=== PATIENT | female | born 1945 | race African-American/Black ===

== ENCOUNTER 2016-11-25 11:59 | Inpatient (IN) | payer MEDICARE, OTHER ==
[~2016-11-25] VITALS: Ht 157.5 cm; Wt 88.6 kg
[~2016-11-25 11:59] MED LIST: ACET-1574 PO; ACET-704 PO; ACET1TAB33 PO; AMIT10TA PO; AMLO5TAB2 PO; AMLO5TAB4 PO; ASCO500T2 PO; CA C1TAB28 PO; CARV12.5 PO; CHOL10003 PO; CILO100T21 PO; CLON1PAT TD; CLON1PAT11 TD; CLOP75TA57 PO; CYCL1DRO EACHEYE; CYCL1DRO OP; DIPH25TA26 PO; DOCU-109 PO; FAMO20TA5 PO; FLUT16SP NS; FURO-68 PO; GABA-585 PO; GLUC1KIT IJ; GLUC1VIA3 IJ; HYDR-2869 PO; IBUP-1060 PO; INSU100C SQ; INSU100I11 SQ; INSU100I18 SQ; INSU100V13 SQ; INSU100V31 SQ; IRON150C15 PO; ISOS1TAB2 PO; ISOS30TA4 PO; KETO125C TP; LEVO500T59 PO; LIDO1KIT TP; LIDO2AMP IT; LOPE2TAB27 PO; LOPE2TAB56 PO; LORA0.5T96 PO; MULT-208 PO; MULT-91 PO; NYST100054 PO; OXYC1TAB7 PO; POTA20TA82 PO; QUET25TA PO; RAMI10CA34 PO; RANI150C PO; RANI150T2 PO; RIVA10TA PO; SENN8.6C2 PO; VIT500LI PO; ZOLP5TAB5 PO; [UNRECOGNIZED DRUG - CODE] IV; [UNRECOGNIZED DRUG - CODE] PO
[2016-11-25 12:17] LABS: BASO # 0.1 x10^3/uL (0.0-0.2); BASO % 1 % (0-3); EOS % 6 % (0-3); HEMATOCRIT 37.3 % (36.0-47.0); HEMOGLOBIN 12.1 g/dL (12.0-15.5); LYMPH # 1.1 x10^3/uL (1.0-4.8); LYMPH % 11 % (24-48); MEAN CORPUSCULAR HEMOGLOBIN 31 pg (25-35); MEAN CORPUSCULAR HGB CONC 33 g/dL (31-37); MEAN CORPUSCULAR VOLUME 94 fL (79-100); MONO % 14 % (0-9); NEUT % 69 % (31-73); PLATELET COUNT 130 x10^3/uL (140-400); RED BLOOD COUNT 3.97 x10^6/uL (3.50-5.40); WHITE BLOOD COUNT 10.1 x10^3/uL (4.0-11.0)
--- NOTE | 2016-11-25 12:18 | EKG ---
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
[2016-11-25 12:26] LABS: PROTHROMBIN TIME PATIENT 12.5 SEC (11.7-14.0)
--- NOTE | 2016-11-25 12:26 | RAD ---
EXAM: Chest, single view. HISTORY: Decreased level consciousness. COMPARISON: 12/08/2014. FINDINGS: A frontal view of the chest is obtained. There is no infiltrate, effusion or pneumothorax. The heart is normal in size. IMPRESSION: No acute pulmonary finding.
[2016-11-25 12:30] LABS: ALBUMIN 2.7 g/dL (3.4-5.0); ALBUMIN/GLOBULIN RATIO 0.8 (1.0-1.7); CREATININE 3.3 mg/dL (0.6-1.0); GFR 16.6; TOTAL BILIRUBIN 0.5 mg/dL (0.2-1.0); TOTAL PROTEIN 6.1 g/dL (6.4-8.2)
--- NOTE | 2016-11-25 12:31 | PHYS DOC ---
Past Medical History Past Medical History: Anemia, CHF, Constipation, CVA, Depression, Diabetes- Type II, Hypertension, Renal Failure, Other Additional Past Medical Histor: neuropathy, obesity, PVD Past Surgical History: Cholecystectomy, Additional Past Surgical Histo: UNKNOWN Alcohol Use: None Drug Use: None Adult General Chief Complaint Chief Complaint: decreased LOC HPI HPI Patient is a 71 year old female brought from [facility] by EMS with multiple complaints. Evidently nursing report was called with the problem of vomiting. EMS reports that they found the patient with decreased level of consciousness,, low blood pressure 60/30, low blood sugar in the 30s. They gave the patient Narcan and her respiratory rate and level of consciousness improved significantly. They gave her D50 and repeat Accu-Chek was in the 200s. On arrival, the patient has her eyes closed but does respond to voice. The patient denies any complaints. I don't believe her history is entirely reliable, but she is answering questions and stated "I believe I'm at [place]". Patient is a resident at [facility]. Patient does not know who her doctor is. Review of Systems Review of Systems Review of systems is not reliable because of the patient's altered level of consciousness Current Medications Current Medications Current Medications Medications (Trade) Dose Ordered Sig/Erick Start Time Stop Time Status Last Admin Dose Admin Potassium Chloride (KCl Oral Soln) 40 meq 1X ONCE 11/25/16 12:45 11/25/16 12:46 DC Allergies Allergies Allergies Coded Allergies Type Severity Reaction Last Updated Verified ampicillin Allergy Intermediate 12/07/14 Yes fentanyl Allergy Intermediate 12/07/14 Yes Physical Exam Physical Exam Constitutional: Well developed, well nourished, eyes are closed and the patient appears to be asleep but the patient does respond verbally to verbal stimuli HENT: Normocephalic, atraumatic, bilateral external ears normal, oropharynx somewhat dry, nose normal. [] Eyes: conjunctiva normal, no discharge. [] Neck: Normal range of motion, no stridor. [] Cardiovascular:Heart rate regular rhythm, no murmur [] Lungs & Thorax: Bilateral breath sounds clear to auscultation [] Abdomen: Bowel sounds normal, soft, no tenderness, no masses, no pulsatile masses. [] Skin: Warm, dry, no erythema, no rash. [] Extremities: No tenderness, no cyanosis, no clubbing, ROM intact, no edema. [] Neurologic: Level of consciousness as described above,, normal motor function, normal sensory function, no focal deficits noted. [] Current Patient Data Vital Signs Vital Signs Date Time Temp Pulse Resp B/P (MAP) Pulse Ox O2 Delivery O2 Flow Rate FiO2 11/25/16 11:59 98.0 75 20 193/78 (116) 97 Room Air 98.0 Lab Values Laboratory Tests Test 11/25/16 12:06 11/25/16 12:30 White Blood Count 10.1 x10^3/uL (4.0-11.0) Red Blood Count 3.97 x10^6/uL (3.50-5.40) Hemoglobin 12.1 g/dL (12.0-15.5) Hematocrit 37.3 % (36.0-47.0) Mean Corpuscular Volume 94 fL (79-100) Mean Corpuscular Hemoglobin 31 pg (25-35) Mean Corpuscular Hemoglobin Concent 33 g/dL (31-37) Red Cell Distribution Width 17.0 % (11.5-14.5) H Platelet Count 130 x10^3/uL (140-400) L Neutrophils (%) (Auto) 69 % (31-73) Lymphocytes (%) (Auto) 11 % (24-48) L Monocytes (%) (Auto) 14 % (0-9) H Eosinophils (%) (Auto) 6 % (0-3) H Basophils (%) (Auto) 1 % (0-3) Neutrophils # (Auto) 6.9 x10^3uL (1.8-7.7) Lymphocytes # (Auto) 1.1 x10^3/uL (1.0-4.8) Monocytes # (Auto) 1.4 x10^3/uL (0.0-1.1) H Eosinophils # (Auto) 0.6 x10^3/uL (0.0-0.7) Basophils # (Auto) 0.1 x10^3/uL (0.0-0.2) Platelet Estimate Decreased (ADEQUATE) Large Platelets Few Giant Platelets Few Basophilic Stippling Present Anisocytosis Slight Schistocytes Few Prothrombin Time 12.5 SEC (11.7-14.0) Prothrombin Time INR 1.0 (0.8-1.1) PTT 26 SEC (24-38) Sodium Level 142 mmol/L (136-145) Potassium Level 2.4 mmol/L (3.5-5.1) *L Chloride Level 103 mmol/L (98-107) Carbon Dioxide Level 28 mmol/L (21-32) Anion Gap 11 (6-14) Blood Urea Nitrogen 56 mg/dL (7-20) H Creatinine 3.3 mg/dL (0.6-1.0) H Estimated GFR (Cockcroft-Gault) 16.6 BUN/Creatinine Ratio 17 (6-20) Glucose Level 153 mg/dL (70-99) H Calcium Level 8.0 mg/dL (8.5-10.1) L Total Bilirubin 0.5 mg/dL (0.2-1.0) Aspartate Amino Transferase (AST) 74 U/L (15-37) H Alanine Aminotransferase (ALT) 30 U/L (14-59) Alkaline Phosphatase 121 U/L (46-116) H Total Protein 6.1 g/dL (6.4-8.2) L Albumin 2.7 g/dL (3.4-5.0) L Albumin/Globulin Ratio 0.8 (1.0-1.7) L Lactic Acid Level 2.4 mmol/L (0.4-2.0) H Laboratory Tests 11/25/16 12:06 Laboratory Tests 11/25/16 12:06 EKG EKG 12-lead EKG read by me. Sinus rhythm. Heart rate 85. There are no acute ST or T wave changes indicative of ischemia or infarction. No rhythm disturbance. No STEMI. 1213 [] Radiology/Procedures Radiology/Procedures One view portable chest x-ray read by the radiologist. No acute findings. [] Course & Med Decision Making Course & Med Decision Making Pertinent Labs and Imaging studies reviewed. (See chart for details) long-term records reviewed. The patient is on Levemir 14 units daily and also NovoLog 3 units 3 times a day. She is also on oxycodone daily. 71-year-old female brought by EMS from the senior living with decreased level of consciousness, on scene EMS found hypoglycemia which they treated, they gave her Narcan which improved her level of consciousness, also her blood pressure was low that because of a history of congestive heart failure they not give any fluids and her blood pressure was improved on ED arrival, likely because of the Narcan. In the ED, she remained stable and did not require further Narcan. About an hour later her repeat Accu-Chek was 99. Labs significant for hypokalemia, increased BUN/creatinine from her previous baseline. I suspect the patient has had too much oxycodone over the last day or so, resulting in decreased by mouth intake which has caused her to have hypoglycemia and dehydration causing acute kidney injury. I started her on D5 half normal with 40 of potassium. She does have a history of CHF so we will not bolus her at this time. Her lactic acid was slightly elevated but may be due to hypotension from opiates. At the time of admission, her urinalysis is pending. Chest x-ray is clear. I do not see any other evidence of infection on clinical evaluation. I discussed the case with Dr. Marks who will admit the patient. I wrote bridge orders. [] Dragon Disclaimer Dragon Disclaimer This electronic medical record was generated, in whole or in part, using a voice recognition dictation system. Departure Departure Impression: Primary Impression: Hypoglycemia associated with type 2 diabetes mellitus Additional Impressions: Hypokalemia Altered level of consciousness Opiate overdose Acute kidney injury Disposition: ADMITTED INPATIENT Admitting Physician: Lauren Marks Condition: STABLE Referrals: JULEE SALAZAR MD (PCP) Problem Qualifiers BAILEY VICTORIA MD November 25, 2016 12:31
[2016-11-25 12:32] LABS: POTASSIUM 2.4 mmol/L (3.5-5.1)
[2016-11-25] MEDS ORDERED: POTASSIUM CHLORIDE 20 MEQ/15 ML ORAL LIQUID. PO ONE (12:45)
[2016-11-25 13:08] LABS: ANISOCYTOSIS SLIGHT; PLT ESTIMATE DECREASED (ADEQUATE)
[2016-11-25 13:09] LABS: SCHISTOCYTES FEW
[2016-11-25] MEDS ORDERED: POTASSIUM CL 40MEQ D5-0.45NACL 1,000 ML IV ONE (13:30)
[2016-11-25 13:49] LABS: BILIRUBIN,URINE NEGATIVE (NEG); GLUCOSE,URINE NEGATIVE (NEG); NITRITE,URINE NEGATIVE (NEG); PROTEIN,URINE NEGATIVE (NEG-TRACE); UROBILINOGEN,URINE 0.2 mg/dL (0.2 mg/dL)
[2016-11-25 14:00] LABS: BACTERIA,URINE MANY /HPF (0-FEW); RBC,URINE 0 /HPF (0-2); SQUAMOUS EPITHELIAL CELL,UR FEW /LPF
[2016-11-25 15:00] VITALS: BP_SYST 113; BP_SYST 147; BP_DIAS 53; BP_DIAS 78
--- NOTE | 2016-11-25 15:20 | ACF ---
Admission Forms Criteria GENERAL ADMISSION CRITERIA (Place 'X' for any and all applicable criteria): Admission is indicated for ANY ONE of the following: [ ]I. Hemodynamic instability as indicated by ANY ONE of the following(1)(2) (3)(4)(5): [ ]a) Vital sign abnormality not readily corrected by appropriate treatment within 12 to 24 hours indicated by ANY ONE of the following: [ ]i) Hypotension [ ]ii) Symptomatic Tachycardia unresponsive to treatment (eg , analgesia, fluids, sedation as indicated) [ ]iii) Orthostatic vital sign changes unresponsive to treatment (eg, fluids) [ ]b) Vital sign abnormality that is severe indicated by ANY ONE of the following: [ ]i) Inadequate perfusion indicated by ANY ONE of the following: [ ]1) Lactic acidosis (greater than 2 mmol/L) [ ]2) New abnormal capillary refill (greater than 3 seconds) [ ]3) Other metabolic acidosis (arterial pH less than 7.35) not otherwise explained [ ]4) Reduced urine output [ ]5) Altered mental status [ ]6) Myocardial Ischemia [ ]v) Mean arterial pressure[A] less than 60 mm Hg [ ]vi) Mean arterial pressure[A] less than 70 mm Hg after 30 minutes of appropriate treatment (eg, fluid resuscitation) [ ]vii) IV inotropic or vasopressor medication required to maintain adequate blood pressure or perfusion [ ]viii) Sustained heart rate greater than 120 beats per minute in adult or child 6 years or older[B]] [ ]II. Hypertension requiring inpatient treatment as indicated by ANY ONE of the following(6)(7)(8): [ ]a) SBP greater than 220 mm Hg or DBP greater than 120 mm Hg despite treatment [ ]b) SBP greater than 140 mm Hg or DBP greater than 100 mm Hg with evidence of acute end organ damage as indicated by ANY ONE of the following: [ ]i) Encephalopathy [ ]ii) Acute renal failure as indicated by new onset of ANY ONE of the following(9)(10)(11)(12)(13): [ ]1) A 3-fold rise in serum creatinine from baseline [ ]2) Serum creatinine greater than 4 mg/dL ( 354 micromoles/L) with acute rise greater than 0.5 mg/dL (44.2 micromoles/L) [ ]3) Reduction of more than 75% in estimated glomerular filtration rate from baseline [ ]4) Estimated glomerular filtration rate less than 35 mL/min/1.73m2 (0.59 mL/sec/1.73m2) in child up to 18 years of age [ ]5) Cessation of urine output indicated by ALL of the following: [ ]A. Adequate volume status [ ]B. Inadequate urine output as indicated by ANY ONE of the following: [ ]a. Urine output less than 0.3 mL/kg/hr for 24 hours [ ]b. Anuria (urine output less than 0.1 mL/kg/hr) for 12 hours [ ]iii) Aortic dissection [ ]iv) Myocardial ischemia [ ]v) Left ventricular heart failure [ ]vi) Retinal hemorrhage [ ]vii) Other significant finding [ ]c) Hypertension in child requiring inpatient treatment as indicated by ALL of the following(14)(15)(16): [ ]i) Outpatient treatment not effective, not available, or not appropriate [ ]ii) SBP or DBP greater than 95th percentile for age [ ]iii) Evidence of acute end organ damage as indicated by ANY ONE of the following: [ ]1) Altered mental status [ ]2) Acute renal failure as indicated by new onset of ANY ONE of the following(9)(10)(11)(12)(13): [ ]A. A 3-fold rise in serum creatinine from baseline [ ]B. Serum creatinine greater than 4 mg/dL (354 micromoles/L) with acute rise greater than 0.5 mg/dL (44.2 micromoles/L) [ ]C. Reduction of more than 75% in estimated glomerular filtration rate from baseline [ ]D. Estimated glomerular filtration rate less than 35 mL/min/1.73m2 (0.59 mL/sec/1.73m2)in child up to 18 years of age [ ]E. Cessation of urine output indicated by ALL of the following: [ ]a. Adequate volume status [ ]b. Inadequate urine output as indicated by ANY ONE of the following: [ ]1) Urine output less than 0.3 mL/kg/hr for 24 hours [ ]2) Anuria (urine output less than 0.1 mL/kg/hr) for 12 hours [ ]3) Severe headache [ ]4) Visual disturbance [ ]5) Retinal hemorrhage [ ]6) Other significant finding [ ]III. Acute cardiac or peripheral ischemia as indicated by ANY ONE of the following: [ ]a) Acute coronary syndrome(17)(18) [ ]b) Acute peripheral ischemia (eg, pulseless, cool, mottled, or cyanotic extremity)(19) [ ]IV. Cardiac arrhythmias or findings of immediate concern indicated by ANY ONE of the following(20)(21): [ ]a) Heart rhythms that are inherently dangerous or unstable indicated by ANY ONE of the following(22)(23)(24): [ ]i) Resuscitated ventricular fibrillation or cardiac arrest [ ]ii) Ventricular escape rhythm [ ]iii) Sustained ventricular tachycardia (30 seconds or more of ventricular rhythm at greater than 100 beats per minute) [ ]iv) Nonsustained ventricular tachycardia and ANY ONE of the following: [ ]1) Suspected cardiac ischemia as cause or consequence of ventricular tachycardia [ ]2) In setting of acute myocarditis [ ]b) Unstable cardiac conduction defects indicated by ANY ONE of the following(24)(25)(26): [ ]i) Type II second-degree atrioventricular block [ ]ii) Third-degree atrioventricular block [ ]iii) New-onset left bundle branch block with suspected myocardial ischemia [ ]c) Any heart rhythm and ANY ONE of the following(22)(23)(27)(28)( 29): [ ] i) Continuous long-term ECG monitoring needed (eg, initiation of drug requiring monitoring for more than 24 hours) [ ] ii) Patient has automatic implanted cardioverter defibrillator that is repeatedly firing, malfunctioning, or in need of immediate adjustment of settings beyond the scope of ambulatory or observation care. [ ]d) Heart rhythms of concern due to ANY ONE of the following: [ ]i) Hypotension [ ]ii) Respiratory distress [ ]iii) Association with other significant symptoms (eg, bradycardia with syncope or ongoing dizziness, supraventricular tachycardia with chest pain) (27)(28) (30) [ ] V. Severe heart failure as indicated by ANY ONE of the following ( 31)(32): [ ]a) Respiratory distress [ ]b) Hypotension [ ]c) Anasarca (refractory to outpatient therapy) [ ]d) Cardiac arrhythmias of immediate concern [ ]e) Myocardial ischemia [ ]. Respiratory abnormalities, including ANY ONE of the following(33)(34) (35)(36): [ ]a) Respiratory rate greater than 30 breaths per minute unresponsive to treatment [A] [ ]b) New saturation of arterial oxygen less than 90% [ ]c) New partial pressure of carbon dioxide greater than 44 mm Hg ( 5.9 kPa) [ ]d) Supplemental oxygen or respiratory treatments needed that are new or not performable at other levels of care [ ]e) New-onset cyanosis [ ]f) Inability to protect airway [ ]g) Chronic lung disease with severe deterioration (not responsive to emergency and observation care treatment as appropriate) as indicated by ANY ONE of the following(34)(36 ): [ ]i) SaO2 5% below baseline in patient with chronic hypoxemia [ ]ii) New requirement for supplemental oxygen to keep SaO2 at baseline or acceptable level [ ]iii) Required supplemental oxygen performable only in acute inpatient setting [ ]iv) Severe airflow or ventilation abnormalities [ ]v) Previously mobile patient unable to walk between rooms [ ]vi Inability to eat or sleep due to dyspnea [ ]vii) Rapid rate of exacerbation onset [ ]viii) Altered mental status ]VII. Severe airflow or ventilation abnormalities (not responsive to emergency and observation care treatment as appropriate) as indicated by ANY ONE of the following(33)(34)(35)(37): [ ]a) PCO2 greater than 42 mm Hg (5.6 kPa) and pH less than 7.35 (new ) [ ]b) Documented PCO2 increased more than 5 mm Hg (0.7 kPa) from disease baseline [ ]c) Airflow measurements [B] less than 60% of previous best or predicted (eg, peak expiratory flow rate less than 300 L/minute) despite intensive emergent treatment [C] [ ]d) Required respiratory treatments that are performable only in acute inpatient setting [ ]VIII. Impending or actual respiratory arrest ( Also use Respiratory Failure GRG for severe respiratory disease and long-term mechanical ventilation patients) [ ]IX. Neurologic abnormalities, including ANY ONE of the following: [ ]a) New findings that suggest ANY ONE of the following: [ ]i) [employer] infection(38) [ ]ii) Cerebral bleeding, ischemia, or vasospasm(39)(40) [ ]iii) Increased intracranial pressure, hydrocephalus, or cerebral edema(41)(42)(43) [ ]iv) Spinal cord injury(44) [ ]b) Uncontrolled seizures(45) [ ]c) New-onset coma (eg, Merissa coma scale score less than 9) or unexplained abnormal mental status (eg, Merissa coma scale score less than 14) [D](41)(46)(47) [ ]X. New-onset severe neurologic findings requiring inpatient care; examples include(42)(48)(49): [ ]a) Papilledema [ ]b) Cerebral edema [ ]c) Mass effect on CT scan [ ]XI. Suspected acute intra-abdominal process with peritoneal signs, abdominal mass, or similar findings (50)(51)(52) [X]XII. Severe physiologic disorder remaining after emergency or observation level care (as appropriate) as indicated by ANY ONE of the following (53): [ ]a) Significant dehydration [ ]b) Diabetic ketoacidosis [ ]c) Hyperglycemic hyperosmolar state (eg, osmolality greater than 320 mOsm/kg (mmol/kg) [X]d) Hypoglycemia [ ]e) Other (new) acid-base disorder with pH less than 7.35 or greater than 7.5(54) [ ]f) Thyroid storm (55) [ ]g) Myxedema coma (55) [ ]XIII. Abdominal abnormalities with ANY ONE of the following(56)(57): [ ]a) Absent bowel sounds with complete ileus [ ]b) Signs of intestinal obstruction or peritonitis [E] [ ]c) Nausea and vomiting that cannot be controlled with outpatient or observation care [ ]XIV. Acute renal failure as indicated by new onset of ANY ONE of the following(9)(10)(11)(12)(13): [ ]a) A 3-fold rise in serum creatinine from baseline [ ]b) Serum creatinine greater than 4 mg/dL (354 micromoles/L) with acute rise greater than 0.5 mg/dL (44.2 micromoles/L) [ ]c) Reduction of more than 75% in estimated glomerular filtration rate from baseline [ ]d) Estimated glomerular filtration rate less than 35 mL/min/ 1.73m2 (0.59 mL/sec/1.73m2) in child up to 18 years of age [ ]e) Cessation of urine output indicated by ALL of the following: [ ]i) Adequate volume status [ ]ii) Inadequate urine output as indicated by ANY ONE of the following: [ ]1) Urine output less than 0.3 mL/kg/hr for 24 hours [ ]2) Anuria (urine output less than 0.1 mL/kg/hr) for 12 hours [ ]XV. Significant uremic complications as indicated by ANY ONE of the following(58)(59)(60): [ ]a) Outpatient therapy is ineffective or not feasible for ANY ONE of the following: [ ]i) Severe heart failure [ ]ii) Severehypertension [ ]iii) Pleural effusion [ ]iv) Pericarditis or pericardial effusion [ ]b) Cardiac arrhythmias of immediate concern [ ]c) Intractable nausea or vomiting [ ]d) Recurrent seizures [ ]e) Encephalopathy [ ]f) Bleeding abnormalities (eg, platelet dysfunction) with active (eg, gastrointestinal) bleeding [ ]g) Dialysis indicated before long-term access or ambulatory arrangements can be made [ ]h) Significant metabolic or electrolyte abnormalities (eg, severe acidosis or hyperkalemia) [ ]XVI. High fever or other high-risk infection situation as indicated by ANY ONE of the following(61)(62)(63)(64): [ ]a) Outpatient and observation care antimicrobial treatment unavailable, not effective, or not appropriate [ ]b) Documented bacteremia [ ]c) Temperature greater than 40.5 degrees C (104.9 degrees F) ( oral) [ ]d) Temperature greater than 39.5 degrees C (103.1 degrees F) ( oral) or less than 36 degrees C (96.8 degrees F) (rectal) that does not respond to e treatment and observation care [ ] XVII. Temperature less than 95 degrees F (35 degrees C)(rectal)(65) [ ] XVIII. Severe nutritional abnormalities as indicated by ALL of the following (66)(67): [ ]a) Inability to tolerate or establish sufficient oral or other enteral nutrition in outpatient setting [ ]b) Parenteral nutrition regimen need that must be implemented on inpatient basis [ ] XIX. Severe electrolyte abnormalities indicated by ALL of the following(68) (69)(70): [ ]a) Electrolytes and associated findings are not as expected for patient baseline or acceptable treatment effects. [ ]b) Severe abnormalities indicated by ANY ONE of the following: [ ]i) Sodium less than 130 mEq/L (mmol/L) (new) [ ]ii)Sodium less than 135 mEq/L (mmol/L) with ANY ONE of the following: [ ]1) Uncorrectable (to near normal or chronic baseline) after trial of outpatient and emergency treatment [ ]2) Altered mental status [ ]3) Seizures [ ]4) Severe medical etiology requiring inpatient management (eg, heart failure, hypovolemia) [ ]iii) Sodium greater than 155 mEq/L (mmol/L) [ ]iv) Sodium greater than 150 mEq/L (mmol/L) with ANY ONE of the following: [ ]1) Uncorrectable (to near normal or chronic baseline) with outpatient and emergency treatment [ ]2) Altered mental status [ ]3) Seizures [ ]4) Severe medical etiology (eg, hypovolemia, diabetes insipidus) [ ]v) Potassium less than 2.5 mEq/L (mmol/L) despite outpatient and emergency treatment [ ]vi) Potassium less than 3 mEq/L (mmol/L) with ANY ONE of the following: [ ]1) Weakness [ ]2) Cardiac abnormality (eg, arrhythmia, conduction disturbance) [ ]3) Cardiac ischemia [ ]4) Ileus [ ]5) Ongoing medical cause requiring inpatient management (eg, acute renal wasting or SIADH) [ ]6) Other severe symptoms [ ]vii) Potassium greater than 6.5 mEq/L (mmol/L) [ ]viii) Potassium greater than 5 mEq/L (mmol/L) with ANY ONE of the following: [ ]1) Uncorrectable (to near normal or chronic baseline) with outpatient and emergency treatment [ ]2) Severe ECG findings [F] [ ]3) Acute worsening of renal failure (creatinine greater than 2.5 mg/dL (221 micromoles/L) or significant elevation for age and size) [ ]4) Severe weakness [ ]5) Severe medical etiology (eg, hemolysis, infection, drug overdose) [ ]ix) Calcium less than 7 mg/dL (1.75 mmol/L) despite outpatient and emergency treatment (72) [ ]x) Calcium less than 8 mg/dL (2 mmol/L) with significant symptoms or findings; examples include(72): [ ]1) Altered mental status [ ]2) Muscle spasms [ ]3) Seizures [ ]4) Breathing difficulty [ ]5) Cardiac abnormality (eg, arrhythmia or conduction disturbance) [ ]xi) Calcium greater than 14 mg/dL (3.5 mmol/L)(72) [ ]xii) Calcium greater than 12 mg/dL (3 mmol/L) with ANY ONE of the following(72): [ ]1) Uncorrectable (to near normal or chronic baseline) with outpatient and emergency treatment [ ]2) Significant dehydration or hypovolemia as indicated by ALL of the following(70)(73)(74): [ ]A. Not resolved with initial treatments [ ]B. Clinically significant dehydration as indicated by ANY ONE of the following: [ ]a. Vomiting refractory to outpatient treatment (ie, precluding oral rehydration) [ ]b. Inability to drink [ ]c. Hypernatremia or other electrolyte abnormality unable to be corrected with outpatient and emergency treatment [ ]d. Failure to remain hydrated with outpatient therapy [ ]e. Reduced urine output [ ]f. Hypotension [ ]g. Serious cause for dehydration requiring acute hospitalization (eg, bowel obstruction, increased intracranial pressure, infectious cause) [ ]h. Child with ANY ONE of the following(75): [ ]1) Severe abdominal tenderness [ ]2) Adequate care not available at home [ ]3) Severe dehydration ( greater than 9% loss of body weight) [ ]4) Significant symptoms or findings; examples include: [ ]A. Altered mental status [ ]B. Cardiac abnormality (eg, arrhythmia, conduction disturbance) [ ]C. Malignant etiology requiring inpatient treatment [ ]xiii) Phosphorus less than 1 mg/dL (0.32 mmol/L) [ ]xiv) Phosphorus less than 1.5 mg/dL (0.48 mmol/L) with ANY ONE of the following: [ ]1) Patient unresponsive to outpatient and emergency treatment [ ]2) Significant symptoms or findings; examples include: [ ]A. Weakness [ ]B. Altered mental status [ ]C. Breathing difficulty [ ]D. Seizures [ ]E. Rhabdomyolysis [ ]xv) Phosphorus greater than 10 mg/dL (3.2 mmol/L) [ ]xvi) Phosphorus greater than 4.5 mg/dL (1.45 mmol/L) (new) with ANY ONE of the following: [ ]1) Severe medical etiology (eg, crush injury, acute renal failure) [ ]2) Associated hypocalcemia with significant findings; examples include: [ ]A. Neurologic symptoms [ ]B. Altered mental status [ ]C. Muscle spasms [ ]D. Seizures [ ]E. Breathing difficulty [ ]F. Cardiac abnormality (eg, arrhythmia, conduction disturbance) [ ]xvii) Magnesium less than 1 mg/dL (0.41 mmol/L) [ ]xviii) Magnesium less than 1.5 mg/dL (0.62 mmol/L) with ANY ONE of the following: [ ]1) Patient unresponsive to outpatient and emergency treatment [ ]2) Associated hypocalcemia with significant findings; examples include: [ ]A. Altered mental status [ ]B. Muscle spasms [ ]C. Seizures [ ]D. Breathing difficulty [ ]E. Cardiac abnormality (eg, arrhythmia , conduction disturbance) [ ]3) Associated hypokalemia (potassium less than 3 mEq/L (mmol/L)) with risk of arrhythmia [ ]xix) Magnesium greater than 4 mEq/L (2 mmol/L) [ ]xx) Magnesium greater than 2.5 mEq/L (1.25 mmol/L) with significant symptoms or findings; examples include: [ ]1) Weakness [ ]2) Altered mental status [ ]3) Cardiac abnormality (eg, arrhythmia, conduction disturbance) [ ]4) Breathing difficulty [ ]5) Severe medical etiology (eg, renal failure, hypovolemia) [ ]xxi) Uric acid greater than 20 mg/dL (1190 micromoles/L)(76) [ ]xxii) Uric acid greater than 8 mg/dL (476 micromoles/L) with significant symptoms or findings of tumor lysis syndrome; examples include(76): [ ]1) Creatinine greater than 1.5 times upper limit of normal [ ]2) Cardiac abnormality (eg, arrhythmia, conduction disturbance) [ ]3) Seizure [ ]XX. Acute blood loss causing significant abnormality as indicated by ANY ONE of the following(77)(78): [ ]a) Hemoglobin less than 10 g/dL (100 g/L) (not baseline) [ ]b) Hematocrit less than 30% (0.30) (not baseline) [ ]c) Repeat hematocrit decreased more than 2% (0.02) [ ]d) Uncontrolled bleeding [ ]XXI. Severe anemia indicated by ANY ONE of the following(78)(79): [ ]a) Altered mental status [ ]b) Chest pain [ ]c) Exertional dyspnea [ ]d) Syncope [ ]e) Other findings suggesting inadequate perfusion [ ]f) Treatment with transfusion or volume replacement is ineffective at resolving ANY ONE of the following [G]: [ ]i) Tachycardia for age [ ]ii) Orthostatic vital sign changes as indicated by ANY ONE of the following(80): [ ]1) Fall in SBP of 20 mm Hg or more 1 to 3 minutes after patient sits or stands from recumbent position [ ]2) Fall in DBP of 10 mm Hg or more 1 to 3 minutes after patient sits or stands from recumbent position [ ]XXII. High-risk low platelet count as indicated by ANY ONE of the following( 81)(82): [ ]a) Severe or life-threatening bleeding (eg, intracranial, major gastrointestinal, or extensive mucosal bleeding), with any reduced platelet count [ ]b) Platelet count less than 20,000/mm3 (20 x109/L) with any active bleeding [ ]c) Platelet count less than 10,000/mm3 (10 x109/L) with minor purpura or petechiae [ ]d) Platelet count less than 5000/mm3 (5 x109/L) [ ]e) Low platelet count with hemolytic anemia [ ]XXIII. Disseminated intravascular coagulation(77)(83) [ ]XXIV. Severe adverse drug or systemic toxin reaction requiring inpatient treatment; examples include(84)(85): [ ]a) Serotonin syndrome(86) [ ]b) Neuroleptic malignant syndrome(86) [ ]c) Cholinergic syndrome with severe symptoms (eg, bronchorrhea, weakness, mental status changes, seizures) [ ]d) Sympathetic syndrome with severe symptoms (eg, seizures, mental status changes, cardiac dysrhythmias) [ ]e) Anticholinergic syndrome [ ]XXV. Severe pain requiring acute inpatient management as indicated by ALL of the following (87)(88)(89): [ ]a) Continuous or frequent (eg, every 2 to 4 hours) parenteral analgesics required [H] [ ]b) Rapid improvement expected from treatment or acute intervention (eg, surgery, anesthesia procedure) [ ]XXVI.Severe behavioral health issues judged unmanageable at a lower level of care (eg, residential) in a patient who is ANY ONE of the following(91) [ ]a) Acutely suicidal [ ]b) A danger to self (eg, self-mutilating or suicidal behavior) [ ]c) A danger to others (eg, assaultive or homicidal behavior) [ ]d) Incapacitated because of grave disability (eg, inability to provide for self at lower level of care) (92) [ ]XXVII. Inpatient monitoring needed; examples include(1)(3)(87)(93)(94)(95)(96 ): [ ]a) Vital signs, neurologic signs, or vascular checks more frequently than every 4 hours [ ]b) Cardiac or respiratory monitoring beyond the scope (eg, over 24 hours) of observation care [ ]c) Pulmonary artery catheter monitoring [ ]d) Suspected compartment syndrome(97) (98) [ ]e) Cerebral bleeding, hydrocephalus, or vasospasm monitoring [ ]f) Increased intracranial pressure or cerebral edema monitoring [ ]g) monitoring [ ]XXVIII. Treatment requiring inpatient care; examples include: [ ]a) IV fluid to replace significant ongoing losses (greater than 3 L/m2 per day)(53) [ ]b) High concentration oxygen (greater than 40%)(33)(99)(100) [ ]c) Frequent respiratory therapy (more frequently than every 4 hours) to maintain airflow rates greater than 60% of baseline(33)(99)(100) [ ]d) Epidural analgesia(87) [ ]e) IV anticoagulation, vasoactive, or antiarrhythmic medication(19 )(23) [ ]f) Acute thrombolytics (generally require 24 hours of observation )(101)(102) [ ]XXIX. Emergency procedures needed; examples include: [ ]a) Emergency inpatient surgery [ ]b) Temporary pacemaker placement(103) [ ]c) Chest tube placement with active evacuation (eg, suction, drainage)(104) [ ]d) Emergent cardioversion(105) [ ]e) Emergent cardiac or vascular procedures (eg, cardiac catheterization, angioplasty) (17)(18) [ ]f) Emergent dialysis access placement and institution(10)(106) [ ]g) Emergent pericardiocentesis(107) [ ]h) Emergent plasmapheresis or leukapheresis(83) [ ]i) Emergent tracheostomy The original [employer] content created by [employer] has been revised. The portions of the content which have been revised are identified through the use of italic text or in bold, and [employer] has neither reviewed nor approved the modified material. All other unmodified content is copyright [employer]. Please see references footnoted in the original [employer] edition 2016 Admission Criteria Met?: Yes CODY ALVARADO November 25, 2016 15:19
[2016-11-25 15:41] VITALS: BP 113/53
[2016-11-25] MEDS ORDERED: FURO40TA4 PO (15:52)
[2016-11-25] MEDS ORDERED: HYDR100T24 PO (15:55)
[2016-11-25] MEDS ORDERED: GABA-585 PO (16:01)
[2016-11-25] MEDS ORDERED: LIDO700A4 TP (16:03)
[2016-11-25] MEDS ORDERED: COLC0.6T34 PO (16:04)
[2016-11-25] MEDS ORDERED: ALLO100T PO (16:05)
[2016-11-25] MEDS ORDERED: ASPI-482 PO (16:05)
[2016-11-25 19:00] VITALS: BP 100/41
[2016-11-25] MEDS ORDERED: oxyCODONE/APAP 5/325 1 TAB TABLET PO PRN (20:00)
--- NOTE | 2016-11-25 20:56 | HP ---
ADMIT DATE: 11/25/2016 CHIEF COMPLAINT: Mental status change. HISTORY OF PRESENT ILLNESS: The patient is a pleasant 71-year-old female, who resides at a nursing facility. She developed mental status change. They called the ambulance. When the EMS arrived, her pressure was 60/30 and her glucose was 30. They gave her Narcan and glucose and she responded to both. She has now been brought to our facility. We are going to admit the patient and do frequent Accu-Cheks and I am going to start her home meds, but I am going to hold her insulin for a day or so. PAST MEDICAL HISTORY: Neuropathy, obesity, anemia, CHF, constipation, stroke, depression, diabetes, hypertension, renal failure, peripheral vascular disease, , and cholecystectomy. ALLERGIES: None. FAMILY HISTORY: Hypertension. SOCIAL HISTORY: She does not drink, smoke, or take drugs. She lives in a custodial. MEDICATIONS: Reviewed, please refer to the MRAD. REVIEW OF SYSTEMS: Unobtainable. PHYSICAL EXAMINATION: GENERAL: The patient really does not want to talk, does not wake up much. VITAL SIGNS: I had a nurse go and check her sugar right now and it is 144. HEART: Distant S1, S2. LUNGS: Clear to auscultation. ABDOMEN: Soft, positive bowel sounds. EXTREMITIES: Trace edema. SKIN: No rashes. ENDOCRINE: No thyromegaly. LYMPHATICS: No cervical nodes. HEMATOPOIETIC: No bruising. ASSESSMENT AND PLAN: Critical hypoglycemia and probable narcotic toxicity (she did respond to Narcan). We will go ahead and do frequent Accu-Cheks. I discussed the case with the nurse and the ER physician. Hold her home insulin. I will resume most of her other home meds, PT, OT, custodial evaluation, and frequent labs. TALIA ROTHMAN DO DR: HUNTER/keila JOB#: [id number] / [id number]
[2016-11-25] MEDS: QUEtiapine 25 MG TABLET. PO SCH (21:00)
[2016-11-25] MEDS: LIDOCAINE (700MG/PATCH) PATCH. TP SCH (21:34)
[2016-11-25] MEDS: COLCHICINE 0.6 MG TABLET PO SCH (21:37)
[2016-11-25] MEDS: GABAPENTIN 100 MG CAPSULE. PO SCH (21:38)
[2016-11-25] MEDS: cycloSPORINE 0.05% OPTH 1 DROP DROPERETTE OU SCH (21:38)
[2016-11-25 22:59] VITALS: BP 100/40
[2016-11-26 02:54] VITALS: BP 128/54
[2016-11-26 07:00] VITALS: BP 123/49
[2016-11-26] MEDS ORDERED: IV NORMAL SALINE 500ML BAG 500 ML IV PRN (08:15)
[2016-11-26] MEDS ORDERED: MAGNESIUM SULFATE 2GM 50 ML IV PRN (08:15)
--- NOTE | 2016-11-26 08:19 | PDOC2 ---
CONSULT Date of Consult Date of Consult DATE: 11/26/16 TIME: 08:12 Reason for Consult Reason for Consult: [place], CKD ad Hypokalemia Referring Physician Referring Physician: Dr Marks Identification/Chief Complaint Chief Complaint AMS Problems: Source Source: Chart review, Patient History of Present Illness Reason for Visit: AMS Past Medical History Cardiovascular: CHF, HTN, Hyperlipidemia, Other CENTRAL NERVOUS SYSTEM: Periperal neuropathy GI: GERD Heme/Onc: Anemia NOS, B12 deficiency Psych: Schizophrenia Musculoskeletal: Osteoarthritis, Other Rheumatologic: Gout Renal/: Chronic renal insuff, Acute renal failure, Urinary Incontinence Endocrine: Diabetes Past Surgical History Past Surgical History: Cholecystectomy, , Other Family History Family History: Cancer, Coronary Artery Disease Social History ALCOHOL: none Drugs: None Lives: Assisted Domestic Violence: Neg Current Problem List Problem List Problems Medical Problems: (1) Acute kidney injury Status: Acute (2) Altered level of consciousness Status: Acute (3) Hypoglycemia associated with type 2 diabetes mellitus Status: Acute (4) Hypokalemia Status: Acute (5) Opiate overdose Status: Acute Current Medications Current Medications Current Medications Potassium Chloride (KCl Oral Soln) 40 meq 1X ONCE PO Last administered on 11/25 14:07; Start 11/25/16 at 12:45; Stop 11/25/16 at 12:46; Status DC Potassium Chloride/Dextrose/ Sod Cl 1,000 ml @ 75 mls/hr 1X ONCE IV Last administered on 11/25/16 15:16; Start 11/25/16 at 13:30; Stop 11/26/16 at 02:49 ; Status DC Allopurinol (Zyloprim) 100 mg DAILY PO ; Start 11/26/16 at 09:00 Aspirin (Ecotrin) 81 mg DAILY08 PO ; Start 11/26/16 at 08:00 Carvedilol (Coreg) 25 mg BIDWMEALS PO ; Start 11/26/16 at 08:00 Clonidine HCl (Catapres Tts-3) 1 patch WEEKLY TD ; Start 11/26/16 at 09:00 Colchicine (Colcrys) 0.6 mg BID PO Last administered on 11/25/16 21:37; Start 11/25/16 at 21:00 Cyclosporine (Restasis) 1 drop BID OU Last administered on 11/25/16 21:38; Start 11/25/16 at 21:00 Furosemide (Lasix) 40 mg BID94 PO ; Start 11/26/16 at 09:00 Gabapentin (Neurontin) 100 mg BID PO Last administered on 11/25/16 21:38; Start 11/25/16 at 21:00 Isosorbide Mononitrate (Imdur) 30 mg DAILY PO ; Start 11/26/16 at 09:00 Lidocaine (Lidoderm) 1 patch HS TP Last administered on 11/25/16 21:34; Start 11/25/16 at 21:00 Oxycodone/ Acetaminophen (Percocet 5/325) 1 tab PRN BID PRN PO PAIN SEVERE; Start 11/25/16 at 20:00 Quetiapine Fumarate (SEROquel) 25 mg BID PO ; Start 11/25/16 at 21:00 Active Scripts Active Reported Aspir 81 (Aspirin) 81 Mg Tablet.dr 1 Tab PO DAILY Allopurinol 100 Mg Tablet 1 Tab PO DAILY Colcrys (Colchicine) 0.6 Mg Tablet 1 Tab PO BID Lidoderm (Lidocaine) 700 Mg Adh..patch 1 Patch TP HS Gabapentin 100 Mg Capsule 100 Mg PO BID Hydralazine Hcl 100 Mg Tablet 1 Tab PO TID Furosemide 40 Mg Tablet 40 Mg PO BID Oxycodone-Acetaminophen 5-325 (Oxycodone Hcl/Acetaminophen) 1 Each Tablet 1 Each PO BID PRN Restasis (Cyclosporine) 1 Each Droperette 1 Drop EACHEYE BID Isosorbide Mononitrate Er (Isosorbide Mononitrate) 30 Mg Tab.er.24h 30 Mg PO DAILY Quetiapine Fumarate 25 Mg Tablet 25 Mg PO BID Coreg (Carvedilol) 12.5 Mg Tablet 25 Mg PO BID Catapres-Tts 3 (Clonidine) 1 Each Patch.tdwk 1 Each TD WEEKLY Pletal (Cilostazol) 100 Mg Tablet 100 Mg PO DAILYBFRLUN Acetaminophen Ext.release (Acetaminophen) 650 Mg Tablet.er 650 Mg PO Q6HRS PRN Levemir Flexpen (Insulin Detemir) 100 Unit/1 Ml Insuln.pen 14 Unit SQ DAILYWSUP Humalog (Insulin Lispro) 100 Unit/1 Ml Cartridge 3 Unit SQ TIDAC Glucagon Emergency Kit (Glucagon,Human Recombinant) 1 Mg Kit 1 Mg IJ Allergies Allergies: Coded Allergies: ampicillin (Verified Allergy, Intermediate, 12/07/14) fentanyl (Verified Allergy, Intermediate, 12/07/14) ROS Review of System GEN: no Fevers no Chills EYES: no new 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 Depression SKIN: no Rashes ENDO: no Polyuria or Polydipsia no Hot/Cold Intolerance MU SK: no Arthraigia no Myalgia Physical Exam Physical Exam General Appearance: Awake Alert Oriented x 2 In no Distress Eyes: VIsion Unchanged Conjunctiva Normal EN: No EN Drainage Mucous Memb. moist Neck: no JVD no JVP Supple no Thyromegaly - short neck CVS: S1 S2 + Murmur No Gallop No Rub no Edema Resp: no Rales no Rhonchi no Acc. Muscle use GI: BAS +ve NO Bruit Non Tender Non Distended : no CVA tenderness; no Suprapubic Tenderness SKIN: no Rashes Breast Exam deferred Mu.Sk: dec ROM in lower ext no Muscle Atrophy Heme: Unable to palpate Obvious LAD no Splenomegaly NEURO: Good Strength and Tone Cranial Nerves II - XII grossly intact Psych: no t Depressed no Active hallucination Vital Signs Vital Signs Date Time Temp Pulse Resp B/P (MAP) Pulse Ox O2 Delivery O2 Flow Rate FiO2 11/26/16 02:54 99.0 84 18 128/54 (78) 91 Room Air 99.0 Assessment & Plan [place] - (VMN) due to NVD and hypotension, Current FLuid and E-lyte status does not necessitate emergent need for Dialysis. Will re-evaluate for Dialysis in am. UA looks benign CKD III with min atrophic Kidneys on previous US (baseline creat is ~ 1.4) HypoKalemia - replace as ordered, check mag due to diarrhea Vol depltion - IVF as ordered HypoTN: now resolved with IVF ? SIRS/ Sepsis - may need ID Eval for multi-organismal +ve Bl Cx Discussed Plan of Care and prognosis etc. at length with family. Labs Labs Laboratory Tests Test 11/25/16 12:06 11/25/16 12:30 11/25/16 13:17 11/25/16 13:41 White Blood Count 10.1 x10^3/uL (4.0-11.0) Red Blood Count 3.97 x10^6/uL (3.50-5.40) Hemoglobin 12.1 g/dL (12.0-15.5) Hematocrit 37.3 % (36.0-47.0) Mean Corpuscular Volume 94 fL (79-100) Mean Corpuscular Hemoglobin 31 pg (25-35) Mean Corpuscular Hemoglobin Concent 33 g/dL (31-37) Red Cell Distribution Width 17.0 % (11.5-14.5) Platelet Count 130 x10^3/uL (140-400) Neutrophils (%) (Auto) 69 % (31-73) Lymphocytes (%) (Auto) 11 % (24-48) Monocytes (%) (Auto) 14 % (0-9) Eosinophils (%) (Auto) 6 % (0-3) Basophils (%) (Auto) 1 % (0-3) Neutrophils # (Auto) 6.9 x10^3uL (1.8-7.7) Lymphocytes # (Auto) 1.1 x10^3/uL (1.0-4.8) Monocytes # (Auto) 1.4 x10^3/uL (0.0-1.1) Eosinophils # (Auto) 0.6 x10^3/uL (0.0-0.7) Basophils # (Auto) 0.1 x10^3/uL (0.0-0.2) Platelet Estimate Decreased (ADEQUATE) Large Platelets Few Giant Platelets Few Basophilic Stippling Present Anisocytosis Slight Schistocytes Few Prothrombin Time 12.5 SEC (11.7-14.0) Prothromb Time International Ratio 1.0 (0.8-1.1) Activated Partial Thromboplast Time 26 SEC (24-38) Sodium Level 142 mmol/L (136-145) Potassium Level 2.4 mmol/L (3.5-5.1) Chloride Level 103 mmol/L (98-107) Carbon Dioxide Level 28 mmol/L (21-32) Anion Gap 11 (6-14) Blood Urea Nitrogen 56 mg/dL (7-20) Creatinine 3.3 mg/dL (0.6-1.0) Estimated GFR (Cockcroft-Gault) 16.6 BUN/Creatinine Ratio 17 (6-20) Glucose Level 153 mg/dL (70-99) Calcium Level 8.0 mg/dL (8.5-10.1) Total Bilirubin 0.5 mg/dL (0.2-1.0) Aspartate Amino Transf (AST/SGOT) 74 U/L (15-37) Alanine Aminotransferase (ALT/SGPT) 30 U/L (14-59) Alkaline Phosphatase 121 U/L (46-116) Total Protein 6.1 g/dL (6.4-8.2) Albumin 2.7 g/dL (3.4-5.0) Albumin/Globulin Ratio 0.8 (1.0-1.7) Lactic Acid Level 2.4 mmol/L (0.4-2.0) Glucose (Fingerstick) 99 mg/dL (70-99) Urine Collection Type Unknown Urine Color Yellow Urine Clarity Clear Urine pH 5.0 Urine Specific [place] 1.015 Urine Protein Negative mg/dL (NEG-TRACE) Urine Glucose (UA) Negative mg/dL (NEG) Urine Ketones (Stick) Negative mg/dL (NEG) Urine Blood Negative (NEG) Urine Nitrite Negative (NEG) Urine Bilirubin Negative (NEG) Urine Urobilinogen Dipstick 0.2 mg/dL (0.2 mg/dL) Urine Leukocyte Esterase Moderate (NEG) Urine RBC 0 /HPF (0-2) Urine WBC 5-10 /HPF (0-4) Urine Squamous Epithelial Cells Few /LPF Urine Bacteria Many /HPF (0-FEW) Urine Hyaline Casts Moderate /HPF Test 11/25/16 16:17 11/25/16 20:07 11/26/16 05:24 11/26/16 06:55 Glucose (Fingerstick) 144 mg/dL (70-99) 144 mg/dL (70-99) 119 mg/dL (70-99) 131 mg/dL (70-99) Laboratory Tests Test 11/25/16 12:06 11/25/16 12:30 11/25/16 13:17 11/25/16 13:41 White Blood Count 10.1 x10^3/uL (4.0-11.0) Red Blood Count 3.97 x10^6/uL (3.50-5.40) Hemoglobin 12.1 g/dL (12.0-15.5) Hematocrit 37.3 % (36.0-47.0) Mean Corpuscular Volume 94 fL (79-100) Mean Corpuscular Hemoglobin 31 pg (25-35) Mean Corpuscular Hemoglobin Concent 33 g/dL (31-37) Red Cell Distribution Width 17.0 % (11.5-14.5) Platelet Count 130 x10^3/uL (140-400) Neutrophils (%) (Auto) 69 % (31-73) Lymphocytes (%) (Auto) 11 % (24-48) Monocytes (%) (Auto) 14 % (0-9) Eosinophils (%) (Auto) 6 % (0-3) Basophils (%) (Auto) 1 % (0-3) Neutrophils # (Auto) 6.9 x10^3uL (1.8-7.7) Lymphocytes # (Auto) 1.1 x10^3/uL (1.0-4.8) Monocytes # (Auto) 1.4 x10^3/uL (0.0-1.1) Eosinophils # (Auto) 0.6 x10^3/uL (0.0-0.7) Basophils # (Auto) 0.1 x10^3/uL (0.0-0.2) Platelet Estimate Decreased (ADEQUATE) Large Platelets Few Giant Platelets Few Basophilic Stippling Present Anisocytosis Slight Schistocytes Few Prothrombin Time 12.5 SEC (11.7-14.0) Prothromb Time International Ratio 1.0 (0.8-1.1) Activated Partial Thromboplast Time 26 SEC (24-38) Sodium Level 142 mmol/L (136-145) Potassium Level 2.4 mmol/L (3.5-5.1) Chloride Level 103 mmol/L (98-107) Carbon Dioxide Level 28 mmol/L (21-32) Anion Gap 11 (6-14) Blood Urea Nitrogen 56 mg/dL (7-20) Creatinine 3.3 mg/dL (0.6-1.0) Estimated GFR (Cockcroft-Gault) 16.6 BUN/Creatinine Ratio 17 (6-20) Glucose Level 153 mg/dL (70-99) Calcium Level 8.0 mg/dL (8.5-10.1) Total Bilirubin 0.5 mg/dL (0.2-1.0) Aspartate Amino Transf (AST/SGOT) 74 U/L (15-37) Alanine Aminotransferase (ALT/SGPT) 30 U/L (14-59) Alkaline Phosphatase 121 U/L (46-116) Total Protein 6.1 g/dL (6.4-8.2) Albumin 2.7 g/dL (3.4-5.0) Albumin/Globulin Ratio 0.8 (1.0-1.7) Lactic Acid Level 2.4 mmol/L (0.4-2.0) Glucose (Fingerstick) 99 mg/dL (70-99) Urine Collection Type Unknown Urine Color Yellow Urine Clarity Clear Urine pH 5.0 Urine Specific [place] 1.015 Urine Protein Negative mg/dL (NEG-TRACE) Urine Glucose (UA) Negative mg/dL (NEG) Urine Ketones (Stick) Negative mg/dL (NEG) Urine Blood Negative (NEG) Urine Nitrite Negative (NEG) Urine Bilirubin Negative (NEG) Urine Urobilinogen Dipstick 0.2 mg/dL (0.2 mg/dL) Urine Leukocyte Esterase Moderate (NEG) Urine RBC 0 /HPF (0-2) Urine WBC 5-10 /HPF (0-4) Urine Squamous Epithelial Cells Few /LPF Urine Bacteria Many /HPF (0-FEW) Urine Hyaline Casts Moderate /HPF Test 11/25/16 16:17 11/25/16 20:07 11/26/16 05:24 11/26/16 06:55 Glucose (Fingerstick) 144 mg/dL (70-99) 144 mg/dL (70-99) 119 mg/dL (70-99) 131 mg/dL (70-99) HEATHER STORY MD November 26, 2016 08:19
[2016-11-26] MEDS ORDERED: FUROSEMIDE 40 MG TABLET. PO SCH (09:00)
[2016-11-26] MEDS ORDERED: VANCOMYCIN PER PHARMACY MC PRN (09:15)
[2016-11-26] MEDS: GABAPENTIN 100 MG CAPSULE. PO SCH ×2 (09:31→20:33)
[2016-11-26] MEDS: COLCHICINE 0.6 MG TABLET PO SCH ×2 (09:31→20:33)
[2016-11-26] MEDS: POTASSIUM CHLORIDE 20 MEQ TABLET.ER. PO SCH ×3 (09:32→17:08)
[2016-11-26] MEDS: ISOSORBIDE MONONITRATE ER 30 MG TAB.ER.24H PO SCH (09:33)
[2016-11-26] MEDS: CARVEDILOL 12.5 MG TABLET. PO SCH ×3 (09:33→18:59)
[2016-11-26] MEDS: cycloSPORINE 0.05% OPTH 1 DROP DROPERETTE OU SCH ×2 (09:34→20:33)
[2016-11-26] MEDS: POTASSIUM ACETATE 40 MEQ in IV NORMAL SALINE 1000ML BAG 1,000 ML IV SCH (09:34)
[2016-11-26] MEDS: ASPIRIN ENTERIC COATED 81 MG TABLET.DR. PO SCH (09:34)
[2016-11-26] MEDS: ALLOPURINOL 100 MG TABLET. PO SCH (09:34)
[2016-11-26] MEDS: cloNIDine TTS-3 1 PATCH PATCH.TDWK TD SCH (09:36)
[2016-11-26] MEDS: QUEtiapine 25 MG TABLET. PO SCH ×2 (09:37→20:33)
--- NOTE | 2016-11-26 09:40 | CONS ---
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 She was brought by EMS with issues of nausea, vomiting, decreased level of consciousness as well as hypoglycemia. On EMS arrival, she was noted to be hypotensive with 60s/30s and her sugars in the 30s. She was noted to have nausea, vomiting, diarrhea for a few days. She cannot tell me exactly how many. She does not know how much she has been urinating. She is not aware of known kidney problems. In this setting, she was admitted to the hospital with a potassium of 2.4, BUN of 56 and a creatinine of 3.3. Labs from this morning is pending at this time. She was given oral potassium in the ER. Blood pressures were elevated at 193/78 on arrival to the ER and currently running well. She did have a low grade temperature of 99 and blood cultures are noted to be positive as just recently called from the lab. Details of these are pending at this time. I have reviewed her old records and it appears that she does have a history of some amount of CKD. She is noted to have had minimal atrophy of her kidneys on previous sonograms also. For rest of details, see electronic records. HEATHER STORY MD DR: NOEL/kiela JOB#: [id number] / [id number]
[2016-11-26] MEDS ORDERED: VANCOMYCIN 2 GM in IV NORMAL SALINE 500ML BAG 500 ML IV ONE (10:00)
[2016-11-26] MEDS ORDERED: AZTREONAM 1 GM in IV NORMAL SALINE 50ML 50 ML IV SCH (10:00)
[2016-11-26 10:49] LABS: BASO % 1 % (0-3); EOS % 9 % (0-3); HEMATOCRIT 33.5 % (36.0-47.0); HEMOGLOBIN 11.2 g/dL (12.0-15.5); LYMPH # 0.9 x10^3/uL (1.0-4.8); LYMPH % 14 % (24-48); MEAN CORPUSCULAR HEMOGLOBIN 31 pg (25-35); MEAN CORPUSCULAR HGB CONC 33 g/dL (31-37); MEAN CORPUSCULAR VOLUME 92 fL (79-100); MONO % 16 % (0-9); NEUT % 61 % (31-73); PLATELET COUNT 121 x10^3/uL (140-400); RED BLOOD COUNT 3.62 x10^6/uL (3.50-5.40); RED CELL DISTRIBUTION WIDTH 17.1 % (11.5-14.5); WHITE BLOOD COUNT 6.6 x10^3/uL (4.0-11.0)
[2016-11-26 11:00] VITALS: BP 114/47
[2016-11-26 11:02] LABS: ALBUMIN 2.5 g/dL (3.4-5.0); ALBUMIN/GLOBULIN RATIO 0.8 (1.0-1.7); CALCIUM 7.6 mg/dL (8.5-10.1); CREATININE 2.7 mg/dL (0.6-1.0); POTASSIUM 3.6 mmol/L (3.5-5.1); TOTAL BILIRUBIN 0.5 mg/dL (0.2-1.0); TOTAL PROTEIN 5.5 g/dL (6.4-8.2)
--- NOTE | 2016-11-26 11:13 | PDOC ---
Infectious Disease Note Vital Sign Vital Signs Vital Signs Date Time Temp Pulse Resp B/P (MAP) Pulse Ox O2 Delivery O2 Flow Rate FiO2 11/26/16 09:33 84 123/49 11/26/16 07:00 98.7 17 93 Room Air 98.7 Labs Lab Laboratory Tests Test 11/25/16 12:06 11/25/16 12:30 11/25/16 13:17 11/25/16 13:41 White Blood Count 10.1 x10^3/uL (4.0-11.0) Red Blood Count 3.97 x10^6/uL (3.50-5.40) Hemoglobin 12.1 g/dL (12.0-15.5) Hematocrit 37.3 % (36.0-47.0) Mean Corpuscular Volume 94 fL (79-100) Mean Corpuscular Hemoglobin 31 pg (25-35) Mean Corpuscular Hemoglobin Concent 33 g/dL (31-37) Red Cell Distribution Width 17.0 % (11.5-14.5) Platelet Count 130 x10^3/uL (140-400) Neutrophils (%) (Auto) 69 % (31-73) Lymphocytes (%) (Auto) 11 % (24-48) Monocytes (%) (Auto) 14 % (0-9) Eosinophils (%) (Auto) 6 % (0-3) Basophils (%) (Auto) 1 % (0-3) Neutrophils # (Auto) 6.9 x10^3uL (1.8-7.7) Lymphocytes # (Auto) 1.1 x10^3/uL (1.0-4.8) Monocytes # (Auto) 1.4 x10^3/uL (0.0-1.1) Eosinophils # (Auto) 0.6 x10^3/uL (0.0-0.7) Basophils # (Auto) 0.1 x10^3/uL (0.0-0.2) Platelet Estimate Decreased (ADEQUATE) Large Platelets Few Giant Platelets Few Basophilic Stippling Present Anisocytosis Slight Schistocytes Few Prothrombin Time 12.5 SEC (11.7-14.0) Prothromb Time International Ratio 1.0 (0.8-1.1) Activated Partial Thromboplast Time 26 SEC (24-38) Sodium Level 142 mmol/L (136-145) Potassium Level 2.4 mmol/L (3.5-5.1) Chloride Level 103 mmol/L (98-107) Carbon Dioxide Level 28 mmol/L (21-32) Anion Gap 11 (6-14) Blood Urea Nitrogen 56 mg/dL (7-20) Creatinine 3.3 mg/dL (0.6-1.0) Estimated GFR (Cockcroft-Gault) 16.6 BUN/Creatinine Ratio 17 (6-20) Glucose Level 153 mg/dL (70-99) Calcium Level 8.0 mg/dL (8.5-10.1) Total Bilirubin 0.5 mg/dL (0.2-1.0) Aspartate Amino Transf (AST/SGOT) 74 U/L (15-37) Alanine Aminotransferase (ALT/SGPT) 30 U/L (14-59) Alkaline Phosphatase 121 U/L (46-116) Total Protein 6.1 g/dL (6.4-8.2) Albumin 2.7 g/dL (3.4-5.0) Albumin/Globulin Ratio 0.8 (1.0-1.7) Lactic Acid Level 2.4 mmol/L (0.4-2.0) Glucose (Fingerstick) 99 mg/dL (70-99) Urine Collection Type Unknown Urine Color Yellow Urine Clarity Clear Urine pH 5.0 Urine Specific [place] 1.015 Urine Protein Negative mg/dL (NEG-TRACE) Urine Glucose (UA) Negative mg/dL (NEG) Urine Ketones (Stick) Negative mg/dL (NEG) Urine Blood Negative (NEG) Urine Nitrite Negative (NEG) Urine Bilirubin Negative (NEG) Urine Urobilinogen Dipstick 0.2 mg/dL (0.2 mg/dL) Urine Leukocyte Esterase Moderate (NEG) Urine RBC 0 /HPF (0-2) Urine WBC 5-10 /HPF (0-4) Urine Squamous Epithelial Cells Few /LPF Urine Bacteria Many /HPF (0-FEW) Urine Hyaline Casts Moderate /HPF Test 11/25/16 16:17 11/25/16 20:07 11/26/16 05:24 11/26/16 06:55 Glucose (Fingerstick) 144 mg/dL (70-99) 144 mg/dL (70-99) 119 mg/dL (70-99) 131 mg/dL (70-99) Micro BLOOD CULTURE Final GRAM NEGATIVE RODS AND GRAM POSITIVE COCCI IN CLUSTERS IN 1 OF 4 BOTTLES(AEROBIC);REPRESENTING 2 SETS DRAWN. THE RESULT WAS CALLED TO ABBI RILEY(5N)ON 11/26/16 AT 0820 BY [employer] FIERRO. THE BLOOD CULTURE HAS BEEN SENT TO [facility] FOR FURTHER WORKUP. Objective Assessment Polymicrobial sepsis. POA (1 of 4 bottles so far) GNR UTI - POA Ampicillin allergy. Reaction unknown Acute encephalopathy- improved Hypotension - improved lactic acidosis [place] on CKD Loose stools. c. diff neg 11/08. repeat pending DM II with hypoglycemia Chronic pain Plan Plan of Care Hold further doses of vanc in light of [place] Change aztreonam to meropenem- dose adjusted for renal failure per Dr. Mcneill f/u urine and blood cultures and am labs Records from [place] reviewed Also spoke with nurse at [place] Thank you [phone] Attending Co-Sign Attending Co-Sign The patient was seen and interviewed as well as examined at the bedside. The chart was reviewed. The case was discussed. Agree with the plan of care. JARON CONLEY APRN November 26, 2016 11:13 MARV MCNEILL MD November 26, 2016 13:22
[2016-11-26] MEDS: MEROPENEM 500 MG in IV NORMAL SALINE 50ML 50 ML IV SCH ×2 (12:04→20:49)
--- NOTE | 2016-11-26 13:35 | PDOC ---
PROGRESS NOTES Chief Complaint Chief Complaint 1. Hypokalemia, hypoglycemia, kidney injury 2. Neuropathy 3. Obesity 4. Anemia 5. CHF 6. Constipation 7. Stroke 8. Depression 9. Diabetes 10. Hypertension 11. Renal failure 12. Peripheral vascular disease 13. 14. Cholecystectomy History of Present Illness History of Present Illness Patient was seen this am in in NAD. Nurse mentioned that patient now has catheter. Nurse held patient's KCl bc labs weren't back this morning. Informed patient we would order sliding insulin scale to manage patient's diabetes in the hospital. Told patient we would put in SNU eval. Patient understands plan of action. Vitals Vitals Vital Signs Date Time Temp Pulse Resp B/P (MAP) Pulse Ox O2 Delivery O2 Flow Rate FiO2 11/26/16 11:00 98.6 81 17 114/47 (69) 93 Room Air 98.6 Physical Exam General: Alert, Cooperative, No acute distress Heart: Regular rate, Normal S1, Normal S2 Lungs: Clear Abdomen: Normal bowel sounds, Soft Extremities: No clubbing, No cyanosis Skin: No rashes, No breakdown, No significant lesion Labs LABS Laboratory Tests Test 11/25/16 13:41 11/25/16 16:17 11/25/16 20:07 11/26/16 05:24 Urine Collection Type Unknown Urine Color Yellow Urine Clarity Clear Urine pH 5.0 Urine Specific [place] 1.015 Urine Protein Negative mg/dL (NEG-TRACE) Urine Glucose (UA) Negative mg/dL (NEG) Urine Ketones (Stick) Negative mg/dL (NEG) Urine Blood Negative (NEG) Urine Nitrite Negative (NEG) Urine Bilirubin Negative (NEG) Urine Urobilinogen Dipstick 0.2 mg/dL (0.2 mg/dL) Urine Leukocyte Esterase Moderate (NEG) Urine RBC 0 /HPF (0-2) Urine WBC 5-10 /HPF (0-4) Urine Squamous Epithelial Cells Few /LPF Urine Bacteria Many /HPF (0-FEW) Urine Hyaline Casts Moderate /HPF Glucose (Fingerstick) 144 mg/dL (70-99) 144 mg/dL (70-99) 119 mg/dL (70-99) Test 11/26/16 06:55 11/26/16 10:40 11/26/16 10:59 Glucose (Fingerstick) 131 mg/dL (70-99) 150 mg/dL (70-99) White Blood Count 6.6 x10^3/uL (4.0-11.0) Red Blood Count 3.62 x10^6/uL (3.50-5.40) Hemoglobin 11.2 g/dL (12.0-15.5) Hematocrit 33.5 % (36.0-47.0) Mean Corpuscular Volume 92 fL (79-100) Mean Corpuscular Hemoglobin 31 pg (25-35) Mean Corpuscular Hemoglobin Concent 33 g/dL (31-37) Red Cell Distribution Width 17.1 % (11.5-14.5) Platelet Count 121 x10^3/uL (140-400) Neutrophils (%) (Auto) 61 % (31-73) Lymphocytes (%) (Auto) 14 % (24-48) Monocytes (%) (Auto) 16 % (0-9) Eosinophils (%) (Auto) 9 % (0-3) Basophils (%) (Auto) 1 % (0-3) Neutrophils # (Auto) 4.0 x10^3uL (1.8-7.7) Lymphocytes # (Auto) 0.9 x10^3/uL (1.0-4.8) Monocytes # (Auto) 1.0 x10^3/uL (0.0-1.1) Eosinophils # (Auto) 0.6 x10^3/uL (0.0-0.7) Basophils # (Auto) 0.0 x10^3/uL (0.0-0.2) Sodium Level 140 mmol/L (136-145) Potassium Level 3.6 mmol/L (3.5-5.1) Chloride Level 104 mmol/L (98-107) Carbon Dioxide Level 25 mmol/L (21-32) Anion Gap 11 (6-14) Blood Urea Nitrogen 53 mg/dL (7-20) Creatinine 2.7 mg/dL (0.6-1.0) Estimated GFR (Cockcroft-Gault) 21.0 BUN/Creatinine Ratio 20 (6-20) Glucose Level 166 mg/dL (70-99) Calcium Level 7.6 mg/dL (8.5-10.1) Total Bilirubin 0.5 mg/dL (0.2-1.0) Aspartate Amino Transf (AST/SGOT) 75 U/L (15-37) Alanine Aminotransferase (ALT/SGPT) 30 U/L (14-59) Alkaline Phosphatase 113 U/L (46-116) Total Protein 5.5 g/dL (6.4-8.2) Albumin 2.5 g/dL (3.4-5.0) Albumin/Globulin Ratio 0.8 (1.0-1.7) Review of Systems Review of Systems No rashes No BAKER/blurry vision Assessment and Plan Assessmemt and Plan Problems Medical Problems: (1) Acute kidney injury Status: Acute (2) Altered level of consciousness Status: Acute (3) Hypoglycemia associated with type 2 diabetes mellitus Status: Acute (4) Hypokalemia Status: Acute (5) Opiate overdose Status: Acute 6. Neuropathy 7. Obesity 8. Anemia 9. CHF 10. Constipation 11. Stroke 12. Depression 13. Diabetes 14. Hypertension 15. Renal failure 16. Peripheral vascular disease 17. 18. Cholecystectomy Plan: -Continue current medications and adjust accordingly as needed. -Order sliding scale insulin to manage patient's diabetes in hospital. -Obtain daily blood draws to monitor potassium, glucose and BUN/creatinine. -Involve PT/OT as tolerated. -Put in SNU eval. Problems: Comment Review of Relevant I have reviewed the following items forest (where applicable) has been applied. Labs Laboratory Tests Test 11/25/16 12:06 11/25/16 12:30 11/25/16 13:17 11/25/16 13:41 White Blood Count 10.1 x10^3/uL (4.0-11.0) Red Blood Count 3.97 x10^6/uL (3.50-5.40) Hemoglobin 12.1 g/dL (12.0-15.5) Hematocrit 37.3 % (36.0-47.0) Mean Corpuscular Volume 94 fL (79-100) Mean Corpuscular Hemoglobin 31 pg (25-35) Mean Corpuscular Hemoglobin Concent 33 g/dL (31-37) Red Cell Distribution Width 17.0 % (11.5-14.5) Platelet Count 130 x10^3/uL (140-400) Neutrophils (%) (Auto) 69 % (31-73) Lymphocytes (%) (Auto) 11 % (24-48) Monocytes (%) (Auto) 14 % (0-9) Eosinophils (%) (Auto) 6 % (0-3) Basophils (%) (Auto) 1 % (0-3) Neutrophils # (Auto) 6.9 x10^3uL (1.8-7.7) Lymphocytes # (Auto) 1.1 x10^3/uL (1.0-4.8) Monocytes # (Auto) 1.4 x10^3/uL (0.0-1.1) Eosinophils # (Auto) 0.6 x10^3/uL (0.0-0.7) Basophils # (Auto) 0.1 x10^3/uL (0.0-0.2) Platelet Estimate Decreased (ADEQUATE) Large Platelets Few Giant Platelets Few Basophilic Stippling Present Anisocytosis Slight Schistocytes Few Prothrombin Time 12.5 SEC (11.7-14.0) Prothromb Time International Ratio 1.0 (0.8-1.1) Activated Partial Thromboplast Time 26 SEC (24-38) Sodium Level 142 mmol/L (136-145) Potassium Level 2.4 mmol/L (3.5-5.1) Chloride Level 103 mmol/L (98-107) Carbon Dioxide Level 28 mmol/L (21-32) Anion Gap 11 (6-14) Blood Urea Nitrogen 56 mg/dL (7-20) Creatinine 3.3 mg/dL (0.6-1.0) Estimated GFR (Cockcroft-Gault) 16.6 BUN/Creatinine Ratio 17 (6-20) Glucose Level 153 mg/dL (70-99) Calcium Level 8.0 mg/dL (8.5-10.1) Total Bilirubin 0.5 mg/dL (0.2-1.0) Aspartate Amino Transf (AST/SGOT) 74 U/L (15-37) Alanine Aminotransferase (ALT/SGPT) 30 U/L (14-59) Alkaline Phosphatase 121 U/L (46-116) Total Protein 6.1 g/dL (6.4-8.2) Albumin 2.7 g/dL (3.4-5.0) Albumin/Globulin Ratio 0.8 (1.0-1.7) Lactic Acid Level 2.4 mmol/L (0.4-2.0) Glucose (Fingerstick) 99 mg/dL (70-99) Urine Collection Type Unknown Urine Color Yellow Urine Clarity Clear Urine pH 5.0 Urine Specific [place] 1.015 Urine Protein Negative mg/dL (NEG-TRACE) Urine Glucose (UA) Negative mg/dL (NEG) Urine Ketones (Stick) Negative mg/dL (NEG) Urine Blood Negative (NEG) Urine Nitrite Negative (NEG) Urine Bilirubin Negative (NEG) Urine Urobilinogen Dipstick 0.2 mg/dL (0.2 mg/dL) Urine Leukocyte Esterase Moderate (NEG) Urine RBC 0 /HPF (0-2) Urine WBC 5-10 /HPF (0-4) Urine Squamous Epithelial Cells Few /LPF Urine Bacteria Many /HPF (0-FEW) Urine Hyaline Casts Moderate /HPF Test 11/25/16 16:17 11/25/16 20:07 11/26/16 05:24 11/26/16 06:55 Glucose (Fingerstick) 144 mg/dL (70-99) 144 mg/dL (70-99) 119 mg/dL (70-99) 131 mg/dL (70-99) Test 11/26/16 10:40 11/26/16 10:59 White Blood Count 6.6 x10^3/uL (4.0-11.0) Red Blood Count 3.62 x10^6/uL (3.50-5.40) Hemoglobin 11.2 g/dL (12.0-15.5) Hematocrit 33.5 % (36.0-47.0) Mean Corpuscular Volume 92 fL (79-100) Mean Corpuscular Hemoglobin 31 pg (25-35) Mean Corpuscular Hemoglobin Concent 33 g/dL (31-37) Red Cell Distribution Width 17.1 % (11.5-14.5) Platelet Count 121 x10^3/uL (140-400) Neutrophils (%) (Auto) 61 % (31-73) Lymphocytes (%) (Auto) 14 % (24-48) Monocytes (%) (Auto) 16 % (0-9) Eosinophils (%) (Auto) 9 % (0-3) Basophils (%) (Auto) 1 % (0-3) Neutrophils # (Auto) 4.0 x10^3uL (1.8-7.7) Lymphocytes # (Auto) 0.9 x10^3/uL (1.0-4.8) Monocytes # (Auto) 1.0 x10^3/uL (0.0-1.1) Eosinophils # (Auto) 0.6 x10^3/uL (0.0-0.7) Basophils # (Auto) 0.0 x10^3/uL (0.0-0.2) Sodium Level 140 mmol/L (136-145) Potassium Level 3.6 mmol/L (3.5-5.1) Chloride Level 104 mmol/L (98-107) Carbon Dioxide Level 25 mmol/L (21-32) Anion Gap 11 (6-14) Blood Urea Nitrogen 53 mg/dL (7-20) Creatinine 2.7 mg/dL (0.6-1.0) Estimated GFR (Cockcroft-Gault) 21.0 BUN/Creatinine Ratio 20 (6-20) Glucose Level 166 mg/dL (70-99) Calcium Level 7.6 mg/dL (8.5-10.1) Total Bilirubin 0.5 mg/dL (0.2-1.0) Aspartate Amino Transf (AST/SGOT) 75 U/L (15-37) Alanine Aminotransferase (ALT/SGPT) 30 U/L (14-59) Alkaline Phosphatase 113 U/L (46-116) Total Protein 5.5 g/dL (6.4-8.2) Albumin 2.5 g/dL (3.4-5.0) Albumin/Globulin Ratio 0.8 (1.0-1.7) Glucose (Fingerstick) 150 mg/dL (70-99) Laboratory Tests Test 11/25/16 13:41 11/25/16 16:17 11/25/16 20:07 11/26/16 05:24 Urine Collection Type Unknown Urine Color Yellow Urine Clarity Clear Urine pH 5.0 Urine Specific [place] 1.015 Urine Protein Negative mg/dL (NEG-TRACE) Urine Glucose (UA) Negative mg/dL (NEG) Urine Ketones (Stick) Negative mg/dL (NEG) Urine Blood Negative (NEG) Urine Nitrite Negative (NEG) Urine Bilirubin Negative (NEG) Urine Urobilinogen Dipstick 0.2 mg/dL (0.2 mg/dL) Urine Leukocyte Esterase Moderate (NEG) Urine RBC 0 /HPF (0-2) Urine WBC 5-10 /HPF (0-4) Urine Squamous Epithelial Cells Few /LPF Urine Bacteria Many /HPF (0-FEW) Urine Hyaline Casts Moderate /HPF Glucose (Fingerstick) 144 mg/dL (70-99) 144 mg/dL (70-99) 119 mg/dL (70-99) Test 11/26/16 06:55 11/26/16 10:40 11/26/16 10:59 Glucose (Fingerstick) 131 mg/dL (70-99) 150 mg/dL (70-99) White Blood Count 6.6 x10^3/uL (4.0-11.0) Red Blood Count 3.62 x10^6/uL (3.50-5.40) Hemoglobin 11.2 g/dL (12.0-15.5) Hematocrit 33.5 % (36.0-47.0) Mean Corpuscular Volume 92 fL (79-100) Mean Corpuscular Hemoglobin 31 pg (25-35) Mean Corpuscular Hemoglobin Concent 33 g/dL (31-37) Red Cell Distribution Width 17.1 % (11.5-14.5) Platelet Count 121 x10^3/uL (140-400) Neutrophils (%) (Auto) 61 % (31-73) Lymphocytes (%) (Auto) 14 % (24-48) Monocytes (%) (Auto) 16 % (0-9) Eosinophils (%) (Auto) 9 % (0-3) Basophils (%) (Auto) 1 % (0-3) Neutrophils # (Auto) 4.0 x10^3uL (1.8-7.7) Lymphocytes # (Auto) 0.9 x10^3/uL (1.0-4.8) Monocytes # (Auto) 1.0 x10^3/uL (0.0-1.1) Eosinophils # (Auto) 0.6 x10^3/uL (0.0-0.7) Basophils # (Auto) 0.0 x10^3/uL (0.0-0.2) Sodium Level 140 mmol/L (136-145) Potassium Level 3.6 mmol/L (3.5-5.1) Chloride Level 104 mmol/L (98-107) Carbon Dioxide Level 25 mmol/L (21-32) Anion Gap 11 (6-14) Blood Urea Nitrogen 53 mg/dL (7-20) Creatinine 2.7 mg/dL (0.6-1.0) Estimated GFR (Cockcroft-Gault) 21.0 BUN/Creatinine Ratio 20 (6-20) Glucose Level 166 mg/dL (70-99) Calcium Level 7.6 mg/dL (8.5-10.1) Total Bilirubin 0.5 mg/dL (0.2-1.0) Aspartate Amino Transf (AST/SGOT) 75 U/L (15-37) Alanine Aminotransferase (ALT/SGPT) 30 U/L (14-59) Alkaline Phosphatase 113 U/L (46-116) Total Protein 5.5 g/dL (6.4-8.2) Albumin 2.5 g/dL (3.4-5.0) Albumin/Globulin Ratio 0.8 (1.0-1.7) Microbiology 11/25/16 Blood Culture - Preliminary, Resulted NO GROWTH AFTER 1 DAY 11/25/16 Urine Culture - Preliminary, Resulted 11/25/16 Urine Culture Result 1 (JUDITH) - Preliminary, Resulted Medications Current Medications Potassium Chloride (KCl Oral Soln) 40 meq 1X ONCE PO Last administered on 11/25 14:07; Start 11/25/16 at 12:45; Stop 11/25/16 at 12:46; Status DC Potassium Chloride/Dextrose/ Sod Cl 1,000 ml @ 75 mls/hr 1X ONCE IV Last administered on 11/25/16 15:16; Start 11/25/16 at 13:30; Stop 11/26/16 at 08:26 ; Status DC Allopurinol (Zyloprim) 100 mg DAILY PO Last administered on 11/26/16 09:34; Start 11/26/16 at 09:00 Aspirin (Ecotrin) 81 mg DAILY08 PO Last administered on 11/26/16 09:34; Start 11/26/16 at 08:00 Carvedilol (Coreg) 25 mg BIDWMEALS PO Last administered on 11/26/16 09:33; Start 11/26/16 at 08:00 Clonidine HCl (Catapres Tts-3) 1 patch WEEKLY TD Last administered on 09:36; Start 11/26/16 at 09:00 Colchicine (Colcrys) 0.6 mg BID PO Last administered on 11/26/16 09:31; Start 11/25/16 at 21:00 Cyclosporine (Restasis) 1 drop BID OU Last administered on 11/26/16 09:34; Start 11/25/16 at 21:00 Furosemide (Lasix) 40 mg BID94 PO ; Start 11/26/16 at 09:00; Stop 11/26/16 at 09 :00; Status DC Gabapentin (Neurontin) 100 mg BID PO Last administered on 11/26/16 09:31; Start 11/25/16 at 21:00 Isosorbide Mononitrate (Imdur) 30 mg DAILY PO Last administered on 11/26/16 09 :33; Start 11/26/16 at 09:00 Lidocaine (Lidoderm) 1 patch HS TP Last administered on 11/25/16 21:34; Start 11/25/16 at 21:00 Oxycodone/ Acetaminophen (Percocet 5/325) 1 tab PRN BID PRN PO PAIN SEVERE; Start 11/25/16 at 20:00 Quetiapine Fumarate (SEROquel) 25 mg BID PO ; Start 11/25/16 at 21:00; Stop at 11:18; Status DC Magnesium Sulfate/ Dextrose 50 ml @ 25 mls/hr PRN DAILY PRN IV for Mag < 1.7 on am labs; Start 11/26/16 at 08:15 Potassium Acetate 40 meq/Sodium Chloride 1,020 ml @ 75 mls/hr [id number] IV Last administered on 11/26/16 09:34; Start 11/26/16 at 09:00 Potassium Chloride (Klor-Con) 40 meq TIDWMEALS PO Last administered on 12:01; Start 11/26/16 at 09:00 Sodium Chloride 500 ml @ 0 mls/hr QID PRN IV UO< 30cc/hr over previous 6hrs; Start 11/26/16 at 08:15 Vancomycin HCl (Vanco Per Pharmacy) 1 each PRN DAILY PRN MC SEE COMMENTS; Start 11/26/16 at 09:15; Status Cancel Aztreonam 1 gm/ Sodium Chloride 50 ml @ 100 mls/hr Q6HRS IV ; Start 11/26/16 at 10:00; Stop 11/26/16 at 10:56; Status DC Vancomycin HCl 2 gm/Sodium Chloride 500 ml @ 250 mls/hr 1X ONCE IV Last administered on 11/26/16t 09:35; Start 11/26/16 at 10:00; Stop 11/26/16 at 11:59 ; Status DC Meropenem 500 mg/ Sodium Chloride 50 ml @ 100 mls/hr Q12HR IV Last administered on 11/26/16t 12:04; Start 11/26/16 at 11:00 Vancomycin HCl 1.25 gm/Sodium Chloride 250 ml @ 167 mls/hr Q48H IV ; Start at 09:30; Status Cancel Vancomycin HCl 1 each 1X ONCE MC ; Start 11/30/16 at 09:00; Stop 11/30/16 at 09: 01; Status Cancel Quetiapine Fumarate (SEROquel) 25 mg HS PO ; Start 11/26/16 at 21:00 Active Scripts Active Reported Aspir 81 (Aspirin) 81 Mg Tablet.dr 1 Tab PO DAILY Allopurinol 100 Mg Tablet 1 Tab PO DAILY Colcrys (Colchicine) 0.6 Mg Tablet 1 Tab PO BID Lidoderm (Lidocaine) 700 Mg Adh..patch 1 Patch TP HS Gabapentin 100 Mg Capsule 100 Mg PO BID Hydralazine Hcl 100 Mg Tablet 1 Tab PO TID Furosemide 40 Mg Tablet 40 Mg PO BID Oxycodone-Acetaminophen 5-325 (Oxycodone Hcl/Acetaminophen) 1 Each Tablet 1 Each PO BID PRN Restasis (Cyclosporine) 1 Each Droperette 1 Drop EACHEYE BID Isosorbide Mononitrate Er (Isosorbide Mononitrate) 30 Mg Tab.er.24h 30 Mg PO DAILY Quetiapine Fumarate 25 Mg Tablet 25 Mg PO HS Coreg (Carvedilol) 12.5 Mg Tablet 25 Mg PO BID Catapres-Tts 3 (Clonidine) 1 Each Patch.tdwk 1 Each TD WEEKLY Pletal (Cilostazol) 100 Mg Tablet 100 Mg PO DAILYBFRLUN Acetaminophen Ext.release (Acetaminophen) 650 Mg Tablet.er 650 Mg PO Q6HRS PRN Levemir Flexpen (Insulin Detemir) 100 Unit/1 Ml Insuln.pen 14 Unit SQ DAILYWSUP Humalog (Insulin Lispro) 100 Unit/1 Ml Cartridge 3 Unit SQ TIDAC Glucagon Emergency Kit (Glucagon,Human Recombinant) 1 Mg Kit 1 Mg IJ Vitals/I & O Vital Sign - Last 24 Hours 11/25/16 11/25/16 11/25/16 11/25/16 13:38 15:00 15:00 15:41 Temp 97.5 97.5 97.5 97.5 Pulse 81 83 83 Resp 19 16 16 B/P (MAP) 126/56 (79) 113/53 (73) 113/53 (73) Pulse Ox 97 93 93 O2 Delivery Room Air Room Air Room Air Room Air 11/25/16 11/25/16 11/25/16 11/26/16 19:00 20:00 22:59 02:54 Temp 97.9 98.6 99.0 97.9 98.6 99.0 Pulse 84 81 84 Resp 18 18 18 B/P (MAP) 100/41 (60) 100/40 (60) 128/54 (78) Pulse Ox 92 92 91 O2 Delivery Room Air Room Air Room Air Room Air 11/26/16 11/26/16 11/26/16 11/26/16 07:00 08:00 09:33 09:33 Temp 98.7 98.7 Pulse 84 84 84 Resp 17 B/P (MAP) 123/49 (73) 123/49 123/49 Pulse Ox 93 O2 Delivery Room Air Room Air 11/26/16 11:00 Temp 98.6 98.6 Pulse 81 Resp 17 B/P (MAP) 114/47 (69) Pulse Ox 93 O2 Delivery Room Air Intake and Output 11/25/16 11/25/16 11/26/16 14:59 22:59 06:59 Intake Total 0 ml Output Total 0 ml Balance 0 ml 0 ml TALIA ROTHMAN III DO November 26, 2016 13:35
[2016-11-26] MEDS ORDERED: DEXTROSE 50% 25 GM / 50ML DISP.SYRIN. IV PRN (14:00)
[2016-11-26 15:00] VITALS: BP 169/103
--- NOTE | 2016-11-26 15:33 | CONS ---
DATE OF CONSULTATION: 11/26/2016 REQUESTING PHYSICIAN: Dr. Guo. REASON FOR CONSULTATION: Positive blood cultures. HISTORY OF PRESENT ILLNESS: This patient is a 71-year-old -[place] female who is a detention resident at [facility]. Over the past few days, she has been having nausea, vomiting, and diarrhea. EMS was called and found her with decreased level of consciousness, hypotensive, and hypoglycemic with a blood sugar in the 30s. She has a history of chronic pain and was on scheduled oxycodone/acetaminophen for control. The patient's level of consciousness, blood pressure, and glucose improved after a dose of Narcan and D50. According to the nurse in the detention, no fevers reported. On arrival to the ER, she has a normal white blood cell count. She is in acute renal failure with a creatinine of 3.3, BUN 56, lactic acid 2.4. Urinalysis is positive for wbc's, leukocyte esterase, and bacteria with a few squamous epithelial cells. Urine culture is in process. Blood cultures had since returned with gram-negative ursula and gram-positive cocci in clusters in 1 of 4 bottles. The patient received a dose of vancomycin and started on aztreonam per primary. ID has been asked to consult for further evaluation and antibiotic management. The patient arouses easily to name. She knows that she is in the hospital for frequent bowel movements. She is a poor historian. Denies pain, headache, nausea, vomiting, back pain, cough, or shortness of air. Denies chills or aches. PAST MEDICAL HISTORY: Chronic kidney disease, diabetes mellitus type 2, hypertension, gastroesophageal reflux disease, chronic systolic congestive heart failure, peripheral neuropathy, anemia, schizoaffective disorder, osteoarthritis, gallops, and urinary incontinence. PAST SURGICAL HISTORY: Cholecystectomy and section. FAMILY HISTORY: Positive for coronary artery disease and cancer. SOCIAL HISTORY: [facility] resident. She is a . Former smoker. ALLERGIES: LISTED AMPICILLIN, REACTION UNKNOWN AND FENTANYL. MEDICATIONS: Vancomycin and aztreonam. Other medications are available and have been reviewed on the AUG. REVIEW OF SYSTEMS: Per HPI. PHYSICAL EXAMINATION: GENERAL: -[place] female, resting quietly in no apparent distress. VITAL SIGNS: Temperature 98.7, blood pressure 123/49, heart rate 84, respiratory rate 17, pulse oximetry 93% on room air. Weight is 194.38 pounds. HEENT: Left pupil reactive. Cataract in right eye. Oropharynx cavity pink and dry. NECK: Supple. LUNGS: Clear to auscultation. HEART: Normal S1, S2. ABDOMEN: Nondistended. Bowel sounds present, soft and nontender. EXTREMITIES: No gross edema or cyanosis. SKIN: Without rash. Warm to touch. NEUROLOGIC: Arouses easily to name. Oriented to place and self. Follows commands. LABORATORY DATA: WBC 10.1, hemoglobin 12.1, platelet count 130,000. Sodium 142, potassium 2.4, creatinine 3.3, BUN 56, glucose 153. Lactic acid 2.4, total bilirubin 0.5, AST 74, ALT 30, albumin 2.7. Urinalysis per HPI. Blood cultures per HPI. Chest x-ray shows no infiltrate, effusion, or pneumothorax. Previous C. diff PCR was negative on 11/08/2016, at detention. IMPRESSION: 1. Polymicrobial sepsis present on admission. 2. AMPICILLIN ALLERGY, reaction unknown. 3. Acute encephalopathy. 4. Hypotension. 5. Lactic acidosis. 6. Acute kidney injury on chronic kidney disease. 7. Loose stools. 8. Diabetes mellitus type 2 with hyperglycemia. PLAN: Hold further doses of vancomycin in light of acute kidney injury. Also change aztreonam to meropenem, dose adjusted for renal failure as well. We will follow up on urine and blood cultures along with morning laboratory values. Records from detention were reviewed. Thank you, Dr. Guo for asking us to participate in this patient's care. Should you have further questions or concerns, please call. MARV MCNEILL MD DR: LYSSA/keila JOB#: [id number] / [id number]
[2016-11-26] MEDS: INSULIN ASPART 300 UNITS/3 ML INSULN.PEN SQ SCH (16:55)
[2016-11-26 19:00] VITALS: BP 135/50
[2016-11-26] MEDS: LIDOCAINE (700MG/PATCH) PATCH. TP SCH (20:34)
[2016-11-26] MEDS: INSULIN DETEMIR 300 UNITS/3 ML INSULN.PEN. SQ SCH (20:48)
[2016-11-26 22:56] VITALS: BP 136/58
[2016-11-27] MEDS ORDERED: HALOPERIDOL 5 MG TABLET. PO ONE (02:00)
[2016-11-27] MEDS: POTASSIUM ACETATE 40 MEQ in IV NORMAL SALINE 1000ML BAG 1,000 ML IV SCH (02:35)
[2016-11-27 03:00] VITALS: BP 151/57
[2016-11-27 05:18] LABS: BASO # 0.1 x10^3/uL (0.0-0.2); BASO % 2 % (0-3); EOS % 9 % (0-3); HEMATOCRIT 38.4 % (36.0-47.0); HEMOGLOBIN 12.2 g/dL (12.0-15.5); LYMPH # 1.2 x10^3/uL (1.0-4.8); LYMPH % 15 % (24-48); MEAN CORPUSCULAR HEMOGLOBIN 31 pg (25-35); MEAN CORPUSCULAR HGB CONC 32 g/dL (31-37); MEAN CORPUSCULAR VOLUME 96 fL (79-100); MONO % 19 % (0-9); NEUT % 56 % (31-73); PLATELET COUNT 131 x10^3/uL (140-400); RED BLOOD COUNT 3.99 x10^6/uL (3.50-5.40); RED CELL DISTRIBUTION WIDTH 17.8 % (11.5-14.5); WHITE BLOOD COUNT 8.1 x10^3/uL (4.0-11.0)
[2016-11-27 06:06] LABS: ALBUMIN 2.6 g/dL (3.4-5.0); CREATININE 1.9 mg/dL (0.6-1.0); GFR 31.4; PHOSPHORUS 1.7 mg/dL (2.6-4.7)
[2016-11-27] MEDS ORDERED: HALOPERIDOL LACTATE 5 MG/ML VIAL. IVP ONE (06:30)
[2016-11-27 07:00] VITALS: BP 173/54
[2016-11-27] MEDS ORDERED: SODIUM POLYSTYRENE SULFONATE 15 GM/60 ML ORAL.SUSP. PO ONE ×2 (07:00→12:00)
[2016-11-27] MEDS: INSULIN ASPART 300 UNITS/3 ML INSULN.PEN SQ SCH ×3 (08:00→17:02)
[2016-11-27] MEDS ORDERED: IV NORMAL SALINE 1000ML BAG 1,000 ML IV ONE (08:15)
[2016-11-27] MEDS: ASPIRIN ENTERIC COATED 81 MG TABLET.DR. PO SCH (09:00)
[2016-11-27] MEDS: COLCHICINE 0.6 MG TABLET PO SCH ×2 (09:00→20:36)
[2016-11-27] MEDS: cycloSPORINE 0.05% OPTH 1 DROP DROPERETTE OU SCH ×2 (09:00→21:00)
[2016-11-27] MEDS: GABAPENTIN 100 MG CAPSULE. PO SCH ×2 (09:00→20:36)
[2016-11-27] MEDS: HALOPERIDOL LACTATE 5 MG/ML VIAL. IVP PRN ×2 (09:00→17:28)
[2016-11-27] MEDS: ALLOPURINOL 100 MG TABLET. PO SCH (09:01)
[2016-11-27] MEDS: ISOSORBIDE MONONITRATE ER 30 MG TAB.ER.24H PO SCH (09:01)
[2016-11-27] MEDS: CARVEDILOL 12.5 MG TABLET. PO SCH ×2 (09:01→17:02)
--- NOTE | 2016-11-27 09:26 | PDOC ---
Infectious Disease Note Subjective Subjective Confused this am. Pulled gardner out. Has been replaced ROS ROS Denies all GEN: Denies fevers, chills, sweats HEENT: Denies blurred vision, sore throat CV: Denies chest pain RESP: Denies shortness of air, cough GI: Denies n/v/d NEURO: Denies confusion, dizziness MSK: Denies weakness, joint pain/swelling Vital Sign Vital Signs Vital Signs Date Time Temp Pulse Resp B/P (MAP) Pulse Ox O2 Delivery O2 Flow Rate FiO2 11/27/16 09:01 75 170/50 11/27/16 03:00 97.9 18 97 Room Air 97.9 Physical Exam PHYSICAL EXAM GENERAL: NAD, Alert, confused HEENT: PERRL, OC/OP - clear NECK: Supple, no JVD, no LN LUNGS: Clear HEART: S1S2, no gallop, no murmur ABD: Soft, NT, no organomegaly, no rebound,obese Gardner - clear EXT: No edema, no cyanosis 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, 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 SKIN: No rash IV: ok Labs Lab Laboratory Tests Test 11/26/16 10:40 11/26/16 10:59 11/26/16 16:23 11/26/16 20:45 White Blood Count 6.6 x10^3/uL (4.0-11.0) Red Blood Count 3.62 x10^6/uL (3.50-5.40) Hemoglobin 11.2 g/dL (12.0-15.5) Hematocrit 33.5 % (36.0-47.0) Mean Corpuscular Volume 92 fL (79-100) Mean Corpuscular Hemoglobin 31 pg (25-35) Mean Corpuscular Hemoglobin Concent 33 g/dL (31-37) Red Cell Distribution Width 17.1 % (11.5-14.5) Platelet Count 121 x10^3/uL (140-400) Neutrophils (%) (Auto) 61 % (31-73) Lymphocytes (%) (Auto) 14 % (24-48) Monocytes (%) (Auto) 16 % (0-9) Eosinophils (%) (Auto) 9 % (0-3) Basophils (%) (Auto) 1 % (0-3) Neutrophils # (Auto) 4.0 x10^3uL (1.8-7.7) Lymphocytes # (Auto) 0.9 x10^3/uL (1.0-4.8) Monocytes # (Auto) 1.0 x10^3/uL (0.0-1.1) Eosinophils # (Auto) 0.6 x10^3/uL (0.0-0.7) Basophils # (Auto) 0.0 x10^3/uL (0.0-0.2) Sodium Level 140 mmol/L (136-145) Potassium Level 3.6 mmol/L (3.5-5.1) Chloride Level 104 mmol/L (98-107) Carbon Dioxide Level 25 mmol/L (21-32) Anion Gap 11 (6-14) Blood Urea Nitrogen 53 mg/dL (7-20) Creatinine 2.7 mg/dL (0.6-1.0) Estimated GFR (Cockcroft-Gault) 21.0 BUN/Creatinine Ratio 20 (6-20) Glucose Level 166 mg/dL (70-99) Calcium Level 7.6 mg/dL (8.5-10.1) Total Bilirubin 0.5 mg/dL (0.2-1.0) Aspartate Amino Transf (AST/SGOT) 75 U/L (15-37) Alanine Aminotransferase (ALT/SGPT) 30 U/L (14-59) Alkaline Phosphatase 113 U/L (46-116) Total Protein 5.5 g/dL (6.4-8.2) Albumin 2.5 g/dL (3.4-5.0) Albumin/Globulin Ratio 0.8 (1.0-1.7) Glucose (Fingerstick) 150 mg/dL (70-99) 157 mg/dL (70-99) 128 mg/dL (70-99) Test 11/27/16 03:10 11/27/16 03:40 11/27/16 07:48 Sodium Level 143 mmol/L (136-145) Potassium Level 6.0 mmol/L (3.5-5.1) Chloride Level 112 mmol/L (98-107) Carbon Dioxide Level 21 mmol/L (21-32) Anion Gap 10 (6-14) Blood Urea Nitrogen 45 mg/dL (7-20) Creatinine 1.9 mg/dL (0.6-1.0) Estimated GFR (Cockcroft-Gault) 31.4 Glucose Level 126 mg/dL (70-99) Calcium Level 8.0 mg/dL (8.5-10.1) Phosphorus Level 1.7 mg/dL (2.6-4.7) Magnesium Level 1.4 mg/dL (1.8-2.4) Albumin 2.6 g/dL (3.4-5.0) White Blood Count 8.1 x10^3/uL (4.0-11.0) Red Blood Count 3.99 x10^6/uL (3.50-5.40) Hemoglobin 12.2 g/dL (12.0-15.5) Hematocrit 38.4 % (36.0-47.0) Mean Corpuscular Volume 96 fL (79-100) Mean Corpuscular Hemoglobin 31 pg (25-35) Mean Corpuscular Hemoglobin Concent 32 g/dL (31-37) Red Cell Distribution Width 17.8 % (11.5-14.5) Platelet Count 131 x10^3/uL (140-400) Neutrophils (%) (Auto) 56 % (31-73) Lymphocytes (%) (Auto) 15 % (24-48) Monocytes (%) (Auto) 19 % (0-9) Eosinophils (%) (Auto) 9 % (0-3) Basophils (%) (Auto) 2 % (0-3) Neutrophils # (Auto) 4.5 x10^3uL (1.8-7.7) Lymphocytes # (Auto) 1.2 x10^3/uL (1.0-4.8) Monocytes # (Auto) 1.5 x10^3/uL (0.0-1.1) Eosinophils # (Auto) 0.7 x10^3/uL (0.0-0.7) Basophils # (Auto) 0.1 x10^3/uL (0.0-0.2) Glucose (Fingerstick) 157 mg/dL (70-99) Objective Assessment Polymicrobial sepsis. POA (1 of 4 bottles so far). Enteric pending per micro GNR UTI - POA Ampicillin allergy. Reaction unknown Acute encephalopathy- confused this am Hypotension - improved lactic acidosis FEDERICA on CKD Loose stools. c. diff neg 11/08. repeat pending DM II with hypoglycemia Chronic pain Plan Plan of Care D/w micro Urine and Blood ID will be later. Do not see any Gram positive in blood but are rechecking Hold further doses of vanc in light of FEDERICA Cont meropenem increase dose MARV MCNEILL MD November 27, 2016 09:26
--- NOTE | 2016-11-27 10:13 | PDOC ---
SUBJECTIVE ROS [place]/ CKD III Doign OK overall CVS: no Orthopnea, no CP RESP: no SOB, no STUART GI: no Nausea, no Vomiting : no Dysuria, no Urgency OBJECTIVE Vital Signs Vital Signs Date Time Temp Pulse Resp B/P (MAP) Pulse Ox O2 Delivery O2 Flow Rate FiO2 11/27/16 09:01 75 170/50 11/27/16 07:00 97.5 18 100 Room Air 97.5 I & 0 Intake and Output 11/27/16 07:00 Intake Total 2055 ml Output Total 950 ml Balance 1105 ml Intake Oral 480 ml IV Total 1575 ml Output Urine Total 950 ml # Bowel Movements 3 PHYSICAL EXAM Physical Exam General Appearance: Awake Alert Oriented x 2 In no Distress Eyes: VIsion Unchanged Conjunctiva Normal EN: No EN Drainage Mucous Memb. moist Neck: no JVD no JVP Supple no Thyromegaly - short neck CVS: S1 S2 + Murmur No Gallop No Rub no Edema Resp: no Rales no Rhonchi no Acc. Muscle use GI: BAS +ve NO Bruit Non Tender Non Distended : no CVA tenderness; no Suprapubic Tenderness Assessment & Plan [place] - Appears to have mostly resolved. (VMN) due to NVD and hypotension, Current FLuid and E-lyte status does not necessitate emergent need for Dialysis. Will re-evaluate for Dialysis in am. UA looks benign CKD III with min atrophic Kidneys on previous US (baseline creat is ~ 1.4) HypoKalemia - replaced as ordered, now on high side; IVF d/francis rechekc levels. Low Phos - IV NA PHos low Mag - repalced per sliding scale. Vol depltion - IVF as ordered ? SIRS/ Sepsis - may need ID Eval for multi-organismal +ve Bl Cx Discussed Plan of Care and prognosis etc. at length with family. COMMENT/RELEVANT DATA Meds Current Medications Medications (Trade) Dose Ordered Sig/Erick Start Time Stop Time Status Last Admin Dose Admin Allopurinol (Zyloprim) 100 mg DAILY 11/26/16 09:00 11/27/16 09:01 100 MG Aspirin (Ecotrin) 81 mg DAILY08 11/26/16 08:00 11/27/16 09:00 81 MG Aztreonam 1 gm/ Sodium Chloride 50 ml @ 100 mls/hr Q6HRS 11/26/16 10:00 11/26/16 10:56 DC Carvedilol (Coreg) 25 mg BIDWMEALS 11/26/16 08:00 11/27/16 09:01 25 MG Clonidine HCl (Catapres Tts-3) 1 patch WEEKLY 11/26/16 09:00 11/26/16 09:36 1 PATCH Colchicine (Colcrys) 0.6 mg BID 11/25/16 21:00 11/27/16 09:00 0.6 MG Cyclosporine (Restasis) 1 drop BID 11/25/16 21:00 11/27/16 09:00 1 DROP Dextrose (Dextrose 50%-Water Syringe) 12.5 gm PRN Q15MIN PRN 11/26/16 14:00 Furosemide (Lasix) 40 mg [id number] 11/26/16 09:00 11/26/16 09:00 DC Gabapentin (Neurontin) 100 mg BID 11/25/16 21:00 11/27/16 09:00 100 MG Haloperidol (Haldol) 5 mg 1X ONCE 11/27/16 02:00 11/27/16 02:01 DC 11/27/16 02:25 5 MG Haloperidol Lactate (Haldol) 5 mg PRN Q6HRS PRN 11/27/16 08:15 11/27/16 09:00 5 MG Insulin Aspart (NovoLOG) 0-7 UNITS TIDWMEALS 11/26/16 17:00 Insulin Detemir (Levemir) 10 units QHS 11/26/16 21:00 Isosorbide Mononitrate (Imdur) 30 mg DAILY 11/26/16 09:00 11/27/16 09:01 30 MG Lidocaine (Lidoderm) 1 patch HS 11/25/16 21:00 11/26/16 20:34 1 PATCH Lorazepam (Ativan) 2 mg PRN Q4HRS PRN 11/27/16 09:45 Magnesium Sulfate/ Dextrose 50 ml @ 25 mls/hr PRN DAILY PRN 11/26/16 08:15 Meropenem 500 mg/ Sodium Chloride 50 ml @ 100 mls/hr Q8HRS 11/27/16 14:00 Oxycodone/ Acetaminophen (Percocet 5/325) 1 tab PRN BID PRN 11/25/16 20:00 Potassium Chloride/Dextrose/ Sod Cl 1,000 ml @ 75 mls/hr 1X ONCE 11/25/16 13:30 11/26/16 08:26 DC 11/25/16 15:16 75 MLS/HR Potassium Acetate 40 meq/Sodium Chloride 1,020 ml @ 75 mls/hr [id number] 11/26/16 09:00 11/27/16 06:23 DC 11/27/16 02:35 75 MLS/HR Potassium Chloride (KCl Oral Soln) 40 meq 1X ONCE 11/25/16 12:45 11/25/16 12:46 DC 11/25/16 14:07 40 MEQ Potassium Chloride (Klor-Con) 40 meq TIDWMEALS 11/26/16 09:00 11/27/16 08:08 DC 11/26/16 17:08 40 MEQ Quetiapine Fumarate (SEROquel) 25 mg HS 11/26/16 21:00 11/26/16 20:33 25 MG Sodium Polystyrene Sulfonate (Kayexalate) 30 gm 1X ONCE 11/27/16 07:00 11/27/16 07:01 DC 11/27/16 06:31 30 GM Sodium Chloride 1,000 ml @ 100 mls/hr 1X ONCE 11/27/16 08:15 11/27/16 18:14 Vancomycin HCl 1 each 1X ONCE 11/30/16 09:00 11/30/16 09:01 Cancel Vancomycin HCl (Vanco Per Pharmacy) 1 each PRN DAILY PRN 11/26/16 09:15 Cancel Vancomycin HCl 1.25 gm/Sodium Chloride 250 ml @ 167 mls/hr Q48H 11/28/16 09:30 Cancel Vancomycin HCl 2 gm/Sodium Chloride 500 ml @ 250 mls/hr 1X ONCE 11/26/16 10:00 11/26/16 11:59 DC 11/26/16 09:35 250 MLS/HR Lab Laboratory Tests Test 11/26/16 10:40 11/26/16 10:59 11/26/16 16:23 11/26/16 20:45 White Blood Count 6.6 x10^3/uL (4.0-11.0) Red Blood Count 3.62 x10^6/uL (3.50-5.40) Hemoglobin 11.2 g/dL (12.0-15.5) Hematocrit 33.5 % (36.0-47.0) Mean Corpuscular Volume 92 fL (79-100) Mean Corpuscular Hemoglobin 31 pg (25-35) Mean Corpuscular Hemoglobin Concent 33 g/dL (31-37) Red Cell Distribution Width 17.1 % (11.5-14.5) Platelet Count 121 x10^3/uL (140-400) Neutrophils (%) (Auto) 61 % (31-73) Lymphocytes (%) (Auto) 14 % (24-48) Monocytes (%) (Auto) 16 % (0-9) Eosinophils (%) (Auto) 9 % (0-3) Basophils (%) (Auto) 1 % (0-3) Neutrophils # (Auto) 4.0 x10^3uL (1.8-7.7) Lymphocytes # (Auto) 0.9 x10^3/uL (1.0-4.8) Monocytes # (Auto) 1.0 x10^3/uL (0.0-1.1) Eosinophils # (Auto) 0.6 x10^3/uL (0.0-0.7) Basophils # (Auto) 0.0 x10^3/uL (0.0-0.2) Sodium Level 140 mmol/L (136-145) Potassium Level 3.6 mmol/L (3.5-5.1) Chloride Level 104 mmol/L (98-107) Carbon Dioxide Level 25 mmol/L (21-32) Anion Gap 11 (6-14) Blood Urea Nitrogen 53 mg/dL (7-20) Creatinine 2.7 mg/dL (0.6-1.0) Estimated GFR (Cockcroft-Gault) 21.0 BUN/Creatinine Ratio 20 (6-20) Glucose Level 166 mg/dL (70-99) Calcium Level 7.6 mg/dL (8.5-10.1) Total Bilirubin 0.5 mg/dL (0.2-1.0) Aspartate Amino Transf (AST/SGOT) 75 U/L (15-37) Alanine Aminotransferase (ALT/SGPT) 30 U/L (14-59) Alkaline Phosphatase 113 U/L (46-116) Total Protein 5.5 g/dL (6.4-8.2) Albumin 2.5 g/dL (3.4-5.0) Albumin/Globulin Ratio 0.8 (1.0-1.7) Glucose (Fingerstick) 150 mg/dL (70-99) 157 mg/dL (70-99) 128 mg/dL (70-99) Test 11/27/16 03:10 11/27/16 03:40 11/27/16 07:48 Sodium Level 143 mmol/L (136-145) Potassium Level 6.0 mmol/L (3.5-5.1) Chloride Level 112 mmol/L (98-107) Carbon Dioxide Level 21 mmol/L (21-32) Anion Gap 10 (6-14) Blood Urea Nitrogen 45 mg/dL (7-20) Creatinine 1.9 mg/dL (0.6-1.0) Estimated GFR (Cockcroft-Gault) 31.4 Glucose Level 126 mg/dL (70-99) Calcium Level 8.0 mg/dL (8.5-10.1) Phosphorus Level 1.7 mg/dL (2.6-4.7) Magnesium Level 1.4 mg/dL (1.8-2.4) Albumin 2.6 g/dL (3.4-5.0) White Blood Count 8.1 x10^3/uL (4.0-11.0) Red Blood Count 3.99 x10^6/uL (3.50-5.40) Hemoglobin 12.2 g/dL (12.0-15.5) Hematocrit 38.4 % (36.0-47.0) Mean Corpuscular Volume 96 fL (79-100) Mean Corpuscular Hemoglobin 31 pg (25-35) Mean Corpuscular Hemoglobin Concent 32 g/dL (31-37) Red Cell Distribution Width 17.8 % (11.5-14.5) Platelet Count 131 x10^3/uL (140-400) Neutrophils (%) (Auto) 56 % (31-73) Lymphocytes (%) (Auto) 15 % (24-48) Monocytes (%) (Auto) 19 % (0-9) Eosinophils (%) (Auto) 9 % (0-3) Basophils (%) (Auto) 2 % (0-3) Neutrophils # (Auto) 4.5 x10^3uL (1.8-7.7) Lymphocytes # (Auto) 1.2 x10^3/uL (1.0-4.8) Monocytes # (Auto) 1.5 x10^3/uL (0.0-1.1) Eosinophils # (Auto) 0.7 x10^3/uL (0.0-0.7) Basophils # (Auto) 0.1 x10^3/uL (0.0-0.2) Glucose (Fingerstick) 157 mg/dL (70-99) HEATHER STORY MD November 27, 2016 10:13
[2016-11-27] MEDS ORDERED: SODIUM POLYSTYRENE SULFONATE 15 GM/60 ML ORAL.SUSP. PO PRN (10:15)
--- NOTE | 2016-11-27 10:16 | PDOC ---
PROGRESS NOTES Chief Complaint Chief Complaint 1. Hypokalemia,now hyperkalemia, hypoglycemia, acute kidney injury 2. Agitation w./ delirium, acute metabolic encephalopathy on chronic dementia 3. Obesity 4. Anemia 5. CHF 6. Constipation 7. Stroke 8. Depression 9. Diabetes 10. Hypertension 11. Renal failure 12. Peripheral vascular disease 13. 14. Cholecystectomy History of Present Illness History of Present Illness Patient was seen this am in rm X3, agitated and combative, has spit out meds, has tried to strike staff s/p Haldol X1, pRN ativan hyperkalemia, IV fluid, hold replacement, Renal following, renal fxn much improved SNU eval, she has been longstand [place] resident per Dr. Rojas who used to see her Vitals Vitals Vital Signs Date Time Temp Pulse Resp B/P (MAP) Pulse Ox O2 Delivery O2 Flow Rate FiO2 11/27/16 09:01 75 170/50 11/27/16 07:00 97.5 18 100 Room Air 97.5 Physical Exam General: Alert, Cooperative, No acute distress Heart: Regular rate, Normal S1, Normal S2 Lungs: Clear Abdomen: Normal bowel sounds, Soft Extremities: No clubbing, No cyanosis Skin: No rashes, No breakdown, No significant lesion Labs LABS Laboratory Tests Test 11/26/16 10:40 11/26/16 10:59 11/26/16 16:23 11/26/16 20:45 White Blood Count 6.6 x10^3/uL (4.0-11.0) Red Blood Count 3.62 x10^6/uL (3.50-5.40) Hemoglobin 11.2 g/dL (12.0-15.5) Hematocrit 33.5 % (36.0-47.0) Mean Corpuscular Volume 92 fL (79-100) Mean Corpuscular Hemoglobin 31 pg (25-35) Mean Corpuscular Hemoglobin Concent 33 g/dL (31-37) Red Cell Distribution Width 17.1 % (11.5-14.5) Platelet Count 121 x10^3/uL (140-400) Neutrophils (%) (Auto) 61 % (31-73) Lymphocytes (%) (Auto) 14 % (24-48) Monocytes (%) (Auto) 16 % (0-9) Eosinophils (%) (Auto) 9 % (0-3) Basophils (%) (Auto) 1 % (0-3) Neutrophils # (Auto) 4.0 x10^3uL (1.8-7.7) Lymphocytes # (Auto) 0.9 x10^3/uL (1.0-4.8) Monocytes # (Auto) 1.0 x10^3/uL (0.0-1.1) Eosinophils # (Auto) 0.6 x10^3/uL (0.0-0.7) Basophils # (Auto) 0.0 x10^3/uL (0.0-0.2) Sodium Level 140 mmol/L (136-145) Potassium Level 3.6 mmol/L (3.5-5.1) Chloride Level 104 mmol/L (98-107) Carbon Dioxide Level 25 mmol/L (21-32) Anion Gap 11 (6-14) Blood Urea Nitrogen 53 mg/dL (7-20) Creatinine 2.7 mg/dL (0.6-1.0) Estimated GFR (Cockcroft-Gault) 21.0 BUN/Creatinine Ratio 20 (6-20) Glucose Level 166 mg/dL (70-99) Calcium Level 7.6 mg/dL (8.5-10.1) Total Bilirubin 0.5 mg/dL (0.2-1.0) Aspartate Amino Transf (AST/SGOT) 75 U/L (15-37) Alanine Aminotransferase (ALT/SGPT) 30 U/L (14-59) Alkaline Phosphatase 113 U/L (46-116) Total Protein 5.5 g/dL (6.4-8.2) Albumin 2.5 g/dL (3.4-5.0) Albumin/Globulin Ratio 0.8 (1.0-1.7) Glucose (Fingerstick) 150 mg/dL (70-99) 157 mg/dL (70-99) 128 mg/dL (70-99) Test 11/27/16 03:10 11/27/16 03:40 11/27/16 07:48 Sodium Level 143 mmol/L (136-145) Potassium Level 6.0 mmol/L (3.5-5.1) Chloride Level 112 mmol/L (98-107) Carbon Dioxide Level 21 mmol/L (21-32) Anion Gap 10 (6-14) Blood Urea Nitrogen 45 mg/dL (7-20) Creatinine 1.9 mg/dL (0.6-1.0) Estimated GFR (Cockcroft-Gault) 31.4 Glucose Level 126 mg/dL (70-99) Calcium Level 8.0 mg/dL (8.5-10.1) Phosphorus Level 1.7 mg/dL (2.6-4.7) Magnesium Level 1.4 mg/dL (1.8-2.4) Albumin 2.6 g/dL (3.4-5.0) White Blood Count 8.1 x10^3/uL (4.0-11.0) Red Blood Count 3.99 x10^6/uL (3.50-5.40) Hemoglobin 12.2 g/dL (12.0-15.5) Hematocrit 38.4 % (36.0-47.0) Mean Corpuscular Volume 96 fL (79-100) Mean Corpuscular Hemoglobin 31 pg (25-35) Mean Corpuscular Hemoglobin Concent 32 g/dL (31-37) Red Cell Distribution Width 17.8 % (11.5-14.5) Platelet Count 131 x10^3/uL (140-400) Neutrophils (%) (Auto) 56 % (31-73) Lymphocytes (%) (Auto) 15 % (24-48) Monocytes (%) (Auto) 19 % (0-9) Eosinophils (%) (Auto) 9 % (0-3) Basophils (%) (Auto) 2 % (0-3) Neutrophils # (Auto) 4.5 x10^3uL (1.8-7.7) Lymphocytes # (Auto) 1.2 x10^3/uL (1.0-4.8) Monocytes # (Auto) 1.5 x10^3/uL (0.0-1.1) Eosinophils # (Auto) 0.7 x10^3/uL (0.0-0.7) Basophils # (Auto) 0.1 x10^3/uL (0.0-0.2) Glucose (Fingerstick) 157 mg/dL (70-99) Review of Systems Review of Systems agitated, combative Assessment and Plan Assessmemt and Plan Problems Medical Problems: (1) Acute kidney injury Status: Acute (2) Altered level of consciousness Status: Acute (3) Hypoglycemia associated with type 2 diabetes mellitus Status: Acute (4) Hypokalemia Status: Acute (5) Opiate overdose Status: Acute Problems: Comment Review of Relevant I have reviewed the following items forest (where applicable) has been applied. Labs Laboratory Tests Test 11/25/16 12:06 11/25/16 12:30 11/25/16 13:17 11/25/16 13:41 White Blood Count 10.1 x10^3/uL (4.0-11.0) Red Blood Count 3.97 x10^6/uL (3.50-5.40) Hemoglobin 12.1 g/dL (12.0-15.5) Hematocrit 37.3 % (36.0-47.0) Mean Corpuscular Volume 94 fL (79-100) Mean Corpuscular Hemoglobin 31 pg (25-35) Mean Corpuscular Hemoglobin Concent 33 g/dL (31-37) Red Cell Distribution Width 17.0 % (11.5-14.5) Platelet Count 130 x10^3/uL (140-400) Neutrophils (%) (Auto) 69 % (31-73) Lymphocytes (%) (Auto) 11 % (24-48) Monocytes (%) (Auto) 14 % (0-9) Eosinophils (%) (Auto) 6 % (0-3) Basophils (%) (Auto) 1 % (0-3) Neutrophils # (Auto) 6.9 x10^3uL (1.8-7.7) Lymphocytes # (Auto) 1.1 x10^3/uL (1.0-4.8) Monocytes # (Auto) 1.4 x10^3/uL (0.0-1.1) Eosinophils # (Auto) 0.6 x10^3/uL (0.0-0.7) Basophils # (Auto) 0.1 x10^3/uL (0.0-0.2) Platelet Estimate Decreased (ADEQUATE) Large Platelets Few Giant Platelets Few Basophilic Stippling Present Anisocytosis Slight Schistocytes Few Prothrombin Time 12.5 SEC (11.7-14.0) Prothromb Time International Ratio 1.0 (0.8-1.1) Activated Partial Thromboplast Time 26 SEC (24-38) Sodium Level 142 mmol/L (136-145) Potassium Level 2.4 mmol/L (3.5-5.1) Chloride Level 103 mmol/L (98-107) Carbon Dioxide Level 28 mmol/L (21-32) Anion Gap 11 (6-14) Blood Urea Nitrogen 56 mg/dL (7-20) Creatinine 3.3 mg/dL (0.6-1.0) Estimated GFR (Cockcroft-Gault) 16.6 BUN/Creatinine Ratio 17 (6-20) Glucose Level 153 mg/dL (70-99) Calcium Level 8.0 mg/dL (8.5-10.1) Total Bilirubin 0.5 mg/dL (0.2-1.0) Aspartate Amino Transf (AST/SGOT) 74 U/L (15-37) Alanine Aminotransferase (ALT/SGPT) 30 U/L (14-59) Alkaline Phosphatase 121 U/L (46-116) Total Protein 6.1 g/dL (6.4-8.2) Albumin 2.7 g/dL (3.4-5.0) Albumin/Globulin Ratio 0.8 (1.0-1.7) Lactic Acid Level 2.4 mmol/L (0.4-2.0) Glucose (Fingerstick) 99 mg/dL (70-99) Urine Collection Type Unknown Urine Color Yellow Urine Clarity Clear Urine pH 5.0 Urine Specific Mackey 1.015 Urine Protein Negative mg/dL (NEG-TRACE) Urine Glucose (UA) Negative mg/dL (NEG) Urine Ketones (Stick) Negative mg/dL (NEG) Urine Blood Negative (NEG) Urine Nitrite Negative (NEG) Urine Bilirubin Negative (NEG) Urine Urobilinogen Dipstick 0.2 mg/dL (0.2 mg/dL) Urine Leukocyte Esterase Moderate (NEG) Urine RBC 0 /HPF (0-2) Urine WBC 5-10 /HPF (0-4) Urine Squamous Epithelial Cells Few /LPF Urine Bacteria Many /HPF (0-FEW) Urine Hyaline Casts Moderate /HPF Test 11/25/16 14:30 11/25/16 16:17 11/25/16 18:00 11/25/16 20:07 Nasal Screen MRSA (PCR) Negative (Negative) Glucose (Fingerstick) 144 mg/dL (70-99) 144 mg/dL (70-99) Clostridium difficile Toxin (PCR) Negative (Negative) Test 11/26/16 05:24 11/26/16 06:55 11/26/16 10:40 11/26/16 10:59 Glucose (Fingerstick) 119 mg/dL (70-99) 131 mg/dL (70-99) 150 mg/dL (70-99) White Blood Count 6.6 x10^3/uL (4.0-11.0) Red Blood Count 3.62 x10^6/uL (3.50-5.40) Hemoglobin 11.2 g/dL (12.0-15.5) Hematocrit 33.5 % (36.0-47.0) Mean Corpuscular Volume 92 fL (79-100) Mean Corpuscular Hemoglobin 31 pg (25-35) Mean Corpuscular Hemoglobin Concent 33 g/dL (31-37) Red Cell Distribution Width 17.1 % (11.5-14.5) Platelet Count 121 x10^3/uL (140-400) Neutrophils (%) (Auto) 61 % (31-73) Lymphocytes (%) (Auto) 14 % (24-48) Monocytes (%) (Auto) 16 % (0-9) Eosinophils (%) (Auto) 9 % (0-3) Basophils (%) (Auto) 1 % (0-3) Neutrophils # (Auto) 4.0 x10^3uL (1.8-7.7) Lymphocytes # (Auto) 0.9 x10^3/uL (1.0-4.8) Monocytes # (Auto) 1.0 x10^3/uL (0.0-1.1) Eosinophils # (Auto) 0.6 x10^3/uL (0.0-0.7) Basophils # (Auto) 0.0 x10^3/uL (0.0-0.2) Sodium Level 140 mmol/L (136-145) Potassium Level 3.6 mmol/L (3.5-5.1) Chloride Level 104 mmol/L (98-107) Carbon Dioxide Level 25 mmol/L (21-32) Anion Gap 11 (6-14) Blood Urea Nitrogen 53 mg/dL (7-20) Creatinine 2.7 mg/dL (0.6-1.0) Estimated GFR (Cockcroft-Gault) 21.0 BUN/Creatinine Ratio 20 (6-20) Glucose Level 166 mg/dL (70-99) Calcium Level 7.6 mg/dL (8.5-10.1) Total Bilirubin 0.5 mg/dL (0.2-1.0) Aspartate Amino Transf (AST/SGOT) 75 U/L (15-37) Alanine Aminotransferase (ALT/SGPT) 30 U/L (14-59) Alkaline Phosphatase 113 U/L (46-116) Total Protein 5.5 g/dL (6.4-8.2) Albumin 2.5 g/dL (3.4-5.0) Albumin/Globulin Ratio 0.8 (1.0-1.7) Test 11/26/16 16:23 11/26/16 20:45 11/27/16 03:10 11/27/16 03:40 Glucose (Fingerstick) 157 mg/dL (70-99) 128 mg/dL (70-99) Sodium Level 143 mmol/L (136-145) Potassium Level 6.0 mmol/L (3.5-5.1) Chloride Level 112 mmol/L (98-107) Carbon Dioxide Level 21 mmol/L (21-32) Anion Gap 10 (6-14) Blood Urea Nitrogen 45 mg/dL (7-20) Creatinine 1.9 mg/dL (0.6-1.0) Estimated GFR (Cockcroft-Gault) 31.4 Glucose Level 126 mg/dL (70-99) Calcium Level 8.0 mg/dL (8.5-10.1) Phosphorus Level 1.7 mg/dL (2.6-4.7) Magnesium Level 1.4 mg/dL (1.8-2.4) Albumin 2.6 g/dL (3.4-5.0) White Blood Count 8.1 x10^3/uL (4.0-11.0) Red Blood Count 3.99 x10^6/uL (3.50-5.40) Hemoglobin 12.2 g/dL (12.0-15.5) Hematocrit 38.4 % (36.0-47.0) Mean Corpuscular Volume 96 fL (79-100) Mean Corpuscular Hemoglobin 31 pg (25-35) Mean Corpuscular Hemoglobin Concent 32 g/dL (31-37) Red Cell Distribution Width 17.8 % (11.5-14.5) Platelet Count 131 x10^3/uL (140-400) Neutrophils (%) (Auto) 56 % (31-73) Lymphocytes (%) (Auto) 15 % (24-48) Monocytes (%) (Auto) 19 % (0-9) Eosinophils (%) (Auto) 9 % (0-3) Basophils (%) (Auto) 2 % (0-3) Neutrophils # (Auto) 4.5 x10^3uL (1.8-7.7) Lymphocytes # (Auto) 1.2 x10^3/uL (1.0-4.8) Monocytes # (Auto) 1.5 x10^3/uL (0.0-1.1) Eosinophils # (Auto) 0.7 x10^3/uL (0.0-0.7) Basophils # (Auto) 0.1 x10^3/uL (0.0-0.2) Test 11/27/16 07:48 Glucose (Fingerstick) 157 mg/dL (70-99) Laboratory Tests Test 11/26/16 10:40 11/26/16 10:59 11/26/16 16:23 11/26/16 20:45 White Blood Count 6.6 x10^3/uL (4.0-11.0) Red Blood Count 3.62 x10^6/uL (3.50-5.40) Hemoglobin 11.2 g/dL (12.0-15.5) Hematocrit 33.5 % (36.0-47.0) Mean Corpuscular Volume 92 fL (79-100) Mean Corpuscular Hemoglobin 31 pg (25-35) Mean Corpuscular Hemoglobin Concent 33 g/dL (31-37) Red Cell Distribution Width 17.1 % (11.5-14.5) Platelet Count 121 x10^3/uL (140-400) Neutrophils (%) (Auto) 61 % (31-73) Lymphocytes (%) (Auto) 14 % (24-48) Monocytes (%) (Auto) 16 % (0-9) Eosinophils (%) (Auto) 9 % (0-3) Basophils (%) (Auto) 1 % (0-3) Neutrophils # (Auto) 4.0 x10^3uL (1.8-7.7) Lymphocytes # (Auto) 0.9 x10^3/uL (1.0-4.8) Monocytes # (Auto) 1.0 x10^3/uL (0.0-1.1) Eosinophils # (Auto) 0.6 x10^3/uL (0.0-0.7) Basophils # (Auto) 0.0 x10^3/uL (0.0-0.2) Sodium Level 140 mmol/L (136-145) Potassium Level 3.6 mmol/L (3.5-5.1) Chloride Level 104 mmol/L (98-107) Carbon Dioxide Level 25 mmol/L (21-32) Anion Gap 11 (6-14) Blood Urea Nitrogen 53 mg/dL (7-20) Creatinine 2.7 mg/dL (0.6-1.0) Estimated GFR (Cockcroft-Gault) 21.0 BUN/Creatinine Ratio 20 (6-20) Glucose Level 166 mg/dL (70-99) Calcium Level 7.6 mg/dL (8.5-10.1) Total Bilirubin 0.5 mg/dL (0.2-1.0) Aspartate Amino Transf (AST/SGOT) 75 U/L (15-37) Alanine Aminotransferase (ALT/SGPT) 30 U/L (14-59) Alkaline Phosphatase 113 U/L (46-116) Total Protein 5.5 g/dL (6.4-8.2) Albumin 2.5 g/dL (3.4-5.0) Albumin/Globulin Ratio 0.8 (1.0-1.7) Glucose (Fingerstick) 150 mg/dL (70-99) 157 mg/dL (70-99) 128 mg/dL (70-99) Test 11/27/16 03:10 11/27/16 03:40 11/27/16 07:48 Sodium Level 143 mmol/L (136-145) Potassium Level 6.0 mmol/L (3.5-5.1) Chloride Level 112 mmol/L (98-107) Carbon Dioxide Level 21 mmol/L (21-32) Anion Gap 10 (6-14) Blood Urea Nitrogen 45 mg/dL (7-20) Creatinine 1.9 mg/dL (0.6-1.0) Estimated GFR (Cockcroft-Gault) 31.4 Glucose Level 126 mg/dL (70-99) Calcium Level 8.0 mg/dL (8.5-10.1) Phosphorus Level 1.7 mg/dL (2.6-4.7) Magnesium Level 1.4 mg/dL (1.8-2.4) Albumin 2.6 g/dL (3.4-5.0) White Blood Count 8.1 x10^3/uL (4.0-11.0) Red Blood Count 3.99 x10^6/uL (3.50-5.40) Hemoglobin 12.2 g/dL (12.0-15.5) Hematocrit 38.4 % (36.0-47.0) Mean Corpuscular Volume 96 fL (79-100) Mean Corpuscular Hemoglobin 31 pg (25-35) Mean Corpuscular Hemoglobin Concent 32 g/dL (31-37) Red Cell Distribution Width 17.8 % (11.5-14.5) Platelet Count 131 x10^3/uL (140-400) Neutrophils (%) (Auto) 56 % (31-73) Lymphocytes (%) (Auto) 15 % (24-48) Monocytes (%) (Auto) 19 % (0-9) Eosinophils (%) (Auto) 9 % (0-3) Basophils (%) (Auto) 2 % (0-3) Neutrophils # (Auto) 4.5 x10^3uL (1.8-7.7) Lymphocytes # (Auto) 1.2 x10^3/uL (1.0-4.8) Monocytes # (Auto) 1.5 x10^3/uL (0.0-1.1) Eosinophils # (Auto) 0.7 x10^3/uL (0.0-0.7) Basophils # (Auto) 0.1 x10^3/uL (0.0-0.2) Glucose (Fingerstick) 157 mg/dL (70-99) Microbiology 11/25/16 Blood Culture - Preliminary, Resulted NO GROWTH AFTER 1 DAY 11/25/16 Urine Culture - Preliminary, Resulted 11/25/16 Urine Culture Result 1 (JUDITH) - Preliminary, Resulted Medications Current Medications Potassium Chloride (KCl Oral Soln) 40 meq 1X ONCE PO Last administered on 11/25 14:07; Start 11/25/16 at 12:45; Stop 11/25/16 at 12:46; Status DC Potassium Chloride/Dextrose/ Sod Cl 1,000 ml @ 75 mls/hr 1X ONCE IV Last administered on 11/25/16 15:16; Start 11/25/16 at 13:30; Stop 11/26/16 at 08:26 ; Status DC Allopurinol (Zyloprim) 100 mg DAILY PO Last administered on 11/27/16 09:01; Start 11/26/16 at 09:00 Aspirin (Ecotrin) 81 mg DAILY08 PO Last administered on 11/27/16 09:00; Start 11/26/16 at 08:00 Carvedilol (Coreg) 25 mg BIDWMEALS PO Last administered on 11/27/16 09:01; Start 11/26/16 at 08:00 Clonidine HCl (Catapres Tts-3) 1 patch WEEKLY TD Last administered on 09:36; Start 11/26/16 at 09:00 Colchicine (Colcrys) 0.6 mg BID PO Last administered on 11/27/16 09:00; Start 11/25/16 at 21:00 Cyclosporine (Restasis) 1 drop BID OU Last administered on 11/27/16 09:00; Start 11/25/16 at 21:00 Furosemide (Lasix) 40 mg BID94 PO ; Start 11/26/16 at 09:00; Stop 11/26/16 at 09 :00; Status DC Gabapentin (Neurontin) 100 mg BID PO Last administered on 11/27/16 09:00; Start 11/25/16 at 21:00 Isosorbide Mononitrate (Imdur) 30 mg DAILY PO Last administered on 11/27/16 09 :01; Start 11/26/16 at 09:00 Lidocaine (Lidoderm) 1 patch HS TP Last administered on 11/26/16 20:34; Start 11/25/16 at 21:00 Oxycodone/ Acetaminophen (Percocet 5/325) 1 tab PRN BID PRN PO PAIN SEVERE; Start 11/25/16 at 20:00 Quetiapine Fumarate (SEROquel) 25 mg BID PO ; Start 11/25/16 at 21:00; Stop at 11:18; Status DC Magnesium Sulfate/ Dextrose 50 ml @ 25 mls/hr PRN DAILY PRN IV for Mag < 1.7 on am labs; Start 11/26/16 at 08:15 Potassium Acetate 40 meq/Sodium Chloride 1,020 ml @ 75 mls/hr [id number] IV Last administered on 11/27/16 02:35; Start 11/26/16 at 09:00; Stop 11/27/16 at 06:23 ; Status DC Potassium Chloride (Klor-Con) 40 meq TIDWMEALS PO Last administered on 17:08; Start 11/26/16 at 09:00; Stop 11/27/16 at 08:08; Status DC Sodium Chloride 500 ml @ 0 mls/hr QID PRN IV UO< 30cc/hr over previous 6hrs; Start 11/26/16 at 08:15 Vancomycin HCl (Vanco Per Pharmacy) 1 each PRN DAILY PRN MC SEE COMMENTS; Start 11/26/16 at 09:15; Status Cancel Aztreonam 1 gm/ Sodium Chloride 50 ml @ 100 mls/hr Q6HRS IV ; Start 11/26/16 at 10:00; Stop 11/26/16 at 10:56; Status DC Vancomycin HCl 2 gm/Sodium Chloride 500 ml @ 250 mls/hr 1X ONCE IV Last administered on 11/26/16 09:35; Start 11/26/16 at 10:00; Stop 11/26/16 at 11:59 ; Status DC Meropenem 500 mg/ Sodium Chloride 50 ml @ 100 mls/hr Q12HR IV Last administered on 11/26/16 20:49; Start 11/26/16 at 11:00; Stop 11/27/16 at 09:40 ; Status DC Vancomycin HCl 1.25 gm/Sodium Chloride 250 ml @ 167 mls/hr Q48H IV ; Start at 09:30; Status Cancel Vancomycin HCl 1 each 1X ONCE MC ; Start 11/30/16 at 09:00; Stop 11/30/16 at 09: 01; Status Cancel Quetiapine Fumarate (SEROquel) 25 mg HS PO Last administered on 11/26/16 20:33 ; Start 11/26/16 at 21:00 Insulin Detemir (Levemir) 10 units QHS SQ ; Start 11/26/16 at 21:00 Insulin Aspart (NovoLOG) 0-7 UNITS TIDWMEALS SQ ; Start 11/26/16 at 17:00 Dextrose (Dextrose 50%-Water Syringe) 12.5 gm PRN Q15MIN PRN IV SEE COMMENTS; Start 11/26/16 at 14:00 Haloperidol (Haldol) 5 mg 1X ONCE PO Last administered on 11/27/16 02:25; Start 11/27/16 at 02:00; Stop 11/27/16 at 02:01; Status DC Haloperidol Lactate (Haldol) 5 mg 1X ONCE IVP Last administered on 11/27/16 06:31; Start 11/27/16 at 06:30; Stop 11/27/16 at 06:31; Status DC Sodium Polystyrene Sulfonate (Kayexalate) 30 gm 1X ONCE PO Last administered on 11/27/16 06:31; Start 11/27/16 at 07:00; Stop 11/27/16 at 07:01; Status DC Haloperidol Lactate (Haldol) 5 mg PRN Q6HRS PRN IVP AGITATION Last administered on 11/27/16 09:00; Start 11/27/16 at 08:15 Sodium Chloride 1,000 ml @ 100 mls/hr 1X ONCE IV ; Start 11/27/16 at 08:15; Stop 11/27/16 at 18:14 Meropenem 500 mg/ Sodium Chloride 50 ml @ 100 mls/hr Q8HRS IV ; Start 11/27/16 at 14:00 Lorazepam (Ativan) 2 mg PRN Q4HRS PRN IV ANXIETY / AGITATION; Start 11/27/16 at 09:45 Sodium Phosphate 20 mmol/Dextrose 256.6667 ml @ 64.167 m... Q4HRS IV ; Start at 12:00; Status UNV Dextrose/Sodium Chloride 1,000 ml @ 100 mls/hr Q10H IV ; Start 11/27/16 at 10: 15; Status UNV Sodium Polystyrene Sulfonate (Kayexalate) 15 gm 1X PRN PRN PO for repeat K > 5.3; Start 11/27/16 at 10:15; Status UNV Active Scripts Active Reported Aspir 81 (Aspirin) 81 Mg Tablet.dr 1 Tab PO DAILY Allopurinol 100 Mg Tablet 1 Tab PO DAILY Colcrys (Colchicine) 0.6 Mg Tablet 1 Tab PO BID Lidoderm (Lidocaine) 700 Mg Adh..patch 1 Patch TP HS Gabapentin 100 Mg Capsule 100 Mg PO BID Hydralazine Hcl 100 Mg Tablet 1 Tab PO TID Furosemide 40 Mg Tablet 40 Mg PO BID Oxycodone-Acetaminophen 5-325 (Oxycodone Hcl/Acetaminophen) 1 Each Tablet 1 Each PO BID PRN Restasis (Cyclosporine) 1 Each Droperette 1 Drop EACHEYE BID Isosorbide Mononitrate Er (Isosorbide Mononitrate) 30 Mg Tab.er.24h 30 Mg PO DAILY Quetiapine Fumarate 25 Mg Tablet 25 Mg PO HS Coreg (Carvedilol) 12.5 Mg Tablet 25 Mg PO BID Catapres-Tts 3 (Clonidine) 1 Each Patch.tdwk 1 Each TD WEEKLY Pletal (Cilostazol) 100 Mg Tablet 100 Mg PO DAILYBFRLUN Acetaminophen Ext.release (Acetaminophen) 650 Mg Tablet.er 650 Mg PO Q6HRS PRN Levemir Flexpen (Insulin Detemir) 100 Unit/1 Ml Insuln.pen 14 Unit SQ DAILYWSUP Humalog (Insulin Lispro) 100 Unit/1 Ml Cartridge 3 Unit SQ TIDAC Glucagon Emergency Kit (Glucagon,Human Recombinant) 1 Mg Kit 1 Mg IJ Vitals/I & O Vital Sign - Last 24 Hours 11/26/16 11/26/16 11/26/16 11/26/16 11:00 15:00 18:59 19:00 Temp 98.6 98.1 99.1 98.6 98.1 99.1 Pulse 81 85 85 77 Resp 18 B/P (MAP) 114/47 (69) 169/103 (125) 169/103 135/50 (78) Pulse Ox 93 95 100 O2 Delivery Room Air Room Air Room Air 11/26/16 11/26/16 11/27/16 11/27/16 19:34 22:56 03:00 07:00 Temp 99.1 97.9 97.5 99.1 97.9 97.5 Pulse 76 74 87 Resp 18 18 B/P (MAP) 136/58 (84) 151/57 (88) 173/54 (93) Pulse Ox 97 97 100 O2 Delivery Room Air Room Air Room Air Room Air 11/27/16 11/27/16 09:01 09:01 Pulse 80 75 B/P (MAP) 170/60 170/50 Intake and Output 11/26/16 11/26/16 11/27/16 15:00 23:00 07:00 Intake Total 870 ml 210 ml 975 ml Output Total 950 ml Balance 870 ml 210 ml 25 ml EULOGIO HANEY MD November 27, 2016 10:16
[2016-11-27 10:34] LABS: % BASOS 1 % (0-3); % EOS 6 % (0-5); PLT ESTIMATE DECREASED (ADEQUATE)
[2016-11-27 10:35] LABS: ANISOCYTOSIS SLIGHT; POIKILOCYTOSIS PRESENT; TARGET CELLS FEW
[2016-11-27 10:36] LABS: CRENATED RBC PRESENT; OVALOCYTES FEW; POLYCHROMASIA SLIGHT; SCHISTOCYTES FEW; TEAR DROP CELLS OCC
[2016-11-27 11:39] VITALS: BP 140/79
[2016-11-27] MEDS: SODIUM PHOSPHATE 20 MMOL in IV DEXTROSE 5% 250 ML IV SCH ×2 (12:23→17:02)
[2016-11-27] MEDS: MEROPENEM 500 MG in IV NORMAL SALINE 50ML 50 ML IV SCH (14:12)
[2016-11-27 14:43] VITALS: BP 130/84
[2016-11-27 19:39] VITALS: BP 147/80
[2016-11-27] MEDS: IV DEXTROSE 5 %-0.45 % NACL 1,000 ML IV SCH (20:15)
[2016-11-27] MEDS: QUEtiapine 25 MG TABLET. PO SCH (20:36)
[2016-11-27] MEDS: LIDOCAINE (700MG/PATCH) PATCH. TP SCH (20:41)
[2016-11-27] MEDS: INSULIN DETEMIR 300 UNITS/3 ML INSULN.PEN. SQ SCH (21:10)
[2016-11-27 23:33] VITALS: BP 118/61
[2016-11-28] MEDS: MEROPENEM 500 MG in IV NORMAL SALINE 50ML 50 ML IV SCH ×5 (00:06→23:23)
[2016-11-28] MEDS: IV DEXTROSE 5 %-0.45 % NACL 1,000 ML IV SCH (01:32)
[2016-11-28 02:51] VITALS: BP 148/69
[2016-11-28] MEDS: HALOPERIDOL LACTATE 5 MG/ML VIAL. IVP PRN (03:13)
[2016-11-28 04:31] LABS: BASO % 0 % (0-3); EOS % 2 % (0-3); HEMATOCRIT 37.9 % (36.0-47.0); HEMOGLOBIN 12.4 g/dL (12.0-15.5); LYMPH # 0.7 x10^3/uL (1.0-4.8); LYMPH % 11 % (24-48); MEAN CORPUSCULAR HEMOGLOBIN 31 pg (25-35); MEAN CORPUSCULAR HGB CONC 33 g/dL (31-37); MEAN CORPUSCULAR VOLUME 94 fL (79-100); MONO % 16 % (0-9); NEUT % 70 % (31-73); PLATELET COUNT 126 x10^3/uL (140-400); RED BLOOD COUNT 4.02 x10^6/uL (3.50-5.40); RED CELL DISTRIBUTION WIDTH 17.7 % (11.5-14.5); WHITE BLOOD COUNT 6.6 x10^3/uL (4.0-11.0)
[2016-11-28 05:04] LABS: ALBUMIN 2.5 g/dL (3.4-5.0); CALCIUM 7.6 mg/dL (8.5-10.1); CREATININE 1.5 mg/dL (0.6-1.0); GFR 41.3; MAGNESIUM 1.1 mg/dL (1.8-2.4); PHOSPHORUS 5.1 mg/dL (2.6-4.7); POTASSIUM 4.7 mmol/L (3.5-5.1)
[2016-11-28 07:00] VITALS: BP 129/63
[2016-11-28] MEDS: INSULIN ASPART 300 UNITS/3 ML INSULN.PEN SQ SCH ×3 (08:00→17:47)
[2016-11-28] MEDS: ALLOPURINOL 100 MG TABLET. PO SCH ×2 (09:00→09:50)
[2016-11-28] MEDS: cycloSPORINE 0.05% OPTH 1 DROP DROPERETTE OU SCH ×2 (09:00→20:57)
[2016-11-28] MEDS ORDERED: VANCOMYCIN 1.25 GM in IV NORMAL SALINE 250ML 250 ML IV SCH (09:30)
[2016-11-28] MEDS: ASPIRIN ENTERIC COATED 81 MG TABLET.DR. PO SCH (09:34)
[2016-11-28] MEDS: GABAPENTIN 100 MG CAPSULE. PO SCH ×2 (09:34→20:58)
[2016-11-28] MEDS: ISOSORBIDE MONONITRATE ER 30 MG TAB.ER.24H PO SCH (09:35)
[2016-11-28] MEDS: COLCHICINE 0.6 MG TABLET PO SCH ×2 (09:35→20:58)
[2016-11-28] MEDS: CARVEDILOL 12.5 MG TABLET. PO SCH ×2 (09:36→17:00)
--- NOTE | 2016-11-28 10:33 | PDOC ---
Infectious Disease Note Subjective Subjective Less confused ROS ROS Unreliable but states ok GEN: Denies fevers, chills, sweats HEENT: Denies blurred vision, sore throat CV: Denies chest pain RESP: Denies shortness of air, cough GI: Denies n/v/d NEURO: Denies confusion, dizziness MSK: Denies weakness, joint pain/swelling Vital Sign Vital Signs Vital Signs Date Time Temp Pulse Resp B/P (MAP) Pulse Ox O2 Delivery O2 Flow Rate FiO2 11/28/16 09:36 77 129/63 11/28/16 08:00 Room Air 11/28/16 07:00 98.1 16 94 98.1 Physical Exam PHYSICAL EXAM GENERAL: NAD, Alert, confused but coop HEENT: PERRL, OC/OP - clear NECK: Supple, no JVD, no LN LUNGS: Clear HEART: S1S2, no gallop, no murmur ABD: Soft, NT, no organomegaly, no rebound,obese Sands - clear EXT: No edema, no cyanosis 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, 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 SKIN: No rash IV: ok Labs Lab Laboratory Tests Test 11/27/16 10:43 11/27/16 11:29 11/27/16 16:13 11/27/16 20:41 Potassium Level 6.3 mmol/L (3.5-5.1) Glucose (Fingerstick) 148 mg/dL (70-99) 228 mg/dL (70-99) 207 mg/dL (70-99) Test 11/28/16 03:27 11/28/16 03:50 Glucose (Fingerstick) 143 mg/dL (70-99) White Blood Count 6.6 x10^3/uL (4.0-11.0) Red Blood Count 4.02 x10^6/uL (3.50-5.40) Hemoglobin 12.4 g/dL (12.0-15.5) Hematocrit 37.9 % (36.0-47.0) Mean Corpuscular Volume 94 fL (79-100) Mean Corpuscular Hemoglobin 31 pg (25-35) Mean Corpuscular Hemoglobin Concent 33 g/dL (31-37) Red Cell Distribution Width 17.7 % (11.5-14.5) Platelet Count 126 x10^3/uL (140-400) Neutrophils (%) (Auto) 70 % (31-73) Lymphocytes (%) (Auto) 11 % (24-48) Monocytes (%) (Auto) 16 % (0-9) Eosinophils (%) (Auto) 2 % (0-3) Basophils (%) (Auto) 0 % (0-3) Neutrophils # (Auto) 4.6 x10^3uL (1.8-7.7) Lymphocytes # (Auto) 0.7 x10^3/uL (1.0-4.8) Monocytes # (Auto) 1.1 x10^3/uL (0.0-1.1) Eosinophils # (Auto) 0.1 x10^3/uL (0.0-0.7) Basophils # (Auto) 0.0 x10^3/uL (0.0-0.2) Sodium Level 148 mmol/L (136-145) Potassium Level 4.7 mmol/L (3.5-5.1) Chloride Level 113 mmol/L (98-107) Carbon Dioxide Level 23 mmol/L (21-32) Anion Gap 12 (6-14) Blood Urea Nitrogen 37 mg/dL (7-20) Creatinine 1.5 mg/dL (0.6-1.0) Estimated GFR (Cockcroft-Gault) 41.3 Glucose Level 176 mg/dL (70-99) Calcium Level 7.6 mg/dL (8.5-10.1) Phosphorus Level 5.1 mg/dL (2.6-4.7) Magnesium Level 1.1 mg/dL (1.8-2.4) Albumin 2.5 g/dL (3.4-5.0) Objective Assessment Polymicrobial sepsis. POA (1 of 4 bottles so far). Acinetobacter per micro - sens pending Klebsiella UTI - POA - sens pending. may have a second GNR Ampicillin allergy. Reaction unknown Acute encephalopathy- better Hypotension - improved lactic acidosis FEDERICA on CKD Loose stools. c. diff neg 11/08. repeat pending DM II with hypoglycemia Chronic pain Plan Plan of Care D/w micro Urine and Blood ID will be later this afternoon or in am. Hold further doses of vanc in light of FEDERICA Cont meropenem increase dose MARV MCNEILL MD November 28, 2016 10:33
[2016-11-28 11:04] VITALS: BP 116/50
--- NOTE | 2016-11-28 11:06 | PDOC ---
SUBJECTIVE ROS FEDERICA/ elyte ABN Doing oK overall CVS: no Orthopnea, no CP RESP: no SOB, no STUART GI: no Nausea, no Vomiting : no Dysuria, no Urgency OBJECTIVE Vital Signs Vital Signs Date Time Temp Pulse Resp B/P (MAP) Pulse Ox O2 Delivery O2 Flow Rate FiO2 11/28/16 09:36 77 129/63 11/28/16 08:00 Room Air 11/28/16 07:00 98.1 16 94 98.1 I & 0 Intake and Output 11/28/16 07:00 Intake Total 1881 ml Output Total 525 ml Balance 1356 ml Intake Oral 575 ml IV Total 1306 ml Output Urine Total 525 ml # Bowel Movements 1 PHYSICAL EXAM Physical Exam General Appearance: Awake Alert Oriented x 2 In no Distress Eyes: VIsion Unchanged Conjunctiva Normal EN: No EN Drainage Mucous Memb. moist Neck: no JVD no JVP Supple no Thyromegaly - short neck CVS: S1 S2 + Murmur No Gallop No Rub no Edema Resp: no Rales no Rhonchi no Acc. Muscle use GI: BAS +ve NO Bruit Non Tender Non Distended : no CVA tenderness; no Suprapubic Tenderness Assessment & Plan FEDERICA - Appears to have mostly resolved. (VMN) due to NVD and hypotension, Current FLuid and E-lyte status does not necessitate emergent need for Dialysis. Will re-evaluate for Dialysis in am. UA looks benign CKD III with min atrophic Kidneys on previous US (baseline creat is ~ 1.4) HypoKalemia - replaced and WNL now Low Phos - IV NA PHos given and now better low Mag - repalced per sliding scale. Vol depltion - change IVF to PPN ? SIRS/ Sepsis - may need ID Eval for multi-organismal +ve Bl Cx Discussed Plan of Care and prognosis etc. at length with family. COMMENT/RELEVANT DATA Meds Current Medications Medications (Trade) Dose Ordered Sig/Erick Start Time Stop Time Status Last Admin Dose Admin Allopurinol (Zyloprim) 100 mg DAILY 11/26/16 09:00 11/28/16 09:50 100 MG Aspirin (Ecotrin) 81 mg DAILY08 11/26/16 08:00 11/28/16 09:34 81 MG Aztreonam 1 gm/ Sodium Chloride 50 ml @ 100 mls/hr Q6HRS 11/26/16 10:00 11/26/16 10:56 DC Carvedilol (Coreg) 25 mg BIDWMEALS 11/26/16 08:00 11/28/16 09:36 25 MG Clonidine HCl (Catapres Tts-3) 1 patch WEEKLY 11/26/16 09:00 11/26/16 09:36 1 PATCH Colchicine (Colcrys) 0.6 mg BID 11/25/16 21:00 11/28/16 09:35 0.6 MG Cyclosporine (Restasis) 1 drop BID 11/25/16 21:00 11/27/16 21:00 1 DROP Dextrose (Dextrose 50%-Water Syringe) 12.5 gm PRN Q15MIN PRN 11/26/16 14:00 Dextrose/Sodium Chloride 1,000 ml @ 100 mls/hr Q10H 11/27/16 10:15 11/28/16 01:32 100 MLS/HR Furosemide (Lasix) 40 mg [id number] 11/26/16 09:00 11/26/16 09:00 DC Gabapentin (Neurontin) 100 mg BID 11/25/16 21:00 11/28/16 09:34 100 MG Haloperidol (Haldol) 5 mg 1X ONCE 11/27/16 02:00 11/27/16 02:01 DC 11/27/16 02:25 5 MG Haloperidol Lactate (Haldol) 5 mg PRN Q6HRS PRN 11/27/16 08:15 11/27/16 17:28 5 MG Insulin Aspart (NovoLOG) 0-7 UNITS TIDWMEALS 11/26/16 17:00 11/27/16 17:02 4 UNITS Insulin Detemir (Levemir) 10 units QHS 11/26/16 21:00 11/27/16 21:10 10 UNITS Isosorbide Mononitrate (Imdur) 30 mg DAILY 11/26/16 09:00 11/28/16 09:35 30 MG Lidocaine (Lidoderm) 1 patch HS 11/25/16 21:00 11/27/16 20:41 1 PATCH Lorazepam (Ativan) 2 mg PRN Q4HRS PRN 11/27/16 09:45 Magnesium Sulfate/ Dextrose 50 ml @ 25 mls/hr PRN DAILY PRN 11/26/16 08:15 Meropenem 500 mg/ Sodium Chloride 50 ml @ 100 mls/hr Q6HRS 11/28/16 12:00 Oxycodone/ Acetaminophen (Percocet 5/325) 1 tab PRN BID PRN 11/25/16 20:00 Potassium Chloride/Dextrose/ Sod Cl 1,000 ml @ 75 mls/hr 1X ONCE 11/25/16 13:30 11/26/16 08:26 DC 11/25/16 15:16 75 MLS/HR Potassium Acetate 40 meq/Sodium Chloride 1,020 ml @ 75 mls/hr [id number] 11/26/16 09:00 11/27/16 06:23 DC 11/27/16 02:35 75 MLS/HR Potassium Chloride (KCl Oral Soln) 40 meq 1X ONCE 11/25/16 12:45 11/25/16 12:46 DC 11/25/16 14:07 40 MEQ Potassium Chloride (Klor-Con) 40 meq TIDWMEALS 11/26/16 09:00 11/27/16 08:08 DC 11/26/16 17:08 40 MEQ Quetiapine Fumarate (SEROquel) 25 mg HS 11/26/16 21:00 11/27/16 20:36 25 MG Sodium Polystyrene Sulfonate (Kayexalate) 30 gm 1X ONCE 11/27/16 12:00 11/27/16 12:01 DC Sodium Chloride 1,000 ml @ 100 mls/hr 1X ONCE 11/27/16 08:15 11/27/16 18:14 DC 11/27/16 12:24 100 MLS/HR Sodium Phosphate 20 mmol/Dextrose 256.6667 ml @ 64.167 m... Q4HRS 11/27/16 12:00 11/27/16 19:59 DC 11/27/16 17:02 64.167 MLS/HR Vancomycin HCl 1 each 1X ONCE 11/30/16 09:00 11/30/16 09:01 Cancel Vancomycin HCl (Vanco Per Pharmacy) 1 each PRN DAILY PRN 11/26/16 09:15 Cancel Vancomycin HCl 1.25 gm/Sodium Chloride 250 ml @ 167 mls/hr Q48H 11/28/16 09:30 Cancel Vancomycin HCl 2 gm/Sodium Chloride 500 ml @ 250 mls/hr 1X ONCE 11/26/16 10:00 11/26/16 11:59 DC 11/26/16 09:35 250 MLS/HR Lab Laboratory Tests Test 11/27/16 11:29 11/27/16 16:13 11/27/16 20:41 11/28/16 03:27 Glucose (Fingerstick) 148 mg/dL (70-99) 228 mg/dL (70-99) 207 mg/dL (70-99) 143 mg/dL (70-99) Test 11/28/16 03:50 White Blood Count 6.6 x10^3/uL (4.0-11.0) Red Blood Count 4.02 x10^6/uL (3.50-5.40) Hemoglobin 12.4 g/dL (12.0-15.5) Hematocrit 37.9 % (36.0-47.0) Mean Corpuscular Volume 94 fL (79-100) Mean Corpuscular Hemoglobin 31 pg (25-35) Mean Corpuscular Hemoglobin Concent 33 g/dL (31-37) Red Cell Distribution Width 17.7 % (11.5-14.5) Platelet Count 126 x10^3/uL (140-400) Neutrophils (%) (Auto) 70 % (31-73) Lymphocytes (%) (Auto) 11 % (24-48) Monocytes (%) (Auto) 16 % (0-9) Eosinophils (%) (Auto) 2 % (0-3) Basophils (%) (Auto) 0 % (0-3) Neutrophils # (Auto) 4.6 x10^3uL (1.8-7.7) Lymphocytes # (Auto) 0.7 x10^3/uL (1.0-4.8) Monocytes # (Auto) 1.1 x10^3/uL (0.0-1.1) Eosinophils # (Auto) 0.1 x10^3/uL (0.0-0.7) Basophils # (Auto) 0.0 x10^3/uL (0.0-0.2) Sodium Level 148 mmol/L (136-145) Potassium Level 4.7 mmol/L (3.5-5.1) Chloride Level 113 mmol/L (98-107) Carbon Dioxide Level 23 mmol/L (21-32) Anion Gap 12 (6-14) Blood Urea Nitrogen 37 mg/dL (7-20) Creatinine 1.5 mg/dL (0.6-1.0) Estimated GFR (Cockcroft-Gault) 41.3 Glucose Level 176 mg/dL (70-99) Calcium Level 7.6 mg/dL (8.5-10.1) Phosphorus Level 5.1 mg/dL (2.6-4.7) Magnesium Level 1.1 mg/dL (1.8-2.4) Albumin 2.5 g/dL (3.4-5.0) HEATHER STORY MD November 28, 2016 11:06
[2016-11-28] MEDS ORDERED: MAGNESIUM SULFATE 1GM 100 ML IV ONE (11:30)
[2016-11-28] MEDS: AMINO AC 3%/ELECTROLYTE/GLYCER 1,000 ML IV SCH (12:05)
--- NOTE | 2016-11-28 14:28 | PDOC ---
PROGRESS NOTES Chief Complaint Chief Complaint 1. Hypokalemia w. acute kidney injury 2. Agitation w./ delirium, metabolic encephalopathy is improved 3. Obesity 4. Anemia 5. CHF 6. Constipation 7. Stroke 8. Depression 9. Diabetes 10. Hypertension 11. Renal failure on CKD 12. Peripheral vascular disease History of Present Illness History of Present Illness much more calm today bathed and cleaned eating OK SNU eval, she has been longstand [place] resident Vitals Vitals Vital Signs Date Time Temp Pulse Resp B/P (MAP) Pulse Ox O2 Delivery O2 Flow Rate FiO2 11/28/16 11:04 98.6 81 17 116/50 (72) 95 Room Air 98.6 Physical Exam General: Alert, Cooperative, No acute distress Heart: Regular rate, Normal S1, Normal S2 Lungs: Clear Abdomen: Normal bowel sounds, Soft Extremities: No clubbing, No cyanosis Skin: No rashes, No breakdown, No significant lesion Labs LABS Laboratory Tests Test 11/27/16 16:13 11/27/16 20:41 11/28/16 03:27 11/28/16 03:50 Glucose (Fingerstick) 228 mg/dL (70-99) 207 mg/dL (70-99) 143 mg/dL (70-99) White Blood Count 6.6 x10^3/uL (4.0-11.0) Red Blood Count 4.02 x10^6/uL (3.50-5.40) Hemoglobin 12.4 g/dL (12.0-15.5) Hematocrit 37.9 % (36.0-47.0) Mean Corpuscular Volume 94 fL (79-100) Mean Corpuscular Hemoglobin 31 pg (25-35) Mean Corpuscular Hemoglobin Concent 33 g/dL (31-37) Red Cell Distribution Width 17.7 % (11.5-14.5) Platelet Count 126 x10^3/uL (140-400) Neutrophils (%) (Auto) 70 % (31-73) Lymphocytes (%) (Auto) 11 % (24-48) Monocytes (%) (Auto) 16 % (0-9) Eosinophils (%) (Auto) 2 % (0-3) Basophils (%) (Auto) 0 % (0-3) Neutrophils # (Auto) 4.6 x10^3uL (1.8-7.7) Lymphocytes # (Auto) 0.7 x10^3/uL (1.0-4.8) Monocytes # (Auto) 1.1 x10^3/uL (0.0-1.1) Eosinophils # (Auto) 0.1 x10^3/uL (0.0-0.7) Basophils # (Auto) 0.0 x10^3/uL (0.0-0.2) Sodium Level 148 mmol/L (136-145) Potassium Level 4.7 mmol/L (3.5-5.1) Chloride Level 113 mmol/L (98-107) Carbon Dioxide Level 23 mmol/L (21-32) Anion Gap 12 (6-14) Blood Urea Nitrogen 37 mg/dL (7-20) Creatinine 1.5 mg/dL (0.6-1.0) Estimated GFR (Cockcroft-Gault) 41.3 Glucose Level 176 mg/dL (70-99) Calcium Level 7.6 mg/dL (8.5-10.1) Phosphorus Level 5.1 mg/dL (2.6-4.7) Magnesium Level 1.1 mg/dL (1.8-2.4) Albumin 2.5 g/dL (3.4-5.0) Assessment and Plan Assessmemt and Plan Problems Medical Problems: (1) Acute kidney injury Status: Acute (2) Altered level of consciousness Status: Acute (3) Hypoglycemia associated with type 2 diabetes mellitus Status: Acute (4) Hypokalemia Status: Acute (5) Opiate overdose Status: Acute Problems: Comment Review of Relevant I have reviewed the following items forest (where applicable) has been applied. Labs Laboratory Tests Test 11/26/16 16:23 11/26/16 20:45 11/27/16 03:10 11/27/16 03:40 Glucose (Fingerstick) 157 mg/dL (70-99) 128 mg/dL (70-99) Sodium Level 143 mmol/L (136-145) Potassium Level 6.0 mmol/L (3.5-5.1) Chloride Level 112 mmol/L (98-107) Carbon Dioxide Level 21 mmol/L (21-32) Anion Gap 10 (6-14) Blood Urea Nitrogen 45 mg/dL (7-20) Creatinine 1.9 mg/dL (0.6-1.0) Estimated GFR (Cockcroft-Gault) 31.4 Glucose Level 126 mg/dL (70-99) Calcium Level 8.0 mg/dL (8.5-10.1) Phosphorus Level 1.7 mg/dL (2.6-4.7) Magnesium Level 1.4 mg/dL (1.8-2.4) Albumin 2.6 g/dL (3.4-5.0) White Blood Count 8.1 x10^3/uL (4.0-11.0) Red Blood Count 3.99 x10^6/uL (3.50-5.40) Hemoglobin 12.2 g/dL (12.0-15.5) Hematocrit 38.4 % (36.0-47.0) Mean Corpuscular Volume 96 fL (79-100) Mean Corpuscular Hemoglobin 31 pg (25-35) Mean Corpuscular Hemoglobin Concent 32 g/dL (31-37) Red Cell Distribution Width 17.8 % (11.5-14.5) Platelet Count 131 x10^3/uL (140-400) Neutrophils (%) (Auto) 56 % (31-73) Lymphocytes (%) (Auto) 15 % (24-48) Monocytes (%) (Auto) 19 % (0-9) Eosinophils (%) (Auto) 9 % (0-3) Basophils (%) (Auto) 2 % (0-3) Neutrophils # (Auto) 4.5 x10^3uL (1.8-7.7) Lymphocytes # (Auto) 1.2 x10^3/uL (1.0-4.8) Monocytes # (Auto) 1.5 x10^3/uL (0.0-1.1) Eosinophils # (Auto) 0.7 x10^3/uL (0.0-0.7) Basophils # (Auto) 0.1 x10^3/uL (0.0-0.2) Segmented Neutrophils % 65 % (35-66) Band Neutrophils % 4 % (0-9) Lymphocytes % 9 % (24-48) Monocytes % 15 % (0-10) Eosinophils % 6 % (0-5) Basophils % 1 % (0-3) Platelet Estimate Decreased (ADEQUATE) Polychromasia Slight Poikilocytosis Present Anisocytosis Slight Macrocytosis Slight Target Cells Few Tear Drop Cells Occ Ovalocytes Few Crenated Cell Present Schistocytes Few Test 11/27/16 07:48 11/27/16 10:43 11/27/16 11:29 11/27/16 16:13 Glucose (Fingerstick) 157 mg/dL (70-99) 148 mg/dL (70-99) 228 mg/dL (70-99) Potassium Level 6.3 mmol/L (3.5-5.1) Test 11/27/16 20:41 11/28/16 03:27 11/28/16 03:50 Glucose (Fingerstick) 207 mg/dL (70-99) 143 mg/dL (70-99) White Blood Count 6.6 x10^3/uL (4.0-11.0) Red Blood Count 4.02 x10^6/uL (3.50-5.40) Hemoglobin 12.4 g/dL (12.0-15.5) Hematocrit 37.9 % (36.0-47.0) Mean Corpuscular Volume 94 fL (79-100) Mean Corpuscular Hemoglobin 31 pg (25-35) Mean Corpuscular Hemoglobin Concent 33 g/dL (31-37) Red Cell Distribution Width 17.7 % (11.5-14.5) Platelet Count 126 x10^3/uL (140-400) Neutrophils (%) (Auto) 70 % (31-73) Lymphocytes (%) (Auto) 11 % (24-48) Monocytes (%) (Auto) 16 % (0-9) Eosinophils (%) (Auto) 2 % (0-3) Basophils (%) (Auto) 0 % (0-3) Neutrophils # (Auto) 4.6 x10^3uL (1.8-7.7) Lymphocytes # (Auto) 0.7 x10^3/uL (1.0-4.8) Monocytes # (Auto) 1.1 x10^3/uL (0.0-1.1) Eosinophils # (Auto) 0.1 x10^3/uL (0.0-0.7) Basophils # (Auto) 0.0 x10^3/uL (0.0-0.2) Sodium Level 148 mmol/L (136-145) Potassium Level 4.7 mmol/L (3.5-5.1) Chloride Level 113 mmol/L (98-107) Carbon Dioxide Level 23 mmol/L (21-32) Anion Gap 12 (6-14) Blood Urea Nitrogen 37 mg/dL (7-20) Creatinine 1.5 mg/dL (0.6-1.0) Estimated GFR (Cockcroft-Gault) 41.3 Glucose Level 176 mg/dL (70-99) Calcium Level 7.6 mg/dL (8.5-10.1) Phosphorus Level 5.1 mg/dL (2.6-4.7) Magnesium Level 1.1 mg/dL (1.8-2.4) Albumin 2.5 g/dL (3.4-5.0) Laboratory Tests Test 11/27/16 16:13 11/27/16 20:41 11/28/16 03:27 11/28/16 03:50 Glucose (Fingerstick) 228 mg/dL (70-99) 207 mg/dL (70-99) 143 mg/dL (70-99) White Blood Count 6.6 x10^3/uL (4.0-11.0) Red Blood Count 4.02 x10^6/uL (3.50-5.40) Hemoglobin 12.4 g/dL (12.0-15.5) Hematocrit 37.9 % (36.0-47.0) Mean Corpuscular Volume 94 fL (79-100) Mean Corpuscular Hemoglobin 31 pg (25-35) Mean Corpuscular Hemoglobin Concent 33 g/dL (31-37) Red Cell Distribution Width 17.7 % (11.5-14.5) Platelet Count 126 x10^3/uL (140-400) Neutrophils (%) (Auto) 70 % (31-73) Lymphocytes (%) (Auto) 11 % (24-48) Monocytes (%) (Auto) 16 % (0-9) Eosinophils (%) (Auto) 2 % (0-3) Basophils (%) (Auto) 0 % (0-3) Neutrophils # (Auto) 4.6 x10^3uL (1.8-7.7) Lymphocytes # (Auto) 0.7 x10^3/uL (1.0-4.8) Monocytes # (Auto) 1.1 x10^3/uL (0.0-1.1) Eosinophils # (Auto) 0.1 x10^3/uL (0.0-0.7) Basophils # (Auto) 0.0 x10^3/uL (0.0-0.2) Sodium Level 148 mmol/L (136-145) Potassium Level 4.7 mmol/L (3.5-5.1) Chloride Level 113 mmol/L (98-107) Carbon Dioxide Level 23 mmol/L (21-32) Anion Gap 12 (6-14) Blood Urea Nitrogen 37 mg/dL (7-20) Creatinine 1.5 mg/dL (0.6-1.0) Estimated GFR (Cockcroft-Gault) 41.3 Glucose Level 176 mg/dL (70-99) Calcium Level 7.6 mg/dL (8.5-10.1) Phosphorus Level 5.1 mg/dL (2.6-4.7) Magnesium Level 1.1 mg/dL (1.8-2.4) Albumin 2.5 g/dL (3.4-5.0) Microbiology 11/25/16 Blood Culture - Preliminary, Resulted NO GROWTH AFTER 3 DAYS 11/25/16 Urine Culture - Final, Complete 11/25/16 Urine Culture Result 1 (JUDITH) - Final, Complete 11/25/16 Urine Culture Result 2 (JUDITH) - Final, Complete 11/25/16 Antimicrobic Susceptibility - Final, Complete Medications Current Medications Potassium Chloride (KCl Oral Soln) 40 meq 1X ONCE PO Last administered on 11/25 14:07; Start 11/25/16 at 12:45; Stop 11/25/16 at 12:46; Status DC Potassium Chloride/Dextrose/ Sod Cl 1,000 ml @ 75 mls/hr 1X ONCE IV Last administered on 11/25/16 15:16; Start 11/25/16 at 13:30; Stop 11/26/16 at 08:26 ; Status DC Allopurinol (Zyloprim) 100 mg DAILY PO Last administered on 11/28/16 09:50; Start 11/26/16 at 09:00 Aspirin (Ecotrin) 81 mg DAILY08 PO Last administered on 11/28/16 09:34; Start 11/26/16 at 08:00 Carvedilol (Coreg) 25 mg BIDWMEALS PO Last administered on 11/28/16 09:36; Start 11/26/16 at 08:00 Clonidine HCl (Catapres Tts-3) 1 patch WEEKLY TD Last administered on 09:36; Start 11/26/16 at 09:00 Colchicine (Colcrys) 0.6 mg BID PO Last administered on 11/28/16 09:35; Start 11/25/16 at 21:00 Cyclosporine (Restasis) 1 drop BID OU Last administered on 11/27/16 21:00; Start 11/25/16 at 21:00 Furosemide (Lasix) 40 mg BID94 PO ; Start 11/26/16 at 09:00; Stop 11/26/16 at 09 :00; Status DC Gabapentin (Neurontin) 100 mg BID PO Last administered on 11/28/16 09:34; Start 11/25/16 at 21:00 Isosorbide Mononitrate (Imdur) 30 mg DAILY PO Last administered on 11/28/16 09 :35; Start 11/26/16 at 09:00 Lidocaine (Lidoderm) 1 patch HS TP Last administered on 11/27/16 20:41; Start 11/25/16 at 21:00 Oxycodone/ Acetaminophen (Percocet 5/325) 1 tab PRN BID PRN PO PAIN SEVERE; Start 11/25/16 at 20:00 Quetiapine Fumarate (SEROquel) 25 mg BID PO ; Start 11/25/16 at 21:00; Stop at 11:18; Status DC Magnesium Sulfate/ Dextrose 50 ml @ 25 mls/hr PRN DAILY PRN IV for Mag < 1.7 on am labs; Start 11/26/16 at 08:15 Potassium Acetate 40 meq/Sodium Chloride 1,020 ml @ 75 mls/hr [id number] IV Last administered on 11/27/16 02:35; Start 11/26/16 at 09:00; Stop 11/27/16 at 06:23 ; Status DC Potassium Chloride (Klor-Con) 40 meq TIDWMEALS PO Last administered on 17:08; Start 11/26/16 at 09:00; Stop 11/27/16 at 08:08; Status DC Sodium Chloride 500 ml @ 0 mls/hr QID PRN IV UO< 30cc/hr over previous 6hrs; Start 11/26/16 at 08:15; Stop 11/28/16 at 11:03; Status DC Vancomycin HCl (Vanco Per Pharmacy) 1 each PRN DAILY PRN MC SEE COMMENTS; Start 11/26/16 at 09:15; Status Cancel Aztreonam 1 gm/ Sodium Chloride 50 ml @ 100 mls/hr Q6HRS IV ; Start 11/26/16 at 10:00; Stop 11/26/16 at 10:56; Status DC Vancomycin HCl 2 gm/Sodium Chloride 500 ml @ 250 mls/hr 1X ONCE IV Last administered on 11/26/16 09:35; Start 11/26/16 at 10:00; Stop 11/26/16 at 11:59 ; Status DC Meropenem 500 mg/ Sodium Chloride 50 ml @ 100 mls/hr Q12HR IV Last administered on 11/26/16 20:49; Start 11/26/16 at 11:00; Stop 11/27/16 at 09:40 ; Status DC Vancomycin HCl 1.25 gm/Sodium Chloride 250 ml @ 167 mls/hr Q48H IV ; Start at 09:30; Status Cancel Vancomycin HCl 1 each 1X ONCE MC ; Start 11/30/16 at 09:00; Stop 11/30/16 at 09: 01; Status Cancel Quetiapine Fumarate (SEROquel) 25 mg HS PO Last administered on 11/27/16 20:36 ; Start 11/26/16 at 21:00 Insulin Detemir (Levemir) 10 units QHS SQ Last administered on 11/27/16 21:10 ; Start 11/26/16 at 21:00 Insulin Aspart (NovoLOG) 0-7 UNITS TIDWMEALS SQ Last administered on 11/28/16 12:11; Start 11/26/16 at 17:00 Dextrose (Dextrose 50%-Water Syringe) 12.5 gm PRN Q15MIN PRN IV SEE COMMENTS; Start 11/26/16 at 14:00 Haloperidol (Haldol) 5 mg 1X ONCE PO Last administered on 11/27/16 02:25; Start 11/27/16 at 02:00; Stop 11/27/16 at 02:01; Status DC Haloperidol Lactate (Haldol) 5 mg 1X ONCE IVP Last administered on 11/27/16 06:31; Start 11/27/16 at 06:30; Stop 11/27/16 at 06:31; Status DC Sodium Polystyrene Sulfonate (Kayexalate) 30 gm 1X ONCE PO Last administered on 11/27/16 06:31; Start 11/27/16 at 07:00; Stop 11/27/16 at 07:01; Status DC Haloperidol Lactate (Haldol) 5 mg PRN Q6HRS PRN IVP AGITATION Last administered on 11/27/16 17:28; Start 11/27/16 at 08:15 Sodium Chloride 1,000 ml @ 100 mls/hr 1X ONCE IV Last administered on 12:24; Start 11/27/16 at 08:15; Stop 11/27/16 at 18:14; Status DC Meropenem 500 mg/ Sodium Chloride 50 ml @ 100 mls/hr Q8HRS IV Last administered on 11/28/16 06:22; Start 11/27/16 at 14:00; Stop 11/28/16 at 10:34 ; Status DC Lorazepam (Ativan) 2 mg PRN Q4HRS PRN IV ANXIETY / AGITATION; Start 11/27/16 at 09:45 Sodium Phosphate 20 mmol/Dextrose 256.6667 ml @ 64.167 m... Q4HRS IV Last administered on 11/27/16 17:02; Start 11/27/16 at 12:00; Stop 11/27/16 at 19:59 ; Status DC Dextrose/Sodium Chloride 1,000 ml @ 100 mls/hr Q10H IV Last administered on 01:32; Start 11/27/16 at 10:15; Stop 11/28/16 at 11:03; Status DC Sodium Polystyrene Sulfonate (Kayexalate) 15 gm 1X PRN PRN PO for repeat K > 5.3; Start 11/27/16 at 10:15 Sodium Polystyrene Sulfonate (Kayexalate) 30 gm 1X ONCE PO ; Start 11/27/16 at 12:00; Stop 11/27/16 at 12:01; Status DC Meropenem 500 mg/ Sodium Chloride 50 ml @ 100 mls/hr Q6HRS IV Last administered on 11/28/16 11:54; Start 11/28/16 at 12:00 Magnesium Sulfate/ Dextrose 100 ml @ 100 mls/hr 1X ONCE IV Last administered on 11/28/16 13:01; Start 11/28/16 at 11:30; Stop 11/28/16 at 12:29; Status DC Amino Acids/ Glycerin/ Electrolytes 1,000 ml @ 80 mls/hr [id number] IV Last administered on 11/28/16 12:05; Start 11/28/16 at 12:00 Active Scripts Active Reported Aspir 81 (Aspirin) 81 Mg Tablet.dr 1 Tab PO DAILY Allopurinol 100 Mg Tablet 1 Tab PO DAILY Colcrys (Colchicine) 0.6 Mg Tablet 1 Tab PO BID Lidoderm (Lidocaine) 700 Mg Adh..patch 1 Patch TP HS Gabapentin 100 Mg Capsule 100 Mg PO BID Hydralazine Hcl 100 Mg Tablet 1 Tab PO TID Furosemide 40 Mg Tablet 40 Mg PO BID Oxycodone-Acetaminophen 5-325 (Oxycodone Hcl/Acetaminophen) 1 Each Tablet 1 Each PO BID PRN Restasis (Cyclosporine) 1 Each Droperette 1 Drop EACHEYE BID Isosorbide Mononitrate Er (Isosorbide Mononitrate) 30 Mg Tab.er.24h 30 Mg PO DAILY Quetiapine Fumarate 25 Mg Tablet 25 Mg PO HS Coreg (Carvedilol) 12.5 Mg Tablet 25 Mg PO BID Catapres-Tts 3 (Clonidine) 1 Each Patch.tdwk 1 Each TD WEEKLY Pletal (Cilostazol) 100 Mg Tablet 100 Mg PO DAILYBFRLUN Acetaminophen Ext.release (Acetaminophen) 650 Mg Tablet.er 650 Mg PO Q6HRS PRN Levemir Flexpen (Insulin Detemir) 100 Unit/1 Ml Insuln.pen 14 Unit SQ DAILYWSUP Humalog (Insulin Lispro) 100 Unit/1 Ml Cartridge 3 Unit SQ TIDAC Glucagon Emergency Kit (Glucagon,Human Recombinant) 1 Mg Kit 1 Mg IJ Vitals/I & O Vital Sign - Last 24 Hours 11/27/16 11/27/16 11/27/16 11/27/16 14:43 17:02 19:39 20:00 Temp 97.9 98.2 97.9 98.2 Pulse 84 84 84 Resp 20 20 B/P (MAP) 130/84 (99) 130/84 147/80 (102) Pulse Ox 100 95 O2 Delivery Room Air Room Air Room Air 11/27/16 11/28/16 11/28/16 11/28/16 23:33 02:51 07:00 08:00 Temp 98.7 98.3 98.1 98.7 98.3 98.1 Pulse 75 80 77 Resp 16 16 16 B/P (MAP) 118/61 (80) 148/69 (95) 129/63 (85) Pulse Ox 92 93 94 O2 Delivery Room Air Room Air Room Air 11/28/16 11/28/16 11/28/16 09:35 09:36 11:04 Temp 98.6 98.6 Pulse 77 77 81 Resp 17 B/P (MAP) 129/63 129/63 116/50 (72) Pulse Ox 95 O2 Delivery Room Air Intake and Output 11/27/16 11/27/16 11/28/16 15:00 23:00 07:00 Intake Total 356 ml 872 ml 653 ml Output Total 150 ml 375 ml Balance 356 ml 722 ml 278 ml EULOGIO HANEY MD November 28, 2016 14:28
[2016-11-28 15:15] VITALS: BP 120/59
[2016-11-28 18:47] VITALS: BP 117/53
[2016-11-28] MEDS: LIDOCAINE (700MG/PATCH) PATCH. TP SCH (20:58)
[2016-11-28] MEDS: QUEtiapine 25 MG TABLET. PO SCH (20:58)
[2016-11-28] MEDS: INSULIN DETEMIR 300 UNITS/3 ML INSULN.PEN. SQ SCH (21:05)
[2016-11-28 22:55] VITALS: BP 100/47
[2016-11-29] MEDS: AMINO AC 3%/ELECTROLYTE/GLYCER 1,000 ML IV SCH ×3 (00:30→14:53)
[2016-11-29 03:01] VITALS: BP 140/70
[2016-11-29] MEDS: MEROPENEM 500 MG in IV NORMAL SALINE 50ML 50 ML IV SCH ×3 (06:00→16:47)
[2016-11-29 07:00] VITALS: BP 145/70
[2016-11-29] MEDS: INSULIN ASPART 300 UNITS/3 ML INSULN.PEN SQ SCH ×3 (07:41→16:25)
[2016-11-29] MEDS: COLCHICINE 0.6 MG TABLET PO SCH ×2 (08:41→20:48)
[2016-11-29] MEDS: ISOSORBIDE MONONITRATE ER 30 MG TAB.ER.24H PO SCH (08:42)
[2016-11-29] MEDS: cycloSPORINE 0.05% OPTH 1 DROP DROPERETTE OU SCH ×2 (08:42→20:48)
[2016-11-29] MEDS: GABAPENTIN 100 MG CAPSULE. PO SCH ×2 (08:42→20:48)
[2016-11-29] MEDS: ASPIRIN ENTERIC COATED 81 MG TABLET.DR. PO SCH (08:42)
[2016-11-29] MEDS: ALLOPURINOL 100 MG TABLET. PO SCH (08:42)
[2016-11-29] MEDS: CARVEDILOL 12.5 MG TABLET. PO SCH ×2 (08:43→16:48)
--- NOTE | 2016-11-29 09:26 | PDOC ---
Infectious Disease Note Subjective Subjective S/p med - comfortable ROS ROS Unobtainable Vital Sign Vital Signs Vital Signs Date Time Temp Pulse Resp B/P (MAP) Pulse Ox O2 Delivery O2 Flow Rate FiO2 11/29/16 08:43 85 145/70 11/29/16 08:00 Room Air 11/29/16 07:00 98.5 18 94 98.5 Physical Exam PHYSICAL EXAM GENERAL: NAD, resting HEENT: OC/OP - clear NECK: Supple, no JVD, no LN LUNGS: Clear HEART: S1S2, no gallop, no murmur ABD: Soft, NT, no organomegaly, no rebound,obese [place] - clear EXT: No edema, no cyanosis [employer]PRES[employer]IVE [employer]ER: Less responsive SKIN: No rash IV: ok Labs Lab Laboratory Tests Test 11/28/16 10:57 11/28/16 16:15 11/28/16 20:26 11/29/16 07:25 Glucose (Fingerstick) 181 mg/dL (70-99) 202 mg/dL (70-99) 129 mg/dL (70-99) 133 mg/dL (70-99) Micro 11/25 Acinetobacter baumannii Recovered from aerobic bottle only. BLD CULT RESULT 2 Preliminary Comment Coagulase negative Staphylococcus species. Recovered from aerobic bottle only. ANTIMICROBIAL SUSCEPTIBILITY Preliminary Comment S = Susceptible; I = Intermediate; R = Resistant P = Positive; N = Negative MICS are expressed in micrograms per mL Antibiotic RSLT#1 RSLT#2 RSLT#3 RSLT#4 Ampicillin/Sulbactam S Cefotaxime I Ceftazidime S Ceftriaxone I Ciprofloxacin S Gentamicin S Imipenem S Levofloxacin S Meropenem S Piperacillin S Tetracycline S Tobramycin S Trimethoprim/Sulfa S Klebsiella pneumoniae Greater than 100,000 colony forming units per mL URINE CULTURE RES 2 Final Klebsiella pneumoniae Greater than 100,000 colony forming units per mL SECOND MORPHOTYPE ANTIMICROBIAL SUSCEPTIBILITY Final Comment S = Susceptible; I = Intermediate; R = Resistant P = Positive; N = Negative MICS are expressed in micrograms per mL Antibiotic RSLT#1 RSLT#2 RSLT#3 RSLT#4 Amoxicillin/Clavulanic Acid S S Ampicillin R R Cefepime S S Ceftriaxone S S Cefuroxime S S Cephalothin S S Ciprofloxacin S S Ertapenem S S Gentamicin S S Imipenem S S Levofloxacin S S Nitrofurantoin S S Piperacillin S S Tetracycline S S Tobramycin S S Trimethoprim/Sulfa S S Objective Assessment Polymicrobial sepsis. POA (1 of 4 bottles so far). Acinetobacter per micro - sens pending Klebsiella UTI - POA - sens pending Ampicillin allergy. Reaction unknown Acute encephalopathy- worse today Hypotension - improved lactic acidosis [place] on CKD Loose stools. c. diff neg 11/08. repeat pending DM II with hypoglycemia Chronic pain Plan Plan of Care Cont meropenem - monitor response. May need to adjust if Encephalopathy persists MARV MCNEILL MD November 29, 2016 09:26
[2016-11-29 10:19] LABS: BASO # 0.1 x10^3/uL (0.0-0.2); BASO % 1 % (0-3); EOS % 7 % (0-3); HEMATOCRIT 38.3 % (36.0-47.0); HEMOGLOBIN 12.8 g/dL (12.0-15.5); LYMPH # 1.2 x10^3/uL (1.0-4.8); LYMPH % 15 % (24-48); MEAN CORPUSCULAR HEMOGLOBIN 31 pg (25-35); MEAN CORPUSCULAR HGB CONC 33 g/dL (31-37); MEAN CORPUSCULAR VOLUME 93 fL (79-100); MONO % 17 % (0-9); NEUT % 60 % (31-73); PLATELET COUNT 123 x10^3/uL (140-400); RED CELL DISTRIBUTION WIDTH 17.4 % (11.5-14.5); WHITE BLOOD COUNT 7.5 x10^3/uL (4.0-11.0)
[2016-11-29 10:27] LABS: ALBUMIN 2.3 g/dL (3.4-5.0); CALCIUM 8.1 mg/dL (8.5-10.1); CREATININE 1.4 mg/dL (0.6-1.0); GFR 44.7; MAGNESIUM 2.3 mg/dL (1.8-2.4); PHOSPHORUS 3.4 mg/dL (2.6-4.7); POTASSIUM 5.1 mmol/L (3.5-5.1)
[2016-11-29 11:00] VITALS: BP 143/71
--- NOTE | 2016-11-29 11:40 | PDOC ---
SUBJECTIVE ROS FEDERICA/ ^Na Doing same overall, confused and pulling out IVs unabel to get ROS from pt OBJECTIVE Vital Signs Vital Signs Date Time Temp Pulse Resp B/P (MAP) Pulse Ox O2 Delivery O2 Flow Rate FiO2 11/29/16 11:00 97.9 77 18 143/71 (95) 93 Room Air 97.9 I & 0 Intake and Output 11/29/16 07:00 Intake Total 610 ml Output Total 426 ml Balance 184 ml Intake Oral 410 ml IV Total 200 ml Output Urine Total 425 ml Stool Total 1 ml # Bowel Movements 2 PHYSICAL EXAM Physical Exam General Appearance: Awake Alert Oriented x 0 In no Distress Eyes: VIsion Unchanged Conjunctiva Normal EN: No EN Drainage Mucous Memb. moist Neck: no JVD no JVP Supple no Thyromegaly - short neck CVS: S1 S2 + Murmur No Gallop No Rub no Edema Resp: no Rales no Rhonchi no Acc. Muscle use GI: BS +ve NO Bruit Non Tender Non Distended; obese : no CVA tenderness; no Suprapubic Tenderness Assessment & Plan FEDERICA - Appears to have mostly resolved. (VMN) due to NVD and hypotension, Current FLuid and E-lyte status does not necessitate emergent need for Dialysis. Will re-evaluate for Dialysis in am. UA looks benign CKD III with min atrophic Kidneys on previous US (baseline creat is ~ 1.4) Vol depltion - changed IVF to PPN due to marginal PO intake Oliguria - IVF when IV Access can be established ^Na - nwo resolved with PPN Discussed Plan of Care and prognosis etc. at length with family. COMMENT/RELEVANT DATA Meds Current Medications Medications (Trade) Dose Ordered Sig/Erick Start Time Stop Time Status Last Admin Dose Admin Allopurinol (Zyloprim) 100 mg DAILY 11/26/16 09:00 11/29/16 08:42 100 MG Amino Acids/ Glycerin/ Electrolytes 1,000 ml @ 80 mls/hr [id number] 11/28/16 12:00 11/28/16 12:05 80 MLS/HR Aspirin (Ecotrin) 81 mg DAILY08 11/26/16 08:00 11/29/16 08:42 81 MG Aztreonam 1 gm/ Sodium Chloride 50 ml @ 100 mls/hr Q6HRS 11/26/16 10:00 11/26/16 10:56 DC Carvedilol (Coreg) 25 mg BIDWMEALS 11/26/16 08:00 11/29/16 08:43 25 MG Clonidine HCl (Catapres Tts-3) 1 patch WEEKLY 11/26/16 09:00 11/26/16 09:36 1 PATCH Colchicine (Colcrys) 0.6 mg BID 11/25/16 21:00 11/29/16 08:41 0.6 MG Cyclosporine (Restasis) 1 drop BID 11/25/16 21:00 11/29/16 08:42 1 DROP Dextrose (Dextrose 50%-Water Syringe) 12.5 gm PRN Q15MIN PRN 11/26/16 14:00 Dextrose/Sodium Chloride 1,000 ml @ 100 mls/hr Q10H 11/27/16 10:15 11/28/16 11:03 DC 11/28/16 01:32 100 MLS/HR Furosemide (Lasix) 40 mg [id number] 11/26/16 09:00 11/26/16 09:00 DC Gabapentin (Neurontin) 100 mg BID 11/25/16 21:00 11/29/16 08:42 100 MG Haloperidol (Haldol) 5 mg 1X ONCE 11/27/16 02:00 11/27/16 02:01 DC 11/27/16 02:25 5 MG Haloperidol Lactate (Haldol) 5 mg PRN Q6HRS PRN 11/27/16 08:15 11/27/16 17:28 5 MG Insulin Aspart (NovoLOG) 0-7 UNITS TIDWMEALS 11/26/16 17:00 11/28/16 17:47 4 UNITS Insulin Detemir (Levemir) 10 units QHS 11/26/16 21:00 11/28/16 21:05 10 UNITS Isosorbide Mononitrate (Imdur) 30 mg DAILY 11/26/16 09:00 11/29/16 08:42 30 MG Lidocaine (Lidoderm) 1 patch HS 11/25/16 21:00 11/28/16 20:58 1 PATCH Lorazepam (Ativan) 2 mg PRN Q4HRS PRN 11/27/16 09:45 11/28/16 23:23 2 MG Magnesium Sulfate/ Dextrose 100 ml @ 100 mls/hr 1X ONCE 11/28/16 11:30 11/28/16 12:29 DC 11/28/16 13:01 100 MLS/HR Meropenem 500 mg/ Sodium Chloride 50 ml @ 100 mls/hr Q6HRS 11/28/16 12:00 11/28/16 23:23 100 MLS/HR Oxycodone/ Acetaminophen (Percocet 5/325) 1 tab PRN BID PRN 11/25/16 20:00 Potassium Chloride/Dextrose/ Sod Cl 1,000 ml @ 75 mls/hr 1X ONCE 11/25/16 13:30 11/26/16 08:26 DC 11/25/16 15:16 75 MLS/HR Potassium Acetate 40 meq/Sodium Chloride 1,020 ml @ 75 mls/hr [id number] 11/26/16 09:00 11/27/16 06:23 DC 11/27/16 02:35 75 MLS/HR Potassium Chloride (KCl Oral Soln) 40 meq 1X ONCE 11/25/16 12:45 11/25/16 12:46 DC 11/25/16 14:07 40 MEQ Potassium Chloride (Klor-Con) 40 meq TIDWMEALS 11/26/16 09:00 11/27/16 08:08 DC 11/26/16 17:08 40 MEQ Quetiapine Fumarate (SEROquel) 25 mg HS 11/26/16 21:00 11/28/16 20:58 25 MG Sodium Polystyrene Sulfonate (Kayexalate) 30 gm 1X ONCE 11/27/16 12:00 11/27/16 12:01 DC Sodium Chloride 1,000 ml @ 100 mls/hr 1X ONCE 11/27/16 08:15 11/27/16 18:14 DC 11/27/16 12:24 100 MLS/HR Sodium Phosphate 20 mmol/Dextrose 256.6667 ml @ 64.167 m... Q4HRS 11/27/16 12:00 11/27/16 19:59 DC 11/27/16 17:02 64.167 MLS/HR Vancomycin HCl 1 each 1X ONCE 11/30/16 09:00 11/30/16 09:01 Cancel Vancomycin HCl (Vanco Per Pharmacy) 1 each PRN DAILY PRN 11/26/16 09:15 Cancel Vancomycin HCl 1.25 gm/Sodium Chloride 250 ml @ 167 mls/hr Q48H 11/28/16 09:30 Cancel Vancomycin HCl 2 gm/Sodium Chloride 500 ml @ 250 mls/hr 1X ONCE 11/26/16 10:00 11/26/16 11:59 DC 11/26/16 09:35 250 MLS/HR Lab Laboratory Tests Test 11/28/16 16:15 11/28/16 20:26 11/29/16 07:25 11/29/16 10:00 Glucose (Fingerstick) 202 mg/dL (70-99) 129 mg/dL (70-99) 133 mg/dL (70-99) White Blood Count 7.5 x10^3/uL (4.0-11.0) Red Blood Count 4.10 x10^6/uL (3.50-5.40) Hemoglobin 12.8 g/dL (12.0-15.5) Hematocrit 38.3 % (36.0-47.0) Mean Corpuscular Volume 93 fL (79-100) Mean Corpuscular Hemoglobin 31 pg (25-35) Mean Corpuscular Hemoglobin Concent 33 g/dL (31-37) Red Cell Distribution Width 17.4 % (11.5-14.5) Platelet Count 123 x10^3/uL (140-400) Neutrophils (%) (Auto) 60 % (31-73) Lymphocytes (%) (Auto) 15 % (24-48) Monocytes (%) (Auto) 17 % (0-9) Eosinophils (%) (Auto) 7 % (0-3) Basophils (%) (Auto) 1 % (0-3) Neutrophils # (Auto) 4.5 x10^3uL (1.8-7.7) Lymphocytes # (Auto) 1.2 x10^3/uL (1.0-4.8) Monocytes # (Auto) 1.3 x10^3/uL (0.0-1.1) Eosinophils # (Auto) 0.5 x10^3/uL (0.0-0.7) Basophils # (Auto) 0.1 x10^3/uL (0.0-0.2) Sodium Level 143 mmol/L (136-145) Potassium Level 5.1 mmol/L (3.5-5.1) Chloride Level 109 mmol/L (98-107) Carbon Dioxide Level 23 mmol/L (21-32) Anion Gap 11 (6-14) Blood Urea Nitrogen 36 mg/dL (7-20) Creatinine 1.4 mg/dL (0.6-1.0) Estimated GFR (Cockcroft-Gault) 44.7 Glucose Level 177 mg/dL (70-99) Calcium Level 8.1 mg/dL (8.5-10.1) Phosphorus Level 3.4 mg/dL (2.6-4.7) Magnesium Level 2.3 mg/dL (1.8-2.4) Albumin 2.3 g/dL (3.4-5.0) Test 11/29/16 11:11 Glucose (Fingerstick) 163 mg/dL (70-99) HEATHER STORY MD November 29, 2016 11:40
[2016-11-29 15:00] VITALS: BP 158/84
--- NOTE | 2016-11-29 15:57 | PDOC ---
PROGRESS NOTES Chief Complaint Chief Complaint 1. Hypokalemia w. acute kidney injury 2. Agitation w./ delirium, metabolic encephalopathy is improved 3. Obesity 4. Anemia 5. CHF 6. Constipation 7. Stroke 8. Depression 9. Diabetes 10. Hypertension 11. Renal failure on CKD 12. Peripheral vascular disease History of Present Illness History of Present Illness somewhat calm today difficulty placing IV, anesthesia needed to eval eating OK plan SNU eval, she has been [facility] resident try to DC 1:1 Vitals Vitals Vital Signs Date Time Temp Pulse Resp B/P (MAP) Pulse Ox O2 Delivery O2 Flow Rate FiO2 11/29/16 15:00 97.8 80 18 158/84 (108) 95 Room Air 97.8 Physical Exam General: Alert, Cooperative, No acute distress Heart: Regular rate, Normal S1, Normal S2 Lungs: Clear Abdomen: Normal bowel sounds, Soft Extremities: No clubbing, No cyanosis Skin: No rashes, No breakdown, No significant lesion Labs LABS Laboratory Tests Test 11/28/16 16:15 11/28/16 20:26 11/29/16 07:25 11/29/16 10:00 Glucose (Fingerstick) 202 mg/dL (70-99) 129 mg/dL (70-99) 133 mg/dL (70-99) White Blood Count 7.5 x10^3/uL (4.0-11.0) Red Blood Count 4.10 x10^6/uL (3.50-5.40) Hemoglobin 12.8 g/dL (12.0-15.5) Hematocrit 38.3 % (36.0-47.0) Mean Corpuscular Volume 93 fL (79-100) Mean Corpuscular Hemoglobin 31 pg (25-35) Mean Corpuscular Hemoglobin Concent 33 g/dL (31-37) Red Cell Distribution Width 17.4 % (11.5-14.5) Platelet Count 123 x10^3/uL (140-400) Neutrophils (%) (Auto) 60 % (31-73) Lymphocytes (%) (Auto) 15 % (24-48) Monocytes (%) (Auto) 17 % (0-9) Eosinophils (%) (Auto) 7 % (0-3) Basophils (%) (Auto) 1 % (0-3) Neutrophils # (Auto) 4.5 x10^3uL (1.8-7.7) Lymphocytes # (Auto) 1.2 x10^3/uL (1.0-4.8) Monocytes # (Auto) 1.3 x10^3/uL (0.0-1.1) Eosinophils # (Auto) 0.5 x10^3/uL (0.0-0.7) Basophils # (Auto) 0.1 x10^3/uL (0.0-0.2) Sodium Level 143 mmol/L (136-145) Potassium Level 5.1 mmol/L (3.5-5.1) Chloride Level 109 mmol/L (98-107) Carbon Dioxide Level 23 mmol/L (21-32) Anion Gap 11 (6-14) Blood Urea Nitrogen 36 mg/dL (7-20) Creatinine 1.4 mg/dL (0.6-1.0) Estimated GFR (Cockcroft-Gault) 44.7 Glucose Level 177 mg/dL (70-99) Calcium Level 8.1 mg/dL (8.5-10.1) Phosphorus Level 3.4 mg/dL (2.6-4.7) Magnesium Level 2.3 mg/dL (1.8-2.4) Albumin 2.3 g/dL (3.4-5.0) Test 11/29/16 11:11 Glucose (Fingerstick) 163 mg/dL (70-99) Assessment and Plan Assessmemt and Plan Problems Medical Problems: (1) Acute kidney injury Status: Acute (2) Altered level of consciousness Status: Acute (3) Hypoglycemia associated with type 2 diabetes mellitus Status: Acute (4) Hypokalemia Status: Acute (5) Opiate overdose Status: Acute Problems: Comment Review of Relevant I have reviewed the following items forest (where applicable) has been applied. Labs Laboratory Tests Test 11/27/16 16:13 11/27/16 20:41 11/28/16 03:27 11/28/16 03:50 Glucose (Fingerstick) 228 mg/dL (70-99) 207 mg/dL (70-99) 143 mg/dL (70-99) White Blood Count 6.6 x10^3/uL (4.0-11.0) Red Blood Count 4.02 x10^6/uL (3.50-5.40) Hemoglobin 12.4 g/dL (12.0-15.5) Hematocrit 37.9 % (36.0-47.0) Mean Corpuscular Volume 94 fL (79-100) Mean Corpuscular Hemoglobin 31 pg (25-35) Mean Corpuscular Hemoglobin Concent 33 g/dL (31-37) Red Cell Distribution Width 17.7 % (11.5-14.5) Platelet Count 126 x10^3/uL (140-400) Neutrophils (%) (Auto) 70 % (31-73) Lymphocytes (%) (Auto) 11 % (24-48) Monocytes (%) (Auto) 16 % (0-9) Eosinophils (%) (Auto) 2 % (0-3) Basophils (%) (Auto) 0 % (0-3) Neutrophils # (Auto) 4.6 x10^3uL (1.8-7.7) Lymphocytes # (Auto) 0.7 x10^3/uL (1.0-4.8) Monocytes # (Auto) 1.1 x10^3/uL (0.0-1.1) Eosinophils # (Auto) 0.1 x10^3/uL (0.0-0.7) Basophils # (Auto) 0.0 x10^3/uL (0.0-0.2) Sodium Level 148 mmol/L (136-145) Potassium Level 4.7 mmol/L (3.5-5.1) Chloride Level 113 mmol/L (98-107) Carbon Dioxide Level 23 mmol/L (21-32) Anion Gap 12 (6-14) Blood Urea Nitrogen 37 mg/dL (7-20) Creatinine 1.5 mg/dL (0.6-1.0) Estimated GFR (Cockcroft-Gault) 41.3 Glucose Level 176 mg/dL (70-99) Calcium Level 7.6 mg/dL (8.5-10.1) Phosphorus Level 5.1 mg/dL (2.6-4.7) Magnesium Level 1.1 mg/dL (1.8-2.4) Albumin 2.5 g/dL (3.4-5.0) Test 11/28/16 07:01 11/28/16 10:57 11/28/16 16:15 11/28/16 20:26 Glucose (Fingerstick) 141 mg/dL (70-99) 181 mg/dL (70-99) 202 mg/dL (70-99) 129 mg/dL (70-99) Test 11/29/16 07:25 11/29/16 10:00 11/29/16 11:11 Glucose (Fingerstick) 133 mg/dL (70-99) 163 mg/dL (70-99) White Blood Count 7.5 x10^3/uL (4.0-11.0) Red Blood Count 4.10 x10^6/uL (3.50-5.40) Hemoglobin 12.8 g/dL (12.0-15.5) Hematocrit 38.3 % (36.0-47.0) Mean Corpuscular Volume 93 fL (79-100) Mean Corpuscular Hemoglobin 31 pg (25-35) Mean Corpuscular Hemoglobin Concent 33 g/dL (31-37) Red Cell Distribution Width 17.4 % (11.5-14.5) Platelet Count 123 x10^3/uL (140-400) Neutrophils (%) (Auto) 60 % (31-73) Lymphocytes (%) (Auto) 15 % (24-48) Monocytes (%) (Auto) 17 % (0-9) Eosinophils (%) (Auto) 7 % (0-3) Basophils (%) (Auto) 1 % (0-3) Neutrophils # (Auto) 4.5 x10^3uL (1.8-7.7) Lymphocytes # (Auto) 1.2 x10^3/uL (1.0-4.8) Monocytes # (Auto) 1.3 x10^3/uL (0.0-1.1) Eosinophils # (Auto) 0.5 x10^3/uL (0.0-0.7) Basophils # (Auto) 0.1 x10^3/uL (0.0-0.2) Sodium Level 143 mmol/L (136-145) Potassium Level 5.1 mmol/L (3.5-5.1) Chloride Level 109 mmol/L (98-107) Carbon Dioxide Level 23 mmol/L (21-32) Anion Gap 11 (6-14) Blood Urea Nitrogen 36 mg/dL (7-20) Creatinine 1.4 mg/dL (0.6-1.0) Estimated GFR (Cockcroft-Gault) 44.7 Glucose Level 177 mg/dL (70-99) Calcium Level 8.1 mg/dL (8.5-10.1) Phosphorus Level 3.4 mg/dL (2.6-4.7) Magnesium Level 2.3 mg/dL (1.8-2.4) Albumin 2.3 g/dL (3.4-5.0) Laboratory Tests Test 11/28/16 16:15 11/28/16 20:26 11/29/16 07:25 11/29/16 10:00 Glucose (Fingerstick) 202 mg/dL (70-99) 129 mg/dL (70-99) 133 mg/dL (70-99) White Blood Count 7.5 x10^3/uL (4.0-11.0) Red Blood Count 4.10 x10^6/uL (3.50-5.40) Hemoglobin 12.8 g/dL (12.0-15.5) Hematocrit 38.3 % (36.0-47.0) Mean Corpuscular Volume 93 fL (79-100) Mean Corpuscular Hemoglobin 31 pg (25-35) Mean Corpuscular Hemoglobin Concent 33 g/dL (31-37) Red Cell Distribution Width 17.4 % (11.5-14.5) Platelet Count 123 x10^3/uL (140-400) Neutrophils (%) (Auto) 60 % (31-73) Lymphocytes (%) (Auto) 15 % (24-48) Monocytes (%) (Auto) 17 % (0-9) Eosinophils (%) (Auto) 7 % (0-3) Basophils (%) (Auto) 1 % (0-3) Neutrophils # (Auto) 4.5 x10^3uL (1.8-7.7) Lymphocytes # (Auto) 1.2 x10^3/uL (1.0-4.8) Monocytes # (Auto) 1.3 x10^3/uL (0.0-1.1) Eosinophils # (Auto) 0.5 x10^3/uL (0.0-0.7) Basophils # (Auto) 0.1 x10^3/uL (0.0-0.2) Sodium Level 143 mmol/L (136-145) Potassium Level 5.1 mmol/L (3.5-5.1) Chloride Level 109 mmol/L (98-107) Carbon Dioxide Level 23 mmol/L (21-32) Anion Gap 11 (6-14) Blood Urea Nitrogen 36 mg/dL (7-20) Creatinine 1.4 mg/dL (0.6-1.0) Estimated GFR (Cockcroft-Gault) 44.7 Glucose Level 177 mg/dL (70-99) Calcium Level 8.1 mg/dL (8.5-10.1) Phosphorus Level 3.4 mg/dL (2.6-4.7) Magnesium Level 2.3 mg/dL (1.8-2.4) Albumin 2.3 g/dL (3.4-5.0) Test 11/29/16 11:11 Glucose (Fingerstick) 163 mg/dL (70-99) Microbiology 11/25/16 Blood Culture - Preliminary, Resulted NO GROWTH AFTER 4 DAYS 11/25/16 Urine Culture - Final, Complete 11/25/16 Urine Culture Result 1 (JUDITH) - Final, Complete 11/25/16 Urine Culture Result 2 (JUDITH) - Final, Complete 11/25/16 Antimicrobic Susceptibility - Final, Complete Medications Current Medications Potassium Chloride (KCl Oral Soln) 40 meq 1X ONCE PO Last administered on 11/25 14:07; Start 11/25/16 at 12:45; Stop 11/25/16 at 12:46; Status DC Potassium Chloride/Dextrose/ Sod Cl 1,000 ml @ 75 mls/hr 1X ONCE IV Last administered on 11/25/16 15:16; Start 11/25/16 at 13:30; Stop 11/26/16 at 08:26 ; Status DC Allopurinol (Zyloprim) 100 mg DAILY PO Last administered on 11/29/16 08:42; Start 11/26/16 at 09:00 Aspirin (Ecotrin) 81 mg DAILY08 PO Last administered on 11/29/16 08:42; Start 11/26/16 at 08:00 Carvedilol (Coreg) 25 mg BIDWMEALS PO Last administered on 11/29/16 08:43; Start 11/26/16 at 08:00 Clonidine HCl (Catapres Tts-3) 1 patch WEEKLY TD Last administered on 09:36; Start 11/26/16 at 09:00 Colchicine (Colcrys) 0.6 mg BID PO Last administered on 11/29/16 08:41; Start 11/25/16 at 21:00 Cyclosporine (Restasis) 1 drop BID OU Last administered on 11/29/16 08:42; Start 11/25/16 at 21:00 Furosemide (Lasix) 40 mg BID94 PO ; Start 11/26/16 at 09:00; Stop 11/26/16 at 09 :00; Status DC Gabapentin (Neurontin) 100 mg BID PO Last administered on 11/29/16 08:42; Start 11/25/16 at 21:00 Isosorbide Mononitrate (Imdur) 30 mg DAILY PO Last administered on 11/29/16 08 :42; Start 11/26/16 at 09:00 Lidocaine (Lidoderm) 1 patch HS TP Last administered on 11/28/16 20:58; Start 11/25/16 at 21:00 Oxycodone/ Acetaminophen (Percocet 5/325) 1 tab PRN BID PRN PO PAIN SEVERE; Start 11/25/16 at 20:00 Quetiapine Fumarate (SEROquel) 25 mg BID PO ; Start 11/25/16 at 21:00; Stop at 11:18; Status DC Magnesium Sulfate/ Dextrose 50 ml @ 25 mls/hr PRN DAILY PRN IV for Mag < 1.7 on am labs Last administered on 11/28/16 14:49; Start 11/26/16 at 08:15 Potassium Acetate 40 meq/Sodium Chloride 1,020 ml @ 75 mls/hr [id number] IV Last administered on 11/27/16 02:35; Start 11/26/16 at 09:00; Stop 11/27/16 at 06:23 ; Status DC Potassium Chloride (Klor-Con) 40 meq TIDWMEALS PO Last administered on 17:08; Start 11/26/16 at 09:00; Stop 11/27/16 at 08:08; Status DC Sodium Chloride 500 ml @ 0 mls/hr QID PRN IV UO< 30cc/hr over previous 6hrs; Start 11/26/16 at 08:15; Stop 11/28/16 at 11:03; Status DC Vancomycin HCl (Vanco Per Pharmacy) 1 each PRN DAILY PRN MC SEE COMMENTS; Start 11/26/16 at 09:15; Status Cancel Aztreonam 1 gm/ Sodium Chloride 50 ml @ 100 mls/hr Q6HRS IV ; Start 11/26/16 at 10:00; Stop 11/26/16 at 10:56; Status DC Vancomycin HCl 2 gm/Sodium Chloride 500 ml @ 250 mls/hr 1X ONCE IV Last administered on 11/26/16 09:35; Start 11/26/16 at 10:00; Stop 11/26/16 at 11:59 ; Status DC Meropenem 500 mg/ Sodium Chloride 50 ml @ 100 mls/hr Q12HR IV Last administered on 11/26/16 20:49; Start 11/26/16 at 11:00; Stop 11/27/16 at 09:40 ; Status DC Vancomycin HCl 1.25 gm/Sodium Chloride 250 ml @ 167 mls/hr Q48H IV ; Start at 09:30; Status Cancel Vancomycin HCl 1 each 1X ONCE MC ; Start 11/30/16 at 09:00; Stop 11/30/16 at 09: 01; Status Cancel Quetiapine Fumarate (SEROquel) 25 mg HS PO Last administered on 11/28/16 20:58 ; Start 11/26/16 at 21:00 Insulin Detemir (Levemir) 10 units QHS SQ Last administered on 11/28/16 21:05 ; Start 11/26/16 at 21:00 Insulin Aspart (NovoLOG) 0-7 UNITS TIDWMEALS SQ Last administered on 11/28/16 17:47; Start 11/26/16 at 17:00 Dextrose (Dextrose 50%-Water Syringe) 12.5 gm PRN Q15MIN PRN IV SEE COMMENTS; Start 11/26/16 at 14:00 Haloperidol (Haldol) 5 mg 1X ONCE PO Last administered on 11/27/16 02:25; Start 11/27/16 at 02:00; Stop 11/27/16 at 02:01; Status DC Haloperidol Lactate (Haldol) 5 mg 1X ONCE IVP Last administered on 11/27/16 06:31; Start 11/27/16 at 06:30; Stop 11/27/16 at 06:31; Status DC Sodium Polystyrene Sulfonate (Kayexalate) 30 gm 1X ONCE PO Last administered on 11/27/16 06:31; Start 11/27/16 at 07:00; Stop 11/27/16 at 07:01; Status DC Haloperidol Lactate (Haldol) 5 mg PRN Q6HRS PRN IVP AGITATION Last administered on 11/27/16 17:28; Start 11/27/16 at 08:15 Sodium Chloride 1,000 ml @ 100 mls/hr 1X ONCE IV Last administered on 12:24; Start 11/27/16 at 08:15; Stop 11/27/16 at 18:14; Status DC Meropenem 500 mg/ Sodium Chloride 50 ml @ 100 mls/hr Q8HRS IV Last administered on 11/28/16 06:22; Start 11/27/16 at 14:00; Stop 11/28/16 at 10:34 ; Status DC Lorazepam (Ativan) 2 mg PRN Q4HRS PRN IV ANXIETY / AGITATION Last administered on 11/28/16 23:23; Start 11/27/16 at 09:45 Sodium Phosphate 20 mmol/Dextrose 256.6667 ml @ 64.167 m... Q4HRS IV Last administered on 11/27/16 17:02; Start 11/27/16 at 12:00; Stop 11/27/16 at 19:59 ; Status DC Dextrose/Sodium Chloride 1,000 ml @ 100 mls/hr Q10H IV Last administered on 01:32; Start 11/27/16 at 10:15; Stop 11/28/16 at 11:03; Status DC Sodium Polystyrene Sulfonate (Kayexalate) 15 gm 1X PRN PRN PO for repeat K > 5.3; Start 11/27/16 at 10:15 Sodium Polystyrene Sulfonate (Kayexalate) 30 gm 1X ONCE PO ; Start 11/27/16 at 12:00; Stop 11/27/16 at 12:01; Status DC Meropenem 500 mg/ Sodium Chloride 50 ml @ 100 mls/hr Q6HRS IV Last administered on 11/28/16 23:23; Start 11/28/16 at 12:00 Magnesium Sulfate/ Dextrose 100 ml @ 100 mls/hr 1X ONCE IV Last administered on 11/28/16 13:01; Start 11/28/16 at 11:30; Stop 11/28/16 at 12:29; Status DC Amino Acids/ Glycerin/ Electrolytes 1,000 ml @ 80 mls/hr [id number] IV Last administered on 11/29/16 14:53; Start 11/28/16 at 12:00 Active Scripts Active Reported Aspir 81 (Aspirin) 81 Mg Tablet.dr 1 Tab PO DAILY Allopurinol 100 Mg Tablet 1 Tab PO DAILY Colcrys (Colchicine) 0.6 Mg Tablet 1 Tab PO BID Lidoderm (Lidocaine) 700 Mg Adh..patch 1 Patch TP HS Gabapentin 100 Mg Capsule 100 Mg PO BID Hydralazine Hcl 100 Mg Tablet 1 Tab PO TID Furosemide 40 Mg Tablet 40 Mg PO BID Oxycodone-Acetaminophen 5-325 (Oxycodone Hcl/Acetaminophen) 1 Each Tablet 1 Each PO BID PRN Restasis (Cyclosporine) 1 Each Droperette 1 Drop EACHEYE BID Isosorbide Mononitrate Er (Isosorbide Mononitrate) 30 Mg Tab.er.24h 30 Mg PO DAILY Quetiapine Fumarate 25 Mg Tablet 25 Mg PO HS Coreg (Carvedilol) 12.5 Mg Tablet 25 Mg PO BID Catapres-Tts 3 (Clonidine) 1 Each Patch.tdwk 1 Each TD WEEKLY Pletal (Cilostazol) 100 Mg Tablet 100 Mg PO DAILYBFRLUN Acetaminophen Ext.release (Acetaminophen) 650 Mg Tablet.er 650 Mg PO Q6HRS PRN Levemir Flexpen (Insulin Detemir) 100 Unit/1 Ml Insuln.pen 14 Unit SQ DAILYWSUP Humalog (Insulin Lispro) 100 Unit/1 Ml Cartridge 3 Unit SQ TIDAC Glucagon Emergency Kit (Glucagon,Human Recombinant) 1 Mg Kit 1 Mg IJ Vitals/I & O Vital Sign - Last 24 Hours 11/28/16 11/28/16 11/28/16 11/28/16 17:00 18:47 20:00 22:55 Temp 97.5 97.4 97.5 97.4 Pulse 79 69 71 Resp 18 17 B/P (MAP) 120/59 117/53 (74) 100/47 (64) Pulse Ox 94 95 O2 Delivery Room Air Room Air Room Air 11/29/16 11/29/16 11/29/16 11/29/16 03:01 07:00 08:00 08:42 Temp 97.3 98.5 97.3 98.5 Pulse 73 85 85 Resp 18 18 B/P (MAP) 140/70 (93) 145/70 (95) 145/70 Pulse Ox 93 94 O2 Delivery Room Air Room Air Room Air 11/29/16 11/29/16 11/29/16 08:43 11:00 15:00 Temp 97.9 97.8 97.9 97.8 Pulse 85 77 80 Resp 18 18 B/P (MAP) 145/70 143/71 (95) 158/84 (108) Pulse Ox 93 95 O2 Delivery Room Air Room Air Intake and Output 11/28/16 11/28/16 11/29/16 15:00 23:00 07:00 Intake Total 170 ml 340 ml 100 ml Output Total 251 ml 175 ml Balance 170 ml 89 ml -75 ml EULOGIO HANEY MD November 29, 2016 15:57
[2016-11-29 19:00] VITALS: BP 159/75
[2016-11-29] MEDS: LIDOCAINE (700MG/PATCH) PATCH. TP SCH (20:48)
[2016-11-29] MEDS: QUEtiapine 25 MG TABLET. PO SCH (20:48)
[2016-11-29] MEDS: INSULIN DETEMIR 300 UNITS/3 ML INSULN.PEN. SQ SCH (20:56)
[2016-11-29 23:00] VITALS: BP 174/89
[2016-11-30] MEDS: MEROPENEM 500 MG in IV NORMAL SALINE 50ML 50 ML IV SCH ×2 (00:08→05:13)
[2016-11-30 05:47] LABS: BASO # 0.1 x10^3/uL (0.0-0.2); BASO % 1 % (0-3); EOS % 7 % (0-3); HEMATOCRIT 37.5 % (36.0-47.0); HEMOGLOBIN 12.3 g/dL (12.0-15.5); LYMPH # 1.1 x10^3/uL (1.0-4.8); LYMPH % 15 % (24-48); MEAN CORPUSCULAR HEMOGLOBIN 31 pg (25-35); MEAN CORPUSCULAR HGB CONC 33 g/dL (31-37); MEAN CORPUSCULAR VOLUME 94 fL (79-100); MONO % 19 % (0-9); NEUT % 58 % (31-73); PLATELET COUNT 121 x10^3/uL (140-400); RED CELL DISTRIBUTION WIDTH 17.5 % (11.5-14.5)
[2016-11-30 06:12] LABS: ALBUMIN 2.2 g/dL (3.4-5.0); CALCIUM 8.3 mg/dL (8.5-10.1); CREATININE 1.3 mg/dL (0.6-1.0); GFR 48.7; PHOSPHORUS 2.6 mg/dL (2.6-4.7); POTASSIUM 5.1 mmol/L (3.5-5.1)
[2016-11-30 07:00] VITALS: BP 159/89
[2016-11-30] MEDS: COLCHICINE 0.6 MG TABLET PO SCH ×2 (08:58→20:42)
[2016-11-30] MEDS: ALLOPURINOL 100 MG TABLET. PO SCH (08:58)
[2016-11-30] MEDS: cycloSPORINE 0.05% OPTH 1 DROP DROPERETTE OU SCH ×2 (08:58→20:42)
[2016-11-30] MEDS: ISOSORBIDE MONONITRATE ER 30 MG TAB.ER.24H PO SCH (08:59)
[2016-11-30] MEDS: CARVEDILOL 12.5 MG TABLET. PO SCH ×2 (08:59→17:10)
[2016-11-30] MEDS: GABAPENTIN 100 MG CAPSULE. PO SCH ×2 (08:59→20:42)
[2016-11-30] MEDS: ASPIRIN ENTERIC COATED 81 MG TABLET.DR. PO SCH (08:59)
[2016-11-30] MEDS: INSULIN ASPART 300 UNITS/3 ML INSULN.PEN SQ SCH ×3 (09:09→17:21)
--- NOTE | 2016-11-30 10:21 | PDOC ---
PROGRESS NOTES Chief Complaint Chief Complaint 1. Hypokalemia w. acute kidney injury 2. Agitation w./ delirium, metabolic encephalopathy on chronic baseline dementia 3. Obesity 4. Anemia 5. CHF 6. Constipation 7. Stroke 8. Depression 9. Diabetes 10. Hypertension 11. Renal failure on CKD 12. Peripheral vascular disease History of Present Illness History of Present Illness calm today, follows commands ate about 50% breakfast improving well cont IV abx DC tele still plan SNU eval, soon, she has been [facility] resident Vitals Vitals Vital Signs Date Time Temp Pulse Resp B/P (MAP) Pulse Ox O2 Delivery O2 Flow Rate FiO2 11/30/16 08:59 84 159/89 11/30/16 07:00 97.3 17 94 Room Air 97.3 Physical Exam General: Alert, Cooperative, No acute distress Heart: Regular rate, Normal S1, Normal S2 Lungs: Clear Abdomen: Normal bowel sounds, Soft Extremities: No clubbing, No cyanosis Skin: No rashes, No breakdown, No significant lesion Labs LABS Laboratory Tests Test 11/29/16 11:11 11/29/16 16:03 11/29/16 20:53 11/30/16 05:35 Glucose (Fingerstick) 163 mg/dL (70-99) 144 mg/dL (70-99) 210 mg/dL (70-99) White Blood Count 7.0 x10^3/uL (4.0-11.0) Red Blood Count 4.00 x10^6/uL (3.50-5.40) Hemoglobin 12.3 g/dL (12.0-15.5) Hematocrit 37.5 % (36.0-47.0) Mean Corpuscular Volume 94 fL (79-100) Mean Corpuscular Hemoglobin 31 pg (25-35) Mean Corpuscular Hemoglobin Concent 33 g/dL (31-37) Red Cell Distribution Width 17.5 % (11.5-14.5) Platelet Count 121 x10^3/uL (140-400) Neutrophils (%) (Auto) 58 % (31-73) Lymphocytes (%) (Auto) 15 % (24-48) Monocytes (%) (Auto) 19 % (0-9) Eosinophils (%) (Auto) 7 % (0-3) Basophils (%) (Auto) 1 % (0-3) Neutrophils # (Auto) 4.0 x10^3uL (1.8-7.7) Lymphocytes # (Auto) 1.1 x10^3/uL (1.0-4.8) Monocytes # (Auto) 1.3 x10^3/uL (0.0-1.1) Eosinophils # (Auto) 0.4 x10^3/uL (0.0-0.7) Basophils # (Auto) 0.1 x10^3/uL (0.0-0.2) Sodium Level 141 mmol/L (136-145) Potassium Level 5.1 mmol/L (3.5-5.1) Chloride Level 110 mmol/L (98-107) Carbon Dioxide Level 22 mmol/L (21-32) Anion Gap 9 (6-14) Blood Urea Nitrogen 35 mg/dL (7-20) Creatinine 1.3 mg/dL (0.6-1.0) Estimated GFR (Cockcroft-Gault) 48.7 Glucose Level 226 mg/dL (70-99) Calcium Level 8.3 mg/dL (8.5-10.1) Phosphorus Level 2.6 mg/dL (2.6-4.7) Magnesium Level 2.0 mg/dL (1.8-2.4) Albumin 2.2 g/dL (3.4-5.0) Test 11/30/16 07:21 Glucose (Fingerstick) 179 mg/dL (70-99) Review of Systems Review of Systems no n.v.d no complaint tired after eating breakfast, was more awake and responsive earlier this AM Assessment and Plan Assessmemt and Plan Problems Medical Problems: (1) Acute kidney injury Status: Acute (2) Altered level of consciousness Status: Acute (3) Hypoglycemia associated with type 2 diabetes mellitus Status: Acute (4) Hypokalemia Status: Acute (5) Opiate overdose Status: Acute Problems: Comment Review of Relevant I have reviewed the following items forest (where applicable) has been applied. Labs Laboratory Tests Test 11/28/16 10:57 11/28/16 16:15 11/28/16 20:26 11/29/16 07:25 Glucose (Fingerstick) 181 mg/dL (70-99) 202 mg/dL (70-99) 129 mg/dL (70-99) 133 mg/dL (70-99) Test 11/29/16 10:00 11/29/16 11:11 11/29/16 16:03 11/29/16 20:53 White Blood Count 7.5 x10^3/uL (4.0-11.0) Red Blood Count 4.10 x10^6/uL (3.50-5.40) Hemoglobin 12.8 g/dL (12.0-15.5) Hematocrit 38.3 % (36.0-47.0) Mean Corpuscular Volume 93 fL (79-100) Mean Corpuscular Hemoglobin 31 pg (25-35) Mean Corpuscular Hemoglobin Concent 33 g/dL (31-37) Red Cell Distribution Width 17.4 % (11.5-14.5) Platelet Count 123 x10^3/uL (140-400) Neutrophils (%) (Auto) 60 % (31-73) Lymphocytes (%) (Auto) 15 % (24-48) Monocytes (%) (Auto) 17 % (0-9) Eosinophils (%) (Auto) 7 % (0-3) Basophils (%) (Auto) 1 % (0-3) Neutrophils # (Auto) 4.5 x10^3uL (1.8-7.7) Lymphocytes # (Auto) 1.2 x10^3/uL (1.0-4.8) Monocytes # (Auto) 1.3 x10^3/uL (0.0-1.1) Eosinophils # (Auto) 0.5 x10^3/uL (0.0-0.7) Basophils # (Auto) 0.1 x10^3/uL (0.0-0.2) Sodium Level 143 mmol/L (136-145) Potassium Level 5.1 mmol/L (3.5-5.1) Chloride Level 109 mmol/L (98-107) Carbon Dioxide Level 23 mmol/L (21-32) Anion Gap 11 (6-14) Blood Urea Nitrogen 36 mg/dL (7-20) Creatinine 1.4 mg/dL (0.6-1.0) Estimated GFR (Cockcroft-Gault) 44.7 Glucose Level 177 mg/dL (70-99) Calcium Level 8.1 mg/dL (8.5-10.1) Phosphorus Level 3.4 mg/dL (2.6-4.7) Magnesium Level 2.3 mg/dL (1.8-2.4) Albumin 2.3 g/dL (3.4-5.0) Glucose (Fingerstick) 163 mg/dL (70-99) 144 mg/dL (70-99) 210 mg/dL (70-99) Test 11/30/16 05:35 11/30/16 07:21 White Blood Count 7.0 x10^3/uL (4.0-11.0) Red Blood Count 4.00 x10^6/uL (3.50-5.40) Hemoglobin 12.3 g/dL (12.0-15.5) Hematocrit 37.5 % (36.0-47.0) Mean Corpuscular Volume 94 fL (79-100) Mean Corpuscular Hemoglobin 31 pg (25-35) Mean Corpuscular Hemoglobin Concent 33 g/dL (31-37) Red Cell Distribution Width 17.5 % (11.5-14.5) Platelet Count 121 x10^3/uL (140-400) Neutrophils (%) (Auto) 58 % (31-73) Lymphocytes (%) (Auto) 15 % (24-48) Monocytes (%) (Auto) 19 % (0-9) Eosinophils (%) (Auto) 7 % (0-3) Basophils (%) (Auto) 1 % (0-3) Neutrophils # (Auto) 4.0 x10^3uL (1.8-7.7) Lymphocytes # (Auto) 1.1 x10^3/uL (1.0-4.8) Monocytes # (Auto) 1.3 x10^3/uL (0.0-1.1) Eosinophils # (Auto) 0.4 x10^3/uL (0.0-0.7) Basophils # (Auto) 0.1 x10^3/uL (0.0-0.2) Sodium Level 141 mmol/L (136-145) Potassium Level 5.1 mmol/L (3.5-5.1) Chloride Level 110 mmol/L (98-107) Carbon Dioxide Level 22 mmol/L (21-32) Anion Gap 9 (6-14) Blood Urea Nitrogen 35 mg/dL (7-20) Creatinine 1.3 mg/dL (0.6-1.0) Estimated GFR (Cockcroft-Gault) 48.7 Glucose Level 226 mg/dL (70-99) Calcium Level 8.3 mg/dL (8.5-10.1) Phosphorus Level 2.6 mg/dL (2.6-4.7) Magnesium Level 2.0 mg/dL (1.8-2.4) Albumin 2.2 g/dL (3.4-5.0) Glucose (Fingerstick) 179 mg/dL (70-99) Laboratory Tests Test 11/29/16 11:11 11/29/16 16:03 11/29/16 20:53 11/30/16 05:35 Glucose (Fingerstick) 163 mg/dL (70-99) 144 mg/dL (70-99) 210 mg/dL (70-99) White Blood Count 7.0 x10^3/uL (4.0-11.0) Red Blood Count 4.00 x10^6/uL (3.50-5.40) Hemoglobin 12.3 g/dL (12.0-15.5) Hematocrit 37.5 % (36.0-47.0) Mean Corpuscular Volume 94 fL (79-100) Mean Corpuscular Hemoglobin 31 pg (25-35) Mean Corpuscular Hemoglobin Concent 33 g/dL (31-37) Red Cell Distribution Width 17.5 % (11.5-14.5) Platelet Count 121 x10^3/uL (140-400) Neutrophils (%) (Auto) 58 % (31-73) Lymphocytes (%) (Auto) 15 % (24-48) Monocytes (%) (Auto) 19 % (0-9) Eosinophils (%) (Auto) 7 % (0-3) Basophils (%) (Auto) 1 % (0-3) Neutrophils # (Auto) 4.0 x10^3uL (1.8-7.7) Lymphocytes # (Auto) 1.1 x10^3/uL (1.0-4.8) Monocytes # (Auto) 1.3 x10^3/uL (0.0-1.1) Eosinophils # (Auto) 0.4 x10^3/uL (0.0-0.7) Basophils # (Auto) 0.1 x10^3/uL (0.0-0.2) Sodium Level 141 mmol/L (136-145) Potassium Level 5.1 mmol/L (3.5-5.1) Chloride Level 110 mmol/L (98-107) Carbon Dioxide Level 22 mmol/L (21-32) Anion Gap 9 (6-14) Blood Urea Nitrogen 35 mg/dL (7-20) Creatinine 1.3 mg/dL (0.6-1.0) Estimated GFR (Cockcroft-Gault) 48.7 Glucose Level 226 mg/dL (70-99) Calcium Level 8.3 mg/dL (8.5-10.1) Phosphorus Level 2.6 mg/dL (2.6-4.7) Magnesium Level 2.0 mg/dL (1.8-2.4) Albumin 2.2 g/dL (3.4-5.0) Test 11/30/16 07:21 Glucose (Fingerstick) 179 mg/dL (70-99) Microbiology 11/25/16 Blood Culture - Preliminary, Resulted NO GROWTH AFTER 4 DAYS 11/25/16 Urine Culture - Final, Complete 11/25/16 Urine Culture Result 1 (JUDITH) - Final, Complete 11/25/16 Urine Culture Result 2 (JUDITH) - Final, Complete 11/25/16 Antimicrobic Susceptibility - Final, Complete Medications Current Medications Potassium Chloride (KCl Oral Soln) 40 meq 1X ONCE PO Last administered on 11/25 14:07; Start 11/25/16 at 12:45; Stop 11/25/16 at 12:46; Status DC Potassium Chloride/Dextrose/ Sod Cl 1,000 ml @ 75 mls/hr 1X ONCE IV Last administered on 11/25/16 15:16; Start 11/25/16 at 13:30; Stop 11/26/16 at 08:26 ; Status DC Allopurinol (Zyloprim) 100 mg DAILY PO Last administered on 11/30/16 08:58; Start 11/26/16 at 09:00 Aspirin (Ecotrin) 81 mg DAILY08 PO Last administered on 11/30/16 08:59; Start 11/26/16 at 08:00 Carvedilol (Coreg) 25 mg BIDWMEALS PO Last administered on 11/30/16 08:59; Start 11/26/16 at 08:00 Clonidine HCl (Catapres Tts-3) 1 patch WEEKLY TD Last administered on 09:36; Start 11/26/16 at 09:00 Colchicine (Colcrys) 0.6 mg BID PO Last administered on 11/30/16 08:58; Start 11/25/16 at 21:00 Cyclosporine (Restasis) 1 drop BID OU Last administered on 11/30/16 08:58; Start 11/25/16 at 21:00 Furosemide (Lasix) 40 mg BID94 PO ; Start 11/26/16 at 09:00; Stop 11/26/16 at 09 :00; Status DC Gabapentin (Neurontin) 100 mg BID PO Last administered on 11/30/16 08:59; Start 11/25/16 at 21:00 Isosorbide Mononitrate (Imdur) 30 mg DAILY PO Last administered on 11/30/16 08: 59; Start 11/26/16 at 09:00 Lidocaine (Lidoderm) 1 patch HS TP Last administered on 11/29/16 20:48; Start 11/25/16 at 21:00 Oxycodone/ Acetaminophen (Percocet 5/325) 1 tab PRN BID PRN PO PAIN SEVERE; Start 11/25/16 at 20:00 Quetiapine Fumarate (SEROquel) 25 mg BID PO ; Start 11/25/16 at 21:00; Stop at 11:18; Status DC Magnesium Sulfate/ Dextrose 50 ml @ 25 mls/hr PRN DAILY PRN IV for Mag < 1.7 on am labs Last administered on 11/28/16 14:49; Start 11/26/16 at 08:15 Potassium Acetate 40 meq/Sodium Chloride 1,020 ml @ 75 mls/hr [id number] IV Last administered on 11/27/16 02:35; Start 11/26/16 at 09:00; Stop 11/27/16 at 06:23 ; Status DC Potassium Chloride (Klor-Con) 40 meq TIDWMEALS PO Last administered on 17:08; Start 11/26/16 at 09:00; Stop 11/27/16 at 08:08; Status DC Sodium Chloride 500 ml @ 0 mls/hr QID PRN IV UO< 30cc/hr over previous 6hrs; Start 11/26/16 at 08:15; Stop 11/28/16 at 11:03; Status DC Vancomycin HCl (Vanco Per Pharmacy) 1 each PRN DAILY PRN MC SEE COMMENTS; Start 11/26/16 at 09:15; Status Cancel Aztreonam 1 gm/ Sodium Chloride 50 ml @ 100 mls/hr Q6HRS IV ; Start 11/26/16 at 10:00; Stop 11/26/16 at 10:56; Status DC Vancomycin HCl 2 gm/Sodium Chloride 500 ml @ 250 mls/hr 1X ONCE IV Last administered on 11/26/16 09:35; Start 11/26/16 at 10:00; Stop 11/26/16 at 11:59 ; Status DC Meropenem 500 mg/ Sodium Chloride 50 ml @ 100 mls/hr Q12HR IV Last administered on 11/26/16 20:49; Start 11/26/16 at 11:00; Stop 11/27/16 at 09:40 ; Status DC Vancomycin HCl 1.25 gm/Sodium Chloride 250 ml @ 167 mls/hr Q48H IV ; Start at 09:30; Status Cancel Vancomycin HCl 1 each 1X ONCE MC ; Start 11/30/16 at 09:00; Stop 11/30/16 at 09: 01; Status Cancel Quetiapine Fumarate (SEROquel) 25 mg HS PO Last administered on 11/29/16 20:48 ; Start 11/26/16 at 21:00 Insulin Detemir (Levemir) 10 units QHS SQ Last administered on 11/29/16 20:56 ; Start 11/26/16 at 21:00 Insulin Aspart (NovoLOG) 0-7 UNITS TIDWMEALS SQ Last administered on 11/30/16 09:09; Start 11/26/16 at 17:00 Dextrose (Dextrose 50%-Water Syringe) 12.5 gm PRN Q15MIN PRN IV SEE COMMENTS; Start 11/26/16 at 14:00 Haloperidol (Haldol) 5 mg 1X ONCE PO Last administered on 11/27/16 02:25; Start 11/27/16 at 02:00; Stop 11/27/16 at 02:01; Status DC Haloperidol Lactate (Haldol) 5 mg 1X ONCE IVP Last administered on 11/27/16 06:31; Start 11/27/16 at 06:30; Stop 11/27/16 at 06:31; Status DC Sodium Polystyrene Sulfonate (Kayexalate) 30 gm 1X ONCE PO Last administered on 11/27/16 06:31; Start 11/27/16 at 07:00; Stop 11/27/16 at 07:01; Status DC Haloperidol Lactate (Haldol) 5 mg PRN Q6HRS PRN IVP AGITATION Last administered on 11/27/16 17:28; Start 11/27/16 at 08:15 Sodium Chloride 1,000 ml @ 100 mls/hr 1X ONCE IV Last administered on 12:24; Start 11/27/16 at 08:15; Stop 11/27/16 at 18:14; Status DC Meropenem 500 mg/ Sodium Chloride 50 ml @ 100 mls/hr Q8HRS IV Last administered on 11/28/16 06:22; Start 11/27/16 at 14:00; Stop 11/28/16 at 10:34 ; Status DC Lorazepam (Ativan) 2 mg PRN Q4HRS PRN IV ANXIETY / AGITATION Last administered on 11/28/16 23:23; Start 11/27/16 at 09:45 Sodium Phosphate 20 mmol/Dextrose 256.6667 ml @ 64.167 m... Q4HRS IV Last administered on 11/27/16 17:02; Start 11/27/16 at 12:00; Stop 11/27/16 at 19:59 ; Status DC Dextrose/Sodium Chloride 1,000 ml @ 100 mls/hr Q10H IV Last administered on 01:32; Start 11/27/16 at 10:15; Stop 11/28/16 at 11:03; Status DC Sodium Polystyrene Sulfonate (Kayexalate) 15 gm 1X PRN PRN PO for repeat K > 5.3; Start 11/27/16 at 10:15 Sodium Polystyrene Sulfonate (Kayexalate) 30 gm 1X ONCE PO ; Start 11/27/16 at 12:00; Stop 11/27/16 at 12:01; Status DC Meropenem 500 mg/ Sodium Chloride 50 ml @ 100 mls/hr Q6HRS IV Last administered on 11/30/16 05:13; Start 11/28/16 at 12:00 Magnesium Sulfate/ Dextrose 100 ml @ 100 mls/hr 1X ONCE IV Last administered on 11/28/16 13:01; Start 11/28/16 at 11:30; Stop 11/28/16 at 12:29; Status DC Amino Acids/ Glycerin/ Electrolytes 1,000 ml @ 80 mls/hr [id number] IV Last administered on 11/29/16 14:53; Start 11/28/16 at 12:00 Active Scripts Active Reported Aspir 81 (Aspirin) 81 Mg Tablet.dr 1 Tab PO DAILY Allopurinol 100 Mg Tablet 1 Tab PO DAILY Colcrys (Colchicine) 0.6 Mg Tablet 1 Tab PO BID Lidoderm (Lidocaine) 700 Mg Adh..patch 1 Patch TP HS Gabapentin 100 Mg Capsule 100 Mg PO BID Hydralazine Hcl 100 Mg Tablet 1 Tab PO TID Furosemide 40 Mg Tablet 40 Mg PO BID Oxycodone-Acetaminophen 5-325 (Oxycodone Hcl/Acetaminophen) 1 Each Tablet 1 Each PO BID PRN Restasis (Cyclosporine) 1 Each Droperette 1 Drop EACHEYE BID Isosorbide Mononitrate Er (Isosorbide Mononitrate) 30 Mg Tab.er.24h 30 Mg PO DAILY Quetiapine Fumarate 25 Mg Tablet 25 Mg PO HS Coreg (Carvedilol) 12.5 Mg Tablet 25 Mg PO BID Catapres-Tts 3 (Clonidine) 1 Each Patch.tdwk 1 Each TD WEEKLY Pletal (Cilostazol) 100 Mg Tablet 100 Mg PO DAILYBFRLUN Acetaminophen Ext.release (Acetaminophen) 650 Mg Tablet.er 650 Mg PO Q6HRS PRN Levemir Flexpen (Insulin Detemir) 100 Unit/1 Ml Insuln.pen 14 Unit SQ DAILYWSUP Humalog (Insulin Lispro) 100 Unit/1 Ml Cartridge 3 Unit SQ TIDAC Glucagon Emergency Kit (Glucagon,Human Recombinant) 1 Mg Kit 1 Mg IJ Vitals/I & O Vital Sign - Last 24 Hours 11/29/16 11/29/16 11/29/16 11/29/16 11:00 15:00 16:48 19:00 Temp 97.9 97.8 98.3 97.9 97.8 98.3 Pulse 77 80 80 80 Resp 18 18 18 B/P (MAP) 143/71 (95) 158/84 (108) 158/84 159/75 (103) Pulse Ox 93 95 90 O2 Delivery Room Air Room Air Room Air 11/29/16 11/29/16 11/30/16 11/30/16 19:33 23:00 07:00 08:59 Temp 98.9 97.3 98.9 97.3 Pulse 80 84 84 Resp 17 B/P (MAP) 174/89 (117) 159/89 (112) 159/89 Pulse Ox 93 94 O2 Delivery Room Air Room Air Room Air 11/30/16 08:59 Pulse 84 B/P (MAP) 159/89 Intake and Output 11/29/16 11/29/16 11/30/16 15:00 23:00 07:00 Intake Total 690 ml 1050 ml Output Total 350 ml 500 ml Balance 340 ml 550 ml EULOGIO HANEY MD Nov 30, 2016 10:21
--- NOTE | 2016-11-30 10:47 | PDOC ---
SUBJECTIVE ROS [place]/ CK DIII Doing same overall remains confused but not as restless OBJECTIVE Vital Signs Vital Signs Date Time Temp Pulse Resp B/P (MAP) Pulse Ox O2 Delivery O2 Flow Rate FiO2 11/30/16 08:59 84 159/89 11/30/16 07:00 97.3 17 94 Room Air 97.3 I & 0 Intake and Output 11/30/16 06:59 Intake Total 1740 ml Output Total 850 ml Balance 890 ml Intake Oral 690 ml IV Total 1050 ml Output Urine Total 850 ml # Bowel Movements 1 PHYSICAL EXAM Physical Exam General Appearance: Arousable but somewhat drowsy not fully Alert Oriented x 0 In no Distress Eyes: VIsion Unchanged Conjunctiva Normal EN: No EN Drainage Mucous Memb. moist Neck: no JVD no JVP Supple no Thyromegaly - short neck CVS: S1 S2 + Murmur No Gallop No Rub no Edema Resp: no Rales no Rhonchi no Acc. Muscle use GI: BS +ve NO Bruit Non Tender Non Distended; obese : no CVA tenderness; no Suprapubic Tenderness Assessment & Plan [place] - Appears to have mostly resolved. CKD III with min atrophic Kidneys on previous US (baseline creat is ~ 1.4) Vol depletion - changed IVF to PPN due to marginal PO intake but maintaining IV Access has been a challenge Marginal Oliguria - IVF/ PPN when IV Access can be established ^Na - nwo resolved with PPN HypoAlbuminemia - ? NEe dfor PEG COMMENT/RELEVANT DATA Meds Current Medications Medications (Trade) Dose Ordered Sig/Erick Start Time Stop Time Status Last Admin Dose Admin Allopurinol (Zyloprim) 100 mg DAILY 11/26/16 09:00 11/30/16 08:58 100 MG Amino Acids/ Glycerin/ Electrolytes 1,000 ml @ 80 mls/hr [id number] 11/28/16 12:00 11/29/16 14:53 80 MLS/HR Aspirin (Ecotrin) 81 mg DAILY08 11/26/16 08:00 11/30/16 08:59 81 MG Aztreonam 1 gm/ Sodium Chloride 50 ml @ 100 mls/hr Q6HRS 11/26/16 10:00 11/26/16 10:56 DC Carvedilol (Coreg) 25 mg BIDWMEALS 11/26/16 08:00 11/30/16 08:59 25 MG Clonidine HCl (Catapres Tts-3) 1 patch WEEKLY 11/26/16 09:00 11/26/16 09:36 1 PATCH Colchicine (Colcrys) 0.6 mg BID 11/25/16 21:00 11/30/16 08:58 0.6 MG Cyclosporine (Restasis) 1 drop BID 11/25/16 21:00 11/30/16 08:58 1 DROP Dextrose (Dextrose 50%-Water Syringe) 12.5 gm PRN Q15MIN PRN 11/26/16 14:00 Dextrose/Sodium Chloride 1,000 ml @ 100 mls/hr Q10H 11/27/16 10:15 11/28/16 11:03 DC 11/28/16 01:32 100 MLS/HR Furosemide (Lasix) 40 mg [id number] 11/26/16 09:00 11/26/16 09:00 DC Gabapentin (Neurontin) 100 mg BID 11/25/16 21:00 11/30/16 08:59 100 MG Haloperidol (Haldol) 5 mg 1X ONCE 11/27/16 02:00 11/27/16 02:01 DC 11/27/16 02:25 5 MG Haloperidol Lactate (Haldol) 5 mg PRN Q6HRS PRN 11/27/16 08:15 11/27/16 17:28 5 MG Insulin Aspart (NovoLOG) 0-7 UNITS TIDWMEALS 11/26/16 17:00 11/30/16 09:09 3 UNITS Insulin Detemir (Levemir) 10 units QHS 11/26/16 21:00 11/29/16 20:56 10 UNITS Isosorbide Mononitrate (Imdur) 30 mg DAILY 11/26/16 09:00 11/30/16 08:59 30 MG Lidocaine (Lidoderm) 1 patch HS 11/25/16 21:00 11/29/16 20:48 1 PATCH Lorazepam (Ativan) 2 mg PRN Q4HRS PRN 11/27/16 09:45 11/28/16 23:23 2 MG Magnesium Sulfate/ Dextrose 100 ml @ 100 mls/hr 1X ONCE 11/28/16 11:30 11/28/16 12:29 DC 11/28/16 13:01 100 MLS/HR Meropenem 500 mg/ Sodium Chloride 50 ml @ 100 mls/hr Q6HRS 11/28/16 12:00 11/30/16 05:13 100 MLS/HR Oxycodone/ Acetaminophen (Percocet 5325) 1 tab PRN BID PRN 11/25/16 20:00 Potassium Chloride/Dextrose/ Sod Cl 1,000 ml @ 75 mls/hr 1X ONCE 11/25/16 13:30 11/26/16 08:26 DC 11/25/16 15:16 75 MLS/HR Potassium Acetate 40 meq/Sodium Chloride 1,020 ml @ 75 mls/hr [id number] 11/26/16 09:00 11/27/16 06:23 DC 11/27/16 02:35 75 MLS/HR Potassium Chloride (KCl Oral Soln) 40 meq 1X ONCE 11/25/16 12:45 11/25/16 12:46 DC 11/25/16 14:07 40 MEQ Potassium Chloride (Klor-Con) 40 meq TIDWMEALS 11/26/16 09:00 11/27/16 08:08 DC 11/26/16 17:08 40 MEQ Quetiapine Fumarate (SEROquel) 25 mg HS 11/26/16 21:00 11/29/16 20:48 25 MG Sodium Polystyrene Sulfonate (Kayexalate) 30 gm 1X ONCE 11/27/16 12:00 11/27/16 12:01 DC Sodium Chloride 1,000 ml @ 100 mls/hr 1X ONCE 11/27/16 08:15 11/27/16 18:14 DC 11/27/16 12:24 100 MLS/HR Sodium Phosphate 20 mmol/Dextrose 256.6667 ml @ 64.167 m... Q4HRS 11/27/16 12:00 11/27/16 19:59 DC 11/27/16 17:02 64.167 MLS/HR Vancomycin HCl 1 each 1X ONCE 11/30/16 09:00 11/30/16 09:01 Cancel Vancomycin HCl (Vanco Per Pharmacy) 1 each PRN DAILY PRN 11/26/16 09:15 Cancel Vancomycin HCl 1.25 gm/Sodium Chloride 250 ml @ 167 mls/hr Q48H 11/28/16 09:30 Cancel Vancomycin HCl 2 gm/Sodium Chloride 500 ml @ 250 mls/hr 1X ONCE 11/26/16 10:00 11/26/16 11:59 DC 11/26/16 09:35 250 MLS/HR Lab Laboratory Tests Test 11/29/16 11:11 11/29/16 16:03 11/29/16 20:53 11/30/16 05:35 Glucose (Fingerstick) 163 mg/dL (70-99) 144 mg/dL (70-99) 210 mg/dL (70-99) White Blood Count 7.0 x10^3/uL (4.0-11.0) Red Blood Count 4.00 x10^6/uL (3.50-5.40) Hemoglobin 12.3 g/dL (12.0-15.5) Hematocrit 37.5 % (36.0-47.0) Mean Corpuscular Volume 94 fL (79-100) Mean Corpuscular Hemoglobin 31 pg (25-35) Mean Corpuscular Hemoglobin Concent 33 g/dL (31-37) Red Cell Distribution Width 17.5 % (11.5-14.5) Platelet Count 121 x10^3/uL (140-400) Neutrophils (%) (Auto) 58 % (31-73) Lymphocytes (%) (Auto) 15 % (24-48) Monocytes (%) (Auto) 19 % (0-9) Eosinophils (%) (Auto) 7 % (0-3) Basophils (%) (Auto) 1 % (0-3) Neutrophils # (Auto) 4.0 x10^3uL (1.8-7.7) Lymphocytes # (Auto) 1.1 x10^3/uL (1.0-4.8) Monocytes # (Auto) 1.3 x10^3/uL (0.0-1.1) Eosinophils # (Auto) 0.4 x10^3/uL (0.0-0.7) Basophils # (Auto) 0.1 x10^3/uL (0.0-0.2) Sodium Level 141 mmol/L (136-145) Potassium Level 5.1 mmol/L (3.5-5.1) Chloride Level 110 mmol/L (98-107) Carbon Dioxide Level 22 mmol/L (21-32) Anion Gap 9 (6-14) Blood Urea Nitrogen 35 mg/dL (7-20) Creatinine 1.3 mg/dL (0.6-1.0) Estimated GFR (Cockcroft-Gault) 48.7 Glucose Level 226 mg/dL (70-99) Calcium Level 8.3 mg/dL (8.5-10.1) Phosphorus Level 2.6 mg/dL (2.6-4.7) Magnesium Level 2.0 mg/dL (1.8-2.4) Albumin 2.2 g/dL (3.4-5.0) Test 11/30/16 07:21 Glucose (Fingerstick) 179 mg/dL (70-99) HEATHER STORY MD Nov 30, 2016 10:47
[2016-11-30 11:00] VITALS: BP 140/69
--- NOTE | 2016-11-30 11:46 | PDOC ---
Infectious Disease Note Subjective Subjective S/p med - comfortable. Confused but not as bad ROS ROS GEN: Denies fevers, chills, sweats HEENT: Denies blurred vision, sore throat CV: Denies chest pain RESP: Denies shortness of air, cough GI: Denies n/v/d NEURO: Denies confusion, dizziness MSK: Denies weakness, joint pain/swelling Vital Sign Vital Signs Vital Signs Date Time Temp Pulse Resp B/P (MAP) Pulse Ox O2 Delivery O2 Flow Rate FiO2 11/30/16 11:00 98.2 78 17 140/69 (92) 97 Room Air 98.2 Physical Exam PHYSICAL EXAM GENERAL: NAD, resting, lethargic but states ok HEENT: OC/OP - clear NECK: Supple, no JVD, no LN LUNGS: Clear HEART: S1S2, no gallop, no murmur ABD: Soft, NT, no organomegaly, no rebound,obese Sands - clear EXT: No edema, no cyanosis 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 SKIN: No rash IV: ok Labs Lab Laboratory Tests Test 11/29/16 16:03 11/29/16 20:53 11/30/16 05:35 11/30/16 07:21 Glucose (Fingerstick) 144 mg/dL (70-99) 210 mg/dL (70-99) 179 mg/dL (70-99) White Blood Count 7.0 x10^3/uL (4.0-11.0) Red Blood Count 4.00 x10^6/uL (3.50-5.40) Hemoglobin 12.3 g/dL (12.0-15.5) Hematocrit 37.5 % (36.0-47.0) Mean Corpuscular Volume 94 fL (79-100) Mean Corpuscular Hemoglobin 31 pg (25-35) Mean Corpuscular Hemoglobin Concent 33 g/dL (31-37) Red Cell Distribution Width 17.5 % (11.5-14.5) Platelet Count 121 x10^3/uL (140-400) Neutrophils (%) (Auto) 58 % (31-73) Lymphocytes (%) (Auto) 15 % (24-48) Monocytes (%) (Auto) 19 % (0-9) Eosinophils (%) (Auto) 7 % (0-3) Basophils (%) (Auto) 1 % (0-3) Neutrophils # (Auto) 4.0 x10^3uL (1.8-7.7) Lymphocytes # (Auto) 1.1 x10^3/uL (1.0-4.8) Monocytes # (Auto) 1.3 x10^3/uL (0.0-1.1) Eosinophils # (Auto) 0.4 x10^3/uL (0.0-0.7) Basophils # (Auto) 0.1 x10^3/uL (0.0-0.2) Sodium Level 141 mmol/L (136-145) Potassium Level 5.1 mmol/L (3.5-5.1) Chloride Level 110 mmol/L (98-107) Carbon Dioxide Level 22 mmol/L (21-32) Anion Gap 9 (6-14) Blood Urea Nitrogen 35 mg/dL (7-20) Creatinine 1.3 mg/dL (0.6-1.0) Estimated GFR (Cockcroft-Gault) 48.7 Glucose Level 226 mg/dL (70-99) Calcium Level 8.3 mg/dL (8.5-10.1) Phosphorus Level 2.6 mg/dL (2.6-4.7) Magnesium Level 2.0 mg/dL (1.8-2.4) Albumin 2.2 g/dL (3.4-5.0) Test 11/30/16 11:00 Glucose (Fingerstick) 204 mg/dL (70-99) Micro 11/25 Acinetobacter baumannii Recovered from aerobic bottle only. BLD CULT RESULT 2 Preliminary Comment Coagulase negative Staphylococcus species. Recovered from aerobic bottle only. ANTIMICROBIAL SUSCEPTIBILITY Preliminary Comment S = Susceptible; I = Intermediate; R = Resistant P = Positive; N = Negative MICS are expressed in micrograms per mL Antibiotic RSLT#1 RSLT#2 RSLT#3 RSLT#4 Ampicillin/Sulbactam S Cefotaxime I Ceftazidime S Ceftriaxone I Ciprofloxacin S Gentamicin S Imipenem S Levofloxacin S Meropenem S Piperacillin S Tetracycline S Tobramycin S Trimethoprim/Sulfa S Klebsiella pneumoniae Greater than 100,000 colony forming units per mL URINE CULTURE RES 2 Final Klebsiella pneumoniae Greater than 100,000 colony forming units per mL SECOND MORPHOTYPE ANTIMICROBIAL SUSCEPTIBILITY Final Comment S = Susceptible; I = Intermediate; R = Resistant P = Positive; N = Negative MICS are expressed in micrograms per mL Antibiotic RSLT#1 RSLT#2 RSLT#3 RSLT#4 Amoxicillin/Clavulanic Acid S S Ampicillin R R Cefepime S S Ceftriaxone S S Cefuroxime S S Cephalothin S S Ciprofloxacin S S Ertapenem S S Gentamicin S S Imipenem S S Levofloxacin S S Nitrofurantoin S S Piperacillin S S Tetracycline S S Tobramycin S S Trimethoprim/Sulfa S S Objective Assessment Polymicrobial sepsis. POA (1 of 4 bottles so far). Acinetobacter per micro - sens pending Klebsiella UTI - POA - sens pending Ampicillin allergy. Reaction unknown Acute encephalopathy- worse today Hypotension - improved lactic acidosis FEDERICA on CKD Loose stools. c. diff neg 11/08. repeat pending DM II with hypoglycemia Chronic pain Plan Plan of Care Discont meropenem - Encephalopathy persisting Trial Rocepfrancisco/MARV Lopez MD Nov 30, 2016 11:46
[2016-11-30 15:00] VITALS: BP 153/60
[2016-11-30] MEDS: CIPROFLOXACIN 400MG PREMIX 200 ML IV SCH ×2 (15:33→20:43)
[2016-11-30] MEDS: AMINO AC 3%/ELECTROLYTE/GLYCER 1,000 ML IV SCH (17:12)
[2016-11-30 19:00] VITALS: BP 169/77
[2016-11-30] MEDS: QUEtiapine 25 MG TABLET. PO SCH (20:42)
[2016-11-30] MEDS: LIDOCAINE (700MG/PATCH) PATCH. TP SCH (20:43)
[2016-11-30] MEDS: INSULIN DETEMIR 300 UNITS/3 ML INSULN.PEN. SQ SCH (20:53)
[2016-11-30 23:00] VITALS: BP 153/66
[2016-12-01 03:00] VITALS: BP 152/66
[2016-12-01 06:14] LABS: BASO # 0.1 x10^3/uL (0.0-0.2); BASO % 1 % (0-3); EOS % 3 % (0-3); HEMATOCRIT 37.4 % (36.0-47.0); HEMOGLOBIN 12.3 g/dL (12.0-15.5); LYMPH # 1.1 x10^3/uL (1.0-4.8); LYMPH % 16 % (24-48); MEAN CORPUSCULAR HEMOGLOBIN 31 pg (25-35); MEAN CORPUSCULAR HGB CONC 33 g/dL (31-37); MEAN CORPUSCULAR VOLUME 94 fL (79-100); MONO % 16 % (0-9); NEUT % 65 % (31-73); PLATELET COUNT 117 x10^3/uL (140-400); RED BLOOD COUNT 3.98 x10^6/uL (3.50-5.40); WHITE BLOOD COUNT 6.7 x10^3/uL (4.0-11.0)
[2016-12-01] MEDS: AMINO AC 3%/ELECTROLYTE/GLYCER 1,000 ML IV SCH (06:22)
[2016-12-01 06:28] LABS: ALBUMIN 2.2 g/dL (3.4-5.0); CALCIUM 8.3 mg/dL (8.5-10.1); CREATININE 1.3 mg/dL (0.6-1.0); GFR 48.7; MAGNESIUM 1.9 mg/dL (1.8-2.4); PHOSPHORUS 2.8 mg/dL (2.6-4.7); POTASSIUM 5.6 mmol/L (3.5-5.1)
[2016-12-01 07:00] VITALS: BP 171/79
[2016-12-01] MEDS: CIPROFLOXACIN 400MG PREMIX 200 ML IV SCH (09:00)
[2016-12-01] MEDS: COLCHICINE 0.6 MG TABLET PO SCH ×2 (09:05→22:34)
[2016-12-01] MEDS: cycloSPORINE 0.05% OPTH 1 DROP DROPERETTE OU SCH ×2 (09:05→22:32)
[2016-12-01] MEDS: CARVEDILOL 12.5 MG TABLET. PO SCH ×2 (09:06→17:58)
[2016-12-01] MEDS: ASPIRIN ENTERIC COATED 81 MG TABLET.DR. PO SCH (09:08)
[2016-12-01] MEDS: ALLOPURINOL 100 MG TABLET. PO SCH (09:08)
[2016-12-01] MEDS: ISOSORBIDE MONONITRATE ER 30 MG TAB.ER.24H PO SCH (09:08)
[2016-12-01] MEDS: GABAPENTIN 100 MG CAPSULE. PO SCH ×2 (09:08→22:33)
[2016-12-01] MEDS: INSULIN ASPART 300 UNITS/3 ML INSULN.PEN SQ SCH ×3 (09:31→17:00)
[2016-12-01 11:00] VITALS: BP 113/50
--- NOTE | 2016-12-01 11:15 | PDOC ---
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 SKIN: No rash LUE swollen, IV now out Labs Lab Laboratory Tests Test 11/30/16 16:48 11/30/16 20:31 12/01/16 05:30 12/01/16 07:39 Glucose (Fingerstick) 169 mg/dL (70-99) 219 mg/dL (70-99) 272 mg/dL (70-99) White Blood Count 6.7 x10^3/uL (4.0-11.0) Red Blood Count 3.98 x10^6/uL (3.50-5.40) Hemoglobin 12.3 g/dL (12.0-15.5) Hematocrit 37.4 % (36.0-47.0) Mean Corpuscular Volume 94 fL (79-100) Mean Corpuscular Hemoglobin 31 pg (25-35) Mean Corpuscular Hemoglobin Concent 33 g/dL (31-37) Red Cell Distribution Width 18.0 % (11.5-14.5) Platelet Count 117 x10^3/uL (140-400) Neutrophils (%) (Auto) 65 % (31-73) Lymphocytes (%) (Auto) 16 % (24-48) Monocytes (%) (Auto) 16 % (0-9) Eosinophils (%) (Auto) 3 % (0-3) Basophils (%) (Auto) 1 % (0-3) Neutrophils # (Auto) 4.3 x10^3uL (1.8-7.7) Lymphocytes # (Auto) 1.1 x10^3/uL (1.0-4.8) Monocytes # (Auto) 1.1 x10^3/uL (0.0-1.1) Eosinophils # (Auto) 0.2 x10^3/uL (0.0-0.7) Basophils # (Auto) 0.1 x10^3/uL (0.0-0.2) Sodium Level 138 mmol/L (136-145) Potassium Level 5.6 mmol/L (3.5-5.1) Chloride Level 107 mmol/L (98-107) Carbon Dioxide Level 22 mmol/L (21-32) Anion Gap 9 (6-14) Blood Urea Nitrogen 34 mg/dL (7-20) Creatinine 1.3 mg/dL (0.6-1.0) Estimated GFR (Cockcroft-Gault) 48.7 Glucose Level 217 mg/dL (70-99) Calcium Level 8.3 mg/dL (8.5-10.1) Phosphorus Level 2.8 mg/dL (2.6-4.7) Magnesium Level 1.9 mg/dL (1.8-2.4) Albumin 2.2 g/dL (3.4-5.0) Micro BLOOD CULTURE Final GRAM NEGATIVE RODS AND GRAM POSITIVE COCCI IN CLUSTERS IN 1 OF 4 BOTTLES(AEROBIC);REPRESENTING 2 SETS DRAWN. THE RESULT WAS CALLED TO ABBI RILEY(5N)ON 11/26/16 AT 0820 BY [employer] FIERRO. THE BLOOD CULTURE HAS BEEN SENT TO [facility] FOR FURTHER WORKUP. Objective Assessment Polymicrobial sepsis. POA. Acinetobacter Klebsiella UTI - POA Ampicillin allergy. Reaction unknown Acute encephalopathy- worse today Hypotension - improved lactic acidosis FEDERICA on CKD Loose stools. c. diff neg 11/08 & 11/25. DM II with hypoglycemia Chronic pain Plan Plan of Care meropenem discontinued Continue trial Rocephin/Cipro Attending Co-Sign The patient was seen and interviewed as well as examined at the bedside. The chart was reviewed. The case was discussed. Agree with the plan of care. JARON CONLEY APRN Dec 01, 2016 11:15 ISA STORY MD Dec 01, 2016 15:20
--- NOTE | 2016-12-01 11:38 | PDOC ---
SUBJECTIVE ROS FEDERICA/ CKD III uanbel to get ROS OBJECTIVE Vital Signs Vital Signs Date Time Temp Pulse Resp B/P (MAP) Pulse Ox O2 Delivery O2 Flow Rate FiO2 12/01/16 09:08 87 171/79 12/01/16 03:00 98.1 18 97 Room Air 98.1 I & 0 Intake and Output 12/01/16 07:00 Intake Total 1730 ml Output Total 800 ml Balance 930 ml Intake Oral 150 ml IV Total 1580 ml Output Urine Total 800 ml PHYSICAL EXAM Physical Exam General Appearance: Arousable but somewhat drowsy not fully Alert Oriented x 0 In no Distress Eyes: VIsion Unchanged Conjunctiva Normal EN: No EN Drainage Mucous Memb. moist Neck: no JVD no JVP Supple no Thyromegaly - short neck CVS: S1 S2 + Murmur No Gallop No Rub no Edema Resp: no Rales no Rhonchi no Acc. Muscle use GI: BS +ve NO Bruit Non Tender Non Distended; obese : no CVA tenderness; no Suprapubic Tenderness Assessment & Plan FEDERICA - Appears to have mostly resolved. CKD III with min atrophic Kidneys on previous US (baseline creat is ~ 1.4) Vol depletion - changed PPN to TPN due to marginal PO intake but maintaining IV Access has been a challenge Marginal Oliguria - IVF/ PPN when IV Access can be established ^Na - nwo resolved with PPN so change to TPN ^K - unclear etio, check ABG to R/o Hypercapnea asso somnolence and Resp acidosis. HypoAlbuminemia - ? NEe dfor PEG in the long run COMMENT/RELEVANT DATA Meds Current Medications Medications (Trade) Dose Ordered Sig/Erick Start Time Stop Time Status Last Admin Dose Admin Allopurinol (Zyloprim) 100 mg DAILY 11/26/16 09:00 12/01/16 09:08 100 MG Amino Acids/ Glycerin/ Electrolytes 1,000 ml @ 80 mls/hr [id number] 11/28/16 12:00 12/01/16 06:22 80 MLS/HR Aspirin (Ecotrin) 81 mg DAILY08 11/26/16 08:00 12/01/16 09:08 81 MG Aztreonam 1 gm/ Sodium Chloride 50 ml @ 100 mls/hr Q6HRS 11/26/16 10:00 11/26/16 10:56 DC Carvedilol (Coreg) 25 mg BIDWMEALS 11/26/16 08:00 12/01/16 09:06 25 MG Ceftriaxone Sodium 1 gm/ Sodium Chloride 50 ml @ 100 mls/hr Q24H 11/30/16 12:00 11/30/16 13:19 100 MLS/HR Ciprofloxacin Lactate 200 ml @ 200 mls/hr Q12HR 11/30/16 13:00 11/30/16 20:43 200 MLS/HR Clonidine HCl (Catapres Tts-3) 1 patch WEEKLY 11/26/16 09:00 11/26/16 09:36 1 PATCH Colchicine (Colcrys) 0.6 mg BID 11/25/16 21:00 12/01/16 09:05 0.6 MG Cyclosporine (Restasis) 1 drop BID 11/25/16 21:00 12/01/16 09:05 1 DROP Dextrose (Dextrose 50%-Water Syringe) 12.5 gm PRN Q15MIN PRN 11/26/16 14:00 Dextrose/Sodium Chloride 1,000 ml @ 100 mls/hr Q10H 11/27/16 10:15 11/28/16 11:03 DC 11/28/16 01:32 100 MLS/HR Furosemide (Lasix) 40 mg [id number] 11/26/16 09:00 11/26/16 09:00 DC Gabapentin (Neurontin) 100 mg BID 11/25/16 21:00 12/01/16 09:08 100 MG Haloperidol (Haldol) 5 mg 1X ONCE 11/27/16 02:00 11/27/16 02:01 DC 11/27/16 02:25 5 MG Haloperidol Lactate (Haldol) 5 mg PRN Q6HRS PRN 11/27/16 08:15 11/27/16 17:28 5 MG Insulin Aspart (NovoLOG) 0-7 UNITS TIDWMEALS 11/26/16 17:00 12/01/16 09:31 6 UNITS Insulin Detemir (Levemir) 10 units QHS 11/26/16 21:00 11/30/16 20:53 10 UNITS Isosorbide Mononitrate (Imdur) 30 mg DAILY 11/26/16 09:00 12/01/16 09:08 30 MG Lidocaine (Lidoderm) 1 patch HS 11/25/16 21:00 6/1/17 20:43 1 PATCH Lorazepam (Ativan) 2 mg PRN Q4HRS PRN 11/27/16 09:45 11/28/16 23:23 2 MG Magnesium Sulfate/ Dextrose 100 ml @ 100 mls/hr 1X ONCE 11/28/16 11:30 11/28/16 12:29 DC 11/28/16 13:01 100 MLS/HR Meropenem 500 mg/ Sodium Chloride 50 ml @ 100 mls/hr Q6HRS 11/28/16 12:00 11/30/16 11:46 DC 11/30/16 05:13 100 MLS/HR Oxycodone/ Acetaminophen (Percocet 5/325) 1 tab PRN BID PRN 11/25/16 20:00 Potassium Chloride/Dextrose/ Sod Cl 1,000 ml @ 75 mls/hr 1X ONCE 11/25/16 13:30 11/26/16 08:26 DC 11/25/16 15:16 75 MLS/HR Potassium Acetate 40 meq/Sodium Chloride 1,020 ml @ 75 mls/hr [id number] 11/26/16 09:00 11/27/16 06:23 DC 11/27/16 02:35 75 MLS/HR Potassium Chloride (KCl Oral Soln) 40 meq 1X ONCE 11/25/16 12:45 11/25/16 12:46 DC 11/25/16 14:07 40 MEQ Potassium Chloride (Klor-Con) 40 meq TIDWMEALS 11/26/16 09:00 11/27/16 08:08 DC 11/26/16 17:08 40 MEQ Quetiapine Fumarate (SEROquel) 25 mg HS 11/26/16 21:00 11/30/16 20:42 25 MG Sodium Polystyrene Sulfonate (Kayexalate) 30 gm 1X ONCE 11/27/16 12:00 11/27/16 12:01 DC Sodium Chloride 1,000 ml @ 100 mls/hr 1X ONCE 11/27/16 08:15 11/27/16 18:14 DC 11/27/16 12:24 100 MLS/HR Sodium Phosphate 20 mmol/Dextrose 256.6667 ml @ 64.167 m... Q4HRS 11/27/16 12:00 11/27/16 19:59 DC 11/27/16 17:02 64.167 MLS/HR Vancomycin HCl 1 each 1X ONCE 11/30/16 09:00 11/30/16 09:01 Cancel Vancomycin HCl (Vanco Per Pharmacy) 1 each PRN DAILY PRN 11/26/16 09:15 Cancel Vancomycin HCl 1.25 gm/Sodium Chloride 250 ml @ 167 mls/hr Q48H 11/28/16 09:30 Cancel Vancomycin HCl 2 gm/Sodium Chloride 500 ml @ 250 mls/hr 1X ONCE 11/26/16 10:00 11/26/16 11:59 DC 11/26/16 09:35 250 MLS/HR Lab Laboratory Tests Test 11/30/16 16:48 11/30/16 20:31 12/01/16 05:30 12/01/16 07:39 Glucose (Fingerstick) 169 mg/dL (70-99) 219 mg/dL (70-99) 272 mg/dL (70-99) White Blood Count 6.7 x10^3/uL (4.0-11.0) Red Blood Count 3.98 x10^6/uL (3.50-5.40) Hemoglobin 12.3 g/dL (12.0-15.5) Hematocrit 37.4 % (36.0-47.0) Mean Corpuscular Volume 94 fL (79-100) Mean Corpuscular Hemoglobin 31 pg (25-35) Mean Corpuscular Hemoglobin Concent 33 g/dL (31-37) Red Cell Distribution Width 18.0 % (11.5-14.5) Platelet Count 117 x10^3/uL (140-400) Neutrophils (%) (Auto) 65 % (31-73) Lymphocytes (%) (Auto) 16 % (24-48) Monocytes (%) (Auto) 16 % (0-9) Eosinophils (%) (Auto) 3 % (0-3) Basophils (%) (Auto) 1 % (0-3) Neutrophils # (Auto) 4.3 x10^3uL (1.8-7.7) Lymphocytes # (Auto) 1.1 x10^3/uL (1.0-4.8) Monocytes # (Auto) 1.1 x10^3/uL (0.0-1.1) Eosinophils # (Auto) 0.2 x10^3/uL (0.0-0.7) Basophils # (Auto) 0.1 x10^3/uL (0.0-0.2) Sodium Level 138 mmol/L (136-145) Potassium Level 5.6 mmol/L (3.5-5.1) Chloride Level 107 mmol/L (98-107) Carbon Dioxide Level 22 mmol/L (21-32) Anion Gap 9 (6-14) Blood Urea Nitrogen 34 mg/dL (7-20) Creatinine 1.3 mg/dL (0.6-1.0) Estimated GFR (Cockcroft-Gault) 48.7 Glucose Level 217 mg/dL (70-99) Calcium Level 8.3 mg/dL (8.5-10.1) Phosphorus Level 2.8 mg/dL (2.6-4.7) Magnesium Level 1.9 mg/dL (1.8-2.4) Albumin 2.2 g/dL (3.4-5.0) Test 12/01/16 10:29 Glucose (Fingerstick) 221 mg/dL (70-99) HEATEHR STORY MD Dec 01, 2016 11:38
[2016-12-01] MEDS ORDERED: SODIUM POLYSTYRENE SULFONATE 15 GM/60 ML ORAL.SUSP. PO ONE (11:45)
[2016-12-01 11:58] LABS: URIC ACID 4.5 mg/dL (2.6-6.0)
[2016-12-01 12:36] LABS: HCO3 ABG 20 mmol/L (21-28); PCO2 ABG 30 mmHg (35-46); PH ABG 7.44 (7.35-7.45); PO2 ABG 75 mmHg (65-108); SAT O2 ABG 95 % (92-99)
[2016-12-01 12:37] LABS: FIO2 ABG 21
[2016-12-01] MEDS: TPN PER PHARMACY MC PRN (13:28)
[2016-12-01 15:00] VITALS: BP 151/87
--- NOTE | 2016-12-01 16:37 | PDOC ---
PROGRESS NOTES Chief Complaint Chief Complaint 1. Hypokalemia w. acute kidney injury 2. Agitation w./ delirium, metabolic encephalopathy on chronic baseline dementia 3. Obesity 4. Anemia 5. CHF 6. Constipation 7. Stroke 8. Depression 9. Diabetes 10. Hypertension 11. Renal failure on CKD 12. Peripheral vascular disease History of Present Illness History of Present Illness Pt seen and examined DW RM extensively K+ is high now, awaiting neph input calm today, follows commands ate about 40% breakfast improving slowly cont IV abx, TPN SNU eval inprogresss She has been longstand [place] resident Vitals Vitals Vital Signs Date Time Temp Pulse Resp B/P (MAP) Pulse Ox O2 Delivery O2 Flow Rate FiO2 12/01/16 09:08 87 171/79 12/01/16 07:00 98.1 17 98 Room Air 98.1 Physical Exam General: Alert, Cooperative, No acute distress Heart: Regular rate, Normal S1, Normal S2 Lungs: Clear Abdomen: Normal bowel sounds, Soft Extremities: No clubbing, No cyanosis Skin: No rashes, No breakdown, No significant lesion Labs LABS Laboratory Tests Test 11/30/16 16:48 11/30/16 20:31 12/01/16 05:30 12/01/16 07:39 Glucose (Fingerstick) 169 mg/dL (70-99) 219 mg/dL (70-99) 272 mg/dL (70-99) White Blood Count 6.7 x10^3/uL (4.0-11.0) Red Blood Count 3.98 x10^6/uL (3.50-5.40) Hemoglobin 12.3 g/dL (12.0-15.5) Hematocrit 37.4 % (36.0-47.0) Mean Corpuscular Volume 94 fL (79-100) Mean Corpuscular Hemoglobin 31 pg (25-35) Mean Corpuscular Hemoglobin Concent 33 g/dL (31-37) Red Cell Distribution Width 18.0 % (11.5-14.5) Platelet Count 117 x10^3/uL (140-400) Neutrophils (%) (Auto) 65 % (31-73) Lymphocytes (%) (Auto) 16 % (24-48) Monocytes (%) (Auto) 16 % (0-9) Eosinophils (%) (Auto) 3 % (0-3) Basophils (%) (Auto) 1 % (0-3) Neutrophils # (Auto) 4.3 x10^3uL (1.8-7.7) Lymphocytes # (Auto) 1.1 x10^3/uL (1.0-4.8) Monocytes # (Auto) 1.1 x10^3/uL (0.0-1.1) Eosinophils # (Auto) 0.2 x10^3/uL (0.0-0.7) Basophils # (Auto) 0.1 x10^3/uL (0.0-0.2) Sodium Level 138 mmol/L (136-145) Potassium Level 5.6 mmol/L (3.5-5.1) Chloride Level 107 mmol/L (98-107) Carbon Dioxide Level 22 mmol/L (21-32) Anion Gap 9 (6-14) Blood Urea Nitrogen 34 mg/dL (7-20) Creatinine 1.3 mg/dL (0.6-1.0) Estimated GFR (Cockcroft-Gault) 48.7 Glucose Level 217 mg/dL (70-99) Uric Acid 4.5 mg/dL (2.6-6.0) Calcium Level 8.3 mg/dL (8.5-10.1) Phosphorus Level 2.8 mg/dL (2.6-4.7) Magnesium Level 1.9 mg/dL (1.8-2.4) Lactate Dehydrogenase 371 U/L (81-234) Albumin 2.2 g/dL (3.4-5.0) Lipase 34 U/L (73-393) Thyroid Stimulating Hormone (TSH) 1.557 uIU/mL (0.358-3.74) Test 12/01/16 10:29 12/01/16 12:05 Glucose (Fingerstick) 221 mg/dL (70-99) O2 Saturation 95 % (92-99) Arterial Blood pH 7.44 (7.35-7.45) Arterial Blood pCO2 at Patient Temp 30 mmHg (35-46) Arterial Blood pO2 at Patient Temp 75 mmHg (65-108) Arterial Blood HCO3 20 mmol/L (21-28) Arterial Blood Base Excess -3 mmol/L (-3-3) FiO2 21 Review of Systems Review of Systems co weakness co hunger Assessment and Plan Assessmemt and Plan Problems Medical Problems: (1) Acute kidney injury Status: Acute (2) Altered level of consciousness Status: Acute (3) Hypoglycemia associated with type 2 diabetes mellitus Status: Acute (4) Hypokalemia Status: Acute (5) Opiate overdose Status: Acute 1. Hypokalemia w. acute kidney injury 2. Agitation w./ delirium, metabolic encephalopathy on chronic baseline dementia 3. Obesity 4. Anemia 5. CHF 6. Constipation 7. Stroke 8. Depression 9. Diabetes 10. Hypertension 11. Renal failure on CKD 12. Peripheral vascular disease Plan TPN ? eventual PEG? SNU soon Recheck labs Neph following PTOT Problems: Comment Review of Relevant I have reviewed the following items forest (where applicable) has been applied. Labs Laboratory Tests Test 11/29/16 20:53 11/30/16 05:35 11/30/16 07:21 11/30/16 11:00 Glucose (Fingerstick) 210 mg/dL (70-99) 179 mg/dL (70-99) 204 mg/dL (70-99) White Blood Count 7.0 x10^3/uL (4.0-11.0) Red Blood Count 4.00 x10^6/uL (3.50-5.40) Hemoglobin 12.3 g/dL (12.0-15.5) Hematocrit 37.5 % (36.0-47.0) Mean Corpuscular Volume 94 fL (79-100) Mean Corpuscular Hemoglobin 31 pg (25-35) Mean Corpuscular Hemoglobin Concent 33 g/dL (31-37) Red Cell Distribution Width 17.5 % (11.5-14.5) Platelet Count 121 x10^3/uL (140-400) Neutrophils (%) (Auto) 58 % (31-73) Lymphocytes (%) (Auto) 15 % (24-48) Monocytes (%) (Auto) 19 % (0-9) Eosinophils (%) (Auto) 7 % (0-3) Basophils (%) (Auto) 1 % (0-3) Neutrophils # (Auto) 4.0 x10^3uL (1.8-7.7) Lymphocytes # (Auto) 1.1 x10^3/uL (1.0-4.8) Monocytes # (Auto) 1.3 x10^3/uL (0.0-1.1) Eosinophils # (Auto) 0.4 x10^3/uL (0.0-0.7) Basophils # (Auto) 0.1 x10^3/uL (0.0-0.2) Sodium Level 141 mmol/L (136-145) Potassium Level 5.1 mmol/L (3.5-5.1) Chloride Level 110 mmol/L (98-107) Carbon Dioxide Level 22 mmol/L (21-32) Anion Gap 9 (6-14) Blood Urea Nitrogen 35 mg/dL (7-20) Creatinine 1.3 mg/dL (0.6-1.0) Estimated GFR (Cockcroft-Gault) 48.7 Glucose Level 226 mg/dL (70-99) Calcium Level 8.3 mg/dL (8.5-10.1) Phosphorus Level 2.6 mg/dL (2.6-4.7) Magnesium Level 2.0 mg/dL (1.8-2.4) Albumin 2.2 g/dL (3.4-5.0) Test 11/30/16 16:48 11/30/16 20:31 12/01/16 05:30 12/01/16 07:39 Glucose (Fingerstick) 169 mg/dL (70-99) 219 mg/dL (70-99) 272 mg/dL (70-99) White Blood Count 6.7 x10^3/uL (4.0-11.0) Red Blood Count 3.98 x10^6/uL (3.50-5.40) Hemoglobin 12.3 g/dL (12.0-15.5) Hematocrit 37.4 % (36.0-47.0) Mean Corpuscular Volume 94 fL (79-100) Mean Corpuscular Hemoglobin 31 pg (25-35) Mean Corpuscular Hemoglobin Concent 33 g/dL (31-37) Red Cell Distribution Width 18.0 % (11.5-14.5) Platelet Count 117 x10^3/uL (140-400) Neutrophils (%) (Auto) 65 % (31-73) Lymphocytes (%) (Auto) 16 % (24-48) Monocytes (%) (Auto) 16 % (0-9) Eosinophils (%) (Auto) 3 % (0-3) Basophils (%) (Auto) 1 % (0-3) Neutrophils # (Auto) 4.3 x10^3uL (1.8-7.7) Lymphocytes # (Auto) 1.1 x10^3/uL (1.0-4.8) Monocytes # (Auto) 1.1 x10^3/uL (0.0-1.1) Eosinophils # (Auto) 0.2 x10^3/uL (0.0-0.7) Basophils # (Auto) 0.1 x10^3/uL (0.0-0.2) Sodium Level 138 mmol/L (136-145) Potassium Level 5.6 mmol/L (3.5-5.1) Chloride Level 107 mmol/L (98-107) Carbon Dioxide Level 22 mmol/L (21-32) Anion Gap 9 (6-14) Blood Urea Nitrogen 34 mg/dL (7-20) Creatinine 1.3 mg/dL (0.6-1.0) Estimated GFR (Cockcroft-Gault) 48.7 Glucose Level 217 mg/dL (70-99) Uric Acid 4.5 mg/dL (2.6-6.0) Calcium Level 8.3 mg/dL (8.5-10.1) Phosphorus Level 2.8 mg/dL (2.6-4.7) Magnesium Level 1.9 mg/dL (1.8-2.4) Lactate Dehydrogenase 371 U/L (81-234) Albumin 2.2 g/dL (3.4-5.0) Lipase 34 U/L (73-393) Thyroid Stimulating Hormone (TSH) 1.557 uIU/mL (0.358-3.74) Test 12/01/16 10:29 12/01/16 12:05 Glucose (Fingerstick) 221 mg/dL (70-99) O2 Saturation 95 % (92-99) Arterial Blood pH 7.44 (7.35-7.45) Arterial Blood pCO2 at Patient Temp 30 mmHg (35-46) Arterial Blood pO2 at Patient Temp 75 mmHg (65-108) Arterial Blood HCO3 20 mmol/L (21-28) Arterial Blood Base Excess -3 mmol/L (-3-3) FiO2 21 Laboratory Tests Test 11/30/16 16:48 11/30/16 20:31 12/01/16 05:30 12/01/16 07:39 Glucose (Fingerstick) 169 mg/dL (70-99) 219 mg/dL (70-99) 272 mg/dL (70-99) White Blood Count 6.7 x10^3/uL (4.0-11.0) Red Blood Count 3.98 x10^6/uL (3.50-5.40) Hemoglobin 12.3 g/dL (12.0-15.5) Hematocrit 37.4 % (36.0-47.0) Mean Corpuscular Volume 94 fL (79-100) Mean Corpuscular Hemoglobin 31 pg (25-35) Mean Corpuscular Hemoglobin Concent 33 g/dL (31-37) Red Cell Distribution Width 18.0 % (11.5-14.5) Platelet Count 117 x10^3/uL (140-400) Neutrophils (%) (Auto) 65 % (31-73) Lymphocytes (%) (Auto) 16 % (24-48) Monocytes (%) (Auto) 16 % (0-9) Eosinophils (%) (Auto) 3 % (0-3) Basophils (%) (Auto) 1 % (0-3) Neutrophils # (Auto) 4.3 x10^3uL (1.8-7.7) Lymphocytes # (Auto) 1.1 x10^3/uL (1.0-4.8) Monocytes # (Auto) 1.1 x10^3/uL (0.0-1.1) Eosinophils # (Auto) 0.2 x10^3/uL (0.0-0.7) Basophils # (Auto) 0.1 x10^3/uL (0.0-0.2) Sodium Level 138 mmol/L (136-145) Potassium Level 5.6 mmol/L (3.5-5.1) Chloride Level 107 mmol/L (98-107) Carbon Dioxide Level 22 mmol/L (21-32) Anion Gap 9 (6-14) Blood Urea Nitrogen 34 mg/dL (7-20) Creatinine 1.3 mg/dL (0.6-1.0) Estimated GFR (Cockcroft-Gault) 48.7 Glucose Level 217 mg/dL (70-99) Uric Acid 4.5 mg/dL (2.6-6.0) Calcium Level 8.3 mg/dL (8.5-10.1) Phosphorus Level 2.8 mg/dL (2.6-4.7) Magnesium Level 1.9 mg/dL (1.8-2.4) Lactate Dehydrogenase 371 U/L (81-234) Albumin 2.2 g/dL (3.4-5.0) Lipase 34 U/L (73-393) Thyroid Stimulating Hormone (TSH) 1.557 uIU/mL (0.358-3.74) Test 12/01/16 10:29 12/01/16 12:05 Glucose (Fingerstick) 221 mg/dL (70-99) O2 Saturation 95 % (92-99) Arterial Blood pH 7.44 (7.35-7.45) Arterial Blood pCO2 at Patient Temp 30 mmHg (35-46) Arterial Blood pO2 at Patient Temp 75 mmHg (65-108) Arterial Blood HCO3 20 mmol/L (21-28) Arterial Blood Base Excess -3 mmol/L (-3-3) FiO2 21 Microbiology 11/25/16 Blood Culture - Final, Complete NO GROWTH AFTER 5 DAYS 11/25/16 Urine Culture - Final, Complete 11/25/16 Urine Culture Result 1 (JUDITH) - Final, Complete 11/25/16 Urine Culture Result 2 (JUDITH) - Final, Complete 11/25/16 Antimicrobic Susceptibility - Final, Complete Medications Current Medications Potassium Chloride (KCl Oral Soln) 40 meq 1X ONCE PO Last administered on 11/25 14:07; Start 11/25/16 at 12:45; Stop 11/25/16 at 12:46; Status DC Potassium Chloride/Dextrose/ Sod Cl 1,000 ml @ 75 mls/hr 1X ONCE IV Last administered on 11/25/16 15:16; Start 11/25/16 at 13:30; Stop 11/26/16 at 08:26 ; Status DC Allopurinol (Zyloprim) 100 mg DAILY PO Last administered on 12/01/16 09:08; Start 11/26/16 at 09:00 Aspirin (Ecotrin) 81 mg DAILY08 PO Last administered on 12/01/16 09:08; Start 11/26/16 at 08:00 Carvedilol (Coreg) 25 mg BIDWMEALS PO Last administered on 12/01/16 09:06; Start 11/26/16 at 08:00 Clonidine HCl (Catapres Tts-3) 1 patch WEEKLY TD Last administered on 09:36; Start 11/26/16 at 09:00 Colchicine (Colcrys) 0.6 mg BID PO Last administered on 12/01/16 09:05; Start 11/25/16 at 21:00 Cyclosporine (Restasis) 1 drop BID OU Last administered on 12/01/16 09:05; Start 11/25/16 at 21:00 Furosemide (Lasix) 40 mg BID94 PO ; Start 11/26/16 at 09:00; Stop 11/26/16 at 09 :00; Status DC Gabapentin (Neurontin) 100 mg BID PO Last administered on 12/01/16 09:08; Start 11/25/16 at 21:00 Isosorbide Mononitrate (Imdur) 30 mg DAILY PO Last administered on 12/01/16 09: 08; Start 11/26/16 at 09:00 Lidocaine (Lidoderm) 1 patch HS TP Last administered on 11/30/16 20:43; Start 11/25/16 at 21:00 Oxycodone/ Acetaminophen (Percocet 5/325) 1 tab PRN BID PRN PO PAIN SEVERE; Start 11/25/16 at 20:00 Quetiapine Fumarate (SEROquel) 25 mg BID PO ; Start 11/25/16 at 21:00; Stop at 11:18; Status DC Magnesium Sulfate/ Dextrose 50 ml @ 25 mls/hr PRN DAILY PRN IV for Mag < 1.7 on am labs Last administered on 11/28/16 14:49; Start 11/26/16 at 08:15 Potassium Acetate 40 meq/Sodium Chloride 1,020 ml @ 75 mls/hr [id number] IV Last administered on 11/27/16 02:35; Start 11/26/16 at 09:00; Stop 11/27/16 at 06:23 ; Status DC Potassium Chloride (Klor-Con) 40 meq TIDWMEALS PO Last administered on 17:08; Start 11/26/16 at 09:00; Stop 11/27/16 at 08:08; Status DC Sodium Chloride 500 ml @ 0 mls/hr QID PRN IV UO< 30cc/hr over previous 6hrs; Start 11/26/16 at 08:15; Stop 11/28/16 at 11:03; Status DC Vancomycin HCl (Vanco Per Pharmacy) 1 each PRN DAILY PRN MC SEE COMMENTS; Start 11/26/16 at 09:15; Status Cancel Aztreonam 1 gm/ Sodium Chloride 50 ml @ 100 mls/hr Q6HRS IV ; Start 11/26/16 at 10:00; Stop 11/26/16 at 10:56; Status DC Vancomycin HCl 2 gm/Sodium Chloride 500 ml @ 250 mls/hr 1X ONCE IV Last administered on 11/26/16 09:35; Start 11/26/16 at 10:00; Stop 11/26/16 at 11:59 ; Status DC Meropenem 500 mg/ Sodium Chloride 50 ml @ 100 mls/hr Q12HR IV Last administered on 11/26/16 20:49; Start 11/26/16 at 11:00; Stop 11/27/16 at 09:40 ; Status DC Vancomycin HCl 1.25 gm/Sodium Chloride 250 ml @ 167 mls/hr Q48H IV ; Start at 09:30; Status Cancel Vancomycin HCl 1 each 1X ONCE MC ; Start 11/30/16 at 09:00; Stop 11/30/16 at 09: 01; Status Cancel Quetiapine Fumarate (SEROquel) 25 mg HS PO Last administered on 11/30/16 20:42 ; Start 11/26/16 at 21:00 Insulin Detemir (Levemir) 10 units QHS SQ Last administered on 11/30/16 20:53; Start 11/26/16 at 21:00 Insulin Aspart (NovoLOG) 0-7 UNITS TIDWMEALS SQ Last administered on 12/01/16 14:12; Start 11/26/16 at 17:00 Dextrose (Dextrose 50%-Water Syringe) 12.5 gm PRN Q15MIN PRN IV SEE COMMENTS; Start 11/26/16 at 14:00 Haloperidol (Haldol) 5 mg 1X ONCE PO Last administered on 11/27/16 02:25; Start 11/27/16 at 02:00; Stop 11/27/16 at 02:01; Status DC Haloperidol Lactate (Haldol) 5 mg 1X ONCE IVP Last administered on 11/27/16 06:31; Start 11/27/16 at 06:30; Stop 11/27/16 at 06:31; Status DC Sodium Polystyrene Sulfonate (Kayexalate) 30 gm 1X ONCE PO Last administered on 11/27/16 06:31; Start 11/27/16 at 07:00; Stop 11/27/16 at 07:01; Status DC Haloperidol Lactate (Haldol) 5 mg PRN Q6HRS PRN IVP AGITATION Last administered on 11/27/16 17:28; Start 11/27/16 at 08:15 Sodium Chloride 1,000 ml @ 100 mls/hr 1X ONCE IV Last administered on 12:24; Start 11/27/16 at 08:15; Stop 11/27/16 at 18:14; Status DC Meropenem 500 mg/ Sodium Chloride 50 ml @ 100 mls/hr Q8HRS IV Last administered on 11/28/16 06:22; Start 11/27/16 at 14:00; Stop 11/28/16 at 10:34 ; Status DC Lorazepam (Ativan) 2 mg PRN Q4HRS PRN IV ANXIETY / AGITATION Last administered on 11/28/16 23:23; Start 11/27/16 at 09:45 Sodium Phosphate 20 mmol/Dextrose 256.6667 ml @ 64.167 m... Q4HRS IV Last administered on 11/27/16 17:02; Start 11/27/16 at 12:00; Stop 11/27/16 at 19:59 ; Status DC Dextrose/Sodium Chloride 1,000 ml @ 100 mls/hr Q10H IV Last administered on 01:32; Start 11/27/16 at 10:15; Stop 11/28/16 at 11:03; Status DC Sodium Polystyrene Sulfonate (Kayexalate) 15 gm 1X PRN PRN PO for repeat K > 5.3; Start 11/27/16 at 10:15 Sodium Polystyrene Sulfonate (Kayexalate) 30 gm 1X ONCE PO ; Start 11/27/16 at 12:00; Stop 11/27/16 at 12:01; Status DC Meropenem 500 mg/ Sodium Chloride 50 ml @ 100 mls/hr Q6HRS IV Last administered on 11/30/16 05:13; Start 11/28/16 at 12:00; Stop 11/30/16 at 11:46; Status DC Magnesium Sulfate/ Dextrose 100 ml @ 100 mls/hr 1X ONCE IV Last administered on 11/28/16 13:01; Start 11/28/16 at 11:30; Stop 11/28/16 at 12:29; Status DC Amino Acids/ Glycerin/ Electrolytes 1,000 ml @ 80 mls/hr [id number] IV Last administered on 12/01/16 06:22; Start 11/28/16 at 12:00; Stop 12/01/16 at 11:35; Status DC Ceftriaxone Sodium 1 gm/ Sodium Chloride 50 ml @ 100 mls/hr Q24H IV Last administered on 11/30/16 13:19; Start 11/30/16 at 12:00 Ciprofloxacin Lactate 200 ml @ 200 mls/hr Q12HR IV Last administered on 20:43; Start 11/30/16 at 13:00 Info 1 each PRN DAILY PRN MC SEE COMMENTS Last administered on 12/01/16 13:28; Start 12/01/16 at 11:45 Sodium Polystyrene Sulfonate (Kayexalate) 30 gm 1X ONCE PO Last administered on 12/01/16 14:08; Start 12/01/16 at 11:45; Stop 12/01/16 at 11:46; Status DC Sodium Chloride 90 meq/Sodium Phosphate 12 mmol/ Magnesium Sulfate 10 meq/ Calcium Gluconate 10 meq/ Multivitamins 10 ml/Chromium/ Copper/Manganese/ Seleni /Zn 1 ml/ Total Parenteral Nutrition/Amino Acids/Dextrose/ Fat Emulsion Intravenous 1,512 ml @ 63 mls/hr TPN CONT IV ; Start 12/01/16 at 22:00; Stop at 21:59 Active Scripts Active Reported Aspir 81 (Aspirin) 81 Mg Tablet.dr 1 Tab PO DAILY Allopurinol 100 Mg Tablet 1 Tab PO DAILY Colcrys (Colchicine) 0.6 Mg Tablet 1 Tab PO BID Lidoderm (Lidocaine) 700 Mg Adh..patch 1 Patch TP HS Gabapentin 100 Mg Capsule 100 Mg PO BID Hydralazine Hcl 100 Mg Tablet 1 Tab PO TID Furosemide 40 Mg Tablet 40 Mg PO BID Oxycodone-Acetaminophen 5-325 (Oxycodone Hcl/Acetaminophen) 1 Each Tablet 1 Each PO BID PRN Restasis (Cyclosporine) 1 Each Droperette 1 Drop EACHEYE BID Isosorbide Mononitrate Er (Isosorbide Mononitrate) 30 Mg Tab.er.24h 30 Mg PO DAILY Quetiapine Fumarate 25 Mg Tablet 25 Mg PO HS Coreg (Carvedilol) 12.5 Mg Tablet 25 Mg PO BID Catapres-Tts 3 (Clonidine) 1 Each Patch.tdwk 1 Each TD WEEKLY Pletal (Cilostazol) 100 Mg Tablet 100 Mg PO DAILYBFRLUN Acetaminophen Ext.release (Acetaminophen) 650 Mg Tablet.er 650 Mg PO Q6HRS PRN Levemir Flexpen (Insulin Detemir) 100 Unit/1 Ml Insuln.pen 14 Unit SQ DAILYWSUP Humalog (Insulin Lispro) 100 Unit/1 Ml Cartridge 3 Unit SQ TIDAC Glucagon Emergency Kit (Glucagon,Human Recombinant) 1 Mg Kit 1 Mg IJ Vitals/I & O Vital Sign - Last 24 Hours 11/30/16 11/30/16 11/30/16 11/30/16 17:10 19:00 19:36 23:00 Temp 98.2 98.4 98.2 98.4 Pulse 82 78 75 Resp 18 18 B/P (MAP) 153/60 169/77 (107) 153/66 (95) Pulse Ox 97 99 O2 Delivery Room Air Room Air Room Air 12/01/16 12/01/16 12/01/16 12/01/16 03:00 07:00 09:06 09:08 Temp 98.1 98.1 98.1 98.1 Pulse 72 87 87 87 Resp B/P (MAP) 152/66 (94) 171/79 (109) 171/87 171/79 Pulse Ox 97 98 O2 Delivery Room Air Room Air Intake and Output 11/30/16 11/30/16 12/01/16 15:00 23:00 07:00 Intake Total 65 ml 350 ml 1315 ml Output Total 200 ml 600 ml Balance 65 ml 150 ml 715 ml TALIA ROTHMAN III DO Dec 01, 2016 16:37
[2016-12-01 19:00] VITALS: BP 130/58
[2016-12-01] MEDS: QUEtiapine 25 MG TABLET. PO SCH (21:00)
[2016-12-01] MEDS ORDERED: [UNRECOGNIZED DRUG - OTHER] IV SCH ×9 (22:00)
[2016-12-01] MEDS ORDERED: AMINO ACIDS IV SCH ×9 (22:00)
[2016-12-01] MEDS ORDERED: TOTAL PARENTERAL NUTRITION IV SCH ×9 (22:00)
[2016-12-01] MEDS ORDERED: DEXTROSE 70% IV SCH ×9 (22:00)
[2016-12-01] MEDS: LIDOCAINE (700MG/PATCH) PATCH. TP SCH (22:32)
[2016-12-01] MEDS: INSULIN DETEMIR 300 UNITS/3 ML INSULN.PEN. SQ SCH (22:38)
[2016-12-01 23:00] VITALS: BP 150/70
[2016-12-02] VITALS (7 sets, daily range): BP systolic 140–195; BP diastolic 58–89
--- NOTE | 2016-12-02 00:02 | RAD ---
INDICATION: PICC line placement COMPARISON: November 25, 2016 FINDINGS: Single view of chest obtained. Left-sided PICC line with tip at expected region of mid SVC. Hypoexpanded exam with linear opacities within the lower lungs. Focal opacity at right infrahilar region IMPRESSION: Left-sided PICC line with tip at expected region of distal SVC. Hypoexpanded exam with linear opacities in the lower lungs which could be from discoid atelectasis. There is a focal opacity in the right infrahilar region. This could be secondary to prominent appearance of the patient's right hilar pulmonary vasculature which is accentuated by hypoexpanded exam but would obtain a follow-up examination to ensure that this finding decreases in prominence to ensure that there is not an alternative cause such as lymphadenopathy or a mass within the region. Electronically signed by: Matthew Stout MD (12/01/2016 11:59 PM)
[2016-12-02] MEDS: CIPROFLOXACIN 400MG PREMIX 200 ML IV SCH ×3 (00:20→20:48)
[2016-12-02 05:20] LABS: BASO % 1 % (0-3); EOS % 1 % (0-3); HEMATOCRIT 36.3 % (36.0-47.0); HEMOGLOBIN 12.1 g/dL (12.0-15.5); LYMPH # 0.9 x10^3/uL (1.0-4.8); LYMPH % 11 % (24-48); MEAN CORPUSCULAR HEMOGLOBIN 31 pg (25-35); MEAN CORPUSCULAR HGB CONC 33 g/dL (31-37); MEAN CORPUSCULAR VOLUME 93 fL (79-100); MONO % 13 % (0-9); NEUT % 74 % (31-73); PLATELET COUNT 110 x10^3/uL (140-400); RED BLOOD COUNT 3.91 x10^6/uL (3.50-5.40); RED CELL DISTRIBUTION WIDTH 17.6 % (11.5-14.5); WHITE BLOOD COUNT 7.6 x10^3/uL (4.0-11.0)
[2016-12-02 05:46] LABS: ALBUMIN 2.2 g/dL (3.4-5.0); CALCIUM 8.5 mg/dL (8.5-10.1); CREATININE 1.3 mg/dL (0.6-1.0); GFR 48.7; PHOSPHORUS 3.7 mg/dL (2.6-4.7); POTASSIUM 4.5 mmol/L (3.5-5.1)
[2016-12-02] MEDS: cycloSPORINE 0.05% OPTH 1 DROP DROPERETTE OU SCH ×2 (08:54→20:52)
[2016-12-02] MEDS: ALLOPURINOL 100 MG TABLET. PO SCH (08:54)
[2016-12-02] MEDS: COLCHICINE 0.6 MG TABLET PO SCH ×2 (08:54→20:49)
[2016-12-02] MEDS: ASPIRIN ENTERIC COATED 81 MG TABLET.DR. PO SCH (08:54)
[2016-12-02] MEDS: GABAPENTIN 100 MG CAPSULE. PO SCH ×2 (08:54→20:49)
[2016-12-02] MEDS: CARVEDILOL 12.5 MG TABLET. PO SCH ×2 (08:55→17:13)
[2016-12-02] MEDS: ISOSORBIDE MONONITRATE ER 30 MG TAB.ER.24H PO SCH (08:55)
[2016-12-02] MEDS: INSULIN ASPART 300 UNITS/3 ML INSULN.PEN SQ SCH ×3 (08:56→17:16)
[2016-12-02] MEDS: TPN PER PHARMACY MC PRN (11:02)
[2016-12-02] MEDS ORDERED: INSULIN ASPART 300 UNITS/3 ML INSULN.PEN SQ ONE (11:15)
--- NOTE | 2016-12-02 12:05 | PDOC ---
PROGRESS NOTES Chief Complaint Chief Complaint 1. Hypokalemia w. acute kidney injury 2. Agitation w./ delirium, metabolic encephalopathy on chronic baseline dementia 3. Obesity 4. Anemia 5. CHF 6. Constipation 7. Stroke 8. Depression 9. Diabetes 10. Hypertension 11. Renal failure on CKD 12. Peripheral vascular disease History of Present Illness History of Present Illness Pt seen and examined calm today, follows commands Ate about 40% breakfast improving slowly cont IV abx, TPN Also on IV Rocephin and Cipro SNU eval inprogresss She has been longstand [place] resident Vitals Vitals Vital Signs Date Time Temp Pulse Resp B/P (MAP) Pulse Ox O2 Delivery O2 Flow Rate FiO2 12/02/16 11:00 98.1 83 16 177/58 (97) 96 Room Air 98.1 Physical Exam General: Alert, Cooperative, No acute distress Heart: Regular rate, Normal S1, Normal S2 Lungs: Clear Abdomen: Normal bowel sounds, Soft Extremities: No clubbing, No cyanosis Skin: No rashes, No breakdown, No significant lesion Labs LABS Laboratory Tests Test 12/01/16 12:05 12/01/16 18:00 12/01/16 20:03 12/02/16 05:00 O2 Saturation 95 % (92-99) Arterial Blood pH 7.44 (7.35-7.45) Arterial Blood pCO2 at Patient Temp 30 mmHg (35-46) Arterial Blood pO2 at Patient Temp 75 mmHg (65-108) Arterial Blood HCO3 20 mmol/L (21-28) Arterial Blood Base Excess -3 mmol/L (-3-3) FiO2 21 Glucose (Fingerstick) 135 mg/dL (70-99) 141 mg/dL (70-99) White Blood Count 7.6 x10^3/uL (4.0-11.0) Red Blood Count 3.91 x10^6/uL (3.50-5.40) Hemoglobin 12.1 g/dL (12.0-15.5) Hematocrit 36.3 % (36.0-47.0) Mean Corpuscular Volume 93 fL (79-100) Mean Corpuscular Hemoglobin 31 pg (25-35) Mean Corpuscular Hemoglobin Concent 33 g/dL (31-37) Red Cell Distribution Width 17.6 % (11.5-14.5) Platelet Count 110 x10^3/uL (140-400) Neutrophils (%) (Auto) 74 % (31-73) Lymphocytes (%) (Auto) 11 % (24-48) Monocytes (%) (Auto) 13 % (0-9) Eosinophils (%) (Auto) 1 % (0-3) Basophils (%) (Auto) 1 % (0-3) Neutrophils # (Auto) 5.7 x10^3uL (1.8-7.7) Lymphocytes # (Auto) 0.9 x10^3/uL (1.0-4.8) Monocytes # (Auto) 1.0 x10^3/uL (0.0-1.1) Eosinophils # (Auto) 0.1 x10^3/uL (0.0-0.7) Basophils # (Auto) 0.0 x10^3/uL (0.0-0.2) Sodium Level 143 mmol/L (136-145) Potassium Level 4.5 mmol/L (3.5-5.1) Chloride Level 110 mmol/L (98-107) Carbon Dioxide Level 25 mmol/L (21-32) Anion Gap 8 (6-14) Blood Urea Nitrogen 37 mg/dL (7-20) Creatinine 1.3 mg/dL (0.6-1.0) Estimated GFR (Cockcroft-Gault) 48.7 Glucose Level 294 mg/dL (70-99) Calcium Level 8.5 mg/dL (8.5-10.1) Phosphorus Level 3.7 mg/dL (2.6-4.7) Magnesium Level 1.9 mg/dL (1.8-2.4) Creatine Kinase 377 U/L (26-192) Albumin 2.2 g/dL (3.4-5.0) Test 12/02/16 07:21 12/02/16 10:26 Glucose (Fingerstick) 349 mg/dL (70-99) 438 mg/dL (70-99) Review of Systems Review of Systems co weakness co pain Assessment and Plan Assessmemt and Plan Problems Medical Problems: (1) Acute kidney injury Status: Acute (2) Altered level of consciousness Status: Acute (3) Hypoglycemia associated with type 2 diabetes mellitus Status: Acute (4) Hypokalemia Status: Acute (5) Opiate overdose Status: Acute 1. Hypokalemia w. acute kidney injury 2. Agitation w./ delirium, metabolic encephalopathy on chronic baseline dementia 3. Obesity 4. Anemia 5. CHF 6. Constipation 7. Stroke 8. Depression 9. Diabetes 10. Hypertension 11. Renal failure on CKD 12. Peripheral vascular disease Plan Cont current tx recheck labs PTOT SNU eval IV antibx Prog guarded Problems: Comment Review of Relevant I have reviewed the following items forest (where applicable) has been applied. Labs Laboratory Tests Test 11/30/16 16:48 11/30/16 20:31 12/01/16 05:30 12/01/16 07:39 Glucose (Fingerstick) 169 mg/dL (70-99) 219 mg/dL (70-99) 272 mg/dL (70-99) White Blood Count 6.7 x10^3/uL (4.0-11.0) Red Blood Count 3.98 x10^6/uL (3.50-5.40) Hemoglobin 12.3 g/dL (12.0-15.5) Hematocrit 37.4 % (36.0-47.0) Mean Corpuscular Volume 94 fL (79-100) Mean Corpuscular Hemoglobin 31 pg (25-35) Mean Corpuscular Hemoglobin Concent 33 g/dL (31-37) Red Cell Distribution Width 18.0 % (11.5-14.5) Platelet Count 117 x10^3/uL (140-400) Neutrophils (%) (Auto) 65 % (31-73) Lymphocytes (%) (Auto) 16 % (24-48) Monocytes (%) (Auto) 16 % (0-9) Eosinophils (%) (Auto) 3 % (0-3) Basophils (%) (Auto) 1 % (0-3) Neutrophils # (Auto) 4.3 x10^3uL (1.8-7.7) Lymphocytes # (Auto) 1.1 x10^3/uL (1.0-4.8) Monocytes # (Auto) 1.1 x10^3/uL (0.0-1.1) Eosinophils # (Auto) 0.2 x10^3/uL (0.0-0.7) Basophils # (Auto) 0.1 x10^3/uL (0.0-0.2) Sodium Level 138 mmol/L (136-145) Potassium Level 5.6 mmol/L (3.5-5.1) Chloride Level 107 mmol/L (98-107) Carbon Dioxide Level 22 mmol/L (21-32) Anion Gap 9 (6-14) Blood Urea Nitrogen 34 mg/dL (7-20) Creatinine 1.3 mg/dL (0.6-1.0) Estimated GFR (Cockcroft-Gault) 48.7 Glucose Level 217 mg/dL (70-99) Uric Acid 4.5 mg/dL (2.6-6.0) Calcium Level 8.3 mg/dL (8.5-10.1) Phosphorus Level 2.8 mg/dL (2.6-4.7) Magnesium Level 1.9 mg/dL (1.8-2.4) Lactate Dehydrogenase 371 U/L (81-234) Albumin 2.2 g/dL (3.4-5.0) Lipase 34 U/L (73-393) Thyroid Stimulating Hormone (TSH) 1.557 uIU/mL (0.358-3.74) Test 12/01/16 10:29 12/01/16 12:05 12/01/16 18:00 12/01/16 20:03 Glucose (Fingerstick) 221 mg/dL (70-99) 135 mg/dL (70-99) 141 mg/dL (70-99) O2 Saturation 95 % (92-99) Arterial Blood pH 7.44 (7.35-7.45) Arterial Blood pCO2 at Patient Temp 30 mmHg (35-46) Arterial Blood pO2 at Patient Temp 75 mmHg (65-108) Arterial Blood HCO3 20 mmol/L (21-28) Arterial Blood Base Excess -3 mmol/L (-3-3) FiO2 21 Test 12/02/16 05:00 12/02/16 07:21 12/02/16 10:26 White Blood Count 7.6 x10^3/uL (4.0-11.0) Red Blood Count 3.91 x10^6/uL (3.50-5.40) Hemoglobin 12.1 g/dL (12.0-15.5) Hematocrit 36.3 % (36.0-47.0) Mean Corpuscular Volume 93 fL (79-100) Mean Corpuscular Hemoglobin 31 pg (25-35) Mean Corpuscular Hemoglobin Concent 33 g/dL (31-37) Red Cell Distribution Width 17.6 % (11.5-14.5) Platelet Count 110 x10^3/uL (140-400) Neutrophils (%) (Auto) 74 % (31-73) Lymphocytes (%) (Auto) 11 % (24-48) Monocytes (%) (Auto) 13 % (0-9) Eosinophils (%) (Auto) 1 % (0-3) Basophils (%) (Auto) 1 % (0-3) Neutrophils # (Auto) 5.7 x10^3uL (1.8-7.7) Lymphocytes # (Auto) 0.9 x10^3/uL (1.0-4.8) Monocytes # (Auto) 1.0 x10^3/uL (0.0-1.1) Eosinophils # (Auto) 0.1 x10^3/uL (0.0-0.7) Basophils # (Auto) 0.0 x10^3/uL (0.0-0.2) Sodium Level 143 mmol/L (136-145) Potassium Level 4.5 mmol/L (3.5-5.1) Chloride Level 110 mmol/L (98-107) Carbon Dioxide Level 25 mmol/L (21-32) Anion Gap 8 (6-14) Blood Urea Nitrogen 37 mg/dL (7-20) Creatinine 1.3 mg/dL (0.6-1.0) Estimated GFR (Cockcroft-Gault) 48.7 Glucose Level 294 mg/dL (70-99) Calcium Level 8.5 mg/dL (8.5-10.1) Phosphorus Level 3.7 mg/dL (2.6-4.7) Magnesium Level 1.9 mg/dL (1.8-2.4) Creatine Kinase 377 U/L (26-192) Albumin 2.2 g/dL (3.4-5.0) Glucose (Fingerstick) 349 mg/dL (70-99) 438 mg/dL (70-99) Laboratory Tests Test 12/01/16 12:05 12/01/16 18:00 12/01/16 20:03 12/02/16 05:00 O2 Saturation 95 % (92-99) Arterial Blood pH 7.44 (7.35-7.45) Arterial Blood pCO2 at Patient Temp 30 mmHg (35-46) Arterial Blood pO2 at Patient Temp 75 mmHg (65-108) Arterial Blood HCO3 20 mmol/L (21-28) Arterial Blood Base Excess -3 mmol/L (-3-3) FiO2 21 Glucose (Fingerstick) 135 mg/dL (70-99) 141 mg/dL (70-99) White Blood Count 7.6 x10^3/uL (4.0-11.0) Red Blood Count 3.91 x10^6/uL (3.50-5.40) Hemoglobin 12.1 g/dL (12.0-15.5) Hematocrit 36.3 % (36.0-47.0) Mean Corpuscular Volume 93 fL (79-100) Mean Corpuscular Hemoglobin 31 pg (25-35) Mean Corpuscular Hemoglobin Concent 33 g/dL (31-37) Red Cell Distribution Width 17.6 % (11.5-14.5) Platelet Count 110 x10^3/uL (140-400) Neutrophils (%) (Auto) 74 % (31-73) Lymphocytes (%) (Auto) 11 % (24-48) Monocytes (%) (Auto) 13 % (0-9) Eosinophils (%) (Auto) 1 % (0-3) Basophils (%) (Auto) 1 % (0-3) Neutrophils # (Auto) 5.7 x10^3uL (1.8-7.7) Lymphocytes # (Auto) 0.9 x10^3/uL (1.0-4.8) Monocytes # (Auto) 1.0 x10^3/uL (0.0-1.1) Eosinophils # (Auto) 0.1 x10^3/uL (0.0-0.7) Basophils # (Auto) 0.0 x10^3/uL (0.0-0.2) Sodium Level 143 mmol/L (136-145) Potassium Level 4.5 mmol/L (3.5-5.1) Chloride Level 110 mmol/L (98-107) Carbon Dioxide Level 25 mmol/L (21-32) Anion Gap 8 (6-14) Blood Urea Nitrogen 37 mg/dL (7-20) Creatinine 1.3 mg/dL (0.6-1.0) Estimated GFR (Cockcroft-Gault) 48.7 Glucose Level 294 mg/dL (70-99) Calcium Level 8.5 mg/dL (8.5-10.1) Phosphorus Level 3.7 mg/dL (2.6-4.7) Magnesium Level 1.9 mg/dL (1.8-2.4) Creatine Kinase 377 U/L (26-192) Albumin 2.2 g/dL (3.4-5.0) Test 12/02/16 07:21 12/02/16 10:26 Glucose (Fingerstick) 349 mg/dL (70-99) 438 mg/dL (70-99) Microbiology 11/25/16 Blood Culture - Final, Complete NO GROWTH AFTER 5 DAYS 11/25/16 Urine Culture - Final, Complete 11/25/16 Urine Culture Result 1 (JUDITH) - Final, Complete 11/25/16 Urine Culture Result 2 (JUDITH) - Final, Complete 11/25/16 Antimicrobic Susceptibility - Final, Complete Medications Current Medications Potassium Chloride (KCl Oral Soln) 40 meq 1X ONCE PO Last administered on 11/25 14:07; Start 11/25/16 at 12:45; Stop 11/25/16 at 12:46; Status DC Potassium Chloride/Dextrose/ Sod Cl 1,000 ml @ 75 mls/hr 1X ONCE IV Last administered on 11/25/16 15:16; Start 11/25/16 at 13:30; Stop 11/26/16 at 08:26 ; Status DC Allopurinol (Zyloprim) 100 mg DAILY PO Last administered on 12/02/16 08:54; Start 11/26/16 at 09:00 Aspirin (Ecotrin) 81 mg DAILY08 PO Last administered on 12/02/16 08:54; Start 11/26/16 at 08:00 Carvedilol (Coreg) 25 mg BIDWMEALS PO Last administered on 12/02/16 08:55; Start 11/26/16 at 08:00 Clonidine HCl (Catapres Tts-3) 1 patch WEEKLY TD Last administered on 09:36; Start 11/26/16 at 09:00 Colchicine (Colcrys) 0.6 mg BID PO Last administered on 12/02/16 08:54; Start 11/25/16 at 21:00 Cyclosporine (Restasis) 1 drop BID OU Last administered on 12/02/16 08:54; Start 11/25/16 at 21:00 Furosemide (Lasix) 40 mg BID94 PO ; Start 11/26/16 at 09:00; Stop 11/26/16 at 09 :00; Status DC Gabapentin (Neurontin) 100 mg BID PO Last administered on 12/02/16 08:54; Start 11/25/16 at 21:00 Isosorbide Mononitrate (Imdur) 30 mg DAILY PO Last administered on 12/02/16 08: 55; Start 11/26/16 at 09:00 Lidocaine (Lidoderm) 1 patch HS TP Last administered on 12/01/16 22:32; Start 11/25/16 at 21:00 Oxycodone/ Acetaminophen (Percocet 5/325) 1 tab PRN BID PRN PO PAIN SEVERE; Start 11/25/16 at 20:00 Quetiapine Fumarate (SEROquel) 25 mg BID PO ; Start 11/25/16 at 21:00; Stop at 11:18; Status DC Magnesium Sulfate/ Dextrose 50 ml @ 25 mls/hr PRN DAILY PRN IV for Mag < 1.7 on am labs Last administered on 11/28/16 14:49; Start 11/26/16 at 08:15 Potassium Acetate 40 meq/Sodium Chloride 1,020 ml @ 75 mls/hr [id number] IV Last administered on 11/27/16 02:35; Start 11/26/16 at 09:00; Stop 11/27/16 at 06:23 ; Status DC Potassium Chloride (Klor-Con) 40 meq TIDWMEALS PO Last administered on 17:08; Start 11/26/16 at 09:00; Stop 11/27/16 at 08:08; Status DC Sodium Chloride 500 ml @ 0 mls/hr QID PRN IV UO< 30cc/hr over previous 6hrs; Start 11/26/16 at 08:15; Stop 11/28/16 at 11:03; Status DC Vancomycin HCl (Vanco Per Pharmacy) 1 each PRN DAILY PRN MC SEE COMMENTS; Start 11/26/16 at 09:15; Status Cancel Aztreonam 1 gm/ Sodium Chloride 50 ml @ 100 mls/hr Q6HRS IV ; Start 11/26/16 at 10:00; Stop 11/26/16 at 10:56; Status DC Vancomycin HCl 2 gm/Sodium Chloride 500 ml @ 250 mls/hr 1X ONCE IV Last administered on 11/26/16 09:35; Start 11/26/16 at 10:00; Stop 11/26/16 at 11:59 ; Status DC Meropenem 500 mg/ Sodium Chloride 50 ml @ 100 mls/hr Q12HR IV Last administered on 11/26/16 20:49; Start 11/26/16 at 11:00; Stop 11/27/16 at 09:40 ; Status DC Vancomycin HCl 1.25 gm/Sodium Chloride 250 ml @ 167 mls/hr Q48H IV ; Start at 09:30; Status Cancel Vancomycin HCl 1 each 1X ONCE MC ; Start 11/30/16 at 09:00; Stop 11/30/16 at 09: 01; Status Cancel Quetiapine Fumarate (SEROquel) 25 mg HS PO Last administered on 11/30/16 20:42 ; Start 11/26/16 at 21:00 Insulin Detemir (Levemir) 10 units QHS SQ Last administered on 12/01/16 22:38; Start 11/26/16 at 21:00 Insulin Aspart (NovoLOG) 0-7 UNITS TIDWMEALS SQ Last administered on 12/02/16 08:56; Start 11/26/16 at 17:00 Dextrose (Dextrose 50%-Water Syringe) 12.5 gm PRN Q15MIN PRN IV SEE COMMENTS; Start 11/26/16 at 14:00 Haloperidol (Haldol) 5 mg 1X ONCE PO Last administered on 11/27/16 02:25; Start 11/27/16 at 02:00; Stop 11/27/16 at 02:01; Status DC Haloperidol Lactate (Haldol) 5 mg 1X ONCE IVP Last administered on 11/27/16 06:31; Start 11/27/16 at 06:30; Stop 11/27/16 at 06:31; Status DC Sodium Polystyrene Sulfonate (Kayexalate) 30 gm 1X ONCE PO Last administered on 11/27/16 06:31; Start 11/27/16 at 07:00; Stop 11/27/16 at 07:01; Status DC Haloperidol Lactate (Haldol) 5 mg PRN Q6HRS PRN IVP AGITATION Last administered on 11/27/16 17:28; Start 11/27/16 at 08:15 Sodium Chloride 1,000 ml @ 100 mls/hr 1X ONCE IV Last administered on 12:24; Start 11/27/16 at 08:15; Stop 11/27/16 at 18:14; Status DC Meropenem 500 mg/ Sodium Chloride 50 ml @ 100 mls/hr Q8HRS IV Last administered on 11/28/16 06:22; Start 11/27/16 at 14:00; Stop 11/28/16 at 10:34 ; Status DC Lorazepam (Ativan) 2 mg PRN Q4HRS PRN IV ANXIETY / AGITATION Last administered on 11/28/16 23:23; Start 11/27/16 at 09:45 Sodium Phosphate 20 mmol/Dextrose 256.6667 ml @ 64.167 m... Q4HRS IV Last administered on 11/27/16 17:02; Start 11/27/16 at 12:00; Stop 11/27/16 at 19:59 ; Status DC Dextrose/Sodium Chloride 1,000 ml @ 100 mls/hr Q10H IV Last administered on 01:32; Start 11/27/16 at 10:15; Stop 11/28/16 at 11:03; Status DC Sodium Polystyrene Sulfonate (Kayexalate) 15 gm 1X PRN PRN PO for repeat K > 5.3; Start 11/27/16 at 10:15 Sodium Polystyrene Sulfonate (Kayexalate) 30 gm 1X ONCE PO ; Start 11/27/16 at 12:00; Stop 11/27/16 at 12:01; Status DC Meropenem 500 mg/ Sodium Chloride 50 ml @ 100 mls/hr Q6HRS IV Last administered on 11/30/16 05:13; Start 11/28/16 at 12:00; Stop 11/30/16 at 11:46; Status DC Magnesium Sulfate/ Dextrose 100 ml @ 100 mls/hr 1X ONCE IV Last administered on 11/28/16 13:01; Start 11/28/16 at 11:30; Stop 11/28/16 at 12:29; Status DC Amino Acids/ Glycerin/ Electrolytes 1,000 ml @ 80 mls/hr [id number] IV Last administered on 12/01/16 06:22; Start 11/28/16 at 12:00; Stop 12/01/16 at 11:35; Status DC Ceftriaxone Sodium 1 gm/ Sodium Chloride 50 ml @ 100 mls/hr Q24H IV Last administered on 12/02/16 11:20; Start 11/30/16 at 12:00 Ciprofloxacin Lactate 200 ml @ 200 mls/hr Q12HR IV Last administered on 08:57; Start 11/30/16 at 13:00 Info 1 each PRN DAILY PRN MC SEE COMMENTS Last administered on 12/02/16 11:02; Start 12/01/16 at 11:45 Sodium Polystyrene Sulfonate (Kayexalate) 30 gm 1X ONCE PO Last administered on 12/01/16 14:08; Start 12/01/16 at 11:45; Stop 12/01/16 at 11:46; Status DC Sodium Chloride 90 meq/Sodium Phosphate 12 mmol/ Magnesium Sulfate 10 meq/ Calcium Gluconate 10 meq/ Multivitamins 10 ml/Chromium/ Copper/Manganese/ Seleni /Zn 1 ml/ Total Parenteral Nutrition/Amino Acids/Dextrose/ Fat Emulsion Intravenous 1,512 ml @ 63 mls/hr TPN CONT IV Last administered on 12/02/16 00 :21; Start 12/01/16 at 22:00; Stop 12/02/16 at 21:59 Sodium Chloride 40 meq/Sodium Phosphate 12 mmol/ Magnesium Sulfate 10 meq/ Calcium Gluconate 10 meq/ Multivitamins 10 ml/Chromium/ Copper/Manganese/ Seleni /Zn 1 ml/ Sodium Acetate 50 meq/Insulin Human Regular 10 unit/ Total Parenteral Nutrition/Amino Acids/Dextrose/ Fat Emulsion Intravenous 1,512 ml @ 63 mls/hr TPN CONT IV ; Start 12/02/16 at 22:00; Stop 12/03/16 at 21:59 Insulin Aspart (NovoLOG) 15 units 1X ONCE SQ Last administered on 12/02/16 11: 25; Start 12/02/16 at 11:15; Stop 6/3/17 at 11:16; Status DC Active Scripts Active Reported Aspir 81 (Aspirin) 81 Mg Tablet.dr 1 Tab PO DAILY Allopurinol 100 Mg Tablet 1 Tab PO DAILY Colcrys (Colchicine) 0.6 Mg Tablet 1 Tab PO BID Lidoderm (Lidocaine) 700 Mg Adh..patch 1 Patch TP HS Gabapentin 100 Mg Capsule 100 Mg PO BID Hydralazine Hcl 100 Mg Tablet 1 Tab PO TID Furosemide 40 Mg Tablet 40 Mg PO BID Oxycodone-Acetaminophen 5-325 (Oxycodone Hcl/Acetaminophen) 1 Each Tablet 1 Each PO BID PRN Restasis (Cyclosporine) 1 Each Droperette 1 Drop EACHEYE BID Isosorbide Mononitrate Er (Isosorbide Mononitrate) 30 Mg Tab.er.24h 30 Mg PO DAILY Quetiapine Fumarate 25 Mg Tablet 25 Mg PO HS Coreg (Carvedilol) 12.5 Mg Tablet 25 Mg PO BID Catapres-Tts 3 (Clonidine) 1 Each Patch.tdwk 1 Each TD WEEKLY Pletal (Cilostazol) 100 Mg Tablet 100 Mg PO DAILYBFRLUN Acetaminophen Ext.release (Acetaminophen) 650 Mg Tablet.er 650 Mg PO Q6HRS PRN Levemir Flexpen (Insulin Detemir) 100 Unit/1 Ml Insuln.pen 14 Unit SQ DAILYWSUP Humalog (Insulin Lispro) 100 Unit/1 Ml Cartridge 3 Unit SQ TIDAC Glucagon Emergency Kit (Glucagon,Human Recombinant) 1 Mg Kit 1 Mg IJ Vitals/I & O Vital Sign - Last 24 Hours 12/01/16 12/01/16 12/01/16 12/01/16 15:00 17:58 19:00 20:00 Temp 97.7 97.7 97.7 97.7 Pulse 75 87 82 Resp 18 20 B/P (MAP) 151/87 (108) 171/79 130/58 (82) Pulse Ox 98 97 O2 Delivery Room Air Room Air Room Air 12/01/16 12/02/16 12/02/16 12/02/16 23:00 03:09 07:00 08:00 Temp 98.4 98.7 97.9 98.4 98.7 97.9 Pulse 79 82 93 85 Resp 20 20 20 B/P (MAP) 150/70 (96) 187/81 (116) 195/89 (124) Pulse Ox 97 99 99 O2 Delivery Room Air Room Air Room Air 12/02/16 12/02/16 12/02/16 12/02/16 08:00 08:00 08:55 08:55 Pulse 93 93 B/P (MAP) 180/87 (118) 180/87 180/87 O2 Delivery Room Air 12/02/16 11:00 Temp 98.1 98.1 Pulse 83 Resp 16 B/P (MAP) 177/58 (97) Pulse Ox 96 O2 Delivery Room Air Intake and Output 12/01/16 12/01/16 12/02/16 15:00 23:00 07:00 Intake Total 600 ml 300 ml Output Total 900 ml Balance 600 ml 300 ml -900 ml TLAIA ROTHMAN III DO Dec 02, 2016 12:05
--- NOTE | 2016-12-02 13:09 | PDOC ---
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 clean Labs Lab Laboratory Tests Test 12/01/16 18:00 12/01/16 20:03 12/02/16 05:00 12/02/16 07:21 Glucose (Fingerstick) 135 mg/dL (70-99) 141 mg/dL (70-99) 349 mg/dL (70-99) White Blood Count 7.6 x10^3/uL (4.0-11.0) Red Blood Count 3.91 x10^6/uL (3.50-5.40) Hemoglobin 12.1 g/dL (12.0-15.5) Hematocrit 36.3 % (36.0-47.0) Mean Corpuscular Volume 93 fL (79-100) Mean Corpuscular Hemoglobin 31 pg (25-35) Mean Corpuscular Hemoglobin Concent 33 g/dL (31-37) Red Cell Distribution Width 17.6 % (11.5-14.5) Platelet Count 110 x10^3/uL (140-400) Neutrophils (%) (Auto) 74 % (31-73) Lymphocytes (%) (Auto) 11 % (24-48) Monocytes (%) (Auto) 13 % (0-9) Eosinophils (%) (Auto) 1 % (0-3) Basophils (%) (Auto) 1 % (0-3) Neutrophils # (Auto) 5.7 x10^3uL (1.8-7.7) Lymphocytes # (Auto) 0.9 x10^3/uL (1.0-4.8) Monocytes # (Auto) 1.0 x10^3/uL (0.0-1.1) Eosinophils # (Auto) 0.1 x10^3/uL (0.0-0.7) Basophils # (Auto) 0.0 x10^3/uL (0.0-0.2) Sodium Level 143 mmol/L (136-145) Potassium Level 4.5 mmol/L (3.5-5.1) Chloride Level 110 mmol/L (98-107) Carbon Dioxide Level 25 mmol/L (21-32) Anion Gap 8 (6-14) Blood Urea Nitrogen 37 mg/dL (7-20) Creatinine 1.3 mg/dL (0.6-1.0) Estimated GFR (Cockcroft-Gault) 48.7 Glucose Level 294 mg/dL (70-99) Calcium Level 8.5 mg/dL (8.5-10.1) Phosphorus Level 3.7 mg/dL (2.6-4.7) Magnesium Level 1.9 mg/dL (1.8-2.4) Creatine Kinase 377 U/L (26-192) Albumin 2.2 g/dL (3.4-5.0) Test 12/02/16 10:26 Glucose (Fingerstick) 438 mg/dL (70-99) Objective Assessment Polymicrobial sepsis. POA. Acinetobacter Klebsiella UTI - POA Ampicillin allergy. Reaction unknown Acute encephalopathy, better Hypotension - improved lactic acidosis [place] on CKD Loose stools. c. diff neg 11/08 & 11/25. DM II with hypoglycemia Chronic pain Plan Plan of Care Continue trial Rocephin/Cipro f/u am labs Attending Co-Sign The patient was seen and interviewed as well as examined at the bedside. The chart was reviewed. The case was discussed. Agree with the plan of care. JARON CONLEY APRN Dec 02, 2016 13:09 ISA STORY MD Dec 02, 2016 13:13
[2016-12-02] MEDS: amLODIPine BESYLATE 10 MG TABLET PO SCH (15:13)
[2016-12-02] MEDS: LIDOCAINE (700MG/PATCH) PATCH. TP SCH (20:48)
[2016-12-02] MEDS: QUEtiapine 25 MG TABLET. PO SCH (20:49)
[2016-12-02] MEDS: INSULIN DETEMIR 300 UNITS/3 ML INSULN.PEN. SQ SCH (20:51)
[2016-12-02] MEDS ORDERED: TOTAL PARENTERAL NUTRITION IV SCH ×11 (22:00)
[2016-12-02] MEDS ORDERED: [UNRECOGNIZED DRUG - OTHER] IV SCH ×11 (22:00)
[2016-12-02] MEDS ORDERED: AMINO ACIDS IV SCH ×11 (22:00)
[2016-12-02] MEDS ORDERED: DEXTROSE 70% IV SCH ×11 (22:00)
[2016-12-03 03:28] VITALS: BP 138/75
[2016-12-03 04:41] LABS: ALBUMIN 2.2 g/dL (3.4-5.0); CALCIUM 8.6 mg/dL (8.5-10.1); CREATININE 1.2 mg/dL (0.6-1.0); GFR 53.4; PHOSPHORUS 4.2 mg/dL (2.6-4.7); POTASSIUM 3.5 mmol/L (3.5-5.1)
[2016-12-03 07:00] VITALS: BP 182/83
[2016-12-03] MEDS: ASPIRIN ENTERIC COATED 81 MG TABLET.DR. PO SCH (08:26)
[2016-12-03] MEDS: CARVEDILOL 12.5 MG TABLET. PO SCH ×2 (08:26→16:57)
[2016-12-03] MEDS: INSULIN ASPART 300 UNITS/3 ML INSULN.PEN SQ SCH ×3 (08:32→17:00)
--- NOTE | 2016-12-03 08:57 | PDOC ---
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 clean Labs Lab Laboratory Tests Test 12/02/16 10:26 12/02/16 16:10 12/02/16 21:00 12/03/16 04:00 Glucose (Fingerstick) 438 mg/dL (70-99) 261 mg/dL (70-99) 232 mg/dL (70-99) Sodium Level 142 mmol/L (136-145) Potassium Level 3.5 mmol/L (3.5-5.1) Chloride Level 108 mmol/L (98-107) Carbon Dioxide Level 24 mmol/L (21-32) Anion Gap 10 (6-14) Blood Urea Nitrogen 38 mg/dL (7-20) Creatinine 1.2 mg/dL (0.6-1.0) Estimated GFR (Cockcroft-Gault) 53.4 Glucose Level 265 mg/dL (70-99) Calcium Level 8.6 mg/dL (8.5-10.1) Phosphorus Level 4.2 mg/dL (2.6-4.7) Albumin 2.2 g/dL (3.4-5.0) Test 12/03/16 08:09 Glucose (Fingerstick) 323 mg/dL (70-99) Objective Assessment Polymicrobial sepsis. POA. Acinetobacter Klebsiella x 2 spp UTI - POA Ampicillin allergy. Reaction unknown Acute encephalopathy, better Hypotension - improved lactic acidosis [place] on CKD, improved Loose stools. c. diff neg 11/08 & 11/25. DM II with hypoglycemia Chronic pain Plan Plan of Care Rocephin/Cipro f/u today's labs Supportive care Attending Co-Sign The patient was seen and interviewed as well as examined at the bedside. The chart was reviewed. The case was discussed. Agree with the plan of care. JARON CONLEY APRN Dec 03, 2016 08:57 ISA STORY MD Dec 03, 2016 14:21
[2016-12-03] MEDS: cloNIDine TTS-3 1 PATCH PATCH.TDWK TD SCH (09:07)
[2016-12-03] MEDS: cycloSPORINE 0.05% OPTH 1 DROP DROPERETTE OU SCH ×2 (09:07→22:47)
[2016-12-03] MEDS: ALLOPURINOL 100 MG TABLET. PO SCH (09:07)
[2016-12-03] MEDS: CIPROFLOXACIN 400MG PREMIX 200 ML IV SCH ×2 (09:07→22:40)
[2016-12-03] MEDS: ISOSORBIDE MONONITRATE ER 30 MG TAB.ER.24H PO SCH (09:08)
[2016-12-03] MEDS: COLCHICINE 0.6 MG TABLET PO SCH ×2 (09:08→20:20)
[2016-12-03] MEDS: GABAPENTIN 100 MG CAPSULE. PO SCH ×2 (09:08→20:20)
[2016-12-03] MEDS: amLODIPine BESYLATE 10 MG TABLET PO SCH (09:08)
[2016-12-03 11:00] VITALS: BP 151/60
[2016-12-03] MEDS: TPN PER PHARMACY MC PRN (12:57)
[2016-12-03 13:47] LABS: BASO # 0.1 x10^3/uL (0.0-0.2); BASO % 1 % (0-3); EOS % 2 % (0-3); HEMATOCRIT 34.8 % (36.0-47.0); HEMOGLOBIN 11.5 g/dL (12.0-15.5); LYMPH # 0.7 x10^3/uL (1.0-4.8); LYMPH % 11 % (24-48); MEAN CORPUSCULAR HEMOGLOBIN 31 pg (25-35); MEAN CORPUSCULAR HGB CONC 33 g/dL (31-37); MEAN CORPUSCULAR VOLUME 94 fL (79-100); MONO % 18 % (0-9); NEUT % 68 % (31-73); PLATELET COUNT 94 x10^3/uL (140-400); RED BLOOD COUNT 3.72 x10^6/uL (3.50-5.40); RED CELL DISTRIBUTION WIDTH 17.7 % (11.5-14.5); WHITE BLOOD COUNT 6.7 x10^3/uL (4.0-11.0)
[2016-12-03 15:00] VITALS: BP 126/50
--- NOTE | 2016-12-03 15:02 | PDOC ---
Provider Note Provider Note Provider Note RENAL F/U : WILLIAM DOS : 12/02/16 S: No new issues. O : Doing OK VSS Afebrile. Neck ; Supple Lungs : Non labored. CVS : RRR Abd: Benign appearing. No new edema. A/P: HTN w CKD CKD III. ELECTROLYTE IMBALANCE. Labs stable. Tolerating TPN. Supportive care. No changes needed. Aidan Thomas M.D. AIDAN THOMAS MD Dec 03, 2016 15:01
--- NOTE | 2016-12-03 15:31 | PDOC ---
PROGRESS NOTES Chief Complaint Chief Complaint 1. Hypokalemia w. acute kidney injury 2. Agitation w./ delirium, metabolic encephalopathy on chronic baseline dementia 3. Obesity 4. Anemia 5. CHF 6. Constipation 7. Stroke 8. Depression 9. Diabetes 10. Hypertension 11. Renal failure on CKD 12. 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 Vitals Vitals Vital Signs Date Time Temp Pulse Resp B/P (MAP) Pulse Ox O2 Delivery O2 Flow Rate FiO2 12/03/16 15:00 98.1 72 14 126/50 (75) 93 Room Air 98.1 Physical Exam General: No acute distress, Other (minimal responce today?) Heart: Regular rate, Normal S1, Normal S2 Lungs: Clear Abdomen: Normal bowel sounds, Soft Extremities: No clubbing, No cyanosis Skin: No rashes, No breakdown, No significant lesion Labs LABS Laboratory Tests Test 12/02/16 16:10 12/02/16 21:00 12/03/16 04:00 12/03/16 08:09 Glucose (Fingerstick) 261 mg/dL (70-99) 232 mg/dL (70-99) 323 mg/dL (70-99) Sodium Level 142 mmol/L (136-145) Potassium Level 3.5 mmol/L (3.5-5.1) Chloride Level 108 mmol/L (98-107) Carbon Dioxide Level 24 mmol/L (21-32) Anion Gap 10 (6-14) Blood Urea Nitrogen 38 mg/dL (7-20) Creatinine 1.2 mg/dL (0.6-1.0) Estimated GFR (Cockcroft-Gault) 53.4 Glucose Level 265 mg/dL (70-99) Calcium Level 8.6 mg/dL (8.5-10.1) Phosphorus Level 4.2 mg/dL (2.6-4.7) Magnesium Level 1.8 mg/dL (1.8-2.4) Creatine Kinase 341 U/L (26-192) Albumin 2.2 g/dL (3.4-5.0) Test 12/03/16 11:51 12/03/16 13:40 Glucose (Fingerstick) 321 mg/dL (70-99) White Blood Count 6.7 x10^3/uL (4.0-11.0) Red Blood Count 3.72 x10^6/uL (3.50-5.40) Hemoglobin 11.5 g/dL (12.0-15.5) Hematocrit 34.8 % (36.0-47.0) Mean Corpuscular Volume 94 fL (79-100) Mean Corpuscular Hemoglobin 31 pg (25-35) Mean Corpuscular Hemoglobin Concent 33 g/dL (31-37) Red Cell Distribution Width 17.7 % (11.5-14.5) Platelet Count 94 x10^3/uL (140-400) Neutrophils (%) (Auto) 68 % (31-73) Lymphocytes (%) (Auto) 11 % (24-48) Monocytes (%) (Auto) 18 % (0-9) Eosinophils (%) (Auto) 2 % (0-3) Basophils (%) (Auto) 1 % (0-3) Neutrophils # (Auto) 4.6 x10^3uL (1.8-7.7) Lymphocytes # (Auto) 0.7 x10^3/uL (1.0-4.8) Monocytes # (Auto) 1.2 x10^3/uL (0.0-1.1) Eosinophils # (Auto) 0.1 x10^3/uL (0.0-0.7) Basophils # (Auto) 0.1 x10^3/uL (0.0-0.2) Review of Systems Review of Systems wont talk Assessment and Plan Assessmemt and Plan Problems Medical Problems: (1) Acute kidney injury Status: Acute (2) Altered level of consciousness Status: Acute (3) Hypoglycemia associated with type 2 diabetes mellitus Status: Acute (4) Hypokalemia Status: Acute (5) Opiate overdose Status: Acute 0. Sudden MS change 1. Hypokalemia w. acute kidney injury 2. Agitation w./ delirium, metabolic encephalopathy on chronic baseline dementia 3. Obesity 4. Anemia 5. CHF 6. Constipation 7. Stroke 8. Depression 9. Diabetes 10. Hypertension 11. Renal failure on CKD 12. 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 Labs Laboratory Tests Test 12/01/16 18:00 12/01/16 20:03 12/02/16 05:00 12/02/16 07:21 Glucose (Fingerstick) 135 mg/dL (70-99) 141 mg/dL (70-99) 349 mg/dL (70-99) White Blood Count 7.6 x10^3/uL (4.0-11.0) Red Blood Count 3.91 x10^6/uL (3.50-5.40) Hemoglobin 12.1 g/dL (12.0-15.5) Hematocrit 36.3 % (36.0-47.0) Mean Corpuscular Volume 93 fL (79-100) Mean Corpuscular Hemoglobin 31 pg (25-35) Mean Corpuscular Hemoglobin Concent 33 g/dL (31-37) Red Cell Distribution Width 17.6 % (11.5-14.5) Platelet Count 110 x10^3/uL (140-400) Neutrophils (%) (Auto) 74 % (31-73) Lymphocytes (%) (Auto) 11 % (24-48) Monocytes (%) (Auto) 13 % (0-9) Eosinophils (%) (Auto) 1 % (0-3) Basophils (%) (Auto) 1 % (0-3) Neutrophils # (Auto) 5.7 x10^3uL (1.8-7.7) Lymphocytes # (Auto) 0.9 x10^3/uL (1.0-4.8) Monocytes # (Auto) 1.0 x10^3/uL (0.0-1.1) Eosinophils # (Auto) 0.1 x10^3/uL (0.0-0.7) Basophils # (Auto) 0.0 x10^3/uL (0.0-0.2) Sodium Level 143 mmol/L (136-145) Potassium Level 4.5 mmol/L (3.5-5.1) Chloride Level 110 mmol/L (98-107) Carbon Dioxide Level 25 mmol/L (21-32) Anion Gap 8 (6-14) Blood Urea Nitrogen 37 mg/dL (7-20) Creatinine 1.3 mg/dL (0.6-1.0) Estimated GFR (Cockcroft-Gault) 48.7 Glucose Level 294 mg/dL (70-99) Calcium Level 8.5 mg/dL (8.5-10.1) Phosphorus Level 3.7 mg/dL (2.6-4.7) Magnesium Level 1.9 mg/dL (1.8-2.4) Creatine Kinase 377 U/L (26-192) Albumin 2.2 g/dL (3.4-5.0) Test 12/02/16 10:26 12/02/16 16:10 12/02/16 21:00 12/03/16 04:00 Glucose (Fingerstick) 438 mg/dL (70-99) 261 mg/dL (70-99) 232 mg/dL (70-99) Sodium Level 142 mmol/L (136-145) Potassium Level 3.5 mmol/L (3.5-5.1) Chloride Level 108 mmol/L (98-107) Carbon Dioxide Level 24 mmol/L (21-32) Anion Gap 10 (6-14) Blood Urea Nitrogen 38 mg/dL (7-20) Creatinine 1.2 mg/dL (0.6-1.0) Estimated GFR (Cockcroft-Gault) 53.4 Glucose Level 265 mg/dL (70-99) Calcium Level 8.6 mg/dL (8.5-10.1) Phosphorus Level 4.2 mg/dL (2.6-4.7) Magnesium Level 1.8 mg/dL (1.8-2.4) Creatine Kinase 341 U/L (26-192) Albumin 2.2 g/dL (3.4-5.0) Test 12/03/16 08:09 12/03/16 11:51 12/03/16 13:40 Glucose (Fingerstick) 323 mg/dL (70-99) 321 mg/dL (70-99) White Blood Count 6.7 x10^3/uL (4.0-11.0) Red Blood Count 3.72 x10^6/uL (3.50-5.40) Hemoglobin 11.5 g/dL (12.0-15.5) Hematocrit 34.8 % (36.0-47.0) Mean Corpuscular Volume 94 fL (79-100) Mean Corpuscular Hemoglobin 31 pg (25-35) Mean Corpuscular Hemoglobin Concent 33 g/dL (31-37) Red Cell Distribution Width 17.7 % (11.5-14.5) Platelet Count 94 x10^3/uL (140-400) Neutrophils (%) (Auto) 68 % (31-73) Lymphocytes (%) (Auto) 11 % (24-48) Monocytes (%) (Auto) 18 % (0-9) Eosinophils (%) (Auto) 2 % (0-3) Basophils (%) (Auto) 1 % (0-3) Neutrophils # (Auto) 4.6 x10^3uL (1.8-7.7) Lymphocytes # (Auto) 0.7 x10^3/uL (1.0-4.8) Monocytes # (Auto) 1.2 x10^3/uL (0.0-1.1) Eosinophils # (Auto) 0.1 x10^3/uL (0.0-0.7) Basophils # (Auto) 0.1 x10^3/uL (0.0-0.2) Laboratory Tests Test 12/02/16 16:10 12/02/16 21:00 12/03/16 04:00 12/03/16 08:09 Glucose (Fingerstick) 261 mg/dL (70-99) 232 mg/dL (70-99) 323 mg/dL (70-99) Sodium Level 142 mmol/L (136-145) Potassium Level 3.5 mmol/L (3.5-5.1) Chloride Level 108 mmol/L (98-107) Carbon Dioxide Level 24 mmol/L (21-32) Anion Gap 10 (6-14) Blood Urea Nitrogen 38 mg/dL (7-20) Creatinine 1.2 mg/dL (0.6-1.0) Estimated GFR (Cockcroft-Gault) 53.4 Glucose Level 265 mg/dL (70-99) Calcium Level 8.6 mg/dL (8.5-10.1) Phosphorus Level 4.2 mg/dL (2.6-4.7) Magnesium Level 1.8 mg/dL (1.8-2.4) Creatine Kinase 341 U/L (26-192) Albumin 2.2 g/dL (3.4-5.0) Test 12/03/16 11:51 12/03/16 13:40 Glucose (Fingerstick) 321 mg/dL (70-99) White Blood Count 6.7 x10^3/uL (4.0-11.0) Red Blood Count 3.72 x10^6/uL (3.50-5.40) Hemoglobin 11.5 g/dL (12.0-15.5) Hematocrit 34.8 % (36.0-47.0) Mean Corpuscular Volume 94 fL (79-100) Mean Corpuscular Hemoglobin 31 pg (25-35) Mean Corpuscular Hemoglobin Concent 33 g/dL (31-37) Red Cell Distribution Width 17.7 % (11.5-14.5) Platelet Count 94 x10^3/uL (140-400) Neutrophils (%) (Auto) 68 % (31-73) Lymphocytes (%) (Auto) 11 % (24-48) Monocytes (%) (Auto) 18 % (0-9) Eosinophils (%) (Auto) 2 % (0-3) Basophils (%) (Auto) 1 % (0-3) Neutrophils # (Auto) 4.6 x10^3uL (1.8-7.7) Lymphocytes # (Auto) 0.7 x10^3/uL (1.0-4.8) Monocytes # (Auto) 1.2 x10^3/uL (0.0-1.1) Eosinophils # (Auto) 0.1 x10^3/uL (0.0-0.7) Basophils # (Auto) 0.1 x10^3/uL (0.0-0.2) Microbiology 11/25/16 Blood Culture - Final, Complete NO GROWTH AFTER 5 DAYS 11/25/16 Urine Culture - Final, Complete 11/25/16 Urine Culture Result 1 (JUDITH) - Final, Complete 11/25/16 Urine Culture Result 2 (JUDITH) - Final, Complete 11/25/16 Antimicrobic Susceptibility - Final, Complete Medications Current Medications Potassium Chloride (KCl Oral Soln) 40 meq 1X ONCE PO Last administered on 11/25t 14:07; Start 11/25/16 at 12:45; Stop 11/25/16 at 12:46; Status DC Potassium Chloride/Dextrose/ Sod Cl 1,000 ml @ 75 mls/hr 1X ONCE IV Last administered on 11/25/16 15:16; Start 11/25/16 at 13:30; Stop 11/26/16 at 08:26 ; Status DC Allopurinol (Zyloprim) 100 mg DAILY PO Last administered on 12/03/16 09:07; Start 11/26/16 at 09:00 Aspirin (Ecotrin) 81 mg DAILY08 PO Last administered on 12/03/16 08:26; Start 11/26/16 at 08:00 Carvedilol (Coreg) 25 mg BIDWMEALS PO Last administered on 12/03/16 08:26; Start 11/26/16 at 08:00 Clonidine HCl (Catapres Tts-3) 1 patch WEEKLY TD Last administered on 12/03/16 09:07; Start 11/26/16 at 09:00 Colchicine (Colcrys) 0.6 mg BID PO Last administered on 12/03/16 09:08; Start 11/25/16 at 21:00 Cyclosporine (Restasis) 1 drop BID OU Last administered on 12/03/16 09:07; Start 11/25/16 at 21:00 Furosemide (Lasix) 40 mg BID94 PO ; Start 11/26/16 at 09:00; Stop 11/26/16 at 09 :00; Status DC Gabapentin (Neurontin) 100 mg BID PO Last administered on 12/03/16 09:08; Start 11/25/16 at 21:00 Isosorbide Mononitrate (Imdur) 30 mg DAILY PO Last administered on 12/03/16 09: 08; Start 11/26/16 at 09:00 Lidocaine (Lidoderm) 1 patch HS TP Last administered on 12/02/16 20:48; Start 11/25/16 at 21:00 Oxycodone/ Acetaminophen (Percocet 5/325) 1 tab PRN BID PRN PO PAIN SEVERE; Start 11/25/16 at 20:00 Quetiapine Fumarate (SEROquel) 25 mg BID PO ; Start 11/25/16 at 21:00; Stop at 11:18; Status DC Magnesium Sulfate/ Dextrose 50 ml @ 25 mls/hr PRN DAILY PRN IV for Mag < 1.7 on am labs Last administered on 11/28/16 14:49; Start 11/26/16 at 08:15 Potassium Acetate 40 meq/Sodium Chloride 1,020 ml @ 75 mls/hr [id number] IV Last administered on 11/27/16 02:35; Start 11/26/16 at 09:00; Stop 11/27/16 at 06:23 ; Status DC Potassium Chloride (Klor-Con) 40 meq TIDWMEALS PO Last administered on 17:08; Start 11/26/16 at 09:00; Stop 11/27/16 at 08:08; Status DC Sodium Chloride 500 ml @ 0 mls/hr QID PRN IV UO< 30cc/hr over previous 6hrs; Start 11/26/16 at 08:15; Stop 11/28/16 at 11:03; Status DC Vancomycin HCl (Vanco Per Pharmacy) 1 each PRN DAILY PRN MC SEE COMMENTS; Start 11/26/16 at 09:15; Status Cancel Aztreonam 1 gm/ Sodium Chloride 50 ml @ 100 mls/hr Q6HRS IV ; Start 11/26/16 at 10:00; Stop 11/26/16 at 10:56; Status DC Vancomycin HCl 2 gm/Sodium Chloride 500 ml @ 250 mls/hr 1X ONCE IV Last administered on 11/26/16 09:35; Start 11/26/16 at 10:00; Stop 11/26/16 at 11:59 ; Status DC Meropenem 500 mg/ Sodium Chloride 50 ml @ 100 mls/hr Q12HR IV Last administered on 11/26/16 20:49; Start 11/26/16 at 11:00; Stop 11/27/16 at 09:40 ; Status DC Vancomycin HCl 1.25 gm/Sodium Chloride 250 ml @ 167 mls/hr Q48H IV ; Start at 09:30; Status Cancel Vancomycin HCl 1 each 1X ONCE MC ; Start 11/30/16 at 09:00; Stop 11/30/16 at 09: 01; Status Cancel Quetiapine Fumarate (SEROquel) 25 mg HS PO Last administered on 12/02/16 20:49 ; Start 11/26/16 at 21:00 Insulin Detemir (Levemir) 10 units QHS SQ Last administered on 12/02/16 20:51; Start 11/26/16 at 21:00 Insulin Aspart (NovoLOG) 0-7 UNITS TIDWMEALS SQ Last administered on 12/03/16 12:13; Start 11/26/16 at 17:00 Dextrose (Dextrose 50%-Water Syringe) 12.5 gm PRN Q15MIN PRN IV SEE COMMENTS; Start 11/26/16 at 14:00 Haloperidol (Haldol) 5 mg 1X ONCE PO Last administered on 11/27/16 02:25; Start 11/27/16 at 02:00; Stop 11/27/16 at 02:01; Status DC Haloperidol Lactate (Haldol) 5 mg 1X ONCE IVP Last administered on 11/27/16 06:31; Start 11/27/16 at 06:30; Stop 11/27/16 at 06:31; Status DC Sodium Polystyrene Sulfonate (Kayexalate) 30 gm 1X ONCE PO Last administered on 11/27/16 06:31; Start 11/27/16 at 07:00; Stop 11/27/16 at 07:01; Status DC Haloperidol Lactate (Haldol) 5 mg PRN Q6HRS PRN IVP AGITATION Last administered on 11/27/16 17:28; Start 11/27/16 at 08:15 Sodium Chloride 1,000 ml @ 100 mls/hr 1X ONCE IV Last administered on 12:24; Start 11/27/16 at 08:15; Stop 11/27/16 at 18:14; Status DC Meropenem 500 mg/ Sodium Chloride 50 ml @ 100 mls/hr Q8HRS IV Last administered on 11/28/16 06:22; Start 11/27/16 at 14:00; Stop 11/28/16 at 10:34 ; Status DC Lorazepam (Ativan) 2 mg PRN Q4HRS PRN IV ANXIETY / AGITATION Last administered on 11/28/16 23:23; Start 11/27/16 at 09:45 Sodium Phosphate 20 mmol/Dextrose 256.6667 ml @ 64.167 m... Q4HRS IV Last administered on 11/27/16 17:02; Start 11/27/16 at 12:00; Stop 11/27/16 at 19:59 ; Status DC Dextrose/Sodium Chloride 1,000 ml @ 100 mls/hr Q10H IV Last administered on 01:32; Start 11/27/16 at 10:15; Stop 11/28/16 at 11:03; Status DC Sodium Polystyrene Sulfonate (Kayexalate) 15 gm 1X PRN PRN PO for repeat K > 5.3; Start 11/27/16 at 10:15 Sodium Polystyrene Sulfonate (Kayexalate) 30 gm 1X ONCE PO ; Start 11/27/16 at 12:00; Stop 11/27/16 at 12:01; Status DC Meropenem 500 mg/ Sodium Chloride 50 ml @ 100 mls/hr Q6HRS IV Last administered on 11/30/16 05:13; Start 11/28/16 at 12:00; Stop 11/30/16 at 11:46; Status DC Magnesium Sulfate/ Dextrose 100 ml @ 100 mls/hr 1X ONCE IV Last administered on 11/28/16 13:01; Start 11/28/16 at 11:30; Stop 11/28/16 at 12:29; Status DC Amino Acids/ Glycerin/ Electrolytes 1,000 ml @ 80 mls/hr [id number] IV Last administered on 12/01/16 06:22; Start 11/28/16 at 12:00; Stop 12/01/16 at 11:35; Status DC Ceftriaxone Sodium 1 gm/ Sodium Chloride 50 ml @ 100 mls/hr Q24H IV Last administered on 12/03/16 12:08; Start 11/30/16 at 12:00 Ciprofloxacin Lactate 200 ml @ 200 mls/hr Q12HR IV Last administered on 09:07; Start 11/30/16 at 13:00 Info 1 each PRN DAILY PRN MC SEE COMMENTS Last administered on 12/03/16 12:57; Start 12/01/16 at 11:45 Sodium Polystyrene Sulfonate (Kayexalate) 30 gm 1X ONCE PO Last administered on 12/01/16 14:08; Start 12/01/16 at 11:45; Stop 12/01/16 at 11:46; Status DC Sodium Chloride 90 meq/Sodium Phosphate 12 mmol/ Magnesium Sulfate 10 meq/ Calcium Gluconate 10 meq/ Multivitamins 10 ml/Chromium/ Copper/Manganese/ Seleni /Zn 1 ml/ Total Parenteral Nutrition/Amino Acids/Dextrose/ Fat Emulsion Intravenous 1,512 ml @ 63 mls/hr TPN CONT IV Last administered on 12/02/16 00 :21; Start 12/01/16 at 22:00; Stop 12/02/16 at 21:59; Status DC Sodium Chloride 40 meq/Sodium Phosphate 12 mmol/ Magnesium Sulfate 10 meq/ Calcium Gluconate 10 meq/ Multivitamins 10 ml/Chromium/ Copper/Manganese/ Seleni /Zn 1 ml/ Sodium Acetate 50 meq/Insulin Human Regular 10 unit/ Total Parenteral Nutrition/Amino Acids/Dextrose/ Fat Emulsion Intravenous 1,512 ml @ 63 mls/hr TPN CONT IV Last administered on 12/03/16 00:20; Start 12/02/16 at 22:00; Stop 12/03/16 at 21:59 Insulin Aspart (NovoLOG) 15 units 1X ONCE SQ Last administered on 12/02/16 11: 25; Start 12/02/16 at 11:15; Stop 12/02/16 at 11:16; Status DC Amlodipine Besylate (Norvasc) 10 mg DAILY PO Last administered on 12/03/16 09: 08; Start 12/02/16 at 15:30 Sodium Chloride 20 meq/Sodium Phosphate 8 mmol/ Magnesium Sulfate 10 meq/ Calcium Gluconate 10 meq/ Multivitamins 10 ml/Chromium/ Copper/Manganese/ Seleni /Zn 1 ml/ Sodium Acetate 30 meq/Insulin Human Regular 15 unit/ Potassium Acetate 30 meq/Total Parenteral Nutrition/Amino Acids/Dextrose/ Fat Emuls... 1, 512 ml @ 63 mls/hr TPN CONT IV ; Start 12/03/16 at 22:00; Stop 12/03/16 at 22:00 ; Status DC Sodium Chloride 20 meq/Sodium Phosphate 8 mmol/ Magnesium Sulfate 10 meq/ Calcium Gluconate 10 meq/ Multivitamins 10 ml/Chromium/ Copper/Manganese/ Seleni /Zn 1 ml/ Sodium Acetate 30 meq/Insulin Human Regular 20 unit/ Potassium Acetate 30 meq/Total Parenteral Nutrition/Amino Acids/Dextrose/ Fat Emuls... 1, 512 ml @ 63 mls/hr TPN CONT IV ; Start 12/03/16 at 22:00; Stop 12/04/16 at 21:59 Active Scripts Active Reported Aspir 81 (Aspirin) 81 Mg Tablet.dr 1 Tab PO DAILY Allopurinol 100 Mg Tablet 1 Tab PO DAILY Colcrys (Colchicine) 0.6 Mg Tablet 1 Tab PO BID Lidoderm (Lidocaine) 700 Mg Adh..patch 1 Patch TP HS Gabapentin 100 Mg Capsule 100 Mg PO BID Hydralazine Hcl 100 Mg Tablet 1 Tab PO TID Furosemide 40 Mg Tablet 40 Mg PO BID Oxycodone-Acetaminophen 5-325 (Oxycodone Hcl/Acetaminophen) 1 Each Tablet 1 Each PO BID PRN Restasis (Cyclosporine) 1 Each Droperette 1 Drop EACHEYE BID Isosorbide Mononitrate Er (Isosorbide Mononitrate) 30 Mg Tab.er.24h 30 Mg PO DAILY Quetiapine Fumarate 25 Mg Tablet 25 Mg PO HS Coreg (Carvedilol) 12.5 Mg Tablet 25 Mg PO BID Catapres-Tts 3 (Clonidine) 1 Each Patch.tdwk 1 Each TD WEEKLY Pletal (Cilostazol) 100 Mg Tablet 100 Mg PO DAILYBFRLUN Acetaminophen Ext.release (Acetaminophen) 650 Mg Tablet.er 650 Mg PO Q6HRS PRN Levemir Flexpen (Insulin Detemir) 100 Unit/1 Ml Insuln.pen 14 Unit SQ DAILYWSUP Humalog (Insulin Lispro) 100 Unit/1 Ml Cartridge 3 Unit SQ TIDAC Glucagon Emergency Kit (Glucagon,Human Recombinant) 1 Mg Kit 1 Mg IJ Vitals/I & O Vital Sign - Last 24 Hours 12/02/16 12/02/16 12/02/16 12/02/16 17:13 19:53 20:00 23:00 Temp 97.8 97.2 97.8 97.2 Pulse 77 76 72 Resp 20 16 B/P (MAP) 178/74 140/72 (94) 152/73 (99) Pulse Ox 99 99 O2 Delivery Room Air Room Air Room Air 12/03/16 12/03/16 12/03/16 12/03/16 03:28 07:00 07:30 08:26 Temp 98.0 97.9 98.0 97.9 Pulse 81 87 81 Resp 18 18 B/P (MAP) 138/75 (96) 182/83 (116) 138/75 Pulse Ox 98 94 O2 Delivery Room Air Room Air Room Air 12/03/16 12/03/16 12/03/16 12/03/16 09:08 09:08 11:00 15:00 Temp 99.3 98.1 99.3 98.1 Pulse 81 81 82 72 Resp 18 14 B/P (MAP) 138/75 138/75 151/60 (90) 126/50 (75) Pulse Ox 100 93 O2 Delivery Room Air Room Air Intake and Output 12/02/16 12/02/16 12/03/16 15:00 23:00 07:00 Intake Total 1000 ml Output Total 700 ml 550 ml Balance 300 ml -550 ml TALIA ROTHMAN III DO Dec 03, 2016 15:31
[2016-12-03 19:40] VITALS: BP 140/68
[2016-12-03] MEDS: QUEtiapine 25 MG TABLET. PO SCH (20:20)
[2016-12-03] MEDS ORDERED: DEXTROSE 70% IV SCH ×24 (22:00)
[2016-12-03] MEDS ORDERED: [UNRECOGNIZED DRUG - OTHER] IV SCH ×12 (22:00)
[2016-12-03] MEDS ORDERED: TOTAL PARENTERAL NUTRITION IV SCH ×24 (22:00)
[2016-12-03] MEDS ORDERED: [UNRECOGNIZED DRUG - OTHER] IV SCH ×12 (22:00)
[2016-12-03] MEDS ORDERED: AMINO ACIDS IV SCH ×24 (22:00)
[2016-12-03 22:44] VITALS: BP 155/60
[2016-12-03] MEDS: LIDOCAINE (700MG/PATCH) PATCH. TP SCH (22:47)
[2016-12-03] MEDS: INSULIN DETEMIR 300 UNITS/3 ML INSULN.PEN. SQ SCH (22:47)
[2016-12-04 03:16] VITALS: BP 149/66
[2016-12-04 07:00] VITALS: BP 167/78
[2016-12-04] MEDS: COLCHICINE 0.6 MG TABLET PO SCH (08:12)
[2016-12-04] MEDS: GABAPENTIN 100 MG CAPSULE. PO SCH ×2 (08:12→21:33)
[2016-12-04] MEDS: amLODIPine BESYLATE 10 MG TABLET PO SCH (08:14)
[2016-12-04] MEDS: ISOSORBIDE MONONITRATE ER 30 MG TAB.ER.24H PO SCH (08:15)
[2016-12-04] MEDS: cycloSPORINE 0.05% OPTH 1 DROP DROPERETTE OU SCH ×2 (08:16→21:33)
[2016-12-04] MEDS: ASPIRIN ENTERIC COATED 81 MG TABLET.DR. PO SCH (08:16)
[2016-12-04] MEDS: ALLOPURINOL 100 MG TABLET. PO SCH (08:16)
[2016-12-04] MEDS: CARVEDILOL 12.5 MG TABLET. PO SCH ×2 (08:16→17:33)
[2016-12-04] MEDS: CIPROFLOXACIN 400MG PREMIX 200 ML IV SCH (08:17)
[2016-12-04] MEDS: INSULIN ASPART 300 UNITS/3 ML INSULN.PEN SQ SCH ×3 (08:34→16:57)
--- NOTE | 2016-12-04 09:18 | PDOC ---
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[employer] HELPER: Alert, SKIN: No rash IV: ok Labs Lab Laboratory Tests Test 12/03/16 11:51 12/03/16 13:40 12/03/16 16:29 12/03/16 20:47 Glucose (Fingerstick) 321 mg/dL (70-99) 253 mg/dL (70-99) 233 mg/dL (70-99) White Blood Count 6.7 x10^3/uL (4.0-11.0) Red Blood Count 3.72 x10^6/uL (3.50-5.40) Hemoglobin 11.5 g/dL (12.0-15.5) Hematocrit 34.8 % (36.0-47.0) Mean Corpuscular Volume 94 fL (79-100) Mean Corpuscular Hemoglobin 31 pg (25-35) Mean Corpuscular Hemoglobin Concent 33 g/dL (31-37) Red Cell Distribution Width 17.7 % (11.5-14.5) Platelet Count 94 x10^3/uL (140-400) Neutrophils (%) (Auto) 68 % (31-73) Lymphocytes (%) (Auto) 11 % (24-48) Monocytes (%) (Auto) 18 % (0-9) Eosinophils (%) (Auto) 2 % (0-3) Basophils (%) (Auto) 1 % (0-3) Neutrophils # (Auto) 4.6 x10^3uL (1.8-7.7) Lymphocytes # (Auto) 0.7 x10^3/uL (1.0-4.8) Monocytes # (Auto) 1.2 x10^3/uL (0.0-1.1) Eosinophils # (Auto) 0.1 x10^3/uL (0.0-0.7) Basophils # (Auto) 0.1 x10^3/uL (0.0-0.2) Test 12/04/16 05:45 12/04/16 08:07 Creatine Kinase 362 U/L (26-192) Glucose (Fingerstick) 256 mg/dL (70-99) Objective Assessment Polymicrobial sepsis. POA. Acinetobacter Klebsiella x 2 spp UTI - POA Ampicillin allergy. Reaction unknown Acute encephalopathy, better Hypotension - improved lactic acidosis [place] on CKD, improved Loose stools. c. diff neg 11/08 & 11/25. DM II with hypoglycemia Chronic pain Plan Plan of Care d/c to NH on cipro for 7 more days ISA STORY MD Dec 04, 2016 09:18
--- NOTE | 2016-12-04 10:23 | PDOC2 ---
NEUROLOGY CONSULT Date of Admission Date of Admission DATE: 12/04/16 TIME: 10:11 Reason for Consult Reason for Consult: Altered mental status Referring Physician Referring Physician: Dr. Marks Source Source: Chart review, Patient History of Present Illness History of Present Illness The patient is a 71-year-old right-handed female admitted from the care home 9 days ago with altered mental status. She had hypotension and hypoglycemia and here in the hospital has been diagnosed with poly microbial sepsis, renal insufficiency, and has also continued has some trouble with her sugars. In addition, it was thought that the patient had excess of narcotics in her system at admission, and her mental status did improve with Narcan. The consult was placed yesterday not for any type of acute change but because the patient was persistently altered with her mental status. However, when I see the patient this morning, the nurse tells me the patient is as alert as she has been the whole hospital stay. The patient does have a history of dementia with Schizophrenia and depression, but no history of seizure, or head injury. Past Medical History Cardiovascular: CHF, HTN, Hyperlipidemia, Other ( peripheral vascular disease) Pulmonary: Other ( sleep apnea) CENTRAL NERVOUS SYSTEM: CVA, Periperal neuropathy, Other (Blind right eye) GI: Constipation, GERD, Other ( diarrhea, dysphagia) Psych: Depression, Schizophrenia, Other ( insomnia) Musculoskeletal: Osteoarthritis, Other ( fractures, chronic pain) Rheumatologic: Gout Renal/: Chronic renal insuff, Urinary Incontinence, Other ( pyelonephritis) Endocrine: Diabetes Past Surgical History Past Surgical History: Family History Family History: Cancer Social History Social History Single, care home resident, no tobacco recently, but used to smoke. No alcohol Current Medications Current Medications Current Medications Potassium Chloride (KCl Oral Soln) 40 meq 1X ONCE PO Last administered on 11/25 14:07; Start 11/25/16 at 12:45; Stop 11/25/16 at 12:46; Status DC Potassium Chloride/Dextrose/ Sod Cl 1,000 ml @ 75 mls/hr 1X ONCE IV Last administered on 11/25/16 15:16; Start 11/25/16 at 13:30; Stop 11/26/16 at 08:26 ; Status DC Allopurinol (Zyloprim) 100 mg DAILY PO Last administered on 12/04/16 08:16; Start 11/26/16 at 09:00 Aspirin (Ecotrin) 81 mg DAILY08 PO Last administered on 12/04/16 08:16; Start 11/26/16 at 08:00 Carvedilol (Coreg) 25 mg BIDWMEALS PO Last administered on 12/04/16 08:16; Start 11/26/16 at 08:00 Clonidine HCl (Catapres Tts-3) 1 patch WEEKLY TD Last administered on 12/03/16 09:07; Start 11/26/16 at 09:00 Colchicine (Colcrys) 0.6 mg BID PO Last administered on 12/04/16 08:12; Start 11/25/16 at 21:00 Cyclosporine (Restasis) 1 drop BID OU Last administered on 12/04/16 08:16; Start 11/25/16 at 21:00 Furosemide (Lasix) 40 mg BID94 PO ; Start 11/26/16 at 09:00; Stop 11/26/16 at 09 :00; Status DC Gabapentin (Neurontin) 100 mg BID PO Last administered on 12/04/16 08:12; Start 11/25/16 at 21:00 Isosorbide Mononitrate (Imdur) 30 mg DAILY PO Last administered on 12/04/16 08: 15; Start 11/26/16 at 09:00 Lidocaine (Lidoderm) 1 patch HS TP Last administered on 12/03/16 22:47; Start 11/25/16 at 21:00 Oxycodone/ Acetaminophen (Percocet 5/325) 1 tab PRN BID PRN PO PAIN SEVERE; Start 11/25/16 at 20:00 Quetiapine Fumarate (SEROquel) 25 mg BID PO ; Start 11/25/16 at 21:00; Stop at 11:18; Status DC Magnesium Sulfate/ Dextrose 50 ml @ 25 mls/hr PRN DAILY PRN IV for Mag < 1.7 on am labs Last administered on 11/28/16 14:49; Start 11/26/16 at 08:15 Potassium Acetate 40 meq/Sodium Chloride 1,020 ml @ 75 mls/hr [id number] IV Last administered on 11/27/16 02:35; Start 11/26/16 at 09:00; Stop 11/27/16 at 06:23 ; Status DC Potassium Chloride (Klor-Con) 40 meq TIDWMEALS PO Last administered on 17:08; Start 11/26/16 at 09:00; Stop 11/27/16 at 08:08; Status DC Sodium Chloride 500 ml @ 0 mls/hr QID PRN IV UO< 30cc/hr over previous 6hrs; Start 11/26/16 at 08:15; Stop 11/28/16 at 11:03; Status DC Vancomycin HCl (Vanco Per Pharmacy) 1 each PRN DAILY PRN MC SEE COMMENTS; Start 11/26/16 at 09:15; Status Cancel Aztreonam 1 gm/ Sodium Chloride 50 ml @ 100 mls/hr Q6HRS IV ; Start 11/26/16 at 10:00; Stop 11/26/16 at 10:56; Status DC Vancomycin HCl 2 gm/Sodium Chloride 500 ml @ 250 mls/hr 1X ONCE IV Last administered on 11/26/16 09:35; Start 11/26/16 at 10:00; Stop 11/26/16 at 11:59 ; Status DC Meropenem 500 mg/ Sodium Chloride 50 ml @ 100 mls/hr Q12HR IV Last administered on 11/26/16 20:49; Start 11/26/16 at 11:00; Stop 11/27/16 at 09:40 ; Status DC Vancomycin HCl 1.25 gm/Sodium Chloride 250 ml @ 167 mls/hr Q48H IV ; Start at 09:30; Status Cancel Vancomycin HCl 1 each 1X ONCE MC ; Start 11/30/16 at 09:00; Stop 11/30/16 at 09: 01; Status Cancel Quetiapine Fumarate (SEROquel) 25 mg HS PO Last administered on 12/02/16 20:49 ; Start 11/26/16 at 21:00 Insulin Detemir (Levemir) 10 units QHS SQ Last administered on 12/03/16 22:47; Start 11/26/16 at 21:00 Insulin Aspart (NovoLOG) 0-7 UNITS TIDWMEALS SQ Last administered on 12/04/16 08:34; Start 11/26/16 at 17:00 Dextrose (Dextrose 50%-Water Syringe) 12.5 gm PRN Q15MIN PRN IV SEE COMMENTS; Start 11/26/16 at 14:00 Haloperidol (Haldol) 5 mg 1X ONCE PO Last administered on 11/27/16 02:25; Start 11/27/16 at 02:00; Stop 11/27/16 at 02:01; Status DC Haloperidol Lactate (Haldol) 5 mg 1X ONCE IVP Last administered on 11/27/16 06:31; Start 11/27/16 at 06:30; Stop 11/27/16 at 06:31; Status DC Sodium Polystyrene Sulfonate (Kayexalate) 30 gm 1X ONCE PO Last administered on 11/27/16 06:31; Start 11/27/16 at 07:00; Stop 11/27/16 at 07:01; Status DC Haloperidol Lactate (Haldol) 5 mg PRN Q6HRS PRN IVP AGITATION Last administered on 11/27/16 17:28; Start 11/27/16 at 08:15 Sodium Chloride 1,000 ml @ 100 mls/hr 1X ONCE IV Last administered on 12:24; Start 11/27/16 at 08:15; Stop 11/27/16 at 18:14; Status DC Meropenem 500 mg/ Sodium Chloride 50 ml @ 100 mls/hr Q8HRS IV Last administered on 11/28/16 06:22; Start 11/27/16 at 14:00; Stop 11/28/16 at 10:34 ; Status DC Lorazepam (Ativan) 2 mg PRN Q4HRS PRN IV ANXIETY / AGITATION Last administered on 11/28/16 23:23; Start 11/27/16 at 09:45 Sodium Phosphate 20 mmol/Dextrose 256.6667 ml @ 64.167 m... Q4HRS IV Last administered on 11/27/16 17:02; Start 11/27/16 at 12:00; Stop 11/27/16 at 19:59 ; Status DC Dextrose/Sodium Chloride 1,000 ml @ 100 mls/hr Q10H IV Last administered on 01:32; Start 11/27/16 at 10:15; Stop 11/28/16 at 11:03; Status DC Sodium Polystyrene Sulfonate (Kayexalate) 15 gm 1X PRN PRN PO for repeat K > 5.3; Start 11/27/16 at 10:15 Sodium Polystyrene Sulfonate (Kayexalate) 30 gm 1X ONCE PO ; Start 11/27/16 at 12:00; Stop 11/27/16 at 12:01; Status DC Meropenem 500 mg/ Sodium Chloride 50 ml @ 100 mls/hr Q6HRS IV Last administered on 11/30/16 05:13; Start 11/28/16 at 12:00; Stop 11/30/16 at 11:46; Status DC Magnesium Sulfate/ Dextrose 100 ml @ 100 mls/hr 1X ONCE IV Last administered on 11/28/16 13:01; Start 11/28/16 at 11:30; Stop 11/28/16 at 12:29; Status DC Amino Acids/ Glycerin/ Electrolytes 1,000 ml @ 80 mls/hr [id number] IV Last administered on 12/01/16 06:22; Start 11/28/16 at 12:00; Stop 12/01/16 at 11:35; Status DC Ceftriaxone Sodium 1 gm/ Sodium Chloride 50 ml @ 100 mls/hr Q24H IV Last administered on 12/03/16 12:08; Start 11/30/16 at 12:00; Stop 12/04/16 at 09:19; Status DC Ciprofloxacin Lactate 200 ml @ 200 mls/hr Q12HR IV Last administered on 08:17; Start 11/30/16 at 13:00; Stop 12/04/16 at 09:19; Status DC Info 1 each PRN DAILY PRN MC SEE COMMENTS Last administered on 12/03/16 12:57; Start 12/01/16 at 11:45 Sodium Polystyrene Sulfonate (Kayexalate) 30 gm 1X ONCE PO Last administered on 12/01/16 14:08; Start 12/01/16 at 11:45; Stop 12/01/16 at 11:46; Status DC Sodium Chloride 90 meq/Sodium Phosphate 12 mmol/ Magnesium Sulfate 10 meq/ Calcium Gluconate 10 meq/ Multivitamins 10 ml/Chromium/ Copper/Manganese/ Seleni /Zn 1 ml/ Total Parenteral Nutrition/Amino Acids/Dextrose/ Fat Emulsion Intravenous 1,512 ml @ 63 mls/hr TPN CONT IV Last administered on 12/02/16 00 :21; Start 12/01/16 at 22:00; Stop 12/02/16 at 21:59; Status DC Sodium Chloride 40 meq/Sodium Phosphate 12 mmol/ Magnesium Sulfate 10 meq/ Calcium Gluconate 10 meq/ Multivitamins 10 ml/Chromium/ Copper/Manganese/ Seleni /Zn 1 ml/ Sodium Acetate 50 meq/Insulin Human Regular 10 unit/ Total Parenteral Nutrition/Amino Acids/Dextrose/ Fat Emulsion Intravenous 1,512 ml @ 63 mls/hr TPN CONT IV Last administered on 12/03/16 00:20; Start 12/02/16 at 22:00; Stop 12/03/16 at 21:59; Status DC Insulin Aspart (NovoLOG) 15 units 1X ONCE SQ Last administered on 12/02/16 11: 25; Start 12/02/16 at 11:15; Stop 12/02/16 at 11:16; Status DC Amlodipine Besylate (Norvasc) 10 mg DAILY PO Last administered on 12/04/16 08: 14; Start 12/02/16 at 15:30 Sodium Chloride 20 meq/Sodium Phosphate 8 mmol/ Magnesium Sulfate 10 meq/ Calcium Gluconate 10 meq/ Multivitamins 10 ml/Chromium/ Copper/Manganese/ Seleni /Zn 1 ml/ Sodium Acetate 30 meq/Insulin Human Regular 15 unit/ Potassium Acetate 30 meq/Total Parenteral Nutrition/Amino Acids/Dextrose/ Fat Emuls... 1, 512 ml @ 63 mls/hr TPN CONT IV ; Start 12/03/16 at 22:00; Stop 12/03/16 at 22:00 ; Status DC Sodium Chloride 20 meq/Sodium Phosphate 8 mmol/ Magnesium Sulfate 10 meq/ Calcium Gluconate 10 meq/ Multivitamins 10 ml/Chromium/ Copper/Manganese/ Seleni /Zn 1 ml/ Sodium Acetate 30 meq/Insulin Human Regular 20 unit/ Potassium Acetate 30 meq/Total Parenteral Nutrition/Amino Acids/Dextrose/ Fat Emuls... 1, 512 ml @ 63 mls/hr TPN CONT IV Last administered on 12/03/16 22:46; Start 12/03/16 at 22:00; Stop 12/04/16 at 21:59 Ciprofloxacin (Cipro) 500 mg BID PO ; Start 12/04/16 at 21:00 Active Scripts Active Reported Aspir 81 (Aspirin) 81 Mg Tablet.dr 1 Tab PO DAILY Allopurinol 100 Mg Tablet 1 Tab PO DAILY Colcrys (Colchicine) 0.6 Mg Tablet 1 Tab PO BID Lidoderm (Lidocaine) 700 Mg Adh..patch 1 Patch TP HS Gabapentin 100 Mg Capsule 100 Mg PO BID Hydralazine Hcl 100 Mg Tablet 1 Tab PO TID Furosemide 40 Mg Tablet 40 Mg PO BID Oxycodone-Acetaminophen 5-325 (Oxycodone Hcl/Acetaminophen) 1 Each Tablet 1 Each PO BID PRN Restasis (Cyclosporine) 1 Each Droperette 1 Drop EACHEYE BID Isosorbide Mononitrate Er (Isosorbide Mononitrate) 30 Mg Tab.er.24h 30 Mg PO DAILY Quetiapine Fumarate 25 Mg Tablet 25 Mg PO HS Coreg (Carvedilol) 12.5 Mg Tablet 25 Mg PO BID Catapres-Tts 3 (Clonidine) 1 Each Patch.tdwk 1 Each TD WEEKLY Pletal (Cilostazol) 100 Mg Tablet 100 Mg PO DAILYBFRLUN Acetaminophen Ext.release (Acetaminophen) 650 Mg Tablet.er 650 Mg PO Q6HRS PRN Levemir Flexpen (Insulin Detemir) 100 Unit/1 Ml Insuln.pen 14 Unit SQ DAILYWSUP Humalog (Insulin Lispro) 100 Unit/1 Ml Cartridge 3 Unit SQ TIDAC Glucagon Emergency Kit (Glucagon,Human Recombinant) 1 Mg Kit 1 Mg IJ Allergies Allergies: Coded Allergies: ampicillin (Verified Allergy, Intermediate, 12/07/14) fentanyl (Verified Allergy, Intermediate, 12/07/14) ROS Review of System Negative for fevers, chills, weight loss, shortness of breath, chest pain, indigestion, hematochezia, melena, dysuria. Full 14-point review systems is negative. Physical Exam Physical Examination PHYSICAL EXAMINATION: Vital signs: see above. General appearance is normal and in no acute distress. HEENT: Normocephalic and nontraumatic. Eyes, nose, ears, and throat are unremarkable. Neck is supple. No lymphadenopathy. No bruits are heard over the carotid artery. No crepitus. NEUROLOGIC: She is bright and alert, knows that she is in the hospital but names it by her care home's name. She does not know the date. She names and repeats well and her speech is fluent. Cranial nerve examination reveals full visual wong to confrontation, equally reactive pupils, and intact extraocular movements. There is no facial asymmetry. Reflexes are 1+ with flexor plantar responses. Strength is 3/5. Hndfel-umtg-bsesel is intact. I did not check her gait. There is a stocking sensory loss. Vitals VITALS Vital Signs Date Time Temp Pulse Resp B/P (MAP) Pulse Ox O2 Delivery O2 Flow Rate FiO2 12/04/16 08:16 82 167/78 12/04/16 08:00 Room Air 12/04/16 07:00 98.3 18 98 98.3 Labs Labs Laboratory Tests Test 12/02/16 10:26 12/02/16 16:10 12/02/16 21:00 12/03/16 04:00 Glucose (Fingerstick) 438 mg/dL (70-99) 261 mg/dL (70-99) 232 mg/dL (70-99) Sodium Level 142 mmol/L (136-145) Potassium Level 3.5 mmol/L (3.5-5.1) Chloride Level 108 mmol/L (98-107) Carbon Dioxide Level 24 mmol/L (21-32) Anion Gap 10 (6-14) Blood Urea Nitrogen 38 mg/dL (7-20) Creatinine 1.2 mg/dL (0.6-1.0) Estimated GFR (Cockcroft-Gault) 53.4 Glucose Level 265 mg/dL (70-99) Calcium Level 8.6 mg/dL (8.5-10.1) Phosphorus Level 4.2 mg/dL (2.6-4.7) Magnesium Level 1.8 mg/dL (1.8-2.4) Creatine Kinase 341 U/L (26-192) Albumin 2.2 g/dL (3.4-5.0) Test 12/03/16 08:09 12/03/16 11:51 12/03/16 13:40 12/03/16 16:29 Glucose (Fingerstick) 323 mg/dL (70-99) 321 mg/dL (70-99) 253 mg/dL (70-99) White Blood Count 6.7 x10^3/uL (4.0-11.0) Red Blood Count 3.72 x10^6/uL (3.50-5.40) Hemoglobin 11.5 g/dL (12.0-15.5) Hematocrit 34.8 % (36.0-47.0) Mean Corpuscular Volume 94 fL (79-100) Mean Corpuscular Hemoglobin 31 pg (25-35) Mean Corpuscular Hemoglobin Concent 33 g/dL (31-37) Red Cell Distribution Width 17.7 % (11.5-14.5) Platelet Count 94 x10^3/uL (140-400) Neutrophils (%) (Auto) 68 % (31-73) Lymphocytes (%) (Auto) 11 % (24-48) Monocytes (%) (Auto) 18 % (0-9) Eosinophils (%) (Auto) 2 % (0-3) Basophils (%) (Auto) 1 % (0-3) Neutrophils # (Auto) 4.6 x10^3uL (1.8-7.7) Lymphocytes # (Auto) 0.7 x10^3/uL (1.0-4.8) Monocytes # (Auto) 1.2 x10^3/uL (0.0-1.1) Eosinophils # (Auto) 0.1 x10^3/uL (0.0-0.7) Basophils # (Auto) 0.1 x10^3/uL (0.0-0.2) Test 12/03/16 20:47 12/04/16 05:45 12/04/16 08:07 Glucose (Fingerstick) 233 mg/dL (70-99) 256 mg/dL (70-99) Creatine Kinase 362 U/L (26-192) Laboratory Tests Test 12/03/16 11:51 12/03/16 13:40 12/03/16 16:29 12/03/16 20:47 Glucose (Fingerstick) 321 mg/dL (70-99) 253 mg/dL (70-99) 233 mg/dL (70-99) White Blood Count 6.7 x10^3/uL (4.0-11.0) Red Blood Count 3.72 x10^6/uL (3.50-5.40) Hemoglobin 11.5 g/dL (12.0-15.5) Hematocrit 34.8 % (36.0-47.0) Mean Corpuscular Volume 94 fL (79-100) Mean Corpuscular Hemoglobin 31 pg (25-35) Mean Corpuscular Hemoglobin Concent 33 g/dL (31-37) Red Cell Distribution Width 17.7 % (11.5-14.5) Platelet Count 94 x10^3/uL (140-400) Neutrophils (%) (Auto) 68 % (31-73) Lymphocytes (%) (Auto) 11 % (24-48) Monocytes (%) (Auto) 18 % (0-9) Eosinophils (%) (Auto) 2 % (0-3) Basophils (%) (Auto) 1 % (0-3) Neutrophils # (Auto) 4.6 x10^3uL (1.8-7.7) Lymphocytes # (Auto) 0.7 x10^3/uL (1.0-4.8) Monocytes # (Auto) 1.2 x10^3/uL (0.0-1.1) Eosinophils # (Auto) 0.1 x10^3/uL (0.0-0.7) Basophils # (Auto) 0.1 x10^3/uL (0.0-0.2) Test 12/04/16 05:45 12/04/16 08:07 Creatine Kinase 362 U/L (26-192) Glucose (Fingerstick) 256 mg/dL (70-99) Images Images No brain imaging studies are in the chart Assessment/Plan Assessment/Plan Impression: Metabolic encephalopathy in the setting of dementia from schizophrenia and depression, she is actually at her best mental status today as I see her. Recommendations: Given this improvement, I see no need for additional neurological studies. Okay for discharge back to care home. Thank you for letting me help with the patient's care. BRANDAN SPAULDING MD Dec 04, 2016 10:23
[2016-12-04 11:00] VITALS: BP 118/62
--- NOTE | 2016-12-04 11:58 | PDOC ---
PROGRESS NOTES Chief Complaint Chief Complaint ASSESSMENT AND PLAN: 1. Metabolic encephalopathy on chronic baseline dementia: ongoing, waxing and waning. appreciate Dr Agustin's input: no further W/U warranted, chronic baseline 2. Sepsis: Acinetobacter. 3. UTI: Klebsiella spp x2: on cipro for [address] Alarcon 4. Hypokalemia: resolved 5. DM: currently poorly controlled, prob related to TPN. increased levemir 6. Agitation: unclear etiology; resolved. no ativan or haldol for 4+ days. seroquel only qHS 7. 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 stop colchrys 8. HTN: poorly controlled; on catapres and norvasc and carvedilol maxed out. add hydralazine 9. CHF: diastolic (LVEF 60-65%, normal valves, normal segmental wall motion; ). no acute issues 10. PVD: hx CVA 11. Anemia: chronic, stable 12. Constipation 13. Depression: cont home meds 14. Nutrition: on TPN 2/ AMS. start PO feeds, wean TPN 15. Dispo: back to [facility] (w/rehab) in 1-2 days History of Present Illness History of Present Illness responding appropriately today. denies pain. reports of waxing and waning mental status per staff trainer. Vitals Vitals Vital Signs Date Time Temp Pulse Resp B/P (MAP) Pulse Ox O2 Delivery O2 Flow Rate FiO2 12/04/16 08:16 82 167/78 12/04/16 08:00 Room Air 12/04/16 07:00 98.3 18 98 98.3 Physical Exam General: No acute distress, Other (minimal responce today?) Heart: Regular rate, Normal S1, Normal S2 Lungs: Clear Abdomen: Normal bowel sounds, Soft Extremities: No clubbing, No cyanosis Skin: No rashes, No breakdown, No significant lesion Labs LABS Laboratory Tests Test 12/03/16 11:51 12/03/16 13:40 12/03/16 16:29 12/03/16 20:47 Glucose (Fingerstick) 321 mg/dL (70-99) 253 mg/dL (70-99) 233 mg/dL (70-99) White Blood Count 6.7 x10^3/uL (4.0-11.0) Red Blood Count 3.72 x10^6/uL (3.50-5.40) Hemoglobin 11.5 g/dL (12.0-15.5) Hematocrit 34.8 % (36.0-47.0) Mean Corpuscular Volume 94 fL (79-100) Mean Corpuscular Hemoglobin 31 pg (25-35) Mean Corpuscular Hemoglobin Concent 33 g/dL (31-37) Red Cell Distribution Width 17.7 % (11.5-14.5) Platelet Count 94 x10^3/uL (140-400) Neutrophils (%) (Auto) 68 % (31-73) Lymphocytes (%) (Auto) 11 % (24-48) Monocytes (%) (Auto) 18 % (0-9) Eosinophils (%) (Auto) 2 % (0-3) Basophils (%) (Auto) 1 % (0-3) Neutrophils # (Auto) 4.6 x10^3uL (1.8-7.7) Lymphocytes # (Auto) 0.7 x10^3/uL (1.0-4.8) Monocytes # (Auto) 1.2 x10^3/uL (0.0-1.1) Eosinophils # (Auto) 0.1 x10^3/uL (0.0-0.7) Basophils # (Auto) 0.1 x10^3/uL (0.0-0.2) Test 12/04/16 05:45 12/04/16 08:07 Creatine Kinase 362 U/L (26-192) Glucose (Fingerstick) 256 mg/dL (70-99) HERMES LAYTON MD Dec 04, 2016 11:58
[2016-12-04 12:54] LABS: CALCIUM 8.4 mg/dL (8.5-10.1); CREATININE 1.1 mg/dL (0.6-1.0); GFR 59.1; POTASSIUM 3.5 mmol/L (3.5-5.1)
[2016-12-04 12:59] LABS: ALBUMIN 2.1 g/dL (3.4-5.0); ALBUMIN/GLOBULIN RATIO 0.6 (1.0-1.7); TOTAL BILIRUBIN 0.5 mg/dL (0.2-1.0); TOTAL PROTEIN 5.5 g/dL (6.4-8.2)
[2016-12-04] MEDS: hydrALAZINE 10 MG TABLET PO SCH ×2 (14:29→21:33)
[2016-12-04 15:00] VITALS: BP 106/46
[2016-12-04 19:00] VITALS: BP 129/53
[2016-12-04] MEDS ORDERED: INSULIN DETEMIR 300 UNITS/3 ML INSULN.PEN. SQ SCH (21:00)
[2016-12-04] MEDS: LIDOCAINE (700MG/PATCH) PATCH. TP SCH (21:33)
[2016-12-04] MEDS: QUEtiapine 25 MG TABLET. PO SCH (21:34)
[2016-12-04] MEDS: CIPROFLOXACIN HCL 250 MG TABLET. PO SCH (21:34)
[2016-12-04 23:00] VITALS: BP 128/59
--- NOTE | 2016-12-04 23:23 | PDOC ---
Provider Note Provider Note RENAL F/U : WILLIAM S : No new issues. O : VSS Afebrile. Neck : Supple Lungs : Non labored. CVS : RRR Abd : Benign in appearance, without distention. Ext : 1+ edema Neuro : Awake. Labs reviewed. A/P : ARF/ATN ELECTROLYTE IMBALANCE HTN w CKD II Tolerating TPN well. Labs. CPM. AIDAN THOMAS MD Dec 04, 2016 23:23
[2016-12-05 03:00] VITALS: BP 133/52
[2016-12-05 07:05] VITALS: BP 152/63
[2016-12-05] MEDS: INSULIN ASPART 300 UNITS/3 ML INSULN.PEN SQ SCH ×3 (07:57→17:00)
[2016-12-05] MEDS: amLODIPine BESYLATE 10 MG TABLET PO SCH (09:54)
[2016-12-05] MEDS: ALLOPURINOL 100 MG TABLET. PO SCH (09:54)
[2016-12-05] MEDS: CIPROFLOXACIN HCL 250 MG TABLET. PO SCH ×2 (09:54→21:15)
[2016-12-05] MEDS: ISOSORBIDE MONONITRATE ER 30 MG TAB.ER.24H PO SCH (09:55)
[2016-12-05] MEDS: GABAPENTIN 100 MG CAPSULE. PO SCH ×2 (09:56→21:14)
[2016-12-05] MEDS: cycloSPORINE 0.05% OPTH 1 DROP DROPERETTE OU SCH ×2 (09:57→21:14)
[2016-12-05] MEDS: CARVEDILOL 12.5 MG TABLET. PO SCH ×2 (09:57→17:00)
[2016-12-05] MEDS: ASPIRIN ENTERIC COATED 81 MG TABLET.DR. PO SCH (09:57)
[2016-12-05] MEDS: hydrALAZINE 10 MG TABLET PO SCH ×3 (09:57→21:14)
--- NOTE | 2016-12-05 10:01 | PDOC ---
PROGRESS NOTES Assessment Problems Medical Problems: (1) Acute kidney injury Status: Acute (2) Altered level of consciousness Status: Acute (3) Hypoglycemia associated with type 2 diabetes mellitus Status: Acute (4) Hypokalemia Status: Acute (5) Opiate overdose Status: Acute Metabolic encephalopathy in the setting of dementia from schizophrenia and depression, she is actually at her best mental status today as I see her. Plan No additional neurological studies planned Subjective No complaints Objective Vital Signs Date Time Temp Pulse Resp B/P (MAP) Pulse Ox O2 Delivery O2 Flow Rate FiO2 12/05/16 08:00 Room Air 12/05/16 07:05 96.8 71 18 152/63 (92) 100 96.8 Intake and Output 12/05/16 07:00 Intake Total 265 ml Output Total 775 ml Balance -510 ml Intake Oral 65 ml IV Total 200 ml Output Urine Total 775 ml # Bowel Movements 3 PHYSICAL EXAM Alert. Oriented to place and person. PERRL. EOMI. CN: no focal findings. Muscle tone: normal. Muscle strength: 3/5 DTR: 1+ Plantar reflex: flexor Gait: not examined in bed. Sensory exam: no abnormal findings. No cerebellar signs elicited. Review of Relevant I have reviewed the following items forest (where applicable) has been applied. Labs Laboratory Tests Test 12/03/16 11:51 12/03/16 13:40 12/03/16 16:29 12/03/16 20:47 Glucose (Fingerstick) 321 mg/dL (70-99) 253 mg/dL (70-99) 233 mg/dL (70-99) White Blood Count 6.7 x10^3/uL (4.0-11.0) Red Blood Count 3.72 x10^6/uL (3.50-5.40) Hemoglobin 11.5 g/dL (12.0-15.5) Hematocrit 34.8 % (36.0-47.0) Mean Corpuscular Volume 94 fL (79-100) Mean Corpuscular Hemoglobin 31 pg (25-35) Mean Corpuscular Hemoglobin Concent 33 g/dL (31-37) Red Cell Distribution Width 17.7 % (11.5-14.5) Platelet Count 94 x10^3/uL (140-400) Neutrophils (%) (Auto) 68 % (31-73) Lymphocytes (%) (Auto) 11 % (24-48) Monocytes (%) (Auto) 18 % (0-9) Eosinophils (%) (Auto) 2 % (0-3) Basophils (%) (Auto) 1 % (0-3) Neutrophils # (Auto) 4.6 x10^3uL (1.8-7.7) Lymphocytes # (Auto) 0.7 x10^3/uL (1.0-4.8) Monocytes # (Auto) 1.2 x10^3/uL (0.0-1.1) Eosinophils # (Auto) 0.1 x10^3/uL (0.0-0.7) Basophils # (Auto) 0.1 x10^3/uL (0.0-0.2) Test 12/04/16 05:45 12/04/16 08:07 12/04/16 11:34 12/04/16 12:30 Creatine Kinase 362 U/L (26-192) Glucose (Fingerstick) 256 mg/dL (70-99) 254 mg/dL (70-99) Sodium Level 143 mmol/L (136-145) Potassium Level 3.5 mmol/L (3.5-5.1) Chloride Level 109 mmol/L (98-107) Carbon Dioxide Level 25 mmol/L (21-32) Anion Gap 9 (6-14) Blood Urea Nitrogen 43 mg/dL (7-20) Creatinine 1.1 mg/dL (0.6-1.0) Estimated GFR (Cockcroft-Gault) 59.1 BUN/Creatinine Ratio 39 (6-20) Glucose Level 212 mg/dL (70-99) Calcium Level 8.4 mg/dL (8.5-10.1) Total Bilirubin 0.5 mg/dL (0.2-1.0) Aspartate Amino Transf (AST/SGOT) 90 U/L (15-37) Alanine Aminotransferase (ALT/SGPT) 71 U/L (14-59) Alkaline Phosphatase 98 U/L (46-116) Ammonia 12 mcmol/L (11-34) Total Protein 5.5 g/dL (6.4-8.2) Albumin 2.1 g/dL (3.4-5.0) Albumin/Globulin Ratio 0.6 (1.0-1.7) Test 12/04/16 16:13 12/04/16 20:25 12/05/16 01:51 12/05/16 04:13 Glucose (Fingerstick) 142 mg/dL (70-99) 144 mg/dL (70-99) 98 mg/dL (70-99) 96 mg/dL (70-99) Test 12/05/16 04:15 12/05/16 07:07 Creatine Kinase 310 U/L (26-192) Glucose (Fingerstick) 92 mg/dL (70-99) Laboratory Tests Test 12/04/16 11:34 12/04/16 12:30 12/04/16 16:13 12/04/16 20:25 Glucose (Fingerstick) 254 mg/dL (70-99) 142 mg/dL (70-99) 144 mg/dL (70-99) Sodium Level 143 mmol/L (136-145) Potassium Level 3.5 mmol/L (3.5-5.1) Chloride Level 109 mmol/L (98-107) Carbon Dioxide Level 25 mmol/L (21-32) Anion Gap 9 (6-14) Blood Urea Nitrogen 43 mg/dL (7-20) Creatinine 1.1 mg/dL (0.6-1.0) Estimated GFR (Cockcroft-Gault) 59.1 BUN/Creatinine Ratio 39 (6-20) Glucose Level 212 mg/dL (70-99) Calcium Level 8.4 mg/dL (8.5-10.1) Total Bilirubin 0.5 mg/dL (0.2-1.0) Aspartate Amino Transf (AST/SGOT) 90 U/L (15-37) Alanine Aminotransferase (ALT/SGPT) 71 U/L (14-59) Alkaline Phosphatase 98 U/L (46-116) Ammonia 12 mcmol/L (11-34) Total Protein 5.5 g/dL (6.4-8.2) Albumin 2.1 g/dL (3.4-5.0) Albumin/Globulin Ratio 0.6 (1.0-1.7) Test 12/05/16 01:51 12/05/16 04:13 12/05/16 04:15 12/05/16 07:07 Glucose (Fingerstick) 98 mg/dL (70-99) 96 mg/dL (70-99) 92 mg/dL (70-99) Creatine Kinase 310 U/L (26-192) Microbiology 11/25/16 Blood Culture - Final, Complete NO GROWTH AFTER 5 DAYS 11/25/16 Urine Culture - Final, Complete 11/25/16 Urine Culture Result 1 (JUDITH) - Final, Complete 11/25/16 Urine Culture Result 2 (JUDITH) - Final, Complete 11/25/16 Antimicrobic Susceptibility - Final, Complete Medications Current Medications Potassium Chloride (KCl Oral Soln) 40 meq 1X ONCE PO Last administered on 11/25 14:07; Start 11/25/16 at 12:45; Stop 11/25/16 at 12:46; Status DC Potassium Chloride/Dextrose/ Sod Cl 1,000 ml @ 75 mls/hr 1X ONCE IV Last administered on 11/25/16 15:16; Start 11/25/16 at 13:30; Stop 11/26/16 at 08:26 ; Status DC Allopurinol (Zyloprim) 100 mg DAILY PO Last administered on 12/04/16 08:16; Start 11/26/16 at 09:00 Aspirin (Ecotrin) 81 mg DAILY08 PO Last administered on 12/04/16 08:16; Start 11/26/16 at 08:00 Carvedilol (Coreg) 25 mg BIDWMEALS PO Last administered on 12/04/16 17:33; Start 11/26/16 at 08:00 Clonidine HCl (Catapres Tts-3) 1 patch WEEKLY TD Last administered on 12/03/16 09:07; Start 11/26/16 at 09:00 Colchicine (Colcrys) 0.6 mg BID PO Last administered on 12/04/16 08:12; Start 11/25/16 at 21:00; Stop 12/04/16 at 11:30; Status DC Cyclosporine (Restasis) 1 drop BID OU Last administered on 12/04/16 21:33; Start 11/25/16 at 21:00 Furosemide (Lasix) 40 mg BID94 PO ; Start 11/26/16 at 09:00; Stop 11/26/16 at 09 :00; Status DC Gabapentin (Neurontin) 100 mg BID PO Last administered on 12/04/16 21:33; Start 11/25/16 at 21:00 Isosorbide Mononitrate (Imdur) 30 mg DAILY PO Last administered on 12/04/16 08: 15; Start 11/26/16 at 09:00 Lidocaine (Lidoderm) 1 patch HS TP Last administered on 12/04/16 21:33; Start 11/25/16 at 21:00 Oxycodone/ Acetaminophen (Percocet 5/325) 1 tab PRN BID PRN PO PAIN SEVERE; Start 11/25/16 at 20:00 Quetiapine Fumarate (SEROquel) 25 mg BID PO ; Start 11/25/16 at 21:00; Stop at 11:18; Status DC Magnesium Sulfate/ Dextrose 50 ml @ 25 mls/hr PRN DAILY PRN IV for Mag < 1.7 on am labs Last administered on 11/28/16 14:49; Start 11/26/16 at 08:15 Potassium Acetate 40 meq/Sodium Chloride 1,020 ml @ 75 mls/hr [id number] IV Last administered on 11/27/16 02:35; Start 11/26/16 at 09:00; Stop 11/27/16 at 06:23 ; Status DC Potassium Chloride (Klor-Con) 40 meq TIDWMEALS PO Last administered on 17:08; Start 11/26/16 at 09:00; Stop 11/27/16 at 08:08; Status DC Sodium Chloride 500 ml @ 0 mls/hr QID PRN IV UO< 30cc/hr over previous 6hrs; Start 11/26/16 at 08:15; Stop 11/28/16 at 11:03; Status DC Vancomycin HCl (Vanco Per Pharmacy) 1 each PRN DAILY PRN MC SEE COMMENTS; Start 11/26/16 at 09:15; Status Cancel Aztreonam 1 gm/ Sodium Chloride 50 ml @ 100 mls/hr Q6HRS IV ; Start 11/26/16 at 10:00; Stop 11/26/16 at 10:56; Status DC Vancomycin HCl 2 gm/Sodium Chloride 500 ml @ 250 mls/hr 1X ONCE IV Last administered on 11/26/16 09:35; Start 11/26/16 at 10:00; Stop 11/26/16 at 11:59 ; Status DC Meropenem 500 mg/ Sodium Chloride 50 ml @ 100 mls/hr Q12HR IV Last administered on 11/26/16 20:49; Start 11/26/16 at 11:00; Stop 11/27/16 at 09:40 ; Status DC Vancomycin HCl 1.25 gm/Sodium Chloride 250 ml @ 167 mls/hr Q48H IV ; Start at 09:30; Status Cancel Vancomycin HCl 1 each 1X ONCE MC ; Start 11/30/16 at 09:00; Stop 11/30/16 at 09: 01; Status Cancel Quetiapine Fumarate (SEROquel) 25 mg HS PO Last administered on 12/04/16 21:34 ; Start 11/26/16 at 21:00 Insulin Detemir (Levemir) 10 units QHS SQ Last administered on 12/03/16 22:47; Start 11/26/16 at 21:00; Stop 12/04/16 at 11:34; Status DC Insulin Aspart (NovoLOG) 0-7 UNITS TIDWMEALS SQ Last administered on 12/04/16 12:18; Start 11/26/16 at 17:00 Dextrose (Dextrose 50%-Water Syringe) 12.5 gm PRN Q15MIN PRN IV SEE COMMENTS; Start 11/26/16 at 14:00 Haloperidol (Haldol) 5 mg 1X ONCE PO Last administered on 11/27/16 02:25; Start 11/27/16 at 02:00; Stop 11/27/16 at 02:01; Status DC Haloperidol Lactate (Haldol) 5 mg 1X ONCE IVP Last administered on 11/27/16 06:31; Start 11/27/16 at 06:30; Stop 11/27/16 at 06:31; Status DC Sodium Polystyrene Sulfonate (Kayexalate) 30 gm 1X ONCE PO Last administered on 11/27/16 06:31; Start 11/27/16 at 07:00; Stop 11/27/16 at 07:01; Status DC Haloperidol Lactate (Haldol) 5 mg PRN Q6HRS PRN IVP AGITATION Last administered on 11/27/16 17:28; Start 11/27/16 at 08:15 Sodium Chloride 1,000 ml @ 100 mls/hr 1X ONCE IV Last administered on 12:24; Start 11/27/16 at 08:15; Stop 11/27/16 at 18:14; Status DC Meropenem 500 mg/ Sodium Chloride 50 ml @ 100 mls/hr Q8HRS IV Last administered on 11/28/16 06:22; Start 11/27/16 at 14:00; Stop 11/28/16 at 10:34 ; Status DC Lorazepam (Ativan) 2 mg PRN Q4HRS PRN IV ANXIETY / AGITATION Last administered on 11/28/16 23:23; Start 11/27/16 at 09:45 Sodium Phosphate 20 mmol/Dextrose 256.6667 ml @ 64.167 m... Q4HRS IV Last administered on 11/27/16 17:02; Start 11/27/16 at 12:00; Stop 11/27/16 at 19:59 ; Status DC Dextrose/Sodium Chloride 1,000 ml @ 100 mls/hr Q10H IV Last administered on 01:32; Start 11/27/16 at 10:15; Stop 11/28/16 at 11:03; Status DC Sodium Polystyrene Sulfonate (Kayexalate) 15 gm 1X PRN PRN PO for repeat K > 5.3; Start 11/27/16 at 10:15 Sodium Polystyrene Sulfonate (Kayexalate) 30 gm 1X ONCE PO ; Start 11/27/16 at 12:00; Stop 11/27/16 at 12:01; Status DC Meropenem 500 mg/ Sodium Chloride 50 ml @ 100 mls/hr Q6HRS IV Last administered on 11/30/16 05:13; Start 11/28/16 at 12:00; Stop 11/30/16 at 11:46; Status DC Magnesium Sulfate/ Dextrose 100 ml @ 100 mls/hr 1X ONCE IV Last administered on 11/28/16 13:01; Start 11/28/16 at 11:30; Stop 11/28/16 at 12:29; Status DC Amino Acids/ Glycerin/ Electrolytes 1,000 ml @ 80 mls/hr [id number] IV Last administered on 12/01/16 06:22; Start 11/28/16 at 12:00; Stop 12/01/16 at 11:35; Status DC Ceftriaxone Sodium 1 gm/ Sodium Chloride 50 ml @ 100 mls/hr Q24H IV Last administered on 12/03/16 12:08; Start 11/30/16 at 12:00; Stop 12/04/16 at 09:19; Status DC Ciprofloxacin Lactate 200 ml @ 200 mls/hr Q12HR IV Last administered on 08:17; Start 11/30/16 at 13:00; Stop 12/04/16 at 09:19; Status DC Info 1 each PRN DAILY PRN MC SEE COMMENTS Last administered on 12/03/16 12:57; Start 12/01/16 at 11:45; Stop 12/04/16 at 12:20; Status DC Sodium Polystyrene Sulfonate (Kayexalate) 30 gm 1X ONCE PO Last administered on 12/01/16 14:08; Start 12/01/16 at 11:45; Stop 12/01/16 at 11:46; Status DC Sodium Chloride 90 meq/Sodium Phosphate 12 mmol/ Magnesium Sulfate 10 meq/ Calcium Gluconate 10 meq/ Multivitamins 10 ml/Chromium/ Copper/Manganese/ Seleni /Zn 1 ml/ Total Parenteral Nutrition/Amino Acids/Dextrose/ Fat Emulsion Intravenous 1,512 ml @ 63 mls/hr TPN CONT IV Last administered on 12/02/16 00 :21; Start 12/01/16 at 22:00; Stop 12/02/16 at 21:59; Status DC Sodium Chloride 40 meq/Sodium Phosphate 12 mmol/ Magnesium Sulfate 10 meq/ Calcium Gluconate 10 meq/ Multivitamins 10 ml/Chromium/ Copper/Manganese/ Seleni /Zn 1 ml/ Sodium Acetate 50 meq/Insulin Human Regular 10 unit/ Total Parenteral Nutrition/Amino Acids/Dextrose/ Fat Emulsion Intravenous 1,512 ml @ 63 mls/hr TPN CONT IV Last administered on 12/03/16 00:20; Start 12/02/16 at 22:00; Stop 12/03/16 at 21:59; Status DC Insulin Aspart (NovoLOG) 15 units 1X ONCE SQ Last administered on 12/02/16 11: 25; Start 12/02/16 at 11:15; Stop 12/02/16 at 11:16; Status DC Amlodipine Besylate (Norvasc) 10 mg DAILY PO Last administered on 12/04/16 08: 14; Start 12/02/16 at 15:30 Sodium Chloride 20 meq/Sodium Phosphate 8 mmol/ Magnesium Sulfate 10 meq/ Calcium Gluconate 10 meq/ Multivitamins 10 ml/Chromium/ Copper/Manganese/ Seleni /Zn 1 ml/ Sodium Acetate 30 meq/Insulin Human Regular 15 unit/ Potassium Acetate 30 meq/Total Parenteral Nutrition/Amino Acids/Dextrose/ Fat Emuls... 1, 512 ml @ 63 mls/hr TPN CONT IV ; Start 12/03/16 at 22:00; Stop 12/03/16 at 22:00 ; Status DC Sodium Chloride 20 meq/Sodium Phosphate 8 mmol/ Magnesium Sulfate 10 meq/ Calcium Gluconate 10 meq/ Multivitamins 10 ml/Chromium/ Copper/Manganese/ Seleni /Zn 1 ml/ Sodium Acetate 30 meq/Insulin Human Regular 20 unit/ Potassium Acetate 30 meq/Total Parenteral Nutrition/Amino Acids/Dextrose/ Fat Emuls... 1, 512 ml @ 63 mls/hr TPN CONT IV Last administered on 12/03/16 22:46; Start 12/03/16 at 22:00; Stop 12/04/16 at 21:59; Status DC Ciprofloxacin (Cipro) 500 mg BID PO Last administered on 12/04/16 21:34; Start 12/04/16 at 21:00 Insulin Detemir (Levemir) 17 units QHS SQ Last administered on 12/04/16 21:44; Start 12/04/16 at 21:00 Hydralazine HCl (Apresoline) 10 mg TID PO Last administered on 12/04/16 21:33; Start 12/04/16 at 14:00 Active Scripts Active Reported Aspir 81 (Aspirin) 81 Mg Tablet.dr 1 Tab PO DAILY Allopurinol 100 Mg Tablet 1 Tab PO DAILY Colcrys (Colchicine) 0.6 Mg Tablet 1 Tab PO BID Lidoderm (Lidocaine) 700 Mg Adh..patch 1 Patch TP HS Gabapentin 100 Mg Capsule 100 Mg PO BID Hydralazine Hcl 100 Mg Tablet 1 Tab PO TID Furosemide 40 Mg Tablet 40 Mg PO BID Oxycodone-Acetaminophen 5-325 (Oxycodone Hcl/Acetaminophen) 1 Each Tablet 1 Each PO BID PRN Restasis (Cyclosporine) 1 Each Droperette 1 Drop EACHEYE BID Isosorbide Mononitrate Er (Isosorbide Mononitrate) 30 Mg Tab.er.24h 30 Mg PO DAILY Quetiapine Fumarate 25 Mg Tablet 25 Mg PO HS Coreg (Carvedilol) 12.5 Mg Tablet 25 Mg PO BID Catapres-Tts 3 (Clonidine) 1 Each Patch.tdwk 1 Each TD WEEKLY Pletal (Cilostazol) 100 Mg Tablet 100 Mg PO DAILYBFRLUN Acetaminophen Ext.release (Acetaminophen) 650 Mg Tablet.er 650 Mg PO Q6HRS PRN Levemir Flexpen (Insulin Detemir) 100 Unit/1 Ml Insuln.pen 14 Unit SQ DAILYWSUP Humalog (Insulin Lispro) 100 Unit/1 Ml Cartridge 3 Unit SQ TIDAC Glucagon Emergency Kit (Glucagon,Human Recombinant) 1 Mg Kit 1 Mg IJ Vitals/I & O Vital Sign - Last 24 Hours 12/04/16 12/04/16 12/04/16 12/04/16 11:00 14:29 15:00 17:33 Temp 97.7 98.9 97.7 98.9 Pulse 75 69 61 61 Resp 16 14 B/P (MAP) 118/62 (80) 106/46 106/46 (66) 106/46 Pulse Ox 97 97 O2 Delivery Room Air Room Air 12/04/16 12/04/16 12/04/16 12/04/16 19:00 20:00 21:33 23:00 Temp 98.6 98.6 98.6 98.6 Pulse 68 68 70 Resp 18 20 B/P (MAP) 129/53 (78) 129/53 128/59 (82) Pulse Ox 96 94 O2 Delivery Room Air Room Air Room Air 12/05/16 12/05/16 12/05/16 03:00 07:05 08:00 Temp 98.3 96.8 98.3 96.8 Pulse 69 71 Resp 20 18 B/P (MAP) 133/52 (79) 152/63 (92) Pulse Ox 95 100 O2 Delivery Room Air Room Air Room Air Intake and Output 12/04/16 12/04/16 12/05/16 15:00 23:00 07:00 Intake Total 250 ml 15 ml Output Total 175 ml 250 ml 350 ml Balance 75 ml -235 ml -350 ml BRANDAN SPAULDING MD Dec 05, 2016 10:01
--- NOTE | 2016-12-05 10:12 | PDOC ---
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 IV: ok Labs Lab Laboratory Tests Test 12/04/16 11:34 12/04/16 12:30 12/04/16 16:13 12/04/16 20:25 Glucose (Fingerstick) 254 mg/dL (70-99) 142 mg/dL (70-99) 144 mg/dL (70-99) Sodium Level 143 mmol/L (136-145) Potassium Level 3.5 mmol/L (3.5-5.1) Chloride Level 109 mmol/L (98-107) Carbon Dioxide Level 25 mmol/L (21-32) Anion Gap 9 (6-14) Blood Urea Nitrogen 43 mg/dL (7-20) Creatinine 1.1 mg/dL (0.6-1.0) Estimated GFR (Cockcroft-Gault) 59.1 BUN/Creatinine Ratio 39 (6-20) Glucose Level 212 mg/dL (70-99) Calcium Level 8.4 mg/dL (8.5-10.1) Total Bilirubin 0.5 mg/dL (0.2-1.0) Aspartate Amino Transf (AST/SGOT) 90 U/L (15-37) Alanine Aminotransferase (ALT/SGPT) 71 U/L (14-59) Alkaline Phosphatase 98 U/L (46-116) Ammonia 12 mcmol/L (11-34) Total Protein 5.5 g/dL (6.4-8.2) Albumin 2.1 g/dL (3.4-5.0) Albumin/Globulin Ratio 0.6 (1.0-1.7) Test 12/05/16 01:51 12/05/16 04:13 12/05/16 04:15 12/05/16 07:07 Glucose (Fingerstick) 98 mg/dL (70-99) 96 mg/dL (70-99) 92 mg/dL (70-99) Creatine Kinase 310 U/L (26-192) Objective Assessment Polymicrobial sepsis. POA. Acinetobacter Klebsiella x 2 spp UTI - POA Ampicillin allergy. Reaction unknown Acute encephalopathy, better Hypotension - improved lactic acidosis [place] on CKD, improved Loose stools. c. diff neg 11/08 & 11/25. DM II with hypoglycemia Chronic pain Plan Plan of Care d/c to NH on cipro for 6 more days ISA STORY MD Dec 05, 2016 10:12
[2016-12-05 10:30] VITALS: BP 145/57
[2016-12-05 15:30] VITALS: BP 99/34
--- NOTE | 2016-12-05 16:34 | PDOC ---
PROGRESS NOTES Chief Complaint Chief Complaint ASSESSMENT AND PLAN: 1. Metabolic encephalopathy on chronic baseline dementia: ongoing, waxing and waning. appreciate Dr Agustin's input: no further W/U warranted, chronic baseline 2. Sepsis: Acinetobacter. (see 3.) 3. UTI: Klebsiella spp x2: on cipro for [address] Alarcon 4. Hypokalemia: resolved 5. DM: currently poorly controlled, prob related to TPN. increased levemir 6. Agitation: unclear etiology; resolved. no ativan or haldol for 4+ days. seroquel only qHS 7. 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 stop colchrys 8. HTN: poorly controlled; on catapres and norvasc and carvedilol maxed out. add hydralazine 9. CHF: diastolic (LVEF 60-65%, normal valves, normal segmental wall motion; ). no acute issues 10. PVD: hx CVA 11. Anemia: chronic, stable 12. Constipation 13. Depression: cont home meds 14. Nutrition: on TPN 2/ AMS. start PO feeds, wean TPN 15. Dispo: back to [place] in AM History of Present Illness History of Present Illness waking easily, responding appropriately. PO intake about 25% here, but per family at bedside, about the same as in [place]. Vitals Vitals Vital Signs Date Time Temp Pulse Resp B/P (MAP) Pulse Ox O2 Delivery O2 Flow Rate FiO2 12/05/16 14:00 75 99/34 12/05/16 10:30 96.6 18 100 Room Air 96.6 Physical Exam General: Alert, Cooperative, No acute distress Heart: Regular rate, Normal S1, Normal S2 Lungs: Clear Abdomen: Normal bowel sounds, Soft Extremities: No clubbing, No cyanosis Skin: No rashes, No breakdown, No significant lesion Labs LABS Laboratory Tests Test 12/04/16 20:25 12/05/16 01:51 12/05/16 04:13 12/05/16 04:15 Glucose (Fingerstick) 144 mg/dL (70-99) 98 mg/dL (70-99) 96 mg/dL (70-99) Creatine Kinase 310 U/L (26-192) Test 12/05/16 07:07 12/05/16 11:25 Glucose (Fingerstick) 92 mg/dL (70-99) 83 mg/dL (70-99) HERMES LAYTON MD Dec 05, 2016 16:34
[2016-12-05 19:00] VITALS: BP 117/51
[2016-12-05] MEDS ORDERED: INSULIN DETEMIR 300 UNITS/3 ML INSULN.PEN. SQ SCH (21:00)
[2016-12-05] MEDS: LIDOCAINE (700MG/PATCH) PATCH. TP SCH (21:14)
[2016-12-05] MEDS: QUEtiapine 25 MG TABLET. PO SCH (21:15)
[2016-12-05 23:00] VITALS: BP 120/53
--- NOTE | 2016-12-05 23:55 | PDOC ---
Provider Note Provider Note RENAL F/U : WILLIAM S : No new issues. O : VSS Afebrile. Neck : Supple Lungs : Non labored. CVS : RRR Abd : Benign in appearance, without distention. Ext : Trace edema Neuro : Awake. Labs reviewed. A/P : ARF/ATN ELECTROLYTE IMBALANCE HTN w CKD II Tolerating TPN well. Labs. CPM. AIDAN THOMAS MD Dec 05, 2016 23:55
[2016-12-06 03:00] VITALS: BP 121/56
[2016-12-06 07:00] VITALS: BP 125/50
[2016-12-06] MEDS: CARVEDILOL 12.5 MG TABLET. PO SCH (08:00)
[2016-12-06] MEDS: INSULIN ASPART 300 UNITS/3 ML INSULN.PEN SQ SCH ×2 (08:00→12:00)
[2016-12-06] MEDS: ASPIRIN ENTERIC COATED 81 MG TABLET.DR. PO SCH (08:00)
--- NOTE | 2016-12-06 08:52 | PDOC ---
Infectious Disease Note Subjective Subjective says feeling good wants to go home ROS ROS GEN: Denies fevers, chills, sweats HEENT: Denies blurred vision, sore throat CV: Denies chest pain RESP: Denies shortness of air, cough GI: Denies n/v/d NEURO: Denies confusion, dizziness Vital Sign Vital Signs Vital Signs Date Time Temp Pulse Resp B/P (MAP) Pulse Ox O2 Delivery O2 Flow Rate FiO2 12/06/16 07:00 96.3 71 18 125/50 (75) 100 Room Air 96.3 Physical Exam PHYSICAL EXAM GENERAL: NAD, Alert HEENT: PERRL, OC/OP NECK: Supple, no JVD, no LN LUNGS: Clear HEART: S1S2, no gallop, no murmur ABD: Soft, NT, no organomegaly, no rebound EXT: No edema, 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 POA. Acinetobacter Klebsiella x 2 spp UTI - POA Ampicillin allergy. Reaction unknown Acute encephalopathy, better Hypotension - improved lactic acidosis [place] on CKD, improved Loose stools. c. diff neg 11/08 & 11/25. DM II with hypoglycemia Chronic pain Plan Plan of Care d/c to NH on cipro for 6 more days ISA STORY MD Dec 06, 2016 08:52
[2016-12-06] MEDS: amLODIPine BESYLATE 10 MG TABLET PO SCH (09:00)
[2016-12-06] MEDS: ISOSORBIDE MONONITRATE ER 30 MG TAB.ER.24H PO SCH (09:00)
[2016-12-06] MEDS: GABAPENTIN 100 MG CAPSULE. PO SCH (09:00)
[2016-12-06] MEDS: CIPROFLOXACIN HCL 250 MG TABLET. PO SCH (09:00)
[2016-12-06] MEDS: hydrALAZINE 10 MG TABLET PO SCH ×2 (09:00→14:28)
[2016-12-06] MEDS: ALLOPURINOL 100 MG TABLET. PO SCH (09:00)
--- NOTE | 2016-12-06 10:03 | PDOC ---
PROGRESS NOTES Assessment Problems Medical Problems: (1) Acute kidney injury Status: Acute (2) Altered level of consciousness Status: Acute (3) Hypoglycemia associated with type 2 diabetes mellitus Status: Acute (4) Hypokalemia Status: Acute (5) Opiate overdose Status: Acute Metabolic encephalopathy in the setting of dementia from schizophrenia and depression, she is actually at her best mental status today as I see her. Plan Neurology signs off Subjective She says she wants to go home with me Objective Vital Signs Date Time Temp Pulse Resp B/P (MAP) Pulse Ox O2 Delivery O2 Flow Rate FiO2 12/06/16 07:00 96.3 71 18 125/50 (75) 100 Room Air 96.3 Intake and Output 12/06/16 07:00 Intake Total 300 ml Output Total 750 ml Balance -450 ml Intake Oral 300 ml Output Urine Total 750 ml # Voids 1 # Bowel Movements 2 PHYSICAL EXAM Alert. Oriented to place and person. PERRL. EOMI. CN: no focal findings. Muscle tone: normal. Muscle strength: 3/5 DTR: 1+ Plantar reflex: flexor Gait: not examined in bed. Sensory exam: no abnormal findings. No cerebellar signs elicited. Review of Relevant I have reviewed the following items forest (where applicable) has been applied. Labs Laboratory Tests Test 12/04/16 11:34 12/04/16 12:30 12/04/16 16:13 12/04/16 20:25 Glucose (Fingerstick) 254 mg/dL (70-99) 142 mg/dL (70-99) 144 mg/dL (70-99) Sodium Level 143 mmol/L (136-145) Potassium Level 3.5 mmol/L (3.5-5.1) Chloride Level 109 mmol/L (98-107) Carbon Dioxide Level 25 mmol/L (21-32) Anion Gap 9 (6-14) Blood Urea Nitrogen 43 mg/dL (7-20) Creatinine 1.1 mg/dL (0.6-1.0) Estimated GFR (Cockcroft-Gault) 59.1 BUN/Creatinine Ratio 39 (6-20) Glucose Level 212 mg/dL (70-99) Calcium Level 8.4 mg/dL (8.5-10.1) Total Bilirubin 0.5 mg/dL (0.2-1.0) Aspartate Amino Transf (AST/SGOT) 90 U/L (15-37) Alanine Aminotransferase (ALT/SGPT) 71 U/L (14-59) Alkaline Phosphatase 98 U/L (46-116) Ammonia 12 mcmol/L (11-34) Total Protein 5.5 g/dL (6.4-8.2) Albumin 2.1 g/dL (3.4-5.0) Albumin/Globulin Ratio 0.6 (1.0-1.7) Test 12/05/16 01:51 12/05/16 04:13 12/05/16 04:15 12/05/16 07:07 Glucose (Fingerstick) 98 mg/dL (70-99) 96 mg/dL (70-99) 92 mg/dL (70-99) Creatine Kinase 310 U/L (26-192) Test 12/05/16 11:25 12/05/16 21:47 12/05/16 22:04 12/06/16 05:45 Glucose (Fingerstick) 83 mg/dL (70-99) 71 mg/dL (70-99) 73 mg/dL (70-99) Creatine Kinase 422 U/L (26-192) Test 12/06/16 07:14 Glucose (Fingerstick) 81 mg/dL (70-99) Laboratory Tests Test 12/05/16 11:25 12/05/16 21:47 12/05/16 22:04 12/06/16 05:45 Glucose (Fingerstick) 83 mg/dL (70-99) 71 mg/dL (70-99) 73 mg/dL (70-99) Creatine Kinase 422 U/L (26-192) Test 12/06/16 07:14 Glucose (Fingerstick) 81 mg/dL (70-99) Microbiology 11/25/16 Blood Culture - Final, Complete NO GROWTH AFTER 5 DAYS 11/25/16 Urine Culture - Final, Complete 11/25/16 Urine Culture Result 1 (JUDITH) - Final, Complete 11/25/16 Urine Culture Result 2 (JUDITH) - Final, Complete 11/25/16 Antimicrobic Susceptibility - Final, Complete Medications Current Medications Potassium Chloride (KCl Oral Soln) 40 meq 1X ONCE PO Last administered on 11/25t 14:07; Start 11/25/16 at 12:45; Stop 11/25/16 at 12:46; Status DC Potassium Chloride/Dextrose/ Sod Cl 1,000 ml @ 75 mls/hr 1X ONCE IV Last administered on 11/25/16 15:16; Start 11/25/16 at 13:30; Stop 11/26/16 at 08:26 ; Status DC Allopurinol (Zyloprim) 100 mg DAILY PO Last administered on 12/05/16 09:54; Start 11/26/16 at 09:00 Aspirin (Ecotrin) 81 mg DAILY08 PO Last administered on 12/05/16 09:57; Start 11/26/16 at 08:00 Carvedilol (Coreg) 25 mg BIDWMEALS PO Last administered on 12/05/16 09:57; Start 11/26/16 at 08:00 Clonidine HCl (Catapres Tts-3) 1 patch WEEKLY TD Last administered on 12/03/16 09:07; Start 11/26/16 at 09:00 Colchicine (Colcrys) 0.6 mg BID PO Last administered on 12/04/16 08:12; Start 11/25/16 at 21:00; Stop 12/04/16 at 11:30; Status DC Cyclosporine (Restasis) 1 drop BID OU Last administered on 12/05/16 21:14; Start 11/25/16 at 21:00 Furosemide (Lasix) 40 mg BID94 PO ; Start 11/26/16 at 09:00; Stop 11/26/16 at 09 :00; Status DC Gabapentin (Neurontin) 100 mg BID PO Last administered on 12/05/16 21:14; Start 11/25/16 at 21:00 Isosorbide Mononitrate (Imdur) 30 mg DAILY PO Last administered on 12/05/16 09: 55; Start 11/26/16 at 09:00 Lidocaine (Lidoderm) 1 patch HS TP Last administered on 12/05/16 21:14; Start 11/25/16 at 21:00 Oxycodone/ Acetaminophen (Percocet 5/325) 1 tab PRN BID PRN PO PAIN SEVERE; Start 11/25/16 at 20:00 Quetiapine Fumarate (SEROquel) 25 mg BID PO ; Start 11/25/16 at 21:00; Stop at 11:18; Status DC Magnesium Sulfate/ Dextrose 50 ml @ 25 mls/hr PRN DAILY PRN IV for Mag < 1.7 on am labs Last administered on 11/28/16 14:49; Start 11/26/16 at 08:15 Potassium Acetate 40 meq/Sodium Chloride 1,020 ml @ 75 mls/hr [id number] IV Last administered on 11/27/16 02:35; Start 11/26/16 at 09:00; Stop 11/27/16 at 06:23 ; Status DC Potassium Chloride (Klor-Con) 40 meq TIDWMEALS PO Last administered on 17:08; Start 11/26/16 at 09:00; Stop 11/27/16 at 08:08; Status DC Sodium Chloride 500 ml @ 0 mls/hr QID PRN IV UO< 30cc/hr over previous 6hrs; Start 11/26/16 at 08:15; Stop 11/28/16 at 11:03; Status DC Vancomycin HCl (Vanco Per Pharmacy) 1 each PRN DAILY PRN MC SEE COMMENTS; Start 11/26/16 at 09:15; Status Cancel Aztreonam 1 gm/ Sodium Chloride 50 ml @ 100 mls/hr Q6HRS IV ; Start 11/26/16 at 10:00; Stop 11/26/16 at 10:56; Status DC Vancomycin HCl 2 gm/Sodium Chloride 500 ml @ 250 mls/hr 1X ONCE IV Last administered on 11/26/16 09:35; Start 11/26/16 at 10:00; Stop 11/26/16 at 11:59 ; Status DC Meropenem 500 mg/ Sodium Chloride 50 ml @ 100 mls/hr Q12HR IV Last administered on 11/26/16 20:49; Start 11/26/16 at 11:00; Stop 11/27/16 at 09:40 ; Status DC Vancomycin HCl 1.25 gm/Sodium Chloride 250 ml @ 167 mls/hr Q48H IV ; Start at 09:30; Status Cancel Vancomycin HCl 1 each 1X ONCE MC ; Start 11/30/16 at 09:00; Stop 11/30/16 at 09: 01; Status Cancel Quetiapine Fumarate (SEROquel) 25 mg HS PO Last administered on 12/05/16 21:15 ; Start 11/26/16 at 21:00 Insulin Detemir (Levemir) 10 units QHS SQ Last administered on 12/03/16 22:47; Start 11/26/16 at 21:00; Stop 12/04/16 at 11:34; Status DC Insulin Aspart (NovoLOG) 0-7 UNITS TIDWMEALS SQ Last administered on 12/04/16 12:18; Start 11/26/16 at 17:00 Dextrose (Dextrose 50%-Water Syringe) 12.5 gm PRN Q15MIN PRN IV SEE COMMENTS; Start 11/26/16 at 14:00 Haloperidol (Haldol) 5 mg 1X ONCE PO Last administered on 11/27/16 02:25; Start 11/27/16 at 02:00; Stop 11/27/16 at 02:01; Status DC Haloperidol Lactate (Haldol) 5 mg 1X ONCE IVP Last administered on 11/27/16 06:31; Start 11/27/16 at 06:30; Stop 11/27/16 at 06:31; Status DC Sodium Polystyrene Sulfonate (Kayexalate) 30 gm 1X ONCE PO Last administered on 11/27/16 06:31; Start 11/27/16 at 07:00; Stop 11/27/16 at 07:01; Status DC Haloperidol Lactate (Haldol) 5 mg PRN Q6HRS PRN IVP AGITATION Last administered on 11/27/16 17:28; Start 11/27/16 at 08:15 Sodium Chloride 1,000 ml @ 100 mls/hr 1X ONCE IV Last administered on 12:24; Start 11/27/16 at 08:15; Stop 11/27/16 at 18:14; Status DC Meropenem 500 mg/ Sodium Chloride 50 ml @ 100 mls/hr Q8HRS IV Last administered on 11/28/16 06:22; Start 11/27/16 at 14:00; Stop 11/28/16 at 10:34 ; Status DC Lorazepam (Ativan) 2 mg PRN Q4HRS PRN IV ANXIETY / AGITATION Last administered on 11/28/16 23:23; Start 11/27/16 at 09:45 Sodium Phosphate 20 mmol/Dextrose 256.6667 ml @ 64.167 m... Q4HRS IV Last administered on 11/27/16 17:02; Start 11/27/16 at 12:00; Stop 11/27/16 at 19:59 ; Status DC Dextrose/Sodium Chloride 1,000 ml @ 100 mls/hr Q10H IV Last administered on 01:32; Start 11/27/16 at 10:15; Stop 11/28/16 at 11:03; Status DC Sodium Polystyrene Sulfonate (Kayexalate) 15 gm 1X PRN PRN PO for repeat K > 5.3; Start 11/27/16 at 10:15 Sodium Polystyrene Sulfonate (Kayexalate) 30 gm 1X ONCE PO ; Start 11/27/16 at 12:00; Stop 11/27/16 at 12:01; Status DC Meropenem 500 mg/ Sodium Chloride 50 ml @ 100 mls/hr Q6HRS IV Last administered on 11/30/16 05:13; Start 11/28/16 at 12:00; Stop 11/30/16 at 11:46; Status DC Magnesium Sulfate/ Dextrose 100 ml @ 100 mls/hr 1X ONCE IV Last administered on 11/28/16 13:01; Start 11/28/16 at 11:30; Stop 11/28/16 at 12:29; Status DC Amino Acids/ Glycerin/ Electrolytes 1,000 ml @ 80 mls/hr [id number] IV Last administered on 12/01/16 06:22; Start 11/28/16 at 12:00; Stop 12/01/16 at 11:35; Status DC Ceftriaxone Sodium 1 gm/ Sodium Chloride 50 ml @ 100 mls/hr Q24H IV Last administered on 12/03/16 12:08; Start 11/30/16 at 12:00; Stop 12/04/16 at 09:19; Status DC Ciprofloxacin Lactate 200 ml @ 200 mls/hr Q12HR IV Last administered on 08:17; Start 11/30/16 at 13:00; Stop 12/04/16 at 09:19; Status DC Info 1 each PRN DAILY PRN MC SEE COMMENTS Last administered on 12/03/16 12:57; Start 12/01/16 at 11:45; Stop 12/04/16 at 12:20; Status DC Sodium Polystyrene Sulfonate (Kayexalate) 30 gm 1X ONCE PO Last administered on 12/01/16 14:08; Start 12/01/16 at 11:45; Stop 12/01/16 at 11:46; Status DC Sodium Chloride 90 meq/Sodium Phosphate 12 mmol/ Magnesium Sulfate 10 meq/ Calcium Gluconate 10 meq/ Multivitamins 10 ml/Chromium/ Copper/Manganese/ Seleni /Zn 1 ml/ Total Parenteral Nutrition/Amino Acids/Dextrose/ Fat Emulsion Intravenous 1,512 ml @ 63 mls/hr TPN CONT IV Last administered on 12/02/16 00 :21; Start 12/01/16 at 22:00; Stop 12/02/16 at 21:59; Status DC Sodium Chloride 40 meq/Sodium Phosphate 12 mmol/ Magnesium Sulfate 10 meq/ Calcium Gluconate 10 meq/ Multivitamins 10 ml/Chromium/ Copper/Manganese/ Seleni /Zn 1 ml/ Sodium Acetate 50 meq/Insulin Human Regular 10 unit/ Total Parenteral Nutrition/Amino Acids/Dextrose/ Fat Emulsion Intravenous 1,512 ml @ 63 mls/hr TPN CONT IV Last administered on 12/03/16 00:20; Start 12/02/16 at 22:00; Stop 12/03/16 at 21:59; Status DC Insulin Aspart (NovoLOG) 15 units 1X ONCE SQ Last administered on 12/02/16 11: 25; Start 12/02/16 at 11:15; Stop 12/02/16 at 11:16; Status DC Amlodipine Besylate (Norvasc) 10 mg DAILY PO Last administered on 12/05/16 09: 54; Start 12/02/16 at 15:30 Sodium Chloride 20 meq/Sodium Phosphate 8 mmol/ Magnesium Sulfate 10 meq/ Calcium Gluconate 10 meq/ Multivitamins 10 ml/Chromium/ Copper/Manganese/ Seleni /Zn 1 ml/ Sodium Acetate 30 meq/Insulin Human Regular 15 unit/ Potassium Acetate 30 meq/Total Parenteral Nutrition/Amino Acids/Dextrose/ Fat Emuls... 1, 512 ml @ 63 mls/hr TPN CONT IV ; Start 12/03/16 at 22:00; Stop 12/03/16 at 22:00 ; Status DC Sodium Chloride 20 meq/Sodium Phosphate 8 mmol/ Magnesium Sulfate 10 meq/ Calcium Gluconate 10 meq/ Multivitamins 10 ml/Chromium/ Copper/Manganese/ Seleni /Zn 1 ml/ Sodium Acetate 30 meq/Insulin Human Regular 20 unit/ Potassium Acetate 30 meq/Total Parenteral Nutrition/Amino Acids/Dextrose/ Fat Emuls... 1, 512 ml @ 63 mls/hr TPN CONT IV Last administered on 12/03/16 22:46; Start 12/03/16 at 22:00; Stop 12/04/16 at 21:59; Status DC Ciprofloxacin (Cipro) 500 mg BID PO Last administered on 12/05/16 21:15; Start 12/04/16 at 21:00 Insulin Detemir (Levemir) 17 units QHS SQ Last administered on 12/04/16 21:44; Start 12/04/16 at 21:00; Stop 12/05/16 at 17:06; Status DC Hydralazine HCl (Apresoline) 10 mg TID PO Last administered on 12/05/16 21:14; Start 12/04/16 at 14:00 Insulin Detemir (Levemir) 10 units QHS SQ Last administered on 12/05/16 21:52; Start 12/05/16 at 21:00 Active Scripts Active Reported Aspir 81 (Aspirin) 81 Mg Tablet.dr 1 Tab PO DAILY Allopurinol 100 Mg Tablet 1 Tab PO DAILY Colcrys (Colchicine) 0.6 Mg Tablet 1 Tab PO BID Lidoderm (Lidocaine) 700 Mg Adh..patch 1 Patch TP HS Gabapentin 100 Mg Capsule 100 Mg PO BID Hydralazine Hcl 100 Mg Tablet 1 Tab PO TID Furosemide 40 Mg Tablet 40 Mg PO BID Oxycodone-Acetaminophen 5-325 (Oxycodone Hcl/Acetaminophen) 1 Each Tablet 1 Each PO BID PRN Restasis (Cyclosporine) 1 Each Droperette 1 Drop EACHEYE BID Isosorbide Mononitrate Er (Isosorbide Mononitrate) 30 Mg Tab.er.24h 30 Mg PO DAILY Quetiapine Fumarate 25 Mg Tablet 25 Mg PO HS Coreg (Carvedilol) 12.5 Mg Tablet 25 Mg PO BID Catapres-Tts 3 (Clonidine) 1 Each Patch.tdwk 1 Each TD WEEKLY Pletal (Cilostazol) 100 Mg Tablet 100 Mg PO DAILYBFRLUN Acetaminophen Ext.release (Acetaminophen) 650 Mg Tablet.er 650 Mg PO Q6HRS PRN Levemir Flexpen (Insulin Detemir) 100 Unit/1 Ml Insuln.pen 14 Unit SQ DAILYWSUP Humalog (Insulin Lispro) 100 Unit/1 Ml Cartridge 3 Unit SQ TIDAC Glucagon Emergency Kit (Glucagon,Human Recombinant) 1 Mg Kit 1 Mg IJ Vitals/I & O Vital Sign - Last 24 Hours 12/05/16 12/05/16 12/05/16 12/05/16 10:30 14:00 15:30 17:00 Temp 96.6 96.3 96.6 96.3 Pulse 70 75 75 75 Resp 18 18 B/P (MAP) 145/57 (86) 99/34 99/34 (55) 99/34 Pulse Ox 100 96 O2 Delivery Room Air Room Air 12/05/16 12/05/16 12/05/16 12/05/16 19:00 20:00 21:14 23:00 Temp 100.0 99.0 100.0 99.0 Pulse 74 74 70 Resp 16 16 B/P (MAP) 117/51 (73) 117/51 120/53 (75) Pulse Ox 74 97 O2 Delivery Room Air Room Air Room Air 12/06/16 12/06/16 03:00 07:00 Temp 98.4 96.3 98.4 96.3 Pulse 71 71 Resp 17 18 B/P (MAP) 121/56 (77) 125/50 (75) Pulse Ox 99 100 O2 Delivery Room Air Room Air Intake and Output 12/05/16 12/05/16 12/06/16 15:00 23:00 07:00 Intake Total 300 ml 0 ml Output Total 400 ml 350 ml Balance 300 ml -400 ml -350 ml BRANDAN SPAULDING MD Dec 06, 2016 10:02
[2016-12-06] MEDS: cycloSPORINE 0.05% OPTH 1 DROP DROPERETTE OU SCH (10:21)
[2016-12-06 10:30] VITALS: BP 169/56
--- NOTE | 2016-12-06 10:48 | PDOC ---
PROGRESS NOTES Chief Complaint Chief Complaint ASSESSMENT AND PLAN: 1. Metabolic encephalopathy on chronic baseline dementia: ongoing, waxing and waning. appreciate Dr Agustin's input: no further W/U warranted, chronic baseline 2. Sepsis: Acinetobacter. (see 3.) 3. UTI: Klebsiella spp x2: on cipro for [address] Alarcon 4. Hypokalemia: resolved 5. DM: currently poorly controlled, prob related to TPN. increased levemir 6. Agitation: unclear etiology; resolved. no ativan or haldol for 4+ days. seroquel only qHS 7. 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 stop colchrys 8. HTN: poorly controlled; on catapres and norvasc and carvedilol maxed out. add hydralazine 9. CHF: diastolic (LVEF 60-65%, normal valves, normal segmental wall motion; ). no acute issues 10. PVD: hx CVA 11. Anemia: chronic, stable 12. Constipation: on bowel regimen 13. Depression: cont home meds 14. Nutrition: on TPN 2/ AMS. start PO feeds, wean TPN 15. Dispo: back to [place] today History of Present Illness History of Present Illness waking easily, responding appropriately. PO intake about 25% here, but per family at bedside, about the same as in [place]. Vitals Vitals Vital Signs Date Time Temp Pulse Resp B/P (MAP) Pulse Ox O2 Delivery O2 Flow Rate FiO2 12/06/16 07:00 96.3 71 18 125/50 (75) 100 Room Air 96.3 Physical Exam General: Alert, Cooperative, No acute distress Heart: Regular rate, Normal S1, Normal S2 Lungs: Clear Abdomen: Normal bowel sounds, Soft Extremities: No clubbing, No cyanosis Skin: No rashes, No breakdown, No significant lesion Labs LABS Laboratory Tests Test 12/05/16 11:25 12/05/16 21:47 12/05/16 22:04 12/06/16 05:45 Glucose (Fingerstick) 83 mg/dL (70-99) 71 mg/dL (70-99) 73 mg/dL (70-99) Creatine Kinase 422 U/L (26-192) Test 12/06/16 07:14 Glucose (Fingerstick) 81 mg/dL (70-99) HERMES LAYTON MD Dec 06, 2016 10:48
[2016-12-06] MEDS ORDERED: INSU100I27 SQ (11:09)
[2016-12-06] MEDS ORDERED: INSU100I17 SQ (11:09)
[2016-12-06] MEDS ORDERED: FURO40TA4 PO (11:13)
[2016-12-06] MEDS ORDERED: CIPR250T30 PO (11:13)
[2016-12-06 14:30] VITALS: BP 150/58
--- NOTE | 2016-12-06 18:36 | PDOC ---
Provider Note Provider Note RENAL F/U : WILLIAM S : No new issues. O : VSS Afebrile. Neck : Supple Lungs : Non labored. CVS : RRR Abd : Benign in appearance, without distention. Ext : Trace edema Neuro : Awake. Labs reviewed. A/P : ARF/ATN ELECTROLYTE IMBALANCE HTN w CKD II Labs. CPM. AIDAN THOMAS MD Dec 06, 2016 18:36
--- NOTE | 2016-12-08 03:34 | DS ---
DATE OF DISCHARGE: 12/06/2016 CHIEF COMPLAINT: Sepsis. HOSPITAL COURSE: The patient is a 71-year-old residential patient, who presented with mental status changes and was found with Acinetobacter in her blood as well as Klebsiella species in her urine. ID consult was obtained and she was started on antibiotics, which ultimately was switched to Cipro prior to discharge. Her mental status improved some as she was able to eat on her home. However, the patient has underlying chronic dementia with waxing and waning. Neurology consult had been obtained as well to elucidate any other workup required and no further interventions were undertaken. Her mild acute kidney injury was attributed to dehydration and infection and indeed improved with IV fluids. She came back to her baseline CKD. Colcrys was stopped as she did not have any acute kidney injuries and is on allopurinol for her gout. PHYSICAL EXAMINATION: Please refer to note from same day, discharge date 12/06/2016. DISCHARGE DIAGNOSES: Sepsis, urinary tract infection, and metabolic encephalopathy. DISCHARGE DISPOSITION: To residential. DISCHARGE CONDITION: Improved. DISCHARGE MEDICATIONS: Please refer to the transfer sheet. DISCHARGE INSTRUCTIONS: The patient will follow up with residential physician within 1 week. HERMES LAYTON MD DR: UR/nts JOB#: [id number] / [id number] JULEE Dupree MD MTDD
== END 2016-12-06 16:00 | DRG 871 ==
LOC: ER 11:59 → 5 NORTH 13:20
PROVIDERS: ADMIT Internal Medicine; ATTEND Internal Medicine
PROC: 02HV33Z Insertion of Infusion Device into Superior Vena Cava, Percutaneous Approach (ICD-10-PCS; principal; 2016-12-01)
DX: A41.9 Sepsis, unspecified organism (principal); N17.0 Acute kidney failure with tubular necrosis; G93.41 Metabolic encephalopathy; N39.0 Urinary tract infection, site not specified; I13.0 Hypertensive heart and chronic kidney disease with heart failure and stage 1 through stage 4 chronic kidney disease, or unspecified chronic kidney disease; I50.42 Chronic combined systolic (congestive) and diastolic (congestive) heart failure; B96.89 Other specified bacterial agents as the cause of diseases classified elsewhere; E11.51 Type 2 diabetes mellitus with diabetic peripheral angiopathy without gangrene; E11.42 Type 2 diabetes mellitus with diabetic polyneuropathy; E11.22 Type 2 diabetes mellitus with diabetic chronic kidney disease; D64.9 Anemia, unspecified; B96.1 Klebsiella pneumoniae [K. pneumoniae] as the cause of diseases classified elsewhere; E11.649 Type 2 diabetes mellitus with hypoglycemia without coma; R34 Anuria and oliguria; E11.65 Type 2 diabetes mellitus with hyperglycemia; E66.9 Obesity, unspecified; T40.601A Poisoning by unspecified narcotics, accidental (unintentional), initial encounter; E78.5 Hyperlipidemia, unspecified; E87.5 Hyperkalemia; E87.6 Hypokalemia; F02.80 Dementia in other diseases classified elsewhere, unspecified severity, without behavioral disturbance, psychotic disturbance, mood disturbance, and anxiety; F25.9 Schizoaffective disorder, unspecified; F32.9 Major depressive disorder, single episode, unspecified; G89.29 Other chronic pain; H54.41 Blindness, right eye, normal vision left eye; K21.9 Gastro-esophageal reflux disease without esophagitis; E53.8 Deficiency of other specified B group vitamins; G47.00 Insomnia, unspecified; M19.90 Unspecified osteoarthritis, unspecified site; K59.00 Constipation, unspecified; M10.9 Gout, unspecified; N18.3 Chronic kidney disease, stage 3 (moderate); Z79.4 Long term (current) use of insulin; Z82.49 Family history of ischemic heart disease and other diseases of the circulatory system; Z86.73 Personal history of transient ischemic attack (TIA), and cerebral infarction without residual deficits; Z87.891 Personal history of nicotine dependence; Z88.1 Allergy status to other antibiotic agents; Z88.8 Allergy status to other drugs, medicaments and biological substances; Z90.49 Acquired absence of other specified parts of digestive tract; Z68.35 Body mass index [BMI] 35.0-35.9, adult; Y92.89 Other specified places as the place of occurrence of the external cause
CPT/HCPCS: 36415; 36569; 36600; 71010; 80053; 80069; 81001; 82140; 82550; 82805; 82962; 83605; 83615; 83690; 83735; 84132; 84443; 84550; 85007; 85027; 85610; 85730; 87040; 87086; 87186; 87205; 87324; 87641; 93005; J0610; J0696; J0744; J1630; J1815; J2060; J2185; J3370; J3475; J7030; J7040; J7042; J7060; 97110; 97530; 97535; 99285-25